=== PATIENT | female | born 1945 | race Caucasian/White ===

== ENCOUNTER 2016-12-02 09:22 | Observation (INO) | payer MEDICARE ==
[2016-12-02] MEDS ORDERED: SODIUM CHLORIDE 0.9% 1,000 ML IV STA ×2 (09:32)
--- NOTE | 2016-12-02 09:32 | ED ---
General Adult HPI - General Chief complaint: Dizziness Stated complaint: RT SIDE NECK PAIN, DIZZINESS Time Seen by Provider: 12/02/16 09:31 Source: patient, RN notes reviewed, old records reviewed Mode of arrival: wheelchair Limitations: no limitations - History of Present Illness Initial comments: This is a 71-year-old female the ER for reevaluation dizziness, room spinning, nausea. Weakness feels like she'll pass out. Patient is no prior history of similar dizziness or complaints. Pains and symptoms are yesterday she is going to the hospital at the time but did not calm. Patient describes a thought of getting better she had to come be checked out. No neurological deficits, no headache - Related Data Home Medications Medication Instructions Recorded Confirmed Albuterol Inhaler [Ventolin Hfa 2 puff INHALATION RT-Q6H PRN 04/23/15 12/02/16 Inhaler] Citalopram Hydrobromide [CeleXA] 20 mg PO DAILY 04/23/15 12/02/16 Lisinopril [Zestril] 5 mg PO DAILY 04/23/15 12/02/16 Omeprazole [PriLOSEC] 20 mg PO AC-BRKFST 04/23/15 12/02/16 metFORMIN HCL [Glucophage] 850 mg PO AC-SUPPER 04/23/15 12/02/16 Calcium Carbonate [Calcium] 600 mg PO DAILY 12/02/16 12/02/16 [place]-3 Fatty Acids/Fish Oil [Fish 1 cap PO DAILY 12/02/16 12/02/16 Oil 1,000 mg Softgel] Rivaroxaban [Xarelto] 20 mg PO HS 12/02/16 12/02/16 Simvastatin [Zocor] 40 mg PO HS 12/02/16 12/02/16 Verapamil [Isoptin] 40 mg PO BID 12/02/16 12/02/16 tiZANidine HCL [Zanaflex] 4 mg PO BID PRN 12/02/16 12/02/16 Allergies Allergy/AdvReac Type Severity Reaction Status Date / Time latex Allergy Rash/Hives Verified 12/02/16 09:52 Penicillins Allergy Rash/Hives Verified 12/02/16 09:52 Review of Systems ROS Statement: Those systems with pertinent positive or pertinent negative responses have been documented in the HPI. ROS Other: All systems not noted in ROS Statement are negative. Past Medical History Past Medical History: Asthma, COPD, CVA/TIA, Diabetes Mellitus, Deep Vein Thrombosis (DVT), Hyperlipidemia, Hypertension, Osteoarthritis (OA), Pneumonia Additional Past Medical History / Comment(s): tan's esophagus, TIA'S X4, PSORIASES, SCIATIC NERVE PAIN, ABD ANEURYSM PT NOT SURE OF SIZE, SCIATIC NERVE PAIN, History of Any Multi-Drug Resistant Organisms: None Reported Past Surgical History: Appendectomy, Cholecystectomy, Hernia Repair, Orthopedic Surgery Additional Past Surgical History / Comment(s): vein stripping, RT CATARACT- LENS IMPLANT, orif rt wrist has plate/screws, BREAST BX NEG, ABD HERNIA, COLONOSCOPY Past Anesthesia/Blood Transfusion Reactions: No Reported Reaction Past Psychological History: Depression Smoking Status: Former smoker Past Alcohol Use History: None Reported Past Drug Use History: None Reported - Past Family History Father History Unknown: Yes Mother History Unknown: Yes General Exam Limitations: no limitations General appearance: alert, in no apparent distress Head exam: Present: atraumatic, normocephalic, normal inspection Eye exam: Present: normal appearance, PERRL, EOMI. Absent: scleral icterus, conjunctival injection, periorbital swelling ENT exam: Present: normal exam, mucous membranes moist Neck exam: Present: normal inspection. Absent: tenderness, meningismus, lymphadenopathy Respiratory exam: Present: normal lung sounds bilaterally. Absent: respiratory distress, wheezes, rales, rhonchi, stridor Cardiovascular Exam: Present: regular rate, normal rhythm, normal heart sounds. Absent: systolic murmur, diastolic murmur, rubs, gallop, clicks GI/Abdominal exam: Present: soft, normal bowel sounds. Absent: distended, tenderness, guarding, rebound, rigid Extremities exam: Present: normal inspection, full ROM, normal capillary refill. Absent: tenderness, pedal edema, joint swelling, calf tenderness Back exam: Present: normal inspection Neurological exam: Present: alert, oriented X3, CN II-XII intact Psychiatric exam: Present: normal affect, normal mood Skin exam: Present: warm, dry, intact, normal color. Absent: rash Course Vital Signs 12/02/16 12/02/16 12/02/16 09:25 10:55 11:22 Temperature 98.0 F Pulse Rate 93 93 84 Respiratory 18 18 18 Rate Blood Pressure 190/81 102/76 121/83 O2 Sat by Pulse 95 94 L 96 Oximetry - Reevaluation(s) Reevaluation #1: 12/02/16 11:53 Spoke with patient regarding test results. She is informed that everything is normal time. That she still does not feel well, feels like she may pass out EKG Findings - EKG Comments: EKG Findings:: EKG shows normal sinus rate of 84, TN 128, QRS 84, QTC 439 Medical Decision Making - Medical Decision Making 71 female here for evaluation of near syncopal event not feeling well weakness and dizziness. CT level is normal. Patient given for neurocardiogenic observation - Lab Data Result diagrams: 12/02/16 10:06 12/02/16 10:06 Lab Results 12/02/16 12/02/16 12/02/16 Range/Units 10:06 10:06 10:06 WBC 8.8 (3.8-10.6) k/uL RBC 4.89 (3.80-5.40) m/uL Hgb 15.0 (11.4-16.0) gm/dL Hct 45.7 (34.0-46.0) % MCV 93.4 (80.0-100.0) fL MCH 30.6 (25.0-35.0) pg MCHC 32.7 (31.0-37.0) g/dL RDW 14.8 (11.5-15.5) % Plt Count 250 (150-450) k/uL Neutrophils % 67 % Lymphocytes % 21 % Monocytes % 6 % Eosinophils % 3 % Basophils % 1 % Neutrophils # 5.9 (1.3-7.7) k/uL Lymphocytes # 1.8 (1.0-4.8) k/uL Monocytes # 0.5 (0-1.0) k/uL Eosinophils # 0.2 (0-0.7) k/uL Basophils # 0.1 (0-0.2) k/uL PT (9.0-12.0) sec INR (<1.2) APTT (22.0-30.0) sec Sodium 140 (137-145) mmol/L Potassium 4.5 (3.5-5.1) mmol/L Chloride 104 (98-107) mmol/L Carbon Dioxide 24 (22-30) mmol/L Anion Gap 12 mmol/L BUN 14 (7-17) mg/dL Creatinine 0.82 (0.52-1.04) mg/dL Est GFR (MDRD) Af Amer >60 (>60 ml/min/1.73 sqM) Est GFR (MDRD) Non-Af >60 (>60 ml/min/1.73 sqM) Glucose 140 H (74-99) mg/dL Plasma Lactic Acid Jose Angel (0.7-2.0) mmol/L Calcium 10.6 H (8.4-10.2) mg/dL Phosphorus 3.1 (2.5-4.5) mg/dL Magnesium 1.7 (1.6-2.3) mg/dL Total Bilirubin 0.5 (0.2-1.3) mg/dL AST 35 (14-36) U/L ALT 58 H (9-52) U/L Alkaline Phosphatase 99 (38-126) U/L Total Creatine Kinase 64 (30-135) U/L CK-MB (CK-2) 1.2 (0.0-2.4) ng/mL CK-MB (CK-2) Rel Index 1.9 Troponin I <0.012 (0.000-0.034) ng/mL Total Protein 7.7 (6.3-8.2) g/dL Albumin 4.7 (3.5-5.0) g/dL Urine Color Urine Appearance (Clear) Urine pH (5.0-8.0) Ur Specific [place] (1.001-1.035) Urine Protein (Negative) Urine Glucose (UA) (Negative) Urine Ketones (Negative) Urine Blood (Negative) Urine Nitrite (Negative) Urine Bilirubin (Negative) Urine Urobilinogen (<2.0) mg/dL Ur Leukocyte Esterase (Negative) 12/02/16 12/02/16 12/02/16 Range/Units 10:06 10:06 11:14 WBC (3.8-10.6) k/uL RBC (3.80-5.40) m/uL Hgb (11.4-16.0) gm/dL Hct (34.0-46.0) % MCV (80.0-100.0) fL MCH (25.0-35.0) pg MCHC (31.0-37.0) g/dL RDW (11.5-15.5) % Plt Count (150-450) k/uL Neutrophils % % Lymphocytes % % Monocytes % % Eosinophils % % Basophils % % Neutrophils # (1.3-7.7) k/uL Lymphocytes # (1.0-4.8) k/uL Monocytes # (0-1.0) k/uL Eosinophils # (0-0.7) k/uL Basophils # (0-0.2) k/uL PT 11.2 (9.0-12.0) sec INR 1.1 (<1.2) APTT 24.9 (22.0-30.0) sec Sodium (137-145) mmol/L Potassium (3.5-5.1) mmol/L Chloride (98-107) mmol/L Carbon Dioxide (22-30) mmol/L Anion Gap mmol/L BUN (7-17) mg/dL Creatinine (0.52-1.04) mg/dL Est GFR (MDRD) Af Amer (>60 ml/min/1.73 sqM) Est GFR (MDRD) Non-Af (>60 ml/min/1.73 sqM) Glucose (74-99) mg/dL Plasma Lactic Acid Jose Angel 2.0 (0.7-2.0) mmol/L Calcium (8.4-10.2) mg/dL Phosphorus (2.5-4.5) mg/dL Magnesium (1.6-2.3) mg/dL Total Bilirubin (0.2-1.3) mg/dL AST (14-36) U/L ALT (9-52) U/L Alkaline Phosphatase (38-126) U/L Total Creatine Kinase (30-135) U/L CK-MB (CK-2) (0.0-2.4) ng/mL CK-MB (CK-2) Rel Index Troponin I (0.000-0.034) ng/mL Total Protein (6.3-8.2) g/dL Albumin (3.5-5.0) g/dL Urine Color Light Yellow Urine Appearance Clear (Clear) Urine pH 6.0 (5.0-8.0) Ur Specific [place] 1.007 (1.001-1.035) Urine Protein Negative (Negative) Urine Glucose (UA) Negative (Negative) Urine Ketones Negative (Negative) Urine Blood Negative (Negative) Urine Nitrite Negative (Negative) Urine Bilirubin Negative (Negative) Urine Urobilinogen <2.0 (<2.0) mg/dL Ur Leukocyte Esterase Negative (Negative) - Radiology Data Radiology results: report reviewed (CT brain negative for acute disease), image reviewed Disposition Clinical Impression: Dehydration, Near syncope, Weakness Disposition: ADMITTED IP TO THIS [facility] Condition: Fair Referrals: Hope Knowles MD [Primary Care Provider] - 1-2 days
[2016-12-02] MEDS ORDERED: MORPHINE SULFATE 4 MG/ML SYRINGE IVP STA (09:38)
[2016-12-02] MEDS ORDERED: DIAZEPAM 5 MG/ML 2 ML SYRINGE IVP STA (09:38)
[2016-12-02] MEDS ORDERED: ONDANSETRON 4 MG/2 ML VIAL IVP STA (09:38)
[2016-12-02 10:33] LABS: Basophils # (A) 0.1 k/uL (0-0.2); Basophils % (A) 1 %; CH 32.1; CHCM 34.5; Eosinophils # (A) 0.2 k/uL (0-0.7); Eosinophils % (A) 3 %; HCT 45.7 % (34.0-46.0); HDW 2.64; Luc # (Auto) 0.24; Luc % (Auto) 3; Lymphocytes # (A) 1.8 k/uL (1.0-4.8); Lymphocytes % (A) 21 %; MCH 30.6 pg (25.0-35.0); MCHC 32.7 g/dL (31.0-37.0); MCV 93.4 fL (80.0-100.0); Mean Platelet Volume 7.4; Monocytes # (A) 0.5 k/uL (0-1.0); Monocytes % (A) 6 %; Neutrophils # (A) 5.9 k/uL (1.3-7.7); Neutrophils % (A) 67 %; RBC 4.89 m/uL (3.80-5.40); RDW 14.8 % (11.5-15.5); WBC 8.8 k/uL (3.8-10.6); WBC (Perox) 8.51
[2016-12-02 10:37] LABS: INR 1.1 (<1.2); Partial Thromboplastin Time 24.9 sec (22.0-30.0); Prothrombin Time 11.2 sec (9.0-12.0)
[2016-12-02 10:39] LABS: ALT 58 U/L (9-52); AST 35 U/L (14-36); Alkaline Phosphatase 99 U/L (38-126); Anion Gap 12 mmol/L; Blood Urea Nitrogen 14 mg/dL (7-17); Calcium 10.6 mg/dL (8.4-10.2); Carbon Dioxide 24 mmol/L (22-30); Chloride 104 mmol/L (98-107); Glucose 140 mg/dL (74-99); Magnesium 1.7 mg/dL (1.6-2.3); Non-African American GFR(MDRD) >60 (>60 ml/min/1.73 sqM); Phosphorous 3.1 mg/dL (2.5-4.5); Potassium 4.5 mmol/L (3.5-5.1); Sodium 140 mmol/L (137-145); Total Bilirubin 0.5 mg/dL (0.2-1.3); Total Protein 7.7 g/dL (6.3-8.2)
[2016-12-02 10:51] LABS: Creatine Kinase 64 U/L (30-135)
--- NOTE | 2016-12-02 10:52 | CT ---
EXAMINATION TYPE: CT brain wo con DATE OF EXAM: 12/02/2016 HISTORY: Dizziness for two days CT DLP: 1090.4 mGycm. Automated Exposure Control for Dose Reduction was Utilized. TECHNIQUE: CT scan of the head is performed without contrast. COMPARISON: CT brain March 16, 2012. FINDINGS: There is no acute intracranial hemorrhage or midline shift identified. There is diffuse v entricular and sulcal prominence consistent with diffuse age-related cerebral atrophy. There is low- attenuation in the periventricular white matter consistent with chronic small vessel ischemic change. The globes are intact and the visualized sinuses are clear. IMPRESSION: No acute intracranial hemorrhage or midline shift. There is moderate diffuse age-relate d cerebral atrophy and chronic small vessel ischemic change redemonstrated. Progression in findings 2011 CT is noted.
--- NOTE | 2016-12-02 10:59 | XR ---
EXAMINATION TYPE: XR chest 2V DATE OF EXAM: 12/02/2016 COMPARISON: 04/23/2015 TECHNIQUE: PA and lateral views submitted. HISTORY: Weakness FINDINGS: Subsegmental changes along the left lower lobe. Right lung is clear. Heart size mildly prominent tabl e. Arthropathy of the shoulders. No pneumothorax or overt failure. Hypertrophic and degenerative downing ge of the spine. Hyperinflation suggests COPD. IMPRESSION: 1. Subsegmental left lower lobe atelectasis favored over pneumonia correlate clinically.
[2016-12-02 11:04] LABS: Creatine Kinase MB 1.2 ng/mL (0.0-2.4); Troponin I <0.012 ng/mL (0.000-0.034)
[2016-12-02 11:27] LABS: Appearance,Urine Clear (Clear); Bilirubin,Urine Negative (Negative); Glucose,Urine (UA) Negative (Negative); Ketones,Urine Negative (Negative); Leukocyte Esterase,Urine Negative (Negative); Nitrite,Urine Negative (Negative); Protein,Urine Negative (Negative); Specific Gravity,Urine 1.007 (1.001-1.035); UA Billing (MACRO vs. MICRO) CHEM; Urobilinogen,Urine <2.0 mg/dL (<2.0)
[2016-12-02] MEDS ORDERED: NITROGLYCERIN SL TABS 0.4 MG TAB SUBLINGUAL PRN (11:50)
[2016-12-02] MEDS: SODIUM CHLORIDE 0.9% 1,000 ML IV SCH (13:53)
[2016-12-02] MEDS ORDERED: tiZANidine 4 MG TAB PO PRN (14:42)
[2016-12-02 16:58] LABS: Creatine Kinase 126 U/L (30-135)
[2016-12-02 17:11] LABS: Creatine Kinase MB 2.2 ng/mL (0.0-2.4); Troponin I <0.012 ng/mL (0.000-0.034)
[2016-12-02] MEDS ORDERED: metFORMIN 850 MG TAB PO SCH (17:30)
[2016-12-02 18:00] LABS: Creatine Kinase 53 U/L (30-135)
[2016-12-02 18:12] LABS: Creatine Kinase MB 1.1 ng/mL (0.0-2.4); Troponin I <0.012 ng/mL (0.000-0.034)
--- NOTE | 2016-12-02 18:18 | P.HPIM ---
History of Present Illness H&P Date: 12/02/16 Chief Complaint: Dizziness This is a 71-year-old female with history of atrial fibrillation, CVA, essential hypertension, dyslipidemia comes in to the hospital with the intermittent episodes of dizziness. Patient states that she has noted the dizziness with change in position over the last 24 hours. The patient was concern for stroke as she does have a previous history of CVA comes in the hospital. At the time of my evaluation patient appears to be doing all states that she does not have any signs of dizziness headaches change in vision focal weakness nausea vomiting abdominal pain diarrhea. Patient has been compliant with her medications. A computed tomography scan of the head in the emergency room was negative for any acute abnormalities EKG shows patient is in sinus rhythm without any acute abnormalities Patient does state she does have intermittent episodes of room spinning around her had with change in position especially to the left denies having any recent URIs diminished hearing. Review of systems a 14 point review of systems was done nonpertinent was mentioned above Physical exam Gen. appearance oriented 3 in no distress Neck is supple no JVD Lungs good air entry clear to auscultation no rhonchi or wheezing Heart S1-S2 heard regular rate and rhythm no murmurs appreciated Abdomen is soft nontender no organomegaly bowel sounds are intact Neurologically cranial nerves II-12 grossly intact no focal motor or sensory deficits noted Skin no abnormalities appreciated Assessment and plan #1 dizziness secondary to peripheral vertigo #2 history of atrial fibrillation on anticoagulation, appears to be paroxysmal #3 dyslipidemia #4 history of CVA #5 DJD #6 psoriasis #7 obesity #8 clinical obstructive sleep apnea Plan Consultations will be discontinued. 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 and potentially discharge patient home thereafter. Past Medical History Past Medical History: Asthma, COPD, CVA/TIA, Diabetes Mellitus, Deep Vein Thrombosis (DVT), Hyperlipidemia, Hypertension, Osteoarthritis (OA), Pneumonia Additional Past Medical History / Comment(s): tan's esophagus, TIA'S X4, PSORIASES, SCIATIC NERVE PAIN, ABD ANEURYSM PT NOT SURE OF SIZE, SCIATIC NERVE PAIN, History of Any Multi-Drug Resistant Organisms: None Reported Past Surgical History: Appendectomy, Cholecystectomy, Hernia Repair, Orthopedic Surgery Additional Past Surgical History / Comment(s): vein stripping, RT CATARACT- LENS IMPLANT, orif rt wrist has plate/screws, BREAST BX NEG, ABD HERNIA, COLONOSCOPY Past Anesthesia/Blood Transfusion Reactions: No Reported Reaction Past Psychological History: Depression Additional Psychological History / Comment(s): PT LIVES ALONE IN MODULAR HOME THAT HS [address].. INDEPENDANT. NO HOME CARE SERVICES. HAS A GLUCOMETER. Smoking Status: Former smoker Past Alcohol Use History: None Reported Past Drug Use History: None Reported - Past Family History Father History Unknown: Yes Mother History Unknown: Yes Medications and Allergies Home Medications Medication Instructions Recorded Confirmed Type Albuterol Inhaler [Ventolin Hfa 2 puff INHALATION RT-Q6H PRN 04/23/15 12/02/16 History Inhaler] Citalopram Hydrobromide [CeleXA] 20 mg PO DAILY 04/23/15 12/02/16 History Lisinopril [Zestril] 5 mg PO DAILY 04/23/15 12/02/16 History Omeprazole [PriLOSEC] 20 mg PO AC-BRKFST 04/23/15 12/02/16 History metFORMIN HCL [Glucophage] 850 mg PO AC-SUPPER 04/23/15 12/02/16 History Calcium Carbonate [Calcium] 600 mg PO DAILY 12/02/16 12/02/16 History [place]-3 Fatty Acids/Fish Oil [Fish 1 cap PO DAILY 12/02/16 12/02/16 History Oil 1,000 mg Softgel] Rivaroxaban [Xarelto] 20 mg PO HS 12/02/16 12/02/16 History Simvastatin [Zocor] 40 mg PO HS 12/02/16 12/02/16 History Verapamil [Isoptin] 40 mg PO BID 12/02/16 12/02/16 History tiZANidine HCL [Zanaflex] 4 mg PO BID PRN 12/02/16 12/02/16 History Allergies Allergy/AdvReac Type Severity Reaction Status Date / Time latex Allergy Rash/Hives Verified 12/02/16 09:52 Penicillins Allergy Rash/Hives Verified 12/02/16 09:52 Physical Exam Vitals: Vital Signs Temp Pulse Pulse Resp BP BP Pulse Ox 12/02/16 15:55 98.9 F 70 18 98/64 98 12/02/16 14:01 98.2 F 80 18 128/84 94 L 12/02/16 13:54 98.1 F 81 18 107/82 94 L 12/02/16 13:31 98.1 F 81 18 107/82 94 L 12/02/16 13:00 76 18 107/82 98 12/02/16 12:03 80 20 101/75 98 12/02/16 11:22 84 18 121/83 96 12/02/16 10:55 93 18 102/76 94 L 12/02/16 09:25 98.0 F 93 18 190/81 95 Intake and Output 12/02/16 12/02/16 12/02/16 06:59 14:59 22:59 Other: Voiding Method Toilet Weight 90.4 kg Patient Weight 12/03/16 06:59 Weight 90.4 kg Results CBC & Chem 7: 12/02/16 10:06 12/02/16 10:06 Labs: Abnormal Lab Results - Last 24 Hours (Table) 12/02/16 Range/Units 10:06 Glucose 140 H (74-99) mg/dL Calcium 10.6 H (8.4-10.2) mg/dL ALT 58 H (9-52) U/L Microbiology - Last 24 Hours (Table) 12/02/16 11:14 Urine Culture - Preliminary Urine,Voided
[2016-12-02] MEDS: MECLIZINE 12.5 MG TAB PO PRN (19:13)
[2016-12-02] MEDS ORDERED: ATORVASTATIN 20 MG TAB PO SCH (21:00)
[2016-12-02] MEDS ORDERED: RIVAROXABAN 10 MG TAB PO SCH (21:00)
[2016-12-02] MEDS: VERAPAMIL 40 MG TAB PO SCH (21:02)
[2016-12-02 21:43] LABS: Glucose,Whole Blood 123 mg/dL (75-99)
[2016-12-03 04:25] LABS: Cholesterol 127 mg/dL (<200); HDL Cholesterol 49 mg/dL (40-60)
[2016-12-03 06:43] LABS: Glucose,Whole Blood 110 mg/dL (75-99)
[2016-12-03] MEDS ORDERED: PANTOPRAZOLE 40 MG TABLET PO SCH (07:30)
[2016-12-03] MEDS ORDERED: metFORMIN 850 MG TAB PO SCH (07:30)
[2016-12-03] MEDS: SODIUM CHLORIDE 0.9% 1,000 ML IV SCH ×2 (08:10→12:40)
[2016-12-03] MEDS: VERAPAMIL 40 MG TAB PO SCH (08:18)
[2016-12-03] MEDS ORDERED: ENOXAPARIN 40 MG/0.4 ML SYRINGE SQ SCH (09:00)
[2016-12-03] MEDS ORDERED: LISINOPRIL 5 MG TAB PO SCH (09:00)
[2016-12-03] MEDS ORDERED: CITALOPRAM HYDROBROMIDE 20 MG TAB PO SCH (09:00)
[2016-12-03] MEDS ORDERED: ASPIRIN 325 MG TAB PO SCH (09:00)
[2016-12-03 11:45] VITALS: BP 118/67; PULSE 72; RESP 16; TEMP 98.6
[2016-12-03 11:55] LABS: Glucose,Whole Blood 86 mg/dL (75-99)
[2016-12-03] MEDS: MECLIZINE 12.5 MG TAB PO PRN (12:40)
--- NOTE | 2016-12-03 19:28 | P.DS ---
Providers Date of admission: 12/02/16 11:50 Attending physician: Kalyan Cornelius Primary care physician: Hope Knowles Pertinent Studies: This is a 71-year-old female with history of atrial fibrillation, CVA, essential hypertension, dyslipidemia comes in to the hospital with the intermittent episodes of dizziness. Patient states that she has noted the dizziness with change in position over the last 24 hours. The patient was concern for stroke as she does have a previous history of CVA comes in the hospital. At the time of my evaluation patient appears to be doing all states that she does not have any signs of dizziness headaches change in vision focal weakness nausea vomiting abdominal pain diarrhea. Patient has been compliant with her medications. A computed tomography scan of the head in the emergency room was negative for any acute abnormalities EKG shows patient is in sinus rhythm without any acute abnormalities Patient does state she does have intermittent episodes of room spinning around her had with change in position especially to the left denies having any recent URIs diminished hearing. Review of systems a 14 point review of systems was done nonpertinent was mentioned above Physical exam Gen. appearance oriented 3 in no distress Neck is supple no JVD Lungs good air entry clear to auscultation no rhonchi or wheezing Heart S1-S2 heard regular rate and rhythm no murmurs appreciated Abdomen is soft nontender no organomegaly bowel sounds are intact Neurologically cranial nerves II-12 grossly intact no focal motor or sensory deficits noted Skin no abnormalities appreciated Assessment and plan #1 dizziness secondary to peripheral vertigo #2 history of atrial fibrillation on anticoagulation, appears to be paroxysmal #3 dyslipidemia #4 history of CVA #5 DJD #6 psoriasis #7 obesity #8 clinical obstructive sleep apnea Patient appears to have peripheral vertigo after receiving Antivert patient is stable denies having any recurrent complaints was able to family without much difficulty this morning I did perform Arya-Hallpike maneuver without any recurrence of symptoms She'll be given 1 dose of Solu-Medrol Patient was discharged on Antivert 25 mg 3 times a day Patient Condition at Discharge: Fair Plan - Discharge Summary New Discharge Prescriptions: New Meclizine [Antivert] 25 mg PO TID PRN #30 tab PRN Reason: vertigo Continue metFORMIN HCL [Glucophage] 850 mg PO AC-SUPPER Omeprazole [PriLOSEC] 20 mg PO AC-BRKFST Lisinopril [Zestril] 5 mg PO DAILY Albuterol Inhaler [Ventolin Hfa Inhaler] 2 puff INHALATION RT-Q6H PRN PRN Reason: Shortness Of Breath Citalopram Hydrobromide [CeleXA] 20 mg PO DAILY Verapamil [Isoptin] 40 mg PO BID Simvastatin [Zocor] 40 mg PO HS Rivaroxaban [Xarelto] 20 mg PO HS [place]-3 Fatty Acids/Fish Oil [Fish Oil 1,000 mg Softgel] 1 cap PO DAILY Calcium Carbonate [Calcium] 600 mg PO DAILY tiZANidine HCL [Zanaflex] 4 mg PO BID PRN PRN Reason: Pain Discharge Medication List Albuterol Inhaler [Ventolin Hfa Inhaler] 2 puff INHALATION RT-Q6H PRN 04/23/15 [ History] Citalopram Hydrobromide [CeleXA] 20 mg PO DAILY 04/23/15 [History] Lisinopril [Zestril] 5 mg PO DAILY 04/23/15 [History] Omeprazole [PriLOSEC] 20 mg PO AC-BRKFST 04/23/15 [History] metFORMIN HCL [Glucophage] 850 mg PO AC-SUPPER 04/23/15 [History] Calcium Carbonate [Calcium] 600 mg PO DAILY 12/02/16 [History] [place]-3 Fatty Acids/Fish Oil [Fish Oil 1,000 mg Softgel] 1 cap PO DAILY [History] Rivaroxaban [Xarelto] 20 mg PO HS 12/02/16 [History] Simvastatin [Zocor] 40 mg PO HS 12/02/16 [History] Verapamil [Isoptin] 40 mg PO BID 12/02/16 [History] tiZANidine HCL [Zanaflex] 4 mg PO BID PRN 12/02/16 [History] Meclizine [Antivert] 25 mg PO TID PRN #30 tab 12/03/16 [Rx] Follow up Appointment(s)/Referral(s): Hope Knowles MD [Primary Care Provider] - 1-2 days Patient Instructions/Handouts: Vertigo (GEN) Discharge Disposition: HOME SELF-CARE
== END 2016-12-03 14:34 | disposition home or self-care (01) ==
LOC: EC 09:22 → 3OBS 11:50
PROVIDERS: ADMIT Hospitalist; ATTEND Hospitalist
DX: H81.399 Other peripheral vertigo, unspecified ear (principal); I48.91 Unspecified atrial fibrillation; E78.5 Hyperlipidemia, unspecified; I10 Essential (primary) hypertension; E66.9 Obesity, unspecified; Z68.36 Body mass index [BMI] 36.0-36.9, adult; E86.0 Dehydration; Z86.73 Personal history of transient ischemic attack (TIA), and cerebral infarction without residual deficits; Z79.01 Long term (current) use of anticoagulants; M19.90 Unspecified osteoarthritis, unspecified site; L40.9 Psoriasis, unspecified; G47.33 Obstructive sleep apnea (adult) (pediatric); J45.909 Unspecified asthma, uncomplicated; J44.9 Chronic obstructive pulmonary disease, unspecified; E11.9 Type 2 diabetes mellitus without complications; F32.9 Major depressive disorder, single episode, unspecified; K22.70 Barrett's esophagus without dysplasia; M54.30 Sciatica, unspecified side; Z87.01 Personal history of pneumonia (recurrent); Z86.718 Personal history of other venous thrombosis and embolism; Z87.891 Personal history of nicotine dependence; Z79.899 Other long term (current) drug therapy; Z79.84 Long term (current) use of oral hypoglycemic drugs; Z88.0 Allergy status to penicillin; Z91.040 Latex allergy status
CPT/HCPCS: 99285; 96374; 96375 ×2; 96361 ×5; 36415; 93005; 80061; 80053; 82550; 82553; 83605; 83735; 84100; 84484; 85025; 85610; 85730; 81003; 87086; 71020; 70450; G0378 ×2; J2270; J2405

== ENCOUNTER 2017-07-22 15:34 | Observation (INO) | payer MEDICARE ==
[2017-07-22] MEDS ORDERED: SODIUM CHLORIDE 0.9% 1,000 ML IV STA (15:48)
[2017-07-22] MEDS ORDERED: PANTOPRAZOLE 40 MG/10 ML VIAL IVP STA (15:48)
[2017-07-22] MEDS ORDERED: MORPHINE SULFATE 4 MG/0.8 ML SYRINGE (INJ) IVP STA (15:48)
[2017-07-22] MEDS ORDERED: RX INFO: IV CONTRAST WAS GIVEN 1 EACH MISC MISCELLANE PRN (15:49)
--- NOTE | 2017-07-22 15:53 | ED ---
General Adult HPI - General Chief complaint: GI Bleed Stated complaint: abd pain, blood in stool Time Seen by Provider: 07/22/17 15:41 Source: patient, RN notes reviewed Mode of arrival: wheelchair Limitations: no limitations - History of Present Illness Initial comments: Patient is a pleasant 72-year-old female presenting to the emergency department with abdominal discomfort. Onset was yesterday. Patient had several episodes of bowel movements with associated blood. Patient had a loose bowel movement this morning without blood. Discomfort has been waxing and waning. Discomfort is somewhat diffuse throughout the abdomen and described as cramping. No nausea vomiting. No fevers. No history of similar symptoms previously. Patient is on Xarelto for history of atrial fibrillation. - Related Data Home Medications Medication Instructions Recorded Confirmed Albuterol Inhaler [Ventolin Hfa 2 puff INHALATION RT-Q6H PRN 04/23/15 07/22/17 Inhaler] Lisinopril [Zestril] 5 mg PO DAILY 04/23/15 07/22/17 Omeprazole [PriLOSEC] 20 mg PO AC-BRKFST 04/23/15 07/22/17 metFORMIN HCL [Glucophage] 850 mg PO AC-SUPPER 04/23/15 07/22/17 Calcium Carbonate [Calcium] 600 mg PO HS 12/02/16 07/22/17 [place]-3 Fatty Acids/Fish Oil [Fish 1 cap PO DAILY 12/02/16 07/22/17 Oil 1,000 mg Softgel] Rivaroxaban [Xarelto] 20 mg PO HS 12/02/16 07/22/17 Simvastatin [Zocor] 40 mg PO HS 12/02/16 07/22/17 Verapamil [Isoptin] 40 mg PO BID 12/02/16 07/22/17 Aspirin EC [Ecotrin Low Dose] 81 mg PO DAILY 07/22/17 07/22/17 Cholecalciferol [Vitamin D3] 1,000 unit PO DAILY 07/22/17 07/22/17 Allergies Allergy/AdvReac Type Severity Reaction Status Date / Time latex Allergy Rash/Hives Verified 07/22/17 16:11 Penicillins Allergy Rash/Hives Verified 07/22/17 16:11 Review of Systems ROS Statement: Those systems with pertinent positive or pertinent negative responses have been documented in the HPI. ROS Other: All systems not noted in ROS Statement are negative. Constitutional: Denies: fever Eyes: Denies: eye pain ENT: Denies: ear pain Respiratory: Denies: cough, dyspnea Cardiovascular: Denies: chest pain Endocrine: Reports: fatigue Gastrointestinal: Reports: abdominal pain, hematochezia. Denies: nausea, vomiting Genitourinary: Denies: dysuria Musculoskeletal: Denies: back pain Skin: Denies: rash Neurological: Denies: weakness Past Medical History Past Medical History: Asthma, COPD, CVA/TIA, Diabetes Mellitus, Deep Vein Thrombosis (DVT), Hyperlipidemia, Hypertension, Osteoarthritis (OA), Pneumonia Additional Past Medical History / Comment(s): tan's esophagus, TIA'S X4, PSORIASES, SCIATIC NERVE PAIN, ABD ANEURYSM PT NOT SURE OF SIZE, SCIATIC NERVE PAIN, History of Any Multi-Drug Resistant Organisms: None Reported Past Surgical History: Appendectomy, Cholecystectomy, Hernia Repair, Orthopedic Surgery Additional Past Surgical History / Comment(s): vein stripping, RT CATARACT- LENS IMPLANT, orif rt wrist has plate/screws, BREAST BX NEG, ABD HERNIA, COLONOSCOPY Past Anesthesia/Blood Transfusion Reactions: No Reported Reaction Past Psychological History: No Psychological Hx Reported Smoking Status: Former smoker Past Alcohol Use History: None Reported Past Drug Use History: None Reported - Past Family History Father History Unknown: Yes Mother History Unknown: Yes General Exam Limitations: no limitations General appearance: alert, in no apparent distress Head exam: Present: atraumatic Eye exam: Present: normal appearance, PERRL ENT exam: Present: normal oropharynx Neck exam: Present: normal inspection Respiratory exam: Present: normal lung sounds bilaterally Cardiovascular Exam: Present: regular rate, normal rhythm GI/Abdominal exam: Present: soft. Absent: distended, tenderness Rectal exam: Present: normal inspection Extremities exam: Present: normal inspection Neurological exam: Present: alert Psychiatric exam: Present: normal affect, normal mood Skin exam: Present: normal color Course Vital Signs 07/22/17 15:36 Temperature 98.4 F Pulse Rate 102 H Respiratory 18 Rate Blood Pressure 144/84 O2 Sat by Pulse 92 L Oximetry EKG Findings - EKG Comments: EKG Findings:: Normal sinus rhythm 91. ID 120. QRS 74. QT 362. QTC 445. Normal axis. Normal QRS. No acute ST change. Medical Decision Making - Medical Decision Making patient reevaluated and resting comfortably in bed. Patient and family updated on results and plan. Specifically patient and family were updated on aneurysm and need for follow-up evaluation regarding this. Dr. Cornelius has been paged for admission for Dr. Knowles. - Lab Data Result diagrams: 07/22/17 15:50 07/22/17 15:50 Lab Results 07/22/17 07/22/17 07/22/17 Range/Units 15:50 15:50 15:50 WBC 10.9 H (3.8-10.6) k/uL RBC 5.11 (3.80-5.40) m/uL Hgb 14.9 (11.4-16.0) gm/dL Hct 45.7 (34.0-46.0) % MCV 89.3 (80.0-100.0) fL MCH 29.1 (25.0-35.0) pg MCHC 32.6 (31.0-37.0) g/dL RDW 13.4 (11.5-15.5) % Plt Count 245 (150-450) k/uL Neutrophils % 71 % Lymphocytes % 18 % Monocytes % 6 % Eosinophils % 2 % Basophils % 0 % Neutrophils # 7.8 H (1.3-7.7) k/uL Lymphocytes # 2.0 (1.0-4.8) k/uL Monocytes # 0.7 (0-1.0) k/uL Eosinophils # 0.2 (0-0.7) k/uL Basophils # 0.0 (0-0.2) k/uL PT (9.0-12.0) sec INR (<1.2) APTT (22.0-30.0) sec Sodium 136 L (137-145) mmol/L Potassium 4.3 (3.5-5.1) mmol/L Chloride 98 (98-107) mmol/L Carbon Dioxide 28 (22-30) mmol/L Anion Gap 10 mmol/L BUN 22 H (7-17) mg/dL Creatinine 0.80 (0.52-1.04) mg/dL Est GFR (CKD-EPI)AfAm 86 (>60 ml/min/1.73 sqM) Est GFR (CKD-EPI)NonAf 75 (>60 ml/min/1.73 sqM) Glucose 101 H (74-99) mg/dL Calcium 10.3 H (8.4-10.2) mg/dL Total Bilirubin 0.5 (0.2-1.3) mg/dL AST 30 (14-36) U/L ALT 45 (9-52) U/L Alkaline Phosphatase 123 (38-126) U/L Total Creatine Kinase 45 (30-135) U/L CK-MB (CK-2) 0.8 (0.0-2.4) ng/mL CK-MB (CK-2) Rel Index 1.8 Troponin I <0.012 (0.000-0.034) ng/mL Total Protein 6.6 (6.3-8.2) g/dL Albumin 4.2 (3.5-5.0) g/dL Stool Occult Blood (Negative) Blood Type Blood Type Recheck Antibody Screen Spec Expiration Date 07/22/17 07/22/17 07/22/17 Range/Units 15:50 15:50 15:50 WBC (3.8-10.6) k/uL RBC (3.80-5.40) m/uL Hgb (11.4-16.0) gm/dL Hct (34.0-46.0) % MCV (80.0-100.0) fL MCH (25.0-35.0) pg MCHC (31.0-37.0) g/dL RDW (11.5-15.5) % Plt Count (150-450) k/uL Neutrophils % % Lymphocytes % % Monocytes % % Eosinophils % % Basophils % % Neutrophils # (1.3-7.7) k/uL Lymphocytes # (1.0-4.8) k/uL Monocytes # (0-1.0) k/uL Eosinophils # (0-0.7) k/uL Basophils # (0-0.2) k/uL PT 11.4 (9.0-12.0) sec INR 1.2 H (<1.2) APTT 27.2 (22.0-30.0) sec Sodium (137-145) mmol/L Potassium (3.5-5.1) mmol/L Chloride (98-107) mmol/L Carbon Dioxide (22-30) mmol/L Anion Gap mmol/L BUN (7-17) mg/dL Creatinine (0.52-1.04) mg/dL Est GFR (CKD-EPI)AfAm (>60 ml/min/1.73 sqM) Est GFR (CKD-EPI)NonAf (>60 ml/min/1.73 sqM) Glucose (74-99) mg/dL Calcium (8.4-10.2) mg/dL Total Bilirubin (0.2-1.3) mg/dL AST (14-36) U/L ALT (9-52) U/L Alkaline Phosphatase (38-126) U/L Total Creatine Kinase (30-135) U/L CK-MB (CK-2) (0.0-2.4) ng/mL CK-MB (CK-2) Rel Index Troponin I (0.000-0.034) ng/mL Total Protein (6.3-8.2) g/dL Albumin (3.5-5.0) g/dL Stool Occult Blood Positive H (Negative) Blood Type O Positive Blood Type Recheck No Antibody Screen NEGATIVE Spec Expiration Date 07/25/2017 - 6217 - Radiology Data Radiology results: report reviewed (computed tomography scan of the abdomen and pelvis shows no acute abnormality. There is aneurysm of the aorta increased from previous. Right common iliac aneurysm.) Disposition Clinical Impression: Lower gastrointestinal hemorrhage, Abdominal pain Disposition: ADMITTED IP TO THIS HOSP Is patient prescribed a controlled substance at d/c from ED?: No Referrals: Hope Knowles MD [Primary Care Provider] - 1-2 days Decision Time: 17:05
[2017-07-22 16:05] LABS: Basophils % (A) 0 %; Eosinophils # (A) 0.2 k/uL (0-0.7); Eosinophils % (A) 2 %; HCT 45.7 % (34.0-46.0); HGB 14.9 gm/dL (11.4-16.0); Lymphocytes % (A) 18 %; MCH 29.1 pg (25.0-35.0); MCHC 32.6 g/dL (31.0-37.0); MCV 89.3 fL (80.0-100.0); Mean Platelet Volume 7.1; Monocytes # (A) 0.7 k/uL (0-1.0); Monocytes % (A) 6 %; Neutrophils # (A) 7.8 k/uL (1.3-7.7); Neutrophils % (A) 71 %; Platelet Count 245 k/uL (150-450); RBC 5.11 m/uL (3.80-5.40); RDW 13.4 % (11.5-15.5); WBC 10.9 k/uL (3.8-10.6)
[2017-07-22 16:14] LABS: Albumin 4.2 g/dL (3.5-5.0); Calcium 10.3 mg/dL (8.4-10.2); Potassium 4.3 mmol/L (3.5-5.1); Total Bilirubin 0.5 mg/dL (0.2-1.3); Total Protein 6.6 g/dL (6.3-8.2)
[2017-07-22 16:15] LABS: INR 1.2 (<1.2); Partial Thromboplastin Time 27.2 sec (22.0-30.0); Prothrombin Time 11.4 sec (9.0-12.0)
[2017-07-22 16:23] LABS: Creatine Kinase 45 U/L (30-135)
[2017-07-22 16:37] LABS: Creatine Kinase MB 0.8 ng/mL (0.0-2.4); Troponin I <0.012 ng/mL (0.000-0.034)
--- NOTE | 2017-07-22 16:54 | CT ---
EXAMINATION TYPE: CT abdomen pelvis w con DATE OF EXAM: 07/22/2017 COMPARISON: 07/15/2012 HISTORY: Generalized pain with bloody stools CT DLP: 1618 mGycm Automated exposure control for dose reduction was used. TECHNIQUE: Helical acquisition of images was performed from the lung bases through the pelvis. CONTRAST: Performed without Oral Contrast and with IV Contrast, patient injected with 100 mL of Isovue 300. FINDINGS: The lung bases are clear. There is no pleural effusion. Heart size is normal. There is no pericardial effusion. Liver and spleen appear normal. Bile ducts are not dilated. Gallbladder is absent. There is no sign o f pancreatic mass. There is no adrenal mass. Kidneys show satisfactory contrast opacification. There is no hydronephrosi s. There is no retroperitoneal adenopathy. Abdominal aorta is atheromatous. There is mild aneurysm of the lower abdominal aorta that measures up to 4 cm. There is aneurysm of the right common iliac chase ry that measures 3.4 cm. There is some thrombus and calcification in the right iliac artery aneurysm. There is no ascites. There is no sign of free air. There are sigmoid diverticula. There is no sign of diverticulitis. Bladder distends smoothly. There is no sign of a pelvic mass. I see no intestinal wa ll thickening. There are no dilated loops. There are spondylotic changes in the thoracic and lumbar s pine. I see no compression fracture. Appendix is not seen. IMPRESSION: THERE IS ANEURYSM OF THE ABDOMINAL AORTA THAT IS INCREASED 5 MM COMPARED TO OLD EXAM. THERE IS RIGHT COMMON ILIAC ARTERY ANEURYSM ALSO INCREASED 3 MM. MILD SIGMOID DIVERTICULOSIS. NO SIGN OF ACUTE ABDOM EN AND PELVIS.
[2017-07-22] MEDS ORDERED: NALOXONE 0.4 MG/ML 1 ML VIAL IV PRN (17:06)
[2017-07-22] MEDS ORDERED: MORPHINE SULFATE 4 MG/0.8 ML SYRINGE (INJ) IV PRN (17:06)
[2017-07-22] MEDS ORDERED: SODIUM CHLORIDE 0.9% 1,000 ML IV SCH (17:15)
[2017-07-22 20:39] VITALS: BP 118/63; PULSE 84; RESP 16; TEMP 97.9
[2017-07-22] MEDS ORDERED: ALBUTEROL NEBULIZED 2.5 MG/3 ML INHALATION PRN (20:44)
[2017-07-22] MEDS ORDERED: ATORVASTATIN 20 MG TAB PO SCH (21:00)
[2017-07-22] MEDS ORDERED: RIVAROXABAN 20 MG TAB PO SCH (21:00)
[2017-07-22] MEDS ORDERED: VERAPAMIL 40 MG TAB PO SCH (21:00)
[2017-07-22] MEDS ORDERED: CALCIUM CARBONATE 500 MG CHEWABLE PO SCH (21:00)
--- NOTE | 2017-07-22 22:44 | HP ---
HISTORY AND PHYSICAL DATE OF SERVICE: 07/22/2017 CHIEF COMPLAINT: GI bleed. HISTORY OF PRESENT ILLNESS: This 72-year-old woman with a past medical history of multiple medical problems, including atrial fibrillation, history of CVA, DJD, psoriasis, obesity, being followed by Dr. Knowles in the outpatient setting, was noted to have GI bleed. The patient noted blood in her stools last night; today, also, the patient had minimal bleeding. The patient also was having abdominal discomfort which was waxing and waning. She came to [facility] and was admitted for further evaluation and treatment. Abdominal/pelvis CT scan was done in the ER which showed aneurysm of the abdominal aorta that had increased to 5 mm compared to the previous exam, and right common iliac artery was also noted. Aneurysm is mild; measures up to 4 cm at this time. Otherwise there is no history of any fever, rigor or chills. No history of headache, loss of consciousness, seizures. PAST MEDICAL HISTORY: 1. History of atrial flutter. 2. Asthma. 3. COPD. 4. CVA. 5. Diabetes mellitus. 6. DVT. 7. History of GERD. 8. Hypertension. 9. Hyperlipidemia. 10.History of DJD. HOME MEDICATIONS: 1. Metformin 850 mg p.o. with supper. 2. Zocor 40 mg at bedtime. 3. Xarelto 20 mg at bedtime. 4. Calcium 600 mg at bedtime. 5. Ventolin 2 puffs q.6 p.r.n. 6. Isoptin 40 mg b.i.d. 7. [place]-3 fatty acids daily. 8. Zestril 5 mg p.o. daily. 9. Prilosec 20 mg with breakfast. 10.Vitamin D3 1000 daily. 11.Ecotrin 81 mg daily. ALLERGIES: LATEX and PENICILLIN. FAMILY HISTORY: History of myocardial infarction in the family. SOCIAL HISTORY: Previous history of smoking. No current smoking or alcohol intake. REVIEW OF SYSTEMS: ENT: Diminished hearing. Diminished vision. CARDIOVASCULAR SYSTEM: No angina, palpitations. RESPIRATORY SYSTEM: No cough, hemoptysis. GI: As mentioned earlier. : No dysuria or retention. NERVOUS SYSTEM: No numbness, weakness. ALLERGY/IMMUNOLOGY: No asthma, hayfever. MUSCULOSKELETAL: As mentioned earlier. HEMATOLOGY/ONCOLOGY: No history of anemia. ENDOCRINE: Diabetes mellitus. CONSTITUTIONAL: As mentioned earlier. DERMATOLOGY: Negative. RHEUMATOLOGY: Negative. PSYCHIATRY: As mentioned earlier. PHYSICAL EXAMINATION: Alert and oriented x3. Pulse 84, blood pressure 118/63, respiration 16, temperature 97.9, pulse ox 94% on room air. HEENT: Conjunctivae normal. NECK: No jugular venous distention. CARDIOVASCULAR SYSTEM: S1, S2 muffled. RESPIRATORY SYSTEM: Breath sounds diminished at the bases. A few scattered rhonchi. No crackles. ABDOMEN: Soft. Mild diffuse discomfort on palpation. No guarding. No rigidity. No mass palpable. LEGS: No edema. No swelling. NERVOUS SYSTEM: Higher functions as mentioned earlier. Moves all 4 limbs. No focal motor or sensory deficit. LYMPHATICS: No lymph node palpable in neck, axillae or groin. SKIN: No ulcer, rash, bleeding. LABS: WBC 10.9, hemoglobin 14.9, calcium 10.3. Stool OB is positive. ASSESSMENT: 1. Lower gastrointestinal bleeding for evaluation. 2. Abdominal aortic aneurysm. 3. Hyponatremia. 4. Increased white count. 5. Atrial flutter. 6. History of asthma and chronic obstructive pulmonary disease. 7. Diabetes mellitus, type 2. 8. History of deep venous thrombosis. 9. Hyperlipidemia. 10.Hypertension. 11.History of pneumonia. 12.History of syncope. 13.History of Pozo's esophagus. RECOMMENDATIONS AND DISCUSSION: In this 72-year-old woman who presented with multiple complex medical issues, we will monitor the patient closely, continue the current medications, continue with symptomatic treatment. Will hold the Xarelto and antiplatelet agents and resume the rest of the medications, Protonix. Gastroenterology consultation. Repeat labs. Otherwise, I would also recommend a vascular surgery consultation. Dr. Pineda also will be consulted. We will follow the patient closely. Prognosis is guarded because of multiple complex medical issues. Discussed with the patient, who understands and agrees. Further recommendations to follow. A copy of this dictation is being forwarded to Dr. Knowles, who is the primary physician. MMSCOOBYL / CYNDIN: [id number] /
[2017-07-23] MEDS ORDERED: PANTOPRAZOLE 40 MG TABLET PO SCH (07:30)
[2017-07-23] MEDS ORDERED: ASPIRIN 81 MG PO SCH (09:00)
[2017-07-23] MEDS ORDERED: PANTOPRAZOLE 40 MG/10 ML VIAL IV SCH (09:00)
[2017-07-23] MEDS ORDERED: LISINOPRIL 5 MG TAB PO SCH (09:00)
[2017-07-23] MEDS ORDERED: NON-FORMULARY DRUG (Omega-3 Fatty Acids/Fish Oil [Fish Oil 1,000 Mg Softgel] 1 CAP) PO SCH (09:00)
[2017-07-23] MEDS ORDERED: CHOLECALCIFEROL 1,000 UNIT TAB PO SCH (12:00)
[2017-07-23] MEDS ORDERED: metFORMIN 850 MG TAB PO SCH (17:30)
--- NOTE | 2017-08-02 06:33 | DS ---
DISCHARGE SUMMARY FINAL DIAGNOSES: 1. Lower gastrointestinal bleeding for evaluation. 2. Abdominal aortic aneurysm. 3. Hyponatremia. 4. Increased WBC. 5. Atrial flutter. DISCHARGE DISPOSITION: The patient will be transferred to [facility]. HISTORY OF PRESENT ILLNESS: This 72-year-old woman with a past medical history of multiple medical problems is being followed by Dr. Knowles in the outpatient setting admitted with GI bleed. Abdominal aortic aneurysm was noted. Because of concerns of recent change in the size, Dr. Pineda was consulted and Dr. Pineda recommend the patient be transferred from [facility]. The patient is transferred to Dr. Krystyna Bronson. Please refer to the multiple progress notes and other details for more information. Otherwise the patient's prognosis remains guarded throughout the hospital stay. MMODL / IJN: [id number] /
== END 2017-07-23 03:00 | disposition other institution (70) ==
LOC: EC 15:34 → 5MS5E 17:07
PROVIDERS: ADMIT Hospitalist; ATTEND Hospitalist
DX: K92.1 Melena (principal); I48.91 Unspecified atrial fibrillation; E11.9 Type 2 diabetes mellitus without complications; J44.9 Chronic obstructive pulmonary disease, unspecified; I71.4 Abdominal aortic aneurysm, without rupture; I48.92 Unspecified atrial flutter; L40.9 Psoriasis, unspecified; E66.9 Obesity, unspecified; Z68.32 Body mass index [BMI] 32.0-32.9, adult; E87.1 Hypo-osmolality and hyponatremia; E78.5 Hyperlipidemia, unspecified; M19.90 Unspecified osteoarthritis, unspecified site; I10 Essential (primary) hypertension; K21.9 Gastro-esophageal reflux disease without esophagitis; K22.70 Barrett's esophagus without dysplasia; D72.829 Elevated white blood cell count, unspecified; Z90.49 Acquired absence of other specified parts of digestive tract; Z98.41 Cataract extraction status, right eye; Z96.1 Presence of intraocular lens; Z79.01 Long term (current) use of anticoagulants; Z79.899 Other long term (current) drug therapy; Z88.0 Allergy status to penicillin; Z91.040 Latex allergy status; Z87.891 Personal history of nicotine dependence; Z87.01 Personal history of pneumonia (recurrent); Z79.84 Long term (current) use of oral hypoglycemic drugs; Z82.49 Family history of ischemic heart disease and other diseases of the circulatory system; Z86.718 Personal history of other venous thrombosis and embolism; Z86.73 Personal history of transient ischemic attack (TIA), and cerebral infarction without residual deficits
CPT/HCPCS: 96374; 96375; 99285; 36415; 93005; 86900; 86901; 80053; 82550; 82553; 84484; 85025; 85610; 85730; 86850; 82272; 74177; G0378 ×2; C9113; Q9967; J2270

== ENCOUNTER 2017-10-12 07:46 | Day surgery (SDC) | payer MEDICARE ==
[2017-10-10 15:29] VITALS: BMI 32.9
[~2017-10-12 07:46] MED LIST: LACTATED RINGERS 1,000 ML IV SCH
[2017-10-12 08:22] VITALS: RESP 20; TEMP 98.5
[2017-10-12 08:32] LABS: Glucose,Whole Blood 104 mg/dL (75-99)
[2017-10-12] MEDS ORDERED: LACTATED RINGERS 1,000 ML IV ONE ×2 (08:35)
[2017-10-12] MEDS ORDERED: PROPOFOL 10 MG/ML 20 ML VIAL IV ONE (08:35)
[2017-10-12 09:44] VITALS: BP 118/76; PULSE 79
--- NOTE | 2017-10-12 09:53 | P.PCN ---
Date of Procedure: 10/12/17 Procedure(s) Performed: BRIEF HISTORY: Patient is a 72-year-old pleasant mL, scheduled for an elective colonoscopy as a part of evaluation of prior history of colon polyps. Patient was recently admitted to the [facility] with acute lower GI bleed and underwent a colonoscopy in June 2012 and the patient was noted to have a sigmoid polyp that was partially removed by hot biopsy and the pathology revealed tubular villous adenoma.. She is hence scheduled for repeat surveillance colonoscopy today to ensure complete polypectomy. PROCEDURE PERFORMED: Colonoscopy with snare polypectomy. PREOPERATIVE DIAGNOSIS: C history of olon polyps. IV sedation per Anesthesia. PROCEDURE: After informed consent was obtained, the patient, was brought into the endoscopy unit. IV sedation was administered by Anesthesia under continuous monitoring. Digital rectal examination was normal. Initially the Olympus CF- 160 flexible video colonoscope was then inserted in the rectum, gradually advanced into the cecum without any difficulty. Careful examination was performed as the scope was gradually being withdrawn. Ileocecal valve and the appendiceal orifice were visualized and appeared normal. Prep was excellent. In the base of the cecum there was a 5 mm sessile polyp removed by snare polypectomy. In the ascending colon there was another 5 mL sessile polyp removed by snare polypectomy. Mucosa of the cecum, ascending colon, transverse colon, descending colon, sigmoid colon, and rectum appeared normal. Moderate sigmoid diverticulosis seen. The sigmoid colon was carefully examined and no residual polyp was identified. Retroflexion was performed in the rectum and no lesions were seen. The patient tolerated the procedure well. IMPRESSION: 5 mm sessile cecal polyp status post polypectomy 5 mm sessile ascending colon polyp status post polypectomy Moderate sigmoid diverticulosis RECOMMENDATIONS: Findings of this examination were discussed with the patient as well as her family. She was advised to follow with the biopsy results. She can have a repeat colonoscopy in 2-3 years..
[2017-10-12 09:58] LABS: Glucose,Whole Blood 96 mg/dL (75-99)
== END 2017-10-12 10:38 | disposition home or self-care (01) ==
LOC: ORWHC2ENDO 07:46
PROVIDERS: ATTEND Internal Medicine Gastroenterology
DX: Z12.11 Encounter for screening for malignant neoplasm of colon (principal); D12.2 Benign neoplasm of ascending colon; K63.5 Polyp of colon; I48.91 Unspecified atrial fibrillation; J45.909 Unspecified asthma, uncomplicated; K57.30 Diverticulosis of large intestine without perforation or abscess without bleeding; E11.9 Type 2 diabetes mellitus without complications; Z86.010 Personal history of colon polyps; Z88.0 Allergy status to penicillin; Z91.040 Latex allergy status; Z86.73 Personal history of transient ischemic attack (TIA), and cerebral infarction without residual deficits; M19.90 Unspecified osteoarthritis, unspecified site; Z79.01 Long term (current) use of anticoagulants; Z79.899 Other long term (current) drug therapy; Z79.84 Long term (current) use of oral hypoglycemic drugs
CPT/HCPCS: 88305; 45385; J2704

== ENCOUNTER → 2017-10-27 | Outpatient (CLI) | payer MEDICARE ==
--- NOTE | 2017-10-27 17:07 | US ---
EXAMINATION TYPE: US pelvis complete transvag DATE OF EXAM: 10/27/2017 COMPARISON: CT 07/22/2017 CLINICAL HISTORY: N95.0 Postmenopausal bleeding. TECHNIQUE: . Transabdominal sonographic images of the pelvis were acquired. Transvaginal sonographi c images were medically necessary to better assess the following anatomy: Uterus Date of LMP: Unsure, about age 46 EXAM MEASUREMENTS: Uterus: 4.8 x 2.0 x 4.2 cm Endometrial Stripe: 0.36 cm Right Ovary: 1.7 x 1.3 x 1.3 cm Left Ovary: 1.3 x 0.9 x 1.3 cm 1. Uterus: Anteverted Cystic area visualized within the myometrium measuring 0.3 cm. Area of possi ble calcification visualized measuring 0.5 cm 2. Endometrium: Measuring upper limits of normal 3. Right Ovary: wnl as visualized 4. Left Ovary: wnl as visualized 5. Bilateral Adnexa: wnl 6. Posterior cul-de-sac: wnl IMPRESSION: Negative transabdominal and transvaginal pelvic sonogram. Small calcified uterine fibroid .
== END | disposition home or self-care (01) ==
LOC: RADUSWWP 16:07
PROVIDERS: ATTEND Obstetrics & Gynecology
DX: D25.9 Leiomyoma of uterus, unspecified (principal)
CPT/HCPCS: 76830; 76856

== ENCOUNTER → 2018-02-14 | Outpatient (CLI) | payer MEDICARE ==
[2018-02-14 16:06] LABS: Blood Urea Nitrogen 16 mg/dL (7-17)
--- NOTE | 2018-02-15 10:42 | CT ---
EXAMINATION TYPE: CT angio abdomen pelvis DATE OF EXAM: 02/14/2018 COMPARISON: 07/22/2017 INDICATION: AAA w/out rupture DLP: 1864.3 mGycm, Automated exposure control for dose reduction was used. CONTRAST: 100 mL of Isovue 370. Study performed without Oral Contrast TECHNIQUE: Axial images were obtained from above the diaphragm to the pubic rami in the axial plane a t 5 mm thick sections. Reconstructed images are reviewed on the computer in the coronal plane. Three-D reconstructed images performed separately on the [employer] computer by the technologist are perf ormed and presented. FINDINGS: Limited CT sections are obtained the lung bases. The lung bases are clear. CT ABDOMEN: Contrast timing is for evaluation of the aorta which causes some limitation on evaluation of additional structures. Liver: Normal Spleen: Normal Pancreas: Normal Adrenal glands: The adrenal glands are normal. Gallbladder: Normal Kidneys: No masses are evident. No hydronephrosis is present. No cysts are present. Delayed images were obtained through the kidneys, which remain unremarkable. Aorta: Vascular calcification is within the aorta. Left renal artery appears somewhat small. Right r enal artery appears normal. Celiac axis and superior mesenteric arteries appear normal proximally. Th ere is an abdominal aortic aneurysm which is in the infrarenal region with a greatest AP diameter of 4.0 cm. This extends into the right common iliac artery within the aneurysm 3.6 cm. There is a distal left common iliac artery aneurysm measuring 2.3 cm. The distal right common iliac artery measures 1. 3 cm. The abdominal aortic aneurysm at similar measurement areas may have increased from 3.6 to 4 cm. The previous abdominal aortic aneurysm measurement of 4 cm can not be reproduced. The iliac vessel a neurysms may have increased from 3.4 to 3.6 cm on the right and stable at 2.3 cm on the left. Inferior vena cava: Normal. CT PELVIS: Loops of bowel without contrast appear unremarkable. No dilated loops of bowel are evident. Colon is normal caliber. Some fecal debris is within the colon. A few scattered diverticuli are within the sig moid colon. Appendix: Normal as visualized. Urinary bladder: Unremarkable. Genitourinary structures: Uterus appears normal. Adnexal regions are clear. Osseous structures: No suspicious lytic or sclerotic lesions. Degenerative changes are through the th oracic and lumbar spine. IMPRESSIONS: 1. Infrarenal abdominal aortic aneurysm which extends into the iliac vessels with proximal right com mon iliac artery aneurysm in the distal left common iliac artery aneurysm.
== END | disposition home or self-care (01) ==
LOC: RADCTMAIN 15:09
PROVIDERS: ATTEND Surgery
DX: I71.4 Abdominal aortic aneurysm, without rupture (principal); I72.3 Aneurysm of iliac artery
CPT/HCPCS: 82565; 84520; 36415; 74174; Q9967

== ENCOUNTER → 2018-03-07 | Outpatient (CLI) | payer MEDICARE ==
[2018-03-07 10:21] LABS: Basophils # (A) 0.1 k/uL (0-0.2); Basophils % (A) 1 %; Eosinophils # (A) 0.2 k/uL (0-0.7); Eosinophils % (A) 2 %; HCT 42.1 % (34.0-46.0); HGB 13.4 gm/dL (11.4-16.0); Lymphocytes # (A) 1.6 k/uL (1.0-4.8); Lymphocytes % (A) 17 %; MCH 30.2 pg (25.0-35.0); MCHC 31.9 g/dL (31.0-37.0); MCV 94.6 fL (80.0-100.0); Mean Platelet Volume 6.8; Monocytes # (A) 0.5 k/uL (0-1.0); Monocytes % (A) 5 %; Neutrophils % (A) 74 %; Platelet Count 243 k/uL (150-450); RBC 4.45 m/uL (3.80-5.40); RDW 14.1 % (11.5-15.5); WBC 9.5 k/uL (3.8-10.6)
[2018-03-07 10:31] LABS: Anion Gap 8 mmol/L; Blood Urea Nitrogen 15 mg/dL (7-17); Carbon Dioxide 29 mmol/L (22-30); Chloride 102 mmol/L (98-107); Potassium 4.7 mmol/L (3.5-5.1); Sodium 139 mmol/L (137-145)
[2018-03-07 10:56] LABS: Appearance,Urine Cloudy (Clear); Bilirubin,Urine Negative (Negative); Blood,Urine Negative (Negative); Color,Urine Yellow; Glucose,Urine (UA) Negative (Negative); Hyaline Casts,Urine 1 /lpf (0-2); Ketones,Urine Negative (Negative); Leukocyte Esterase,Urine Negative (Negative); Mucus,Urine Rare /hpf; Nitrite,Urine Negative (Negative); PH, Urine 5.5 (5.0-8.0); Protein,Urine Negative (Negative); RBC,Urine 1 /hpf (0-5); Specific Gravity,Urine 1.012 (1.001-1.035); Squamous Epithelial Cell,Urine 5 /hpf (0-4); Urobilinogen,Urine <2.0 mg/dL (<2.0); WBC,Urine 2 /hpf (0-5)
== END | disposition home or self-care (01) ==
LOC: LABPAT 09:39
PROVIDERS: ATTEND Surgery
DX: Z01.812 Encounter for preprocedural laboratory examination (principal); I71.4 Abdominal aortic aneurysm, without rupture
CPT/HCPCS: 36415; 80051; 81001; 82565; 84520; 85025

== ENCOUNTER 2018-03-14 05:49 | Inpatient (IN) | payer MEDICARE ==
[2018-03-10 08:44] VITALS: BMI 36.2
[~2018-03-14 05:49] MED LIST changes: +DEXAMETHASONE SOD PHOSPHATE 10 MG/ML 1 ML VIAL IV ONE; +HYDROmorphone 0.5 MG/0.5 ML SYRINGE IVP PRN; -LACTATED RINGERS 1,000 ML IV SCH; +LIDOCAINE 1% 20 ML VIAL (10MG/ML) FOR IV START INTRADERMA PRN; +MIDAZOLAM (PF) 2 MG/2 ML VIAL IV PRN; +ONDANSETRON 4 MG/2 ML VIAL IVP ONE; +SCOPOLAMINE 1.5MG/72HR PATCH TRANSDERM ONE; +SODIUM CHLORIDE 0.9% 1,000 ML in EMPTY BAG 1 BAG IV ONE; +ceFAZolin IN SWFI 2 GM/20 ML SYRINGE IVP ONE
[2018-03-14] MEDS ORDERED: CLINDAMYCIN 900 MG in DEXTROSE 5% IN WATER 50 ML IVPB STA ×2 (06:18)
[2018-03-14 06:54] LABS: Glucose,Whole Blood 112 mg/dL (75-99)
[2018-03-14] MEDS ORDERED: VANCOMYCIN 1,500 MG in SODIUM CHLORIDE 0.9% 250 ML IVPB STA (07:13)
[2018-03-14] MEDS ORDERED: VANCOMYCIN IV PER PHARMACY 1 EACH MISC MISCELLANE SCH (07:15)
[2018-03-14] MEDS ORDERED: fentaNYL (PF) 50 MCG/ML 2 ML AMP ONE (07:30)
[2018-03-14] MEDS ORDERED: GLYCOPYRROLATE 0.2 MG/ML 2 ML VIAL ONE (07:30)
[2018-03-14] MEDS ORDERED: MIDAZOLAM 2 MG/2 ML VIAL ONE (07:30)
[2018-03-14] MEDS ORDERED: HEPARIN SODIUM,PORCINE 10,000 UNIT/ML 1 ML VIAL ONE (07:30)
[2018-03-14] MEDS ORDERED: PROPOFOL 10 MG/ML 20 ML VIAL IV ONE (07:30)
[2018-03-14] MEDS ORDERED: SUCCINYLCHOLINE CHLORIDE 100 MG/5 ML SYR IV ONE (07:30)
[2018-03-14] MEDS ORDERED: ROCURONIUM BROMIDE 10 MG/ML 10 ML VIAL IV ONE (07:30)
[2018-03-14] MEDS ORDERED: NEOSTIGMINE 1 MG/ML 10 ML VIAL ONE (07:30)
[2018-03-14] MEDS ORDERED: PHENYLEPHRINE-0.9% NACL SYG 1 MG/10 ML SYRINGE ONE (07:30)
[2018-03-14] MEDS ORDERED: ePHEDrine SULFATE/0.9% NACL/PF 50 MG/5 ML SYRINGE IV ONE (07:30)
[2018-03-14] MEDS ORDERED: LIDOCAINE 1% INJ 10MG/ML (20 ML MDV) ONE (07:30)
[2018-03-14] MEDS ORDERED: PROTAMINE SULFATE 10 MG/ML 5 ML VIAL IV ONE (07:30)
[2018-03-14] MEDS ORDERED: LIDOCAINE 1% INJ 10MG/ML (20 ML MDV) SQ ONE ×2 (08:09→08:16)
[2018-03-14] MEDS ORDERED: IOPAMIDOL-250 100ML BTL INTRAARTER ONE ×2 (09:24→10:00)
[2018-03-14] MEDS ORDERED: IOPAMIDOL-250 50ML BTL INTRAARTER ONE (10:01)
[2018-03-14] MEDS ORDERED: SODIUM CHLORIDE 0.9% 500 ML 500 ML IV ONE (10:27)
--- NOTE | 2018-03-14 10:44 | P.OP ---
Date of Procedure: 03/14/18 Preoperative Diagnosis: Infrarenal abdominal aortic aneurysm, right common iliac artery aneurysm and left common iliac artery ectasia Postoperative Diagnosis: Same Procedure(s) Performed: Endovascular aortic repair with ovation Ix device Bilateral percutaneous common femoral artery access under ultrasound guidance. Percutaneous closure device 2 Implants: Ovation Ix 26 mm main body. Ovation Ix 22 x 80 mm limb with 22 x 45 mm extension Ovation Ix 16 x 100 mm limb with 16 x 45 mm extension Anesthesia: GETA Surgeon: Caleb Cannon Estimated Blood Loss (ml): 30 Urine output (ml): 300 Pathology: none sent Condition: stable Disposition: ICU Indications for Procedure: 72-year-old female with expanding common iliac artery aneurysm on the right measuring 3.6 cm as well as infrarenal abdominal aortic aneurysm. She presents today for endovascular aortic repair. Description of Procedure: After written informed consent was obtained the patient all risks benefits and competitions were described to the patient she was brought to the Outpatient Admitting Clerk and laid in a supine position after appropriate anesthetic was performed per the anesthesiologist. Timeout was performed in normal fashion antibiotics were administered prior to incision. Utilizing ultrasound bilateral common femoral arteries were visualized and shown to be patent without any significant calcification. Under ultrasound guidance bilateral common femoral arteries were accessed with a multipurpose needle. Perclose closure devices 2 per each femoral artery were then performed in normal fashion. 8-Niuean sheaths were then placed followed by 035 Glidewire into the descending thoracic aorta. Patient was then administered heparin and followed with serial ACTs for appropriate heparinization. These were then exchanged for a stiff Lunderquist wires under direct visualization of fluoroscopy. Pigtail catheter was then placed up the left femoral sheath at approximately the L2 vertebrae. A 26 mm ovation aortic body delivery system was then guided over the Lunderquist wire through the right groin and placed at approximately the L2 vertebrae. Aortogram was then obtained demonstrating good visualization of bilateral renal arteries. There was also an accessory renal artery on the left. Aortic body graft was then oriented and desired position and delivery system was then deployed in normal fashion. Once deployed the polymer was then placed and visualized under fluoroscopy. Prior to polymer being placed pigtail catheter was retracted as well as the stiff wire to allow for appropriate molding of the polymer graft. Attention was then placed to cannulating the contralateral limb. 035 Glidewire was then placed within the pigtail the pigtail catheter was removed followed by an angled glide catheter. Multiple attempts were tried without success in getting into the contralateral limb therefore an 014 wire was utilized to access the contralateral limb through the integrated crossover lumen and the delivery system. This was captured with a snare catheter from the contralateral limb and brought out to the external aspect of the sheath. Once body floss wire was then utilized with a glide catheter and placed into the contralateral limb. A lynne 014 wire was then placed within the contralateral lumen into the aorta. This was followed by the angled glide catheter after removal of the Up & Over wire. Once accessed the 014 wire was removed followed by an Amplatz stiff wire. Retrograde angiogram was then obtained to visualize the takeoff of the internal iliac artery after marking pigtail catheter was placed. A 22 x 80 mm limb was then guided for the contralateral side and deployed in normal fashion. Once completed attention was then placed to final deployment of the main body. Stiff wire was then placed back into the aorta and nosecone was retracted and recaptured in normal fashion. Deployment device was then removed and a Coda balloon was then placed and angioplasty of the polymer rings was performed. Once completed measurement was obtained on the ipsilateral limb via pigtail catheter and a retrograde angiogram. A 16 x 100 mm ipsilateral limb was then chosen and deployed in normal fashion. Once completed to 10 x 4 mm balloons were placed in bilateral femoral sheath and in a kissing balloon technique both limbs were balloon angioplastied. Once completed and gram was obtained which demonstrated a type IB endoleak at the right common iliac artery. Balloon angioplasty was then again performed and angiogram obtained demonstrating a persistent endoleak. At that time was determined to extend with a 16 x 45 mm limb which was performed in normal fashion. Overlaps were then angioplastied with a 14 x 4 mm balloon. Also the left common iliac original stent was not extending to the outer wall of the ectatic iliac and therefore an extension 22 x 45 mm contralateral limb was also deployed. Overlaps were once again ballooned with a Coda balloon. Final angiogram was then obtained demonstrating no evidence of any endoleak with good approximation of the stent graft to the iliac vessels. All guidewires and catheters were then removed and the Perclose closure devices were deployed in normal fashion. There was still persistent bleeding through the left femoral and therefore a 6-Niuean Angio-Seal was placed in normal fashion with good hemostasis. The areas were then cleansed and dressings were placed. Patient all G are well had palpable peripheral pulses at the conclusion of the procedure. She was then sent to ICU for recovery.
[2018-03-14 11:12] LABS: Glucose,Whole Blood 93 mg/dL (75-99)
[2018-03-14 12:36] LABS: Glucose,Whole Blood 113 mg/dL (75-99)
--- NOTE | 2018-03-14 15:40 | P.CNPUL ---
History of Present Illness Consult date: 03/14/18 Requesting physician: Caleb Cannon Reason for consult: other Chief complaint: Right common iliac artery aneurysm, status post endovascular aortic repair History of present illness: This is 72-year-old white female patient of Dr. Knowles in [place], with past medical history of chronic bronchial asthma, gastroesophageal reflux disease, depression, hypertension, hyperlipidemia, diabetes, who presented today for endovascular repair of the expanding common iliac artery aneurysm on the right measuring 3.6 cm as well as infrarenal abdominal aortic aneurysm. Patient is seen in the intensive care unit in the postoperative period, she is resting comfortably in bed, in no acute distress, denies any difficulty breathing, denies any pain, pulse ox on 2 L per nasal cannula is 90%, hemodynamically stable, afebrile. No specific complaints, lung sounds are clear to auscultation. Blood work from 03/07/2018 has been reviewed, showed WBC of 9.5, hemoglobin of 13.4, BMP was unremarkable. Patient was maintained on a Breo- Ellipta, and a rescue inhaler, and her symptoms of asthma have been under good control. History of nicotine dependence, currently in remission. Patient is on Xarelto for history of paroxysmal A. fib, currently in sinus rhythm. Review of Systems All systems: negative Constitutional: Denies chills, Denies fever Eyes: denies blurred vision, denies pain Ears, nose, mouth and throat: Denies headache, Denies sore throat Cardiovascular: Denies chest pain, Denies shortness of breath Respiratory: Denies cough Gastrointestinal: Denies abdominal pain, Denies diarrhea, Denies nausea, Denies vomiting Genitourinary: Denies dysuria, Denies hematuria Musculoskeletal: Denies myalgias Integumentary: Denies pruritus, Denies rash Neurological: Denies numbness, Denies weakness Psychiatric: Denies anxiety, Denies depression Endocrine: Denies fatigue, Denies weight change Past Medical History Past Medical History: Atrial Fibrillation, Asthma, CVA/TIA, Diabetes Mellitus, Deep Vein Thrombosis (DVT), GERD/Reflux, Hyperlipidemia, Hypertension, Osteoarthritis (OA), Pneumonia, Skin Disorder Additional Past Medical History / Comment(s): tan's esophagus, TIA'S X4, PSORIASIS, OCC SCIATIC NERVE PAIN, ABD ANEURYSM, History of Any Multi-Drug Resistant Organisms: None Reported Past Surgical History: Appendectomy, Cholecystectomy, Hernia Repair, Orthopedic Surgery Additional Past Surgical History / Comment(s): vein stripping, jasmyne cataracts- lens implants, orif rt wrist has plate/screws, Lt breast bx-neg, ABD HERNIA, colonoscopy/ egd. Past Anesthesia/Blood Transfusion Reactions: No Reported Reaction Additional Past Anesthesia/Blood Transfusion Reaction / Comment(s): vertigo Smoking Status: Former smoker - Past Family History Father History Unknown: Yes Family Medical History: Myocardial Infarction (NM) Additional Family Medical History / Comment(s): at age 45 from [place] Mother History Unknown: Yes Additional Family Medical History / Comment(s): from natural causes -she was 95 years old Brother(s) Family Medical History: Cancer Additional Family Medical History / Comment(s): lung cancer Medications and Allergies Home Medications Medication Instructions Recorded Confirmed Type Lisinopril [Zestril] 5 mg PO DAILY 04/23/15 03/14/18 History Omeprazole [PriLOSEC] 20 mg PO AC-BRKFST 04/23/15 03/14/18 History [place]-3 Fatty Acids/Fish Oil [Fish 1 cap PO DAILY 12/02/16 03/14/18 History Oil 1,000 mg Softgel] Rivaroxaban [Xarelto] 20 mg PO HS 12/02/16 03/14/18 History Simvastatin [Zocor] 40 mg PO HS 12/02/16 03/14/18 History Verapamil [Isoptin] 40 mg PO BID 12/02/16 03/14/18 History Calcium Carbonate 500 mg PO DAILY 10/10/17 03/14/18 History Citalopram Hydrobromide [CeleXA] 20 mg PO DAILY 03/10/18 03/14/18 History Fluticasone/Vilanterol [Breo 1 puff INHALATION RT-DAILY 03/10/18 03/14/18 History Ellipta 100-25 Mcg Inhaler] metFORMIN HCL [Glucophage Xr] 750 mg PO PC-SUPPER 03/14/18 03/14/18 History Allergies Allergy/AdvReac Type Severity Reaction Status Date / Time latex Allergy Rash/Hives Verified 03/14/18 11:24 Penicillins Allergy Rash/Hives Verified 03/14/18 11:24 Physical Exam Vitals: Vital Signs Temp Pulse Pulse Pulse Resp BP BP 03/14/18 12:04 97.6 F 68 16 03/14/18 12:00 71 16 104/81 03/14/18 11:10 79 18 115/71 03/14/18 10:55 84 18 103/63 03/14/18 10:40 85 16 106/53 03/14/18 10:27 97.5 F L 98 14 109/60 03/14/18 06:46 98.3 F 81 18 143/66 BP Pulse Ox 03/14/18 12:04 100/61 98 03/14/18 12:00 98 03/14/18 11:10 114/79 99 03/14/18 10:55 109/70 100 03/14/18 10:40 109/70 100 03/14/18 10:27 106/66 100 03/14/18 06:46 151/70 96 Intake and Output 03/13/18 03/14/18 03/14/18 22:59 06:59 14:59 Intake Total 50 1340 Output Total 200 Balance 50 1140 Intake: IV 50 950 Intake, IV Titration 90 Amount Sodium Chloride 0.9% 1, 90 000 ml In Empty Bag 1 bag @ 1 ML/KG/HR 89.81 mls/ hr IV .Q11H9M ONE Rx#: [id number] Oral 300 Output: Urine 200 Other: Weight 89.4 kg ABP, PAP, CO, CI - Last 8 Hours Arterial Blood Pressure 106/58 GENERAL EXAM: Alert, pleasant, 72-year-old white female comfortable in no apparent distress. HEAD: Normocephalic/atraumatic. EYES: Normal reaction of pupils, equal size. Conjunctiva pink, sclera white. NOSE: Clear with pink turbinates. THROAT: No erythema or exudates. NECK: No masses, no JVD, no thyroid enlargement, no adenopathy. CHEST: No chest wall deformity. Symmetrical expansion. LUNGS: Equal air entry with no crackles, wheeze, rhonchi or dullness. CVS: Regular rate and rhythm, normal S1 and S2, no gallops, no murmurs, no rubs ABDOMEN: Soft, nontender. No hepatosplenomegaly, normal bowel sounds, no guarding or rigidity. EXTREMITIES: No clubbing, no edema, no cyanosis, 2+ pulses and upper and lower extremities. Bilateral groin incisions are clean dry and intact, covered with surgical dressings, distal pulses intact MUSCULOSKELETAL: Muscle strength and tone normal. SPINE: No scoliosis or deformity SKIN: No rashes CENTRAL NERVOUS SYSTEM: Alert and oriented -3. No focal deficits, tone is normal in all 4 extremities. PSYCHIATRIC: Alert and oriented -3. Appropriate affect. Intact judgment and insight. Results - Laboratory Findings Abnormal lab findings: Abnormal Labs 03/14/18 03/14/18 06:44 12:32 POC Glucose (mg/dL) 112 H 113 H Assessment and Plan Plan: Assessment: #1. Iliac artery aneurysm on the right, and infrarenal abdominal aortic aneurysm, status post endovascular repair, postop day 0 #2. History of chronic bronchial asthma, mild intermittent, has been under good control for quite some time #3. History of paroxysmal A. fib, on Xarelto, currently in sinus rhythm #4. History of nicotine dependence, currently in remission #5. Hypertension, hyperlipidemia #6. Diabetes mellitus type 2 #7. Depressive disorder #8. GERD Plan: We'll continue to closely monitor the hemodynamics, patient is stable, no specific complaints, pain is under good control, no difficulty breathing, [place] any distress. Lung sounds are clear, her asthma is not active, continue Symbicort, and nebulized bronchodilators on as-needed basis. We'll continue to follow I performed a history & physical examination of the patient and discussed their management with my nurse practitioner, Maria Elena Verduzco. I reviewed the nurse practitioner's note and agree with the documented findings and plan of care. Lung sounds are clears. The findings and the impression was discussed with the patient. I attest to the documentation by the nurse practitioner. Time with Patient: Greater than 30
[2018-03-14 17:06] LABS: Glucose,Whole Blood 97 mg/dL (75-99)
[2018-03-14] MEDS: LACTATED RINGERS 1,000 ML IV SCH (17:34)
[2018-03-14] MEDS: INSULIN ASPART 100 UNIT/ML 1 ML 10 ML VIAL SQ SCH ×2 (17:41→20:55)
[2018-03-14] MEDS: HYDROcodone/APAP 5-325MG 1 EACH TAB PO PRN (18:09)
[2018-03-14 18:16] LABS: Basophils # (A) 0.1 k/uL (0-0.2); Basophils % (A) 0 %; Eosinophils # (A) 0.1 k/uL (0-0.7); Eosinophils % (A) 1 %; HCT 41.4 % (34.0-46.0); HGB 12.5 gm/dL (11.4-16.0); Hypochromasia Moderate; Lymphocytes # (A) 1.2 k/uL (1.0-4.8); Lymphocytes % (A) 11 %; MCH 29.7 pg (25.0-35.0); MCHC 30.3 g/dL (31.0-37.0); MCV 98.2 fL (80.0-100.0); Mean Platelet Volume 6.5; Monocytes # (A) 0.5 k/uL (0-1.0); Monocytes % (A) 5 %; Neutrophils # (A) 9.3 k/uL (1.3-7.7); Neutrophils % (A) 82 %; Platelet Count 189 k/uL (150-450); RBC 4.21 m/uL (3.80-5.40); RDW 14.3 % (11.5-15.5); WBC 11.4 k/uL (3.8-10.6)
[2018-03-14 18:36] LABS: Anion Gap 8 mmol/L; Blood Urea Nitrogen 12 mg/dL (7-17); Calcium 9.4 mg/dL (8.4-10.2); Carbon Dioxide 22 mmol/L (22-30); Chloride 107 mmol/L (98-107); Glucose 139 mg/dL (74-99); Potassium 4.3 mmol/L (3.5-5.1); Sodium 137 mmol/L (137-145)
[2018-03-14] MEDS: SYMBICORT 80-4.5 MCG INHALER INHALATION SCH (19:13)
[2018-03-14] MEDS: SODIUM CHLORIDE 0.9% 1,000 ML IV SCH (20:30)
[2018-03-14] MEDS: VERAPAMIL 40 MG TAB PO SCH (20:34)
[2018-03-14 20:53] LABS: Glucose,Whole Blood 124 mg/dL (75-99)
[2018-03-14] MEDS ORDERED: ATORVASTATIN 20 MG TAB PO SCH (21:00)
[2018-03-14 21:25] LABS: Glucose,Whole Blood 120 mg/dL (75-99)
[2018-03-15] MEDS: HYDROcodone/APAP 5-325MG 1 EACH TAB PO PRN ×2 (00:57→10:43)
[2018-03-15] MEDS: SODIUM CHLORIDE 0.9% 1,000 ML IV SCH ×2 (01:19→14:16)
[2018-03-15 05:28] LABS: Hemoglobin A1C 7.1 % (4.0-6.0)
[2018-03-15] MEDS: LACTATED RINGERS 1,000 ML IV SCH (06:23)
[2018-03-15] MEDS: INSULIN ASPART 100 UNIT/ML 1 ML 10 ML VIAL SQ SCH ×2 (06:37→14:16)
[2018-03-15 06:39] LABS: Glucose,Whole Blood 116 mg/dL (75-99)
[2018-03-15] MEDS ORDERED: PANTOPRAZOLE 40 MG TABLET PO SCH (07:30)
--- NOTE | 2018-03-15 07:30 | CONS ---
CONSULTATION REASON FOR CONSULTATION: Advice regarding atrial fibrillation with multiple other medical issues, requested by Dr. Cannon. HISTORY OF PRESENT ILLNESS: This 72-year-old woman with a past medical history of multiple medical problems including history of atrial fibrillation status post CVA, TIA, diabetes, history of DVT, GERD, hyperlipidemia, history of hypertension, history of DJD, history of pneumonia, history of Pozo's esophagus ( ), being followed by Dr. Knowles in the outpatient setting, underwent endovascular aortic repair with ovation device with bilateral percutaneous common femoral artery access under ultrasound guidance by Dr. Cannon. The patient is closely monitored at this time. There is no history of fever, rigors. No headache or loss of consciousness. The patient is slightly sedated at this time. PAST MEDICAL: Atrial fibrillation, asthma, CVA, TIA, diabetes type 2, DVT, GERD, hyperlipidemia, hypertension, DJD, history pneumonia, history of Pozo's esophagus, appendectomy. MEDICATIONS PRIOR TO ADMISSION: 1. Metformin 750 mg with supper. 2. Isoptin 40 mg p.o. b.i.d. 3. Zocor 40 mg q.h.s. 4. Xarelto 20 mg q.h.s. 5. Prilosec 20 mg a.c. breakfast. 6. Fish oil 1 p.o. daily. 7. Zestril 5 mg p.o. daily. 8. Breo Ellipta 100/25 mcg 1 puff daily. 9. Celexa 20 mg daily. 10.Calcium 600 mg p.o. daily. ALLERGIES: LATEX. FAMILY HISTORY: History of myocardial infarction in the family. SOCIAL HISTORY: Previous history of smoking. No history of current smoking or alcohol intake. REVIEW OF SYSTEMS: ENT: Diminished hearing, diminished vision. CARDIOVASCULAR: No angina and as mentioned earlier. GI: As mentioned earlier. : No dysuria. NERVOUS SYSTEM: No numbness, weakness. ALLERGY/IMMUNOLOGY: No asthma, hayfever. MUSCULOSKELETAL: As mentioned earlier. HEMATOLOGY/ONCOLOGY: No history of anemia. ENDOCRINE: History of diabetes. No hypothyroidism. CONSTITUTIONAL: As mentioned earlier. DERMATOLOGY: Negative. RHEUMATOLOGY: Negative. PSYCHIATRY: As mentioned earlier. PHYSICAL EXAMINATION: Alert and oriented x3. Pulse 83, blood pressure 116/70, respiratory rate ( ), temperature normal, pulse ox 94% on room air. HEENT: Conjunctivae normal. Oral mucosa moist. NECK: No jugular venous distention. No lymph node enlargement. CARDIOVASCULAR SYSTEM: S1, S2 muffled. RESPIRATORY SYSTEM: Breath sounds diminished at the bases. No rhonchi no crackles. ABDOMEN: Soft, nontender. No mass palpable. LEGS: No edema, no swelling. Bilateral femoral access present. NERVOUS SYSTEM: Higher functions as mentioned. Moves all four limbs. No focal motor or sensory deficit. LYMPHATICS: No lymph node palpable in neck or axilla. SKIN: No rash. LABS: WBC 7.2, hemoglobin 12.4. BMP noted. ASSESSMENT: 1. Status post endovascular aortic stenting for infrarenal abdominal aortic aneurysm, right common iliac aortic aneurysm and left common iliac artery ectasia. 2. Paroxysmal atrial fibrillation. 3. History of bronchial asthma. 4. History of cerebrovascular accident, transient ischemic attack. 5. Diabetes type 2. 6. History of deep vein thrombosis. 7. Gastroesophageal reflux disease. 8. Hypertension. 9. Hyperlipidemia. 10.History of degenerative joint disease. 11.History of pneumonia. 12.History of Pozo's esophagus. 13.History of psoriasis. 14.History of cholecystectomy. 15.History of depression. 16.Remote history of nicotine dependence. 17.Full code. RECOMMENDATIONS: In this 72-year-old woman who presented with multiple complex medical issues, we will monitor the patient closely, continue the current management and symptomatic treatment. Otherwise, at this time I recommend to resume the home medication, continue the bronchodilators, monitor blood pressure closely, DVT prophylaxis. Will follow the patient closely and the patient will be asked to follow up with Dr. Knowles closely after discharge. Thank you, Dr. Cannon, for letting us participate in the care of this patient. MMODL / IJN: [id number] /
[2018-03-15] MEDS: SYMBICORT 80-4.5 MCG INHALER INHALATION SCH (08:32)
--- NOTE | 2018-03-15 08:47 | IR ---
EXAMINATION TYPE: IR stent intravas non coronary DATE OF EXAM: 03/14/2018 CLINICAL HISTORY: Aortic aneurysm. TECHNIQUE: Fluoroscopy. COMPARISON: CTA February 14, 2018. FINDINGS: Fluoroscopic guidance was provided during aortic aneurysm repair procedure performed by Dr Mati Cannon. A total of 27.7 minutes of fluoroscopic time was utilized during the procedure and 13 fe e runs are acquired. There is vascular access via bilateral groin. Please refer to procedure note for further details as I was not present nor performed procedure. IMPRESSION: As Above.
[2018-03-15] MEDS: VERAPAMIL 40 MG TAB PO SCH (08:56)
[2018-03-15] MEDS ORDERED: CITALOPRAM HYDROBROMIDE 20 MG TAB PO SCH (09:00)
[2018-03-15] MEDS ORDERED: LISINOPRIL 5 MG TAB PO SCH (09:00)
[2018-03-15] MEDS ORDERED: ASPIRIN 81 MG PO SCH (09:00)
[2018-03-15] MEDS ORDERED: NON-FORMULARY DRUG (Omega-3 Fatty Acids/Fish Oil [Fish Oil 1,000 Mg Softgel] 1 CAP) PO SCH (09:00)
[2018-03-15] MEDS ORDERED: CALCIUM CARBONATE 500 MG CHEWABLE PO SCH (09:00)
--- NOTE | 2018-03-15 09:18 | P.PN ---
Subjective Progress Note Date: 03/15/18 Principal diagnosis: Right common iliac artery aneurysm, status post endovascular aortic repair This is 72-year-old white female patient of Dr. Knowles in [place], with past medical history of chronic bronchial asthma, gastroesophageal reflux disease, depression, hypertension, hyperlipidemia, diabetes, who presented today for endovascular repair of the expanding common iliac artery aneurysm on the right measuring 3.6 cm as well as infrarenal abdominal aortic aneurysm. Patient is seen in the intensive care unit in the postoperative period, she is resting comfortably in bed, in no acute distress, denies any difficulty breathing, denies any pain, pulse ox on 2 L per nasal cannula is 90%, hemodynamically stable, afebrile. No specific complaints, lung sounds are clear to auscultation. Blood work from 03/07/2018 has been reviewed, showed WBC of 9.5, hemoglobin of 13.4, BMP was unremarkable. Patient was maintained on a Breo- Ellipta, and a rescue inhaler, and her symptoms of asthma have been under good control. History of nicotine dependence, currently in remission. Patient is on Xarelto for history of paroxysmal A. fib, currently in sinus rhythm. On 03/15/2018 patient seen again in follow-up in intensive care unit. Up in the recliner, in no acute distress, states she couldn't sleep last night otherwise he was uneventful, no specific complaints this morning, no difficulty breathing, no discomfort, bilateral groin incisions are clean dry and intact soft, distal pulses are intact. Today's blood work has not resulted yet, patient has been hemodynamically stable, sinus rhythm on the monitor with a controlled rate. Objective - Vital Signs Vital signs: Vital Signs Temp 98.2 F 03/15/18 05:00 Pulse 78 03/15/18 06:00 Resp 9 L 03/15/18 06:00 BP 141/98 03/15/18 06:00 Pulse Ox 88 L 03/15/18 06:00 Intake & Output 03/14/18 03/15/18 03/15/18 18:59 06:59 18:59 Intake Total 1840 840 Output Total 500 600 Balance 1340 240 Weight 89.4 kg Intake: IV 950 Intake, IV Titration 90 Amount Sodium Chloride 0.9% 1, 90 000 ml In Empty Bag 1 bag @ 1 ML/KG/HR 89.81 mls/ hr IV .Q11H9M ONE Rx#: [id number] Oral 800 840 Output: Urine 500 600 Other: Voiding Method Indwelling Catheter Bedside Commode ABP, PAP, CO, CI - Last Documented Arterial Blood Pressure 97/54 - Exam GENERAL EXAM: Alert, pleasant, 72-year-old white female comfortable in no apparent distress. HEAD: Normocephalic/atraumatic. EYES: Normal reaction of pupils, equal size. Conjunctiva pink, sclera white. NOSE: Clear with pink turbinates. THROAT: No erythema or exudates. NECK: No masses, no JVD, no thyroid enlargement, no adenopathy. CHEST: No chest wall deformity. Symmetrical expansion. LUNGS: Equal air entry with no crackles, wheeze, rhonchi or dullness. CVS: Regular rate and rhythm, normal S1 and S2, no gallops, no murmurs, no rubs ABDOMEN: Soft, nontender. No hepatosplenomegaly, normal bowel sounds, no guarding or rigidity. EXTREMITIES: No clubbing, no edema, no cyanosis, 2+ pulses and upper and lower extremities. Bilateral groin incisions are clean dry and intact, covered with surgical dressings, distal pulses intact MUSCULOSKELETAL: Muscle strength and tone normal. SPINE: No scoliosis or deformity SKIN: No rashes CENTRAL NERVOUS SYSTEM: Alert and oriented -3. No focal deficits, tone is normal in all 4 extremities. PSYCHIATRIC: Alert and oriented -3. Appropriate affect. Intact judgment and insight. - Labs CBC & Chem 7: 03/14/18 18:07 03/15/18 04:47 Labs: Abnormal Lab Results - Last 24 Hours (Table) 03/14/18 03/14/18 03/14/18 Range/Units 12:32 18:07 18:07 WBC 11.4 H (3.8-10.6) k/uL MCHC 30.3 L (31.0-37.0) g/dL Neutrophils # 9.3 H (1.3-7.7) k/uL Glucose 139 H (74-99) mg/dL POC Glucose (mg/dL) 113 H (75-99) mg/dL Hemoglobin A1c (4.0-6.0) % 03/14/18 03/14/18 03/14/18 Range/Units 18:07 20:37 21:11 WBC (3.8-10.6) k/uL MCHC (31.0-37.0) g/dL Neutrophils # (1.3-7.7) k/uL Glucose (74-99) mg/dL POC Glucose (mg/dL) 124 H 120 H (75-99) mg/dL Hemoglobin A1c 7.1 H (4.0-6.0) % 03/15/18 Range/Units 06:37 WBC (3.8-10.6) k/uL MCHC (31.0-37.0) g/dL Neutrophils # (1.3-7.7) k/uL Glucose (74-99) mg/dL POC Glucose (mg/dL) 116 H (75-99) mg/dL Hemoglobin A1c (4.0-6.0) % Assessment and Plan Plan: Assessment: #1. Iliac artery aneurysm on the right, and infrarenal abdominal aortic aneurysm, status post endovascular repair, postop day 1 #2. History of chronic bronchial asthma, mild intermittent, has been under good control for quite some time #3. History of paroxysmal A. fib, on Xarelto, currently in sinus rhythm #4. History of nicotine dependence, currently in remission #5. Hypertension, hyperlipidemia #6. Diabetes mellitus type 2 #7. Depressive disorder #8. GERD Plan: Patient is doing well, no acute events overnight, no specific complaints, no difficulty breathing, no discomfort. Anticipate discharge home today. I performed a history & physical examination of the patient and discussed their management with my nurse practitioner, Maria Elena Verduzco. I reviewed the nurse practitioner's note and agree with the documented findings and plan of care. Lung sounds are clears. The findings and the impression was discussed with the patient. I attest to the documentation by the nurse practitioner. Time with Patient: Less than 30
--- NOTE | 2018-03-15 11:25 | P.PN ---
Progress Note - Text Progress Note Date: 03/15/18 Patient is evaluated today postop day #1 status post endovascular repair of aneurysmal disease of the aorta and iliac system. She indicates that her pain is relatively well controlled. She denies any foot pain. Examination revealed the patient afebrile vital signs to be stable. Abdomen is soft and benign. Femoral, popliteal and dorsalis pedis pulses are intact bilaterally. There is no leg edema noted. Review of laboratory values demonstrates labs to be stable, essentially unchanged from preoperative levels. Assessment: Satisfactory progress status post endovascular repair of aortic and iliac aneurysmal disease. Plan: Patient is dismissed pending final medical clearance. She was allowed to shower over her wounds. She was asked follow-up with Dr. Cannon in the office in 10 days to 2 weeks. She is allowed to ambulate ad honey. She is to continue all her home medications.
--- NOTE | 2018-03-15 11:55 | XR ---
EXAMINATION TYPE: XR chest 1V portable DATE OF EXAM: 03/15/2018 CLINICAL HISTORY: Difficulty breathing. History of AAA repair yesterday. TECHNIQUE: Single AP portable upright view of the chest is obtained. COMPARISON: Chest x-ray from December 02, 2016. FINDINGS: There is chronic left basilar opacity. Right lung is clear. No pleural effusion or pneumot horax is seen bilaterally. Cardiac silhouette size is stable and upper limits of normal. Osseous stru ctures are demineralized. IMPRESSION: Chronic left basilar linear scarring and/or atelectasis. No new acute infiltrate is prese nt.
[2018-03-15 12:07] VITALS: TEMP 98.1
[2018-03-15 12:16] LABS: Glucose,Whole Blood 138 mg/dL (75-99)
[2018-03-15 12:43] LABS: Glucose,Whole Blood 214 mg/dL (75-99)
[2018-03-15 13:36] VITALS: BP 118/70; PULSE 85; RESP 18
[2018-03-15] MEDS ORDERED: FUROSEMIDE 10 MG/ML 2 ML VIAL IV SCH (14:15)
[2018-03-15] MEDS ORDERED: FUROSEMIDE 40 MG TAB PO STA (14:17)
--- NOTE | 2018-03-15 19:54 | PN ---
PROGRESS NOTE DATE OF SERVICE: 03/15/2018 This 72-year-old woman who was admitted after abdominal aortic stent procedure is improving significantly. Patient is mildly short of breath. No chest pain. No palpitations. No fever. PHYSICAL EXAMINATION: Alert and oriented x3. Pulse 78, blood pressure 118/65, respirations 16, temperature 98.1, pulse ox 92% on room air. HEENT: Conjunctivae normal. NECK: No jugular venous distention. CARDIOVASCULAR SYSTEM: S1, S2 muffled. RESPIRATORY SYSTEM: Breath sounds diminished at the bases. A few scattered rhonchi. No crackles. ABDOMEN: Soft, non-tender. LEGS: No edema. No swelling. NERVOUS SYSTEM: No focal deficit. LABS: Labs at this time show WBC 11.4. Accu-Cheks 214. Chest x-ray reviewed personally which showed chronic left basilar changes. ASSESSMENT: 1. Status post endovascular aortic stenting for infrarenal abdominal aortic aneurysm, right common iliac aortic aneurysm as well as left common iliac artery ectasia. 2. Paroxysmal atrial fibrillation. 3. History of bronchial asthma. 4. History of cerebrovascular accident, transient ischemic attack. 5. Diabetes mellitus, type 2. 6. History of deep vein thrombosis. 7. Gastroesophageal reflux disease. 8. Hypertension. 9. Hyperlipidemia. 10.History of degenerative joint disease. 11.History of pneumonia. 12.Pozo's esophagus. 13.History of psoriasis. 14.History of cholecystectomy. 15.History of depression. 16.Remote history of nicotine dependence. 17.FULL CODE. RECOMMENDATIONS AND DISCUSSION: I recommend to continue current medication, continue symptomatic treatment. I also recommended a chest x-ray, which was reviewed. Recommend a dose of Lasix and continued followup in the outpatient setting. The rest of the recommendations per Orthopedic Surgery and Dr. Cannon. Follow closely with Dr. Knowles. Continue the current medications. MMODL / IJN: [id number] /
[2018-03-15] MEDS ORDERED: RIVAROXABAN 20 MG TAB PO SCH (21:00)
== END 2018-03-15 15:27 | disposition home or self-care (01) | DRG 269 ==
LOC: 2ORMAIN 05:49 → 2SICU 10:02
PROVIDERS: ADMIT Surgery; ATTEND Surgery
PROC: 04V03EZ Restriction of Abdominal Aorta with Branched or Fenestrated Intraluminal Device, One or Two Arteries, Percutaneous Approach (ICD-10-PCS; principal; 2018-03-14 07:30)
DX: I71.4 Abdominal aortic aneurysm, without rupture (principal); E11.9 Type 2 diabetes mellitus without complications; E78.5 Hyperlipidemia, unspecified; F32.9 Major depressive disorder, single episode, unspecified; I10 Essential (primary) hypertension; I48.0 Paroxysmal atrial fibrillation; Z86.73 Personal history of transient ischemic attack (TIA), and cerebral infarction without residual deficits; I72.3 Aneurysm of iliac artery; J45.20 Mild intermittent asthma, uncomplicated; K21.9 Gastro-esophageal reflux disease without esophagitis; K22.70 Barrett's esophagus without dysplasia; M19.90 Unspecified osteoarthritis, unspecified site; Z79.01 Long term (current) use of anticoagulants; Z79.84 Long term (current) use of oral hypoglycemic drugs; Z79.899 Other long term (current) drug therapy; Z80.1 Family history of malignant neoplasm of trachea, bronchus and lung; Z82.49 Family history of ischemic heart disease and other diseases of the circulatory system; Z86.718 Personal history of other venous thrombosis and embolism; Z87.01 Personal history of pneumonia (recurrent); Z87.891 Personal history of nicotine dependence; Z90.49 Acquired absence of other specified parts of digestive tract; Z98.42 Cataract extraction status, left eye; Z98.41 Cataract extraction status, right eye; Z96.1 Presence of intraocular lens; L40.9 Psoriasis, unspecified
CPT/HCPCS: 34705; 71045; 80048; 82565; 83036; 85025; 85347; 86850; 86900; 86901; 94640

== ENCOUNTER → 2018-05-03 | Outpatient (CLI) | payer MEDICARE ==
--- NOTE | 2018-05-03 14:00 | CT ---
"EXAMINATION TYPE: CT angio abdomen pelvis DATE OF EXAM: 05/03/2018 12:07 PM COMPARISON: HISTORY: Follow up stent placement CT DLP: 2186.1 mGycm Automated exposure control for dose reduction was used. TECHNIQUE: Performed without and with IV Contrast, patient injected with 100 mL of Isovue 370. Study is performed pre and postcontrast.. FINDINGS: Limited CT sections are obtained the lung bases. CT ABDOMEN: This phase of contrast liver and spleen appear unremarkable. The adrenal glands are tatiana l. Kidneys appear normal without masses cysts or hydronephrosis. Left kidney is somewhat small right. Pancreas is slightly atrophic. Gallbladder is not identified. Loops of bowel without contrast appear unremarkable. CT PELVIS: Diverticular changes without acute diverticulitis are within the sigmoid colon. The uterus appears unremarkable. Adnexal regions are clear. Urinary bladder appears normal. Patient has had a aortic stent placed. Limbs extend into the iliac vessels. Residual aneurysm from th e previous aneurysms present with the greatest AP diameter is 3.8 cm. Adjacent to the proximal portion of the stent small amount of increased contrast is diffusely surroun ds the stent suggestive for an endovascular leak the proximal portion. The mid and distal thrombus la xity contrast suggest additional areas of endovascular leak. IMPRESSION: 1. CONTRAST SURROUNDING THE PROXIMAL AORTIC ENDOVASCULAR STENT SUGGESTIVE FOR AN ENDOVASCULAR LEAK. A [place] level critical message alert has been initiated for Caleb Cannon DO via the [employer] 60 | Critical Results System on 05/03/2018 1:57 PM. This message alert has been sent to Caleb Cannon DO via the preferences provided by the clinician for the receipt of Radiology Critical Findings. [facility] [id number]."
== END | disposition home or self-care (01) ==
LOC: RADCTMAIN 10:27
PROVIDERS: ATTEND Surgery
DX: T82.898A Other specified complication of vascular prosthetic devices, implants and grafts, initial encounter (principal)
CPT/HCPCS: 82565; 84520; 36415; 74174; Q9967

== ENCOUNTER → 2018-07-12 | Outpatient (CLI) | payer MEDICARE ==
--- NOTE | 2018-07-12 16:10 | XR ---
EXAMINATION TYPE: XR lumbosacral spine min 4V DATE OF EXAM: 07/12/2018 COMPARISON: None HISTORY: Sciatica cough low back pain TECHNIQUE: 5 view lumbar spine FINDINGS: Stents are evident within the aorta and iliac vessels There 5 lumbar-type vertebral bodies. The pedicles appear intact. Facet degenerative changes are pres ent. No spondylolytic defects are evident. There is loss of disc height L3-4 with vacuum phenomenon. Narrowing of the disc height is present L2 3012 was some vacuum phenomenon at L1-2. Vertebral body he ights appear preserved. Alignment is normal. IMPRESSION: 1. Degenerative disc changes through the lumbar spine
--- NOTE | 2018-07-12 16:11 | XR ---
EXAMINATION TYPE: XR chest 2V DATE OF EXAM: 07/12/2018 COMPARISON: 03/15/2018 INDICATION: Sciatica, cough, dyspnea, wheezing TECHNIQUE: Frontal and lateral views of the chest are obtained. FINDINGS: The heart size is normal. The pulmonary vasculature is normal. The lungs are clear. There is increased AP diameter and increased kyphosis in the lower thoracic spi ne suggestive for some senile emphysematous change. IMPRESSION: 1. No acute pulmonary process.
== END | disposition home or self-care (01) ==
LOC: RADXRYALE 15:42
PROVIDERS: ATTEND Internal Medicine
DX: M47.816 Spondylosis without myelopathy or radiculopathy, lumbar region (principal); R05 Cough
CPT/HCPCS: 71046; 72110

== ENCOUNTER 2018-11-24 09:41 | Inpatient (IN) | payer MEDICARE ==
[2018-11-24] MEDS ORDERED: ALBUTEROL NEBULIZED 2.5 MG/3 ML INHALATION STA (10:18)
[2018-11-24] MEDS ORDERED: IPRATROPIUM 0.5 MG/2.5 ML NEBU INHALATION STA (10:18)
[2018-11-24] MEDS ORDERED: DEXAMETHASONE SOD PHOSPHATE 10 MG/ML 1 ML VIAL IV STA (10:19)
--- NOTE | 2018-11-24 10:22 | ED ---
General Adult HPI - General Chief complaint: Shortness of Breath Stated complaint: SOB Time Seen by Provider: 11/24/18 09:58 Source: patient Mode of arrival: ambulatory Limitations: no limitations - History of Present Illness Initial comments: Dictation was produced using [employer] dictation software. please excuse any grammatical, word or spelling errors. Chief Complaint: 73-year-old female with past medical history of asthma, COPD, atrial fibrillation, diabetes, DVT presents with shortness of breath. History of Present Illness: 73-year-old female. She has multiple comorbidities. She presents with cough, shortness of breath since last night. Patient believes she may have caught a cold from her granddaughter who also had similar symptoms. Patient states she's been coughing with green sputum. She does feel some mild constitutional symptoms. Patient complains of shortness of breath. Denies any low tremors symptoms. No lower extremity pain. Patient's shortness of breath is not worse with lying flat. Patient currently on Xarelto for atrial fibrillation and DVT prophylaxis. She does have established care with Dr. Enamorado of pulmonology. She does not wear oxygen at home. She's been admitted and on ventilator for respiratory issues in the past. The ROS documented in this emergency department record has been reviewed and confirmed by me. Those systems with pertinent positive or negative responses h ave been documented in the HPI. All other systems are other negative and/or noncontributory. PHYSICAL EXAM: General Impression: Alert and oriented x3, not in acute distress HEENT: Normocephalic atraumatic, extra-ocular movements intact, pupils equal and reactive to light bilaterally, mucous membranes moist. Cardiovascular: Heart regular rate and rhythm, S1&S2 audible, no murmurs, rubs or gallops Chest: Bilateral lung wheezing Abdomen: Bowel sounds present, abdomen soft, non-tender, non-distended, no organomegaly Musculoskeletal: Pulses present and equal in all extremities, no peripheral denisse ma Motor: no focal deficits noted Neurological: CN II-XII grossly intact, no focal motor or sensory deficits noted Skin: Intact with no visualized rashes Psych: Normal affect and mood ED course: 73 y Old female with multiple comorbid disease presents with chief complaint of productive cough, constitutional symptoms and shortness of breath. As upon arrival shows findings within acceptable limits. Laboratory evaluation obtained. CBC is unremarkable. No leukocytosis, hemoglobin stable. Coag panel is unremarkable. Metabolic panel shows magnesium 1.4. Patient given IV potassium. Cardiac enzymes negative. Chest x-ray shows patchy left basilar atelectasis versus early infiltrate. Given patient's symptomatology clinical presentation is concerning for pneumonia and COPD/asthma exacerbation. Patient lives alone at home does not feel comfortable being discharged. Furthermore, patient is a history of severe respiratory distress requiring ventilation. She azithromycin, breathing treatment and Decadron. Patient to be admitted to Dr. Strickland. EKG interpretation: Ventricular rate 91, sinus rhythm,. Interval 132, care is 84, QTC 457. No IL prolongation, no QTC prolongation, no ST or T-wave changes noted. EKG compared to 07/22/2017 showing no changes. Overall, this EKG is unremarkable - Related Data Home Medications Medication Instructions Recorded Confirmed Lisinopril [Zestril] 5 mg PO DAILY 04/23/15 11/24/18 Omeprazole [PriLOSEC] 20 mg PO AC-BRKFST 04/23/15 11/24/18 [place]-3 Fatty Acids/Fish Oil [Fish 1 cap PO DAILY 12/02/16 11/24/18 Oil 1,000 mg Softgel] Rivaroxaban [Xarelto] 20 mg PO HS 12/02/16 11/24/18 Simvastatin [Zocor] 40 mg PO HS 12/02/16 11/24/18 Verapamil [Isoptin] 40 mg PO BID 12/02/16 11/24/18 Calcium Carbonate 500 mg PO DAILY 10/10/17 11/24/18 Citalopram Hydrobromide [CeleXA] 20 mg PO DAILY 03/10/18 11/24/18 metFORMIN HCL [Glucophage Xr] 750 mg PO PC-SUPPER 03/14/18 11/24/18 Albuterol Inhaler [Ventolin Hfa 1 - 2 puff INHALATION RT-Q6H PRN 11/24/18 11/24/18 Inhaler] Albuterol Nebulized [Ventolin 2.5 mg INHALATION RT-TID PRN 11/24/18 11/24/18 Nebulized] Allergies Allergy/AdvReac Type Severity Reaction Status Date / Time latex Allergy Rash/Hives Verified 11/24/18 10:22 Penicillins Allergy Rash/Hives Verified 11/24/18 10:22 Review of Systems ROS Statement: Those systems with pertinent positive or pertinent negative responses have been documented in the HPI. ROS Other: All systems not noted in ROS Statement are negative. Past Medical History Past Medical History: Atrial Fibrillation, Asthma, CVA/TIA, Diabetes Mellitus, Deep Vein Thrombosis (DVT), GERD/Reflux, Hyperlipidemia, Hypertension, Osteoarthritis (OA), Pneumonia, Skin Disorder Additional Past Medical History / Comment(s): tan's esophagus, TIA'S X4, PSORIASIS, OCC SCIATIC NERVE PAIN, ABD ANEURYSM, History of Any Multi-Drug Resistant Organisms: None Reported Past Surgical History: Appendectomy, Cholecystectomy, Hernia Repair, Orthopedic Surgery Additional Past Surgical History / Comment(s): vein stripping, jasmyne cataracts- lens implants, orif rt wrist has plate/screws, Lt breast bx-neg, ABD HERNIA, colonoscopy/ egd. Past Anesthesia/Blood Transfusion Reactions: No Reported Reaction Additional Past Anesthesia/Blood Transfusion Reaction / Comment(s): vertigo Past Psychological History: Depression Smoking Status: Former smoker - Past Family History Father History Unknown: Yes Family Medical History: Myocardial Infarction ([place]) Additional Family Medical History / Comment(s): at age 45 from [place] Mother History Unknown: Yes Additional Family Medical History / Comment(s): from natural causes -she was 95 years old Brother(s) Family Medical History: Cancer Additional Family Medical History / Comment(s): lung cancer General Exam Limitations: no limitations Course Vital Signs 11/24/18 11/24/18 11/24/18 09:46 10:33 10:47 Temperature 98.5 F Pulse Rate 84 90 93 Respiratory 18 Rate Blood Pressure 118/74 O2 Sat by Pulse 93 L Oximetry 11/24/18 11/24/18 11:09 11:40 Temperature Pulse Rate 98 98 Respiratory 22 Rate Blood Pressure 139/96 O2 Sat by Pulse 96 Oximetry Medical Decision Making - Lab Data Result diagrams: 11/24/18 10:10 11/24/18 10:10 Lab Results 11/24/18 11/24/18 11/24/18 Range/Units 10:10 10:10 10:10 WBC 8.2 (3.8-10.6) k/uL RBC 4.50 (3.80-5.40) m/uL Hgb 13.1 (11.4-16.0) gm/dL Hct 39.9 (34.0-46.0) % MCV 88.7 (80.0-100.0) fL MCH 29.1 (25.0-35.0) pg MCHC 32.9 (31.0-37.0) g/dL RDW 16.6 H (11.5-15.5) % Plt Count 246 (150-450) k/uL Neutrophils % 84 % Lymphocytes % 7 % Monocytes % 6 % Eosinophils % 1 % Basophils % 1 % Neutrophils # 6.8 (1.3-7.7) k/uL Lymphocytes # 0.6 L (1.0-4.8) k/uL Monocytes # 0.5 (0-1.0) k/uL Eosinophils # 0.1 (0-0.7) k/uL Basophils # 0.1 (0-0.2) k/uL Anisocytosis Slight PT (9.0-12.0) sec INR (<1.2) APTT (22.0-30.0) sec Sodium 137 (137-145) mmol/L Potassium 4.0 (3.5-5.1) mmol/L Chloride 101 (98-107) mmol/L Carbon Dioxide 28 (22-30) mmol/L Anion Gap 8 mmol/L BUN 11 (7-17) mg/dL Creatinine 0.81 (0.52-1.04) mg/dL Est GFR (CKD-EPI)AfAm 85 (>60 ml/min/1.73 sqM) Est GFR (CKD-EPI)NonAf 73 (>60 ml/min/1.73 sqM) Glucose 116 H (74-99) mg/dL Calcium 9.9 (8.4-10.2) mg/dL Magnesium 1.4 L (1.6-2.3) mg/dL Total Bilirubin 0.4 (0.2-1.3) mg/dL AST 30 (14-36) U/L ALT 38 (9-52) U/L Alkaline Phosphatase 88 (38-126) U/L Troponin I (0.000-0.034) ng/mL NT-Pro-B Natriuret Pep 144 pg/mL Total Protein 6.7 (6.3-8.2) g/dL Albumin 4.1 (3.5-5.0) g/dL 11/24/18 11/24/18 Range/Units 10:10 10:10 WBC (3.8-10.6) k/uL RBC (3.80-5.40) m/uL Hgb (11.4-16.0) gm/dL Hct (34.0-46.0) % MCV (80.0-100.0) fL MCH (25.0-35.0) pg MCHC (31.0-37.0) g/dL RDW (11.5-15.5) % Plt Count (150-450) k/uL Neutrophils % % Lymphocytes % % Monocytes % % Eosinophils % % Basophils % % Neutrophils # (1.3-7.7) k/uL Lymphocytes # (1.0-4.8) k/uL Monocytes # (0-1.0) k/uL Eosinophils # (0-0.7) k/uL Basophils # (0-0.2) k/uL Anisocytosis PT 10.2 (9.0-12.0) sec INR 0.9 (<1.2) APTT 26.1 (22.0-30.0) sec Sodium (137-145) mmol/L Potassium (3.5-5.1) mmol/L Chloride (98-107) mmol/L Carbon Dioxide (22-30) mmol/L Anion Gap mmol/L BUN (7-17) mg/dL Creatinine (0.52-1.04) mg/dL Est GFR (CKD-EPI)AfAm (>60 ml/min/1.73 sqM) Est GFR (CKD-EPI)NonAf (>60 ml/min/1.73 sqM) Glucose (74-99) mg/dL Calcium (8.4-10.2) mg/dL Magnesium (1.6-2.3) mg/dL Total Bilirubin (0.2-1.3) mg/dL AST (14-36) U/L ALT (9-52) U/L Alkaline Phosphatase (38-126) U/L Troponin I <0.012 (0.000-0.034) ng/mL NT-Pro-B Natriuret Pep pg/mL Total Protein (6.3-8.2) g/dL Albumin (3.5-5.0) g/dL Disposition Clinical Impression: Pneumonia, Asthma exacerbation Disposition: ADMITTED IP TO THIS [facility] Condition: Fair Referrals: Hope Knowles MD [Primary Care Provider] - 1-2 days Decision Time: 12:08
[2018-11-24 10:30] LABS: Anisocytosis Slight; Basophils # (A) 0.1 k/uL (0-0.2); Basophils % (A) 1 %; Eosinophils # (A) 0.1 k/uL (0-0.7); Eosinophils % (A) 1 %; HCT 39.9 % (34.0-46.0); HGB 13.1 gm/dL (11.4-16.0); Lymphocytes # (A) 0.6 k/uL (1.0-4.8); Lymphocytes % (A) 7 %; MCH 29.1 pg (25.0-35.0); MCHC 32.9 g/dL (31.0-37.0); MCV 88.7 fL (80.0-100.0); Monocytes # (A) 0.5 k/uL (0-1.0); Monocytes % (A) 6 %; Neutrophils # (A) 6.8 k/uL (1.3-7.7); Neutrophils % (A) 84 %; Platelet Count 246 k/uL (150-450); RDW 16.6 % (11.5-15.5); WBC 8.2 k/uL (3.8-10.6)
[2018-11-24 10:38] LABS: Albumin 4.1 g/dL (3.5-5.0); Calcium 9.9 mg/dL (8.4-10.2); Magnesium 1.4 mg/dL (1.6-2.3); Total Bilirubin 0.4 mg/dL (0.2-1.3); Total Protein 6.7 g/dL (6.3-8.2)
[2018-11-24 10:55] LABS: INR 0.9 (<1.2); Partial Thromboplastin Time 26.1 sec (22.0-30.0); Prothrombin Time 10.2 sec (9.0-12.0)
--- NOTE | 2018-11-24 11:32 | XR ---
EXAMINATION TYPE: XR chest 2V DATE OF EXAM: 11/24/2018 COMPARISON: 07/12/2018 HISTORY: 73-year-old female with pain and shortness of breath TECHNIQUE: PA and lateral views FINDINGS: Heart normal size. Mild elongation thoracic aorta. Pulmonary vasculature within normal limits. Some p atchy left basilar opacity. No consolidation or pleural effusion. A large vascular stent is present i n the upper abdomen. IMPRESSION: Some patchy left basilar atelectasis versus early infiltrate.
[2018-11-24] MEDS ORDERED: AZITHROMYCIN 500 MG TAB PO STA (11:44)
[2018-11-24] MEDS ORDERED: AZITHROMYCIN 500 MG in SODIUM CHLORIDE 0.9% 250 ML IVPB STA (11:55)
[2018-11-24] MEDS: MAGNESIUM SULFATE-D5W PMX 1 GM in DEXTROSE/WATER 1 100ML.BAG IVPB SCH ×2 (12:25→14:51)
[2018-11-24 12:58] VITALS: BMI 34.5
[2018-11-24] MEDS: methylPREDNISolone SOD SUCCI 125 MG/2 ML VIAL IV SCH (17:15)
[2018-11-24] MEDS: metFORMIN 500 MG TAB PO SCH (17:15)
[2018-11-24] MEDS: IPRATROPIUM-ALBUTEROL 3 ML NEB INHALATION PRN (19:09)
[2018-11-24] MEDS: VERAPAMIL 40 MG TAB PO SCH (20:23)
[2018-11-24] MEDS: ATORVASTATIN 20 MG TAB PO SCH (20:23)
[2018-11-24] MEDS: RIVAROXABAN 20 MG TAB PO SCH (20:23)
[2018-11-24] MEDS ORDERED: ALPRAZolam 0.25 MG TAB PO STA (20:32)
[2018-11-25] MEDS: methylPREDNISolone SOD SUCCI 125 MG/2 ML VIAL IV SCH ×4 (00:10→17:13)
--- NOTE | 2018-11-25 01:29 | P.HPIM ---
History of Present Illness H&P Date: 11/24/18 Chief Complaint: Shortness of breath Patient is a 73-year-old female with a known history of atrial fibrillation on anticoagulation, asthma/COPD, history of CVA/TIA Diabetes type 2, GERD and history of abdominal aortic aneurysm with surgery as well as depression came to ER with complaints of worsening shortness of breath since yesterday evening. He also having cough with green sputum production. Patient says that her granddaughter is Sick and She May Have Caught a Cold from her. No Complaints of ear or chills. No complaints of chest pain. Otherwise no nausea vomiting or diarrhea. Patient follows with Dr. Enamorado as an outpatient. Patient does not have home oxygen. Patient does have history of intubation the past. Chest x-ray showed some patchy left basilar atelectasis versus early infiltrate. WBC 8.2 and Medications 1.4 Review of Systems Constitutional: Patient denies any fever or chills . No generalized weakness or weight loss. Abdomen: Patient denied nausea vomiting and diarrhea and abdominal pain. Cardiovascular: Patient denies any chest pain or short of breath no palpitations. Respiratory: Patient does have cough with greenish sputum production and shortness of breath Neurologic: Patient denied any numbness or tingling headache. Musculoskeletal: Patient denies any complaints of joint swelling or deformity. Skin: Negative Psychiatric: Negative Endocrine: No heat or cold intolerance. No recent weight gain. Genitourinary: No dysuria or hematuria. All other 14 point ROS negative except the above Past Medical History Past Medical History: Atrial Fibrillation, Asthma, COPD, CVA/TIA, Diabetes Mellitus, Deep Vein Thrombosis (DVT), GERD/Reflux, Hyperlipidemia, Hypertension, Osteoarthritis (OA), Pneumonia, Skin Disorder, Vascular Disorder Additional Past Medical History / Comment(s): Pt has had abdominal aneurysm/gala c aneurysm with surgery but states one of these sites is leaking per ultrasound- to have cat scan done soon, NIDDM type II, past respiratory failure/vented, bronchitis, TIA x 4, tan's esophagus, lower GI bleed, diverticular dx, colon polyps, arthritis multiple joints, chronic lower back pain with occasional sciatica, DVT R leg, vertigo at times, urinaty leakage at times, psoriasis, History of Any Multi-Drug Resistant Organisms: None Reported Past Surgical History: Appendectomy, Cholecystectomy, Hernia Repair, Orthopedic Surgery Additional Past Surgical History / Comment(s): vein stripping, jasmyne cataracts- lens implants, orif rt wrist has plate/screws, Lt breast bx-neg, ABD HERNIA, colonoscopy/ egd. Past Anesthesia/Blood Transfusion Reactions: No Reported Reaction Additional Past Anesthesia/Blood Transfusion Reaction / Comment(s): vertigo Past Psychological History: Depression Additional Psychological History / Comment(s): Pt resides alone. She has a nebulizer. She uses no assistive device. She drives. Smoking Status: Former smoker Past Alcohol Use History: None Reported Additional Past Alcohol Use History / Comment(s): started smoking at age 19(1965) and quit 2015, was smoking 1 ppd Past Drug Use History: None Reported - Past Family History Father History Unknown: Yes Family Medical History: Myocardial Infarction ([place]) Additional Family Medical History / Comment(s): at age 45 from [place] Mother History Unknown: Yes Additional Family Medical History / Comment(s): from natural causes -she was 95 years old Brother(s) Family Medical History: Cancer Additional Family Medical History / Comment(s): lung cancer Medications and Allergies Home Medications Medication Instructions Recorded Confirmed Type Lisinopril [Zestril] 5 mg PO DAILY 04/23/15 11/24/18 History Omeprazole [PriLOSEC] 20 mg PO AC-BRKFST 04/23/15 11/24/18 History [place]-3 Fatty Acids/Fish Oil [Fish 1 cap PO DAILY 12/02/16 11/24/18 History Oil 1,000 mg Softgel] Rivaroxaban [Xarelto] 20 mg PO HS 12/02/16 11/24/18 History Simvastatin [Zocor] 40 mg PO HS 12/02/16 11/24/18 History Verapamil [Isoptin] 40 mg PO BID 12/02/16 11/24/18 History Calcium Carbonate 500 mg PO DAILY 10/10/17 11/24/18 History Citalopram Hydrobromide [CeleXA] 20 mg PO DAILY 03/10/18 11/24/18 History metFORMIN HCL [Glucophage Xr] 750 mg PO PC-SUPPER 03/14/18 11/24/18 History Albuterol Inhaler [Ventolin Hfa 1 - 2 puff INHALATION RT-Q6H PRN 11/24/18 11/24/18 History Inhaler] Albuterol Nebulized [Ventolin 2.5 mg INHALATION RT-TID PRN 11/24/18 11/24/18 History Nebulized] Allergies Allergy/AdvReac Type Severity Reaction Status Date / Time latex Allergy Rash/Hives Verified 11/24/18 10:22 Penicillins Allergy Rash/Hives Verified 11/24/18 10:22 Physical Exam Vitals: Vital Signs Temp Pulse Resp BP Pulse Ox 11/24/18 13:03 98 16 111/68 96 11/24/18 11:40 98 22 139/96 96 11/24/18 11:09 98 11/24/18 10:47 93 11/24/18 10:33 90 11/24/18 09:46 98.5 F 84 18 118/74 93 L Intake and Output 11/23/18 11/24/18 11/24/18 22:59 06:59 14:59 Other: Weight 85.729 kg PHYSICAL EXAMINATION: Patient is lying in the bed comfortably, no acute distress, awake alert and oriented.. HEENT: Normocephalic. Neck is supple. Pupils reactive. Nostrils clear. Oral cavity is moist. Ears reveal no drainage. Neck reveals no JVD, carotid bruits, or thyromegaly. CHEST EXAMINATION: Trachea is central. Symmetrical expansion. Bilateral diminished air entry and diffuse wheeze. CARDIAC: Normal S1, S2 with no gallops. No murmurs ABDOMEN: Soft. Bowel sounds normal. No organomegaly. No abdominal bruits. Extremities: reveal no edema. No clubbing or cyanosis Neurologically awake, alert, oriented x3 with well-coordinated movements. No focal deficits noted Skin: No rash or skin lesions. Psychiatric: Coperative. Nonsuicidal Musculoskeletal: No joint swelling or deformity. Normal range of motion. Results CBC & Chem 7: 11/24/18 10:10 11/24/18 10:10 Labs: Abnormal Lab Results - Last 24 Hours (Table) 11/24/18 11/24/18 Range/Units 10:10 10:10 RDW 16.6 H (11.5-15.5) % Lymphocytes # 0.6 L (1.0-4.8) k/uL Glucose 116 H (74-99) mg/dL Magnesium 1.4 L (1.6-2.3) mg/dL Thrombosis Risk Factor Assmnt - DVT/VTE Prophylaxis DVT/VTE Prophylaxis: Pharmacologic Prophylaxis ordered - Choose All That Apply Any of the Below Risk Factors Present?: Yes Each Factor Represents 1 point: Obesity (BMI >25), Serious lung disease incl. pneumonia (< 1month) Other Risk Factors: Yes Each Risk Factor Represents 2 Points: Age 61-74 years Other congenital or acquired thrombophilia - If yes, enter type in comment: No Thrombosis Risk Factor Assessment Total Risk Factor Score: 4 Thrombosis Risk Factor Assessment Level: Moderate Risk Assessment and Plan Assessment: Acute COPD exacerbation Acute tracheobronchitis possible left basilar infiltrate/pneumonia Hypomagnesemia. Replace in the ER. Paroxysmal atrial fibrillation on anticoagulation with xarelto History of CVA/TIA Diabetes type 2 GERD Hypertension Hyperlipidemia Osteoarthritis History of abdominal aortic aneurysm/iliac aneurysm with surgery. Chronic low back pain History of Tan's esophagus Depression Previous history of smoking Plan: Patient will be continued on IV methylprednisolone along with duo nebs. Continue antibiotics in the form of ceftriaxone and azithromycin. Sputum culture was ordered. Follow blood cultures. Continue the home medications along with insulin sliding scale. Pulmonary was consulted for further management. Continue to follow closely. Prognosis is guarded. Discussed with the patient and her family at bedside in detail. Time with Patient: Greater than 30
[2018-11-25] MEDS: IPRATROPIUM-ALBUTEROL 3 ML NEB INHALATION PRN ×4 (07:28→18:57)
[2018-11-25 07:59] LABS: Anisocytosis Slight; Basophils % (A) 0 %; Eosinophils % (A) 0 %; HCT 40.3 % (34.0-46.0); HGB 13.1 gm/dL (11.4-16.0); Lymphocytes # (A) 0.8 k/uL (1.0-4.8); Lymphocytes % (A) 7 %; MCH 29.2 pg (25.0-35.0); MCHC 32.5 g/dL (31.0-37.0); MCV 89.9 fL (80.0-100.0); Mean Platelet Volume 7.5; Monocytes # (A) 0.3 k/uL (0-1.0); Monocytes % (A) 2 %; Neutrophils # (A) 9.6 k/uL (1.3-7.7); Neutrophils % (A) 89 %; Platelet Count 245 k/uL (150-450); RBC 4.49 m/uL (3.80-5.40); RDW 16.9 % (11.5-15.5); WBC 10.8 k/uL (3.8-10.6)
[2018-11-25 08:07] LABS: African American GFR (CKD) >90 (>60 ml/min/1.73 sqM); Anion Gap 13 mmol/L; Blood Urea Nitrogen 15 mg/dL (7-17); Calcium 9.8 mg/dL (8.4-10.2); Carbon Dioxide 20 mmol/L (22-30); Chloride 104 mmol/L (98-107); Glucose 159 mg/dL (74-99); Sodium 137 mmol/L (137-145)
[2018-11-25 08:09] LABS: Potassium 4.7 mmol/L (3.5-5.1)
[2018-11-25] MEDS ORDERED: predniSONE 20 MG TAB PO SCH (09:00)
[2018-11-25] MEDS: metFORMIN 500 MG TAB PO SCH ×3 (09:16→18:42)
[2018-11-25] MEDS: VERAPAMIL 40 MG TAB PO SCH ×2 (09:16→20:45)
[2018-11-25] MEDS: PANTOPRAZOLE 40 MG TABLET PO SCH (09:16)
[2018-11-25] MEDS: CITALOPRAM HYDROBROMIDE 20 MG TAB PO SCH (09:16)
[2018-11-25] MEDS: AZITHROMYCIN 500 MG TAB PO SCH (13:07)
[2018-11-25] MEDS: ALPRAZolam 0.25 MG TAB PO PRN ×2 (13:15→19:51)
--- NOTE | 2018-11-25 13:24 | CONS ---
CONSULTATION PULMONARY/CRITICAL CARE CONSULTATION: DATE OF SERVICE: 11/25/2018 This is a 73-year-old female who presented to the emergency room, was seen by Dr. Paulson yesterday on November 24. She came in with complaints of shortness of breath. She apparently had not been feeling well for a day or two prior to admission. She apparently thinks that she caught a cold from her granddaughter. She complains of shortness of breath, chest congestion, coughing and green phlegm production. Possible mild fever and chills. The patient is sitting in the chair in the room currently. Still very short of breath. She has conversational dyspnea. The patient does not have any audible wheezing. I see her in the office for COPD/asthma. The patient's primary care physician is Dr. Knowles in [place]. The patient is currently on oxygen therapy. She apparently did receive some Xanax last night, which seemed to settle her down. She is quite anxious. She has a history of multiple medical problems including COPD/asthma, obesity, atrial fibrillation, diabetes, and DVT. CURRENT MEDICATIONS: Include lisinopril, omeprazole, omega-3 fatty acids, Xarelto, Zocor, Isoptin, calcium carbonate, Celexa, metformin, albuterol inhaler, albuterol updrafts. ALLERGIES: LATEX and PENICILLIN. MEDICAL HISTORY: Include atrial fibrillation, asthma, CVA, diabetes, obesity, DVT, GERD, hyperlipidemia, hypertension, DJD, pneumonia, and psoriasis. She also has a history of Pozo's esophagus. She also complains of sciatic neuralgia from time to time. SURGICAL HISTORY: Includes among other things appendectomy, cholecystectomy, hernia repair, vein stripping, bilateral cataract surgery with implant, right wrist surgery, left breast biopsy, colonoscopy and EGD. SOCIAL HISTORY: Positive for previous tobacco use. She denies any illicit drug use or alcohol use. FAMILY HISTORY: Positive for a father with MT. Mother who at 95 from natural causes and a brother with lung cancer. REVIEW OF SYSTEMS: CONSTITUTIONAL: Anxiety. NEUROLOGIC: Negative. HEENT: Negative. CARDIOVASCULAR: Negative. PULMONARY: Shortness of breath, chest congestion, coughing, green phlegm production. GI: Negative. : Negative. RHEUMATOLOGIC: Negative. IMMUNOLOGIC: Negative. ENDOCRINOLOGIC: Negative. DERMATOLOGIC: Negative. Current vital signs are reviewed, temperature is 98.7, heart rate 87, respiratory rate 20, blood pressure 145/75 mean 99, saturations are mid 90s on 3 L. Appears in no acute distress. HEENT: Examination is grossly unremarkable. Nasal O2 in place. NECK: Supple. Full range of motion. No adenopathy. CARDIOVASCULAR: Examination reveals regular rhythm and rate. S1, S2 normal. Heart rate is 87 beats per minute. No murmur. LUNGS: Reveal expiratory wheezes and rhonchi. She is bronchospastic. She coughs on forced maneuver. There is prolongation on forced maneuver. No crackles. ABDOMEN: Obese. Bowel sounds are heard. EXTREMITIES: Intact. No cyanosis, clubbing, or edema. SKIN: Without rash. NEUROLOGIC: Examination is nonfocal. LABS: Reviewed. White count 10.8, hemoglobin 13.1, hematocrit 40.3, platelet count 345,000. PT, INR, PTT all normal. Sodium, potassium, chloride normal, CO2 is 20, anion gap is 13. BUN and creatinine were 15 and 0.7. The rest of the lab work overall looks okay. Troponin negative, N terminal proBNP negative. She had a chest x-ray. The chest x-ray shows a little patchy infiltrate in the left lower lobe. This could also be an area of mucous plugging and/or atelectasis. Microbiology is pending. Medications are reviewed. She is currently on oral Zithromax and Rocephin. She is also getting Solu-Medrol and updrafts. ASSESSMENT: 1. Asthma exacerbation complicated by purulent tracheobronchitis and possible bronchopneumonia left lower lobe. 2. History of hypertension. 3. Gastroesophageal reflux disease. 4. History of deep venous thrombosis. 5. Hyperlipidemia. 6. History of atrial fibrillation. 7. Diabetes mellitus. 8. Gastroesophageal reflux disease. 9. Pozo's esophagus. 10.Degenerative joint disease. 11.Psoriasis. 12.Previous history of pneumonia. 13.Sciatic neuralgia. PLAN: The patient is on appropriate medications. Will continue to follow. The nurse asked about an anxiolytic medication. That should come from the primary. I have no problem with that. Will add some Pulmicort and Perforomist to her regimen. Her other medications are appropriate including antibiotics. MMODL / IJN: [id number] /
[2018-11-25] MEDS: INSULIN ASPART (NovoLOG) 100 UNIT/ML VIAL SQ SCH ×2 (18:22→20:45)
[2018-11-25] MEDS: FORMOTEROL FUMARATE 20 MCG/2 ML NEBU INHALATION SCH (18:57)
[2018-11-25] MEDS: BUDESONIDE 1 MG/2 ML NEBU INHALATION SCH (18:57)
[2018-11-25 20:35] LABS: Glucose,Whole Blood 334 mg/dL (75-99)
[2018-11-25] MEDS: ATORVASTATIN 20 MG TAB PO SCH (20:45)
[2018-11-25] MEDS: RIVAROXABAN 20 MG TAB PO SCH (20:45)
--- NOTE | 2018-11-25 22:57 | PN ---
PROGRESS NOTE DATE OF SERVICE: 11/25/2018. HISTORY: This 73-year-old woman was admitted with COPD acute exacerbation as well as left lower pneumonia. She is being closely monitored. The patient has significant shortness of breath. The patient was started on bronchodilators, steroids and IV antibiotics. Dr. Enamorado is following the patient closely. PAST MEDICAL HISTORY: Reviewed. REVIEW OF SYSTEMS: CARDIOVASCULAR: No angina or palpitations. RESPIRATORY: As mentioned earlier. GI: No nausea. : As mentioned earlier. CURRENT MEDICATIONS: Reviewed, include: 1. DuoNeb q.i.d. and p.r.n. 2. Xanax 0.5 q.i.d. 3. Lipitor 20 mg at bedtime. 4. Flomax 500 mg. 5. Pulmicort b.i.d. 6. Rocephin 1 g daily. 7. Celexa 20 mg daily. 8. Perforomist 20 mcg. 9. Glucophage 500 mg b.i.d. 10.Solu-Medrol 60 IV ever 6h. 11.Protonix. 12.Xarelto 20 mg. 13.Isoptin 40 mg p.o. b.i.d. PHYSICAL EXAMINATION: Patient is alert, oriented x4. Pulse 78, blood pressure 100/62, respirations 24, temperature 97.7, pulse ox 94% on 3 L. HEENT: Conjunctivae normal. NECK: Normal. No JVD. CARDIOVASCULAR: S1 and S2 muffled. LUNGS: Breath sounds diminished at the bases. Bilateral scattered rhonchi and crackles. Breathing efforts are markedly increased. ABDOMEN: Soft nontender. LEGS: No edema. No swelling. [employer]: No focal deficits. LABS: WBC 10.8, hemoglobin 13.1. ASSESSMENT: 1. Chronic obstructive pulmonary disease acute exacerbation with acute left lower lobe pneumonia possibly gram-negative. 2. Hypomagnesemia. 3. Paroxysmal atrial fibrillation, on anticoagulation with Xarelto. 4. History of cerebrovascular accident, transient ischemic attack. 5. Diabetes type 2. 6. Gastroesophageal reflux disease. 7. Hypertension. 8. Hyperlipidemia. 9. History of degenerative joint disease. 10.History of abdominal aortic aneurysm and iliac aneurysm with surgery. 11.History of chronic low back pain. 12.History of Pozo's esophagus. 13.Depression. 14.Previous history of smoking. RECOMMENDATIONS AND DISCUSSION: Recommend to continue current management and symptomatic treatment. Medications reviewed at this time. Otherwise, I would recommend continue the Rocephin and Zithromax. Patient is also on IV steroids as well as DVT prophylaxis also. I would also recommend repeat labs and closely follow with Pulmonary. Otherwise, I would also recommend Accu-Cheks with meals and at bedtime. Guarded prognosis because of multiple complex medical issues. Further recommendations to follow. MMODL / IJN: [id number] /
[2018-11-26] MEDS: methylPREDNISolone SOD SUCCI 125 MG/2 ML VIAL IV SCH ×4 (00:25→17:41)
[2018-11-26] MEDS: ALPRAZolam 0.25 MG TAB PO PRN ×3 (03:48→16:13)
[2018-11-26 07:10] LABS: Glucose,Whole Blood 189 mg/dL (75-99)
[2018-11-26] MEDS: VERAPAMIL 40 MG TAB PO SCH ×2 (07:20→20:29)
[2018-11-26] MEDS: PANTOPRAZOLE 40 MG TABLET PO SCH (07:20)
[2018-11-26] MEDS: CITALOPRAM HYDROBROMIDE 20 MG TAB PO SCH (07:20)
[2018-11-26] MEDS: CALCIUM CARBONATE 500 MG CHEWABLE PO SCH (07:20)
[2018-11-26] MEDS: INSULIN ASPART (NovoLOG) 100 UNIT/ML VIAL SQ SCH ×4 (07:21→20:29)
[2018-11-26] MEDS: metFORMIN 500 MG TAB PO SCH ×2 (07:21→17:41)
[2018-11-26 07:31] LABS: Anisocytosis Slight; Basophils % (A) 0 %; Eosinophils # (A) 0.2 k/uL (0-0.7); Eosinophils % (A) 1 %; HCT 40.4 % (34.0-46.0); HGB 12.9 gm/dL (11.4-16.0); Lymphocytes # (A) 0.6 k/uL (1.0-4.8); Lymphocytes % (A) 3 %; MCH 28.6 pg (25.0-35.0); MCV 89.4 fL (80.0-100.0); Mean Platelet Volume 7.1; Monocytes # (A) 0.3 k/uL (0-1.0); Monocytes % (A) 2 %; Neutrophils % (A) 94 %; Platelet Count 284 k/uL (150-450); RBC 4.52 m/uL (3.80-5.40); RDW 16.3 % (11.5-15.5); WBC 19.3 k/uL (3.8-10.6)
[2018-11-26 07:44] LABS: Potassium 4.6 mmol/L (3.5-5.1)
[2018-11-26] MEDS: BUDESONIDE 1 MG/2 ML NEBU INHALATION SCH ×2 (08:48→19:35)
[2018-11-26] MEDS: IPRATROPIUM-ALBUTEROL 3 ML NEB INHALATION PRN ×5 (08:48→23:29)
[2018-11-26] MEDS: FORMOTEROL FUMARATE 20 MCG/2 ML NEBU INHALATION SCH ×2 (08:48→19:35)
--- NOTE | 2018-11-26 09:17 | P.PN ---
Subjective Progress Note Date: 11/26/18 Principal diagnosis: Acute exacerbation of chronic bronchial asthma/COPD On 11/26/2018 patient seen in follow-up on medical surgical floor. She still bronchospastic and dyspneic, very modest improvement since yesterday, she is on 3 L of oxygen with pulse ox of 98%, she is afebrile, hemodynamically patient is stable. No new chest x-rays today, today's labs have been reviewed, showing white blood cell count of 19.3, likely related to IV steroids, electrolytes were within normal limits, B1 of 19 and creatinine 0.84. Occasional cough with production of sputum, sputum was sent for culture, and is pending at this time. She is on empiric antibiotic and the form of Zithromax and Rocephin, she is on IV steroids, and nebulized bronchodilators. No complaints of chest pain, no fever or chills. Admission chest x-ray has been reviewed, showing a little patchy infiltrate in the left lower lobe likely related to atelectasis and area of mucus plugging. Objective - Vital Signs Vital signs: Vital Signs Temp 97.8 F 11/26/18 05:00 Pulse 81 11/26/18 09:03 Resp 20 11/26/18 05:00 BP 132/85 11/26/18 05:00 Pulse Ox 98 11/26/18 08:51 Intake & Output 11/25/18 11/26/18 11/26/18 18:59 06:59 18:59 Intake Total 300 Balance 300 Intake: Intake, IV Titration 0 Amount Magnesium Sulfate-D5w Pmx 0 1 gm In Dextrose/Water 1 100ml.bag @ 100 mls/hr IVPB Q1H [facility] Rx#: [id number] Oral 300 Other: Voiding Method Toilet # Voids 1 3 # Bowel Movements 0 - Exam GENERAL EXAM: Alert, very pleasant, obese 73-year-old white female, 3 L of oxygen comfortable in no apparent distress. HEAD: Normocephalic/atraumatic. EYES: Normal reaction of pupils, equal size. Conjunctiva pink, sclera white. NOSE: Clear with pink turbinates. THROAT: No erythema or exudates. NECK: No masses, no JVD, no thyroid enlargement, no adenopathy. CHEST: No chest wall deformity. Symmetrical expansion. LUNGS: Equal air entry with diffuse wheezes CVS: Regular rate and rhythm, normal S1 and S2, no gallops, no murmurs, no rubs ABDOMEN: Soft, nontender. No hepatosplenomegaly, normal bowel sounds, no guarding or rigidity. EXTREMITIES: No clubbing, no edema, no cyanosis, 2+ pulses and upper and lower extremities. MUSCULOSKELETAL: Muscle strength and tone normal. SPINE: No scoliosis or deformity SKIN: No rashes CENTRAL NERVOUS SYSTEM: Alert and oriented -3. No focal deficits, tone is normal in all 4 extremities. PSYCHIATRIC: Alert and oriented -3. Appropriate affect. Intact judgment and insight. - Labs CBC & Chem 7: 11/26/18 07:09 11/26/18 07:09 Labs: Abnormal Lab Results - Last 24 Hours (Table) 11/25/18 11/26/18 11/26/18 Range/Units 20:34 07:08 07:09 WBC 19.3 H (3.8-10.6) k/uL RDW 16.3 H (11.5-15.5) % Neutrophils # 18.0 H (1.3-7.7) k/uL Lymphocytes # 0.6 L (1.0-4.8) k/uL BUN (7-17) mg/dL Glucose (74-99) mg/dL POC Glucose (mg/dL) 334 H 189 H (75-99) mg/dL 11/26/18 Range/Units 07:09 WBC (3.8-10.6) k/uL RDW (11.5-15.5) % Neutrophils # (1.3-7.7) k/uL Lymphocytes # (1.0-4.8) k/uL BUN 19 H (7-17) mg/dL Glucose 192 H (74-99) mg/dL POC Glucose (mg/dL) (75-99) mg/dL Microbiology - Last 24 Hours (Table) 11/25/18 07:33 Sputum Culture - Preliminary Sputum Assessment and Plan Plan: Assessment: #1. Acute exacerbation of mild persistent bronchial asthma, complicated by by mouth tracheobronchitis and possible bronchopneumonia involving the left lower lobe #2. History of hypertension #3. GERD/reflux #4. History of deep venous thrombosis #5. Hyperlipidemia #6. History of atrial fibrillation #7. Diabetes mellitus #8. Pozo's esophagus #9. Degenerative joint disease #10. Psoriasis #11. Previous history of pneumonia #12. Sciatic neuralgia Plan: Continue the IV steroids, continue Zithromax and Rocephin, nebulized bronchodilators, Pulmicort and Perforomist, patient still bronchospastic and dyspnea, not ready for discharge, we will continue with current medical treatment. Will await the results of the sputum culture I performed a history & physical examination of the patient and discussed their management with my nurse practitioner, Maria Elena Verduzco. I reviewed the nurse practitioner's note and agree with the documented findings and plan of care. Lung sounds are positive for diffuse wheezes throughout the lung pierce. The findings and the impression was discussed with the patient. I attest to the documentation by the nurse practitioner. Time with Patient: Less than 30
[2018-11-26] MEDS: AZITHROMYCIN 500 MG TAB PO SCH (12:26)
[2018-11-26 12:31] LABS: Glucose,Whole Blood 244 mg/dL (75-99)
[2018-11-26] MEDS: OSELTAMIVIR 75 MG CAP PO SCH (15:01)
[2018-11-26 17:15] LABS: Glucose,Whole Blood 350 mg/dL (75-99)
--- NOTE | 2018-11-26 19:14 | PN ---
PROGRESS NOTE DATE OF SERVICE: 11/26/2018 This 73-year-old woman was admitted with COPD acute exacerbation. Also, had acute left lower lobe pneumonia. The patient also was found to have influenza A. Dr. Enamorado is following the patient closely. No chest pain. No palpitations. Patient is still extremely short of breath. PAST MEDICAL HISTORY: Reviewed. REVIEW OF SYSTEMS: CARDIOVASCULAR SYSTEM: No angina or palpitations. RESPIRATORY: As mentioned earlier. GI: As mentioned earlier. : No dysuria. NERVOUS SYSTEM: No numbness or weakness. CURRENT MEDICATIONS: 1. DuoNeb q.i.d. and p.r.n. 2. Xanax 0.5 q.i.d. 3. Lipitor 20 mg daily. 4. Zithromax 500 mg daily. 5. Pulmicort 1 mg b.i.d. 6. Tums 500 mg. 7. Rocephin 1 g daily. 8. Celexa 20 mg. 9. Perforomist 20 mcg b.i.d. 10.NovoLog scale. 11.Glucophage 500 mg p.o. b.i.d. 12.Solu-Medrol 60 IV q.6h. 13.Tamiflu 70 mg p.o. daily. 14.Protonix 40 mg daily. 15.Xarelto 20 mg q.h.s. 16.Isoptin 40 mg b.i.d. ALLERGIES: Are noted. PHYSICAL EXAM: Patient is alert oriented x3. Pulse 61, blood pressure 121/56, respirations 16, temperature 97.7, pulse ox 97% on 2 L. HEENT: Conjunctivae normal. Oral mucosa moist. NECK: No jugular venous distention. No lymph node enlargement. CARDIOVASCULAR: S1, S2. RESPIRATORY: Diminished breath sounds at the bases. A few bilateral scattered rhonchi and crackles. Expiratory wheezing also present. ABDOMEN: Soft, nontender. LEGS: No swelling. NERVOUS SYSTEM: Higher functions as mentioned. Moves all four limbs. No focal deficits. LYMPHATICS: No lymph node in neck or axilla. JOINTS: No active deforming arthropathy. LABS: WBC 9.2, hemoglobin 12.9, sodium 138, potassium 4.6. ASSESSMENT: 1. Chronic obstructive pulmonary disease acute exacerbation with acute left lower lobe pneumonia with possibly gram-negative. 2. Acute influenza A. 3. Hypomagnesemia. 4. Paroxysmal atrial fibrillation on anticoagulation with Xarelto. 5. History of cerebrovascular accident, transient ischemic attack. 6. Diabetes mellitus type 2. 7. Gastroesophageal reflux disease. 8. Hypertension. 9. History of hyperlipidemia. 10.History of degenerative joint disease. 11.History of abdominal aortic aneurysm and iliac aneurysm with surgery. 12.History of chronic low back pain. 13.History of Pozo's esophagus. 14.Depression. 15.Previous history of smoking. RECOMMENDATIONS AND DISCUSSION: This 73-year-old woman who presented with multiple medical issues, at this time I recommend to optimize the bronchodilators, continue with broad-spectrum antibiotics. Otherwise, also recommend Xarelto. Guarded prognosis because of multiple complex medical issues. Further recommendations to follow. MMODL / IJN: [id number] /
[2018-11-26 20:10] LABS: Glucose,Whole Blood 284 mg/dL (75-99)
[2018-11-26] MEDS: ATORVASTATIN 20 MG TAB PO SCH (20:29)
[2018-11-26] MEDS: RIVAROXABAN 20 MG TAB PO SCH (20:29)
[2018-11-27] MEDS: methylPREDNISolone SOD SUCCI 125 MG/2 ML VIAL IV SCH ×5 (01:19→23:12)
[2018-11-27] MEDS: IPRATROPIUM-ALBUTEROL 3 ML NEB INHALATION PRN ×5 (03:28→19:32)
[2018-11-27] MEDS: ALPRAZolam 0.25 MG TAB PO PRN ×2 (05:51→17:24)
[2018-11-27 07:23] LABS: Glucose,Whole Blood 174 mg/dL (75-99)
[2018-11-27] MEDS: VERAPAMIL 40 MG TAB PO SCH ×2 (07:51→20:39)
[2018-11-27] MEDS: CALCIUM CARBONATE 500 MG CHEWABLE PO SCH (07:51)
[2018-11-27] MEDS: metFORMIN 500 MG TAB PO SCH ×2 (07:52→17:21)
[2018-11-27] MEDS: PANTOPRAZOLE 40 MG TABLET PO SCH (07:52)
[2018-11-27] MEDS: OSELTAMIVIR 75 MG CAP PO SCH (07:52)
[2018-11-27] MEDS: INSULIN ASPART (NovoLOG) 100 UNIT/ML VIAL SQ SCH ×4 (07:52→20:39)
[2018-11-27] MEDS: CITALOPRAM HYDROBROMIDE 20 MG TAB PO SCH (07:52)
[2018-11-27] MEDS: FORMOTEROL FUMARATE 20 MCG/2 ML NEBU INHALATION SCH ×2 (08:14→19:46)
[2018-11-27] MEDS: BUDESONIDE 1 MG/2 ML NEBU INHALATION SCH ×2 (08:14→19:32)
[2018-11-27 08:21] LABS: Anisocytosis Slight; Basophils % (A) 0 %; Eosinophils # (A) 0.1 k/uL (0-0.7); Eosinophils % (A) 1 %; HCT 39.5 % (34.0-46.0); HGB 12.7 gm/dL (11.4-16.0); Lymphocytes # (A) 0.7 k/uL (1.0-4.8); Lymphocytes % (A) 4 %; MCH 28.6 pg (25.0-35.0); MCV 89.3 fL (80.0-100.0); Mean Platelet Volume 7.5; Monocytes # (A) 0.4 k/uL (0-1.0); Monocytes % (A) 2 %; Neutrophils # (A) 14.7 k/uL (1.3-7.7); Neutrophils % (A) 93 %; Platelet Count 272 k/uL (150-450); RBC 4.42 m/uL (3.80-5.40); RDW 16.3 % (11.5-15.5); WBC 15.9 k/uL (3.8-10.6)
[2018-11-27 08:28] LABS: African American GFR (CKD) >90 (>60 ml/min/1.73 sqM); Anion Gap 7 mmol/L; Blood Urea Nitrogen 21 mg/dL (7-17); Calcium 10.4 mg/dL (8.4-10.2); Carbon Dioxide 26 mmol/L (22-30); Chloride 102 mmol/L (98-107); Glucose 167 mg/dL (74-99); Potassium 4.4 mmol/L (3.5-5.1); Sodium 135 mmol/L (137-145)
--- NOTE | 2018-11-27 09:40 | P.PN ---
Subjective Progress Note Date: 11/27/18 Principal diagnosis: Acute exacerbation of chronic bronchial asthma/COPD On 11/26/2018 patient seen in follow-up on medical surgical floor. She still bronchospastic and dyspneic, very modest improvement since yesterday, she is on 3 L of oxygen with pulse ox of 98%, she is afebrile, hemodynamically patient is stable. No new chest x-rays today, today's labs have been reviewed, showing white blood cell count of 19.3, likely related to IV steroids, electrolytes were within normal limits, B1 of 19 and creatinine 0.84. Occasional cough with production of sputum, sputum was sent for culture, and is pending at this time. She is on empiric antibiotic and the form of Zithromax and Rocephin, she is on IV steroids, and nebulized bronchodilators. No complaints of chest pain, no fever or chills. Admission chest x-ray has been reviewed, showing a little patchy infiltrate in the left lower lobe likely related to atelectasis and area of mucus plugging. On 11/27/2018 patient seen in follow-up on medical surgical floor. Influenza a by PCR was positive, and patient was started on Tamiflu, she is still quite bronchospastic and dyspneic, she has been afebrile, room air pulse ox is 96%. She is on Zithromax, and Rocephin, nebulized bronchodilators, and IV steroids. Objective - Vital Signs Vital signs: Vital Signs Temp 97.4 F L 11/27/18 05:15 Pulse 84 11/27/18 08:39 Resp 20 11/27/18 05:15 BP 119/57 11/27/18 05:15 Pulse Ox 96 11/27/18 05:15 Intake & Output 11/26/18 11/27/18 11/27/18 18:59 06:59 18:59 Intake Total 800 300 Balance 800 300 Intake: Oral 800 300 Other: Voiding Method Toilet # Voids 1 1 # Bowel Movements 0 - Exam GENERAL EXAM: Alert, very pleasant, obese 73-year-old white female, 3 L of oxygen dyspneic and wheezy HEAD: Normocephalic/atraumatic. EYES: Normal reaction of pupils, equal size. Conjunctiva pink, sclera white. NOSE: Clear with pink turbinates. THROAT: No erythema or exudates. NECK: No masses, no JVD, no thyroid enlargement, no adenopathy. CHEST: No chest wall deformity. Symmetrical expansion. LUNGS: Equal air entry with diffuse wheezes CVS: Regular rate and rhythm, normal S1 and S2, no gallops, no murmurs, no rubs ABDOMEN: Soft, nontender. No hepatosplenomegaly, normal bowel sounds, no guarding or rigidity. EXTREMITIES: No clubbing, no edema, no cyanosis, 2+ pulses and upper and lower extremities. MUSCULOSKELETAL: Muscle strength and tone normal. SPINE: No scoliosis or deformity SKIN: No rashes CENTRAL NERVOUS SYSTEM: Alert and oriented -3. No focal deficits, tone is normal in all 4 extremities. PSYCHIATRIC: Alert and oriented -3. Appropriate affect. Intact judgment and insight. - Labs CBC & Chem 7: 11/27/18 07:34 11/27/18 07:34 Labs: Abnormal Lab Results - Last 24 Hours (Table) 11/26/18 11/26/18 11/26/18 Range/Units 11:16 12:15 17:12 WBC (3.8-10.6) k/uL RDW (11.5-15.5) % Neutrophils # (1.3-7.7) k/uL Lymphocytes # (1.0-4.8) k/uL Sodium (137-145) mmol/L BUN (7-17) mg/dL Glucose (74-99) mg/dL POC Glucose (mg/dL) 244 H 350 H (75-99) mg/dL Calcium (8.4-10.2) mg/dL Influenza Type A RNA Detected H (Not Detectd) 11/26/18 11/27/18 11/27/18 Range/Units 20:03 07:20 07:34 WBC 15.9 H (3.8-10.6) k/uL RDW 16.3 H (11.5-15.5) % Neutrophils # 14.7 H (1.3-7.7) k/uL Lymphocytes # 0.7 L (1.0-4.8) k/uL Sodium (137-145) mmol/L BUN (7-17) mg/dL Glucose (74-99) mg/dL POC Glucose (mg/dL) 284 H 174 H (75-99) mg/dL Calcium (8.4-10.2) mg/dL Influenza Type A RNA (Not Detectd) 11/27/18 Range/Units 07:34 WBC (3.8-10.6) k/uL RDW (11.5-15.5) % Neutrophils # (1.3-7.7) k/uL Lymphocytes # (1.0-4.8) k/uL Sodium 135 L (137-145) mmol/L BUN 21 H (7-17) mg/dL Glucose 167 H (74-99) mg/dL POC Glucose (mg/dL) (75-99) mg/dL Calcium 10.4 H (8.4-10.2) mg/dL Influenza Type A RNA (Not Detectd) Assessment and Plan Plan: Assessment: #1. Acute exacerbation of mild persistent bronchial asthma, complicated by Influenza A tracheobronchitis and possible bronchopneumonia involving the left lower lobe #2. History of hypertension #3. GERD/reflux #4. History of deep venous thrombosis #5. Hyperlipidemia #6. History of atrial fibrillation #7. Diabetes mellitus #8. Pozo's esophagus #9. Degenerative joint disease #10. Psoriasis #11. Previous history of pneumonia #12. Sciatic neuralgia Plan: Continue same antibiotic coverage, continue Tamiflu, IV steroids, nebulized bronchodilators, still quite a bronchospastic, and dyspneic, continue with current medical treatment. Continue to follow and monitor patient's progress. I performed a history & physical examination of the patient and discussed their management with my nurse practitioner, Maria Elena Verduzco. I reviewed the nurse practitioner's note and agree with the documented findings and plan of care. Lung sounds are positive for diffuse wheezes throughout the lung pierce. The findings and the impression was discussed with the patient. I attest to the documentation by the nurse practitioner. Time with Patient: Less than 30
[2018-11-27 12:14] LABS: Glucose,Whole Blood 251 mg/dL (75-99)
[2018-11-27] MEDS: AZITHROMYCIN 500 MG TAB PO SCH (12:17)
--- NOTE | 2018-11-27 15:14 | PN ---
PROGRESS NOTE DATE OF SERVICE: 11/27/2018 This 73-year-old woman admitted with COPD acute exacerbation, also had pneumonia. The patient also to be influenza A positive. The patient is being closely monitored at this time. The patient is on bronchodilators, steroids and Tamiflu as well. Dr. Enamorado is following the patient closely. Patient is on high-dose IV steroids also. The patient still has significant shortness with difficulty breathing. PAST MEDICAL HISTORY: Reviewed. REVIEW OF SYSTEMS: CARDIOVASCULAR SYSTEM: No angina or palpitations. RESPIRATORY: As mentioned earlier. GI: No nausea or vomiting. : No dysuria. NERVOUS SYSTEM: No numbness or weakness. CURRENT MEDICATIONS: 1. DuoNeb q.i.d. and p.r.n. 2. Xanax 0.5 q.i.d. 3. Lipitor 20 mg q.h.s. 4. Zithromax 500 mg daily. 5. Pulmicort 1 mg b.i.d. 6. Tums 500 mg. 7. Rocephin 1 g daily. 8. Celexa 20 mg p.o. daily. 9. Perforomist 20 mcg b.i.d. 10.NovoLog scale. 11.Glucophage. 12.Solu-Medrol 60 IV q.6h. 13.Tamiflu 30 mg p.o. b.i.d. 14.Protonix 40 mg. 15.Xarelto 20 mg q.h.s. 16.Isoptin 40 mg p.o. b.i.d. PHYSICAL EXAMINATION: Patient is alert, oriented x2. Pulse 89, blood pressure 116/70, respirations 16, temperature 97.7, pulse ox 96% on 2 L. HEENT: Conjunctivae normal. Oral mucosa moist. NECK: No jugular venous distention. No lymph node enlargement. CARDIOVASCULAR: S1, S2. RESPIRATORY: Diminished breath sounds at the bases. Bilateral scattered rhonchi and crackles. Expiratory wheezing also present. The patient unable to complete a sentence at this time. ABDOMEN: Soft, nontender. No mass palpable. LEGS: No edema, no swelling. NERVOUS SYSTEM: Higher functions mentioned earlier. Moves all four limbs. No focal deficits. LYMPHATICS: No lymph node in neck or axilla. SKIN: No rash. JOINTS: No active deforming arthropathy. LABS: WBC 15.9 and sodium is 135, calcium is 10.4. Influenza A is positive. ASSESSMENT: 1. Chronic obstructive pulmonary disease exacerbation with acute left lower pneumonia, possibly gram-negative. 2. Acute influenza A. 3. Hypomagnesemia. 4. Paroxysmal atrial fibrillation, anticoagulation on Xarelto. 5. History of cerebrovascular accident, transient ischemic attack. 6. Diabetes mellitus type 2. 7. Gastroesophageal reflux disease. 8. Hypertension. 9. History of hyperlipidemia. 10.History of degenerative joint disease. 11.History of abdominal aortic aneurysm with iliac aneurysm and surgery. 12.History of chronic low back pain. 13.History of Pozo's esophagus. 14.Depression. 15.Previous history of smoking. RECOMMENDATIONS AND DISCUSSION: Recommend to continue current medications, continue to monitor, symptomatic treatment. Otherwise, at this time I recommend continue the bronchodilators, continue with steroids, continue with antibiotics. Closely follow with Dr. Enamorado. Guarded prognosis because of multiple complex medical issues. Further recommendations to follow. MMODL / IJN: [id number] /
[2018-11-27 16:56] LABS: Glucose,Whole Blood 300 mg/dL (75-99)
[2018-11-27 20:31] LABS: Glucose,Whole Blood 267 mg/dL (75-99)
[2018-11-27] MEDS: ATORVASTATIN 20 MG TAB PO SCH (20:39)
[2018-11-27] MEDS: RIVAROXABAN 20 MG TAB PO SCH (20:42)
[2018-11-28] MEDS: methylPREDNISolone SOD SUCCI 125 MG/2 ML VIAL IV SCH ×2 (05:31→12:22)
[2018-11-28] MEDS: VERAPAMIL 40 MG TAB PO SCH ×2 (07:21→20:13)
[2018-11-28] MEDS: OSELTAMIVIR 60 MG/10 ML ORAL SYRINGE PO SCH ×2 (07:21→20:13)
[2018-11-28] MEDS: CALCIUM CARBONATE 500 MG CHEWABLE PO SCH (07:21)
[2018-11-28] MEDS: CITALOPRAM HYDROBROMIDE 20 MG TAB PO SCH (07:21)
[2018-11-28] MEDS: metFORMIN 500 MG TAB PO SCH ×2 (07:21→17:35)
[2018-11-28] MEDS: PANTOPRAZOLE 40 MG TABLET PO SCH (07:21)
[2018-11-28] MEDS: INSULIN ASPART (NovoLOG) 100 UNIT/ML VIAL SQ SCH ×4 (07:24→21:05)
[2018-11-28 07:29] LABS: Glucose,Whole Blood 193 mg/dL (75-99)
[2018-11-28] MEDS: FORMOTEROL FUMARATE 20 MCG/2 ML NEBU INHALATION SCH ×2 (07:55→19:47)
[2018-11-28] MEDS: BUDESONIDE 1 MG/2 ML NEBU INHALATION SCH ×2 (07:55→19:47)
[2018-11-28] MEDS: IPRATROPIUM-ALBUTEROL 3 ML NEB INHALATION PRN ×4 (07:55→19:47)
[2018-11-28 08:45] LABS: African American GFR (CKD) >90 (>60 ml/min/1.73 sqM); Anion Gap 8 mmol/L; Anisocytosis Slight; Basophils % (A) 0 %; Blood Urea Nitrogen 23 mg/dL (7-17); Calcium 10.2 mg/dL (8.4-10.2); Carbon Dioxide 30 mmol/L (22-30); Chloride 99 mmol/L (98-107); Eosinophils # (A) 0.1 k/uL (0-0.7); Eosinophils % (A) 0 %; Glucose 178 mg/dL (74-99); HCT 38.7 % (34.0-46.0); HGB 12.4 gm/dL (11.4-16.0); Lymphocytes # (A) 0.8 k/uL (1.0-4.8); Lymphocytes % (A) 6 %; MCH 28.4 pg (25.0-35.0); MCV 88.8 fL (80.0-100.0); Mean Platelet Volume 7.6; Monocytes # (A) 0.2 k/uL (0-1.0); Monocytes % (A) 2 %; Neutrophils # (A) 11.2 k/uL (1.3-7.7); Neutrophils % (A) 91 %; Platelet Count 239 k/uL (150-450); Potassium 4.7 mmol/L (3.5-5.1); RBC 4.35 m/uL (3.80-5.40); RDW 16.2 % (11.5-15.5); Sodium 137 mmol/L (137-145); WBC 12.4 k/uL (3.8-10.6)
[2018-11-28 12:15] LABS: Glucose,Whole Blood 218 mg/dL (75-99)
[2018-11-28] MEDS: AZITHROMYCIN 500 MG TAB PO SCH (12:22)
--- NOTE | 2018-11-28 13:10 | P.PN ---
Subjective Progress Note Date: 11/28/18 Principal diagnosis: Acute exacerbation of chronic mild intermittent bronchial asthma, complicated by influenza A. On 11/26/2018 patient seen in follow-up on medical surgical floor. She still bronchospastic and dyspneic, very modest improvement since yesterday, she is on 3 L of oxygen with pulse ox of 98%, she is afebrile, hemodynamically patient is stable. No new chest x-rays today, today's labs have been reviewed, showing white blood cell count of 19.3, likely related to IV steroids, electrolytes were within normal limits, B1 of 19 and creatinine 0.84. Occasional cough with production of sputum, sputum was sent for culture, and is pending at this time. She is on empiric antibiotic and the form of Zithromax and Rocephin, she is on IV steroids, and nebulized bronchodilators. No complaints of chest pain, no fever or chills. Admission chest x-ray has been reviewed, showing a little patchy infiltrate in the left lower lobe likely related to atelectasis and area of mucus plugging. On 11/27/2018 patient seen in follow-up on medical surgical floor. Influenza a by PCR was positive, and patient was started on Tamiflu, she is still quite bronchospastic and dyspneic, she has been afebrile, room air pulse ox is 96%. She is on Zithromax, and Rocephin, nebulized bronchodilators, and IV steroids. The patient is seen today 11/28/2018 in follow-up on the regular medical floor. She is currently awake and alert in mild respiratory distress. Somewhat bronchospastic and wheezy. The patient states she is breathing a bit easier today compared to yesterday however. She is maintaining O2 saturations in the mid 90s on 2 L/m per nasal cannula. Afebrile. Hemodynamically stable. Sputum cultures pending. White count 12.4. Hemoglobin 12.4. Creatinine 0.74. She remains on DuoNeb inhalations, Pulmicort and Perforomist inhalations, IV Solu- Medrol. She is on antibiotics in the form of ceftriaxone and azithromycin. She is on Tamiflu. Anticoagulated with Xarelto. Objective - Vital Signs Vital signs: Vital Signs Temp 98.1 F 11/28/18 07:18 Pulse 84 11/28/18 11:29 Resp 18 11/28/18 07:18 BP 154/80 11/28/18 07:18 Pulse Ox 97 11/28/18 07:18 Intake & Output 11/27/18 11/28/18 11/28/18 18:59 06:59 18:59 Intake Total 600 Balance 600 Intake: Oral 600 Other: # Voids 3 1 # Bowel Movements 1 - Exam GENERAL EXAM: Pleasant 73-year-old female patient. Alert, fairly comfortable in no acute distress. 2 L nasal cannula. HEAD: Normocephalic. EYES: Normal reaction of pupils, equal size. NOSE: Clear with pink turbinates. THROAT: No erythema or exudates. NECK: No masses, no JVD. CHEST: No chest wall deformity. LUNGS: Equal air entry with bilateral end expiratory wheeze, diminished. CVS: S1 and S2 normal with no audible murmur, regular rhythm. ABDOMEN: No hepatosplenomegaly, normal bowel sounds, no guarding or rigidity. SPINE: No scoliosis or deformity SKIN: No rashes CENTRAL NERVOUS SYSTEM: No focal deficits, tone is normal in all 4 extremities. EXTREMITIES: There is no peripheral edema. No clubbing, no cyanosis. Peripheral pulses are intact. - Labs CBC & Chem 7: 11/28/18 07:42 11/28/18 07:42 Labs: Abnormal Lab Results - Last 24 Hours (Table) 11/27/18 11/27/18 11/28/18 Range/Units 16:55 20:21 07:21 WBC (3.8-10.6) k/uL RDW (11.5-15.5) % Neutrophils # (1.3-7.7) k/uL Lymphocytes # (1.0-4.8) k/uL BUN (7-17) mg/dL Glucose (74-99) mg/dL POC Glucose (mg/dL) 300 H 267 H 193 H (75-99) mg/dL 11/28/18 11/28/18 11/28/18 Range/Units 07:42 07:42 12:10 WBC 12.4 H (3.8-10.6) k/uL RDW 16.2 H (11.5-15.5) % Neutrophils # 11.2 H (1.3-7.7) k/uL Lymphocytes # 0.8 L (1.0-4.8) k/uL BUN 23 H (7-17) mg/dL Glucose 178 H (74-99) mg/dL POC Glucose (mg/dL) 218 H (75-99) mg/dL Assessment and Plan Assessment: Impression: #1. Acute exacerbation of mild persistent bronchial asthma, complicated by Influenza A tracheobronchitis and possible bronchopneumonia involving the left lower lobe #2. History of hypertension #3. GERD/reflux #4. History of deep venous thrombosis #5. Hyperlipidemia #6. History of atrial fibrillation #7. Diabetes mellitus #8. Pozo's esophagus #9. Degenerative joint disease #10. Psoriasis #11. Previous history of pneumonia #12. Sciatic neuralgia Plan: The patient was seen and evaluated by Dr. Shukla. She is improved today as compared to yesterday. Not quite back to her baseline. We'll continue with the current treatment plan which includes DuoNeb inhalations, Pulmicort and Perforomist inhalations, IV Solu-Medrol. Antibiotics in the form of ceftriaxone and azithromycin. She is on Tamiflu. We'll continue to follow. I, the cosigning physician, performed a history & physical examination of the patient. Lungs sounds with bilateral end expiratory wheeze. Maintaining good O2 saturations in the 90s on 2 L/m per nasal cannula. I discussed the assessment and plan of care with my nurse practitioner, Sepideh Ortiz. I attest to the above note as dictated by her.
--- NOTE | 2018-11-28 13:33 | PN ---
PROGRESS NOTE DATE OF SERVICE: 11/28/2018 This 73-year-old woman was admitted with COPD acute exacerbation also influenza A positive. Patient was closely monitored. Still short of breath. No chest pain. No palpitations. No fever. PHYSICAL EXAMINATION: On exam, alert and oriented x3. Pulse is 85, blood pressure 142/79, respiration 20, temp 97.9, pulse ox 96% on 2 L. HEENT: Conjunctive normal. NECK: No jugular venous distention. CARDIOVASCULAR: S1, S2 muffled. RESPIRATORY: Diminished breath sounds at the bases. A few scattered rhonchi and crackles. Expiratory wheezing. Abdomen is soft, nontender. NERVOUS SYSTEM: No focal deficits. LABS: WBC 12.4, hemoglobin 12.4. ASSESSMENT: 1. Chronic obstructive pulmonary disease acute exacerbation with acute left lower lobe pneumonia possibly gram-negative. 2. Acute influenza A. 3. Hypomagnesemia. 4. Paroxysmal atrial fibrillation, anticoagulation on Xarelto. 5. History of cerebrovascular accident, transient ischemic attack. 6. Diabetes mellitus type 2. 7. Gastroesophageal reflux disease. 8. Hypertension. 9. History of hyperlipidemia. 10.History of degenerative joint disease. 11.History of abdominal aortic aneurysm with iliac aneurysm and surgery. 12.History of chronic low back pain. 13.History of Pozo's esophagus. 14.Depression. 15.Previous history of smoking. RECOMMENDATIONS AND DISCUSSION: Recommend to continue current medication, continue to monitor and symptomatic treatment. Otherwise at this time, I would recommend continue with bronchodilators. Taper the steroids further. Monitor blood sugars closely. Closely follow with Pulmonary. Guarded prognosis. Further recommendations to follow. MMODL / IJN: [id number] /
--- NOTE | 2018-11-28 14:49 | XR ---
EXAMINATION TYPE: XR chest 2V DATE OF EXAM: 11/28/2018 COMPARISON: 11/24/2018 HISTORY: Shortness of breath. Follow-up for pneumonia. TECHNIQUE: Frontal and lateral views of the chest are obtained. FINDINGS: Bilateral hemidiaphragm eventration is seen. Increasing confluence of the left basilar opa city. Remainder the lungs are well aerated. Mild multilevel degenerative changes of the spine and dif fuse osseous demineralization. Partially visualized abdominal aortic stent. Cardiomediastinal silhoue tte is stable. IMPRESSION: Increasing confluence of a left basilar opacity suspicious for unifocal pneumonia.
[2018-11-28] MEDS: methylPREDNISolone SOD SUCCI 40 MG/ML 1 ML VIAL IV SCH ×2 (15:31→23:15)
[2018-11-28 16:51] LABS: Glucose,Whole Blood 336 mg/dL (75-99)
[2018-11-28] MEDS: ALPRAZolam 0.25 MG TAB PO PRN (19:16)
[2018-11-28] MEDS: RIVAROXABAN 20 MG TAB PO SCH (20:13)
[2018-11-28] MEDS: ATORVASTATIN 20 MG TAB PO SCH (20:13)
[2018-11-28 20:33] LABS: Glucose,Whole Blood 296 mg/dL (75-99)
[2018-11-29] MEDS: BUDESONIDE 1 MG/2 ML NEBU INHALATION SCH ×2 (06:50→19:50)
[2018-11-29] MEDS: IPRATROPIUM-ALBUTEROL 3 ML NEB INHALATION PRN ×3 (06:51→19:50)
[2018-11-29] MEDS: FORMOTEROL FUMARATE 20 MCG/2 ML NEBU INHALATION SCH ×2 (06:51→19:50)
[2018-11-29 07:10] LABS: Glucose,Whole Blood 287 mg/dL (75-99)
[2018-11-29] MEDS: VERAPAMIL 40 MG TAB PO SCH ×2 (07:44→21:39)
[2018-11-29] MEDS: CITALOPRAM HYDROBROMIDE 20 MG TAB PO SCH (07:44)
[2018-11-29] MEDS: PANTOPRAZOLE 40 MG TABLET PO SCH (07:44)
[2018-11-29] MEDS: metFORMIN 500 MG TAB PO SCH ×2 (07:44→17:18)
[2018-11-29] MEDS: CALCIUM CARBONATE 500 MG CHEWABLE PO SCH (07:44)
[2018-11-29] MEDS: INSULIN ASPART (NovoLOG) 100 UNIT/ML VIAL SQ SCH ×4 (07:44→20:20)
[2018-11-29] MEDS: methylPREDNISolone SOD SUCCI 40 MG/ML 1 ML VIAL IV SCH (07:44)
[2018-11-29] MEDS: OSELTAMIVIR 60 MG/10 ML ORAL SYRINGE PO SCH ×2 (07:45→21:38)
[2018-11-29] MEDS: AZITHROMYCIN 500 MG TAB PO SCH (11:16)
[2018-11-29 11:55] LABS: Glucose,Whole Blood 394 mg/dL (75-99)
--- NOTE | 2018-11-29 13:07 | P.PN ---
Subjective Progress Note Date: 11/29/18 Principal diagnosis: Acute exacerbation of chronic mild intermittent bronchial asthma, complicated by influenza A. On 11/26/2018 patient seen in follow-up on medical surgical floor. She still bronchospastic and dyspneic, very modest improvement since yesterday, she is on 3 L of oxygen with pulse ox of 98%, she is afebrile, hemodynamically patient is stable. No new chest x-rays today, today's labs have been reviewed, showing white blood cell count of 19.3, likely related to IV steroids, electrolytes were within normal limits, B1 of 19 and creatinine 0.84. Occasional cough with production of sputum, sputum was sent for culture, and is pending at this time. She is on empiric antibiotic and the form of Zithromax and Rocephin, she is on IV steroids, and nebulized bronchodilators. No complaints of chest pain, no fever or chills. Admission chest x-ray has been reviewed, showing a little patchy infiltrate in the left lower lobe likely related to atelectasis and area of mucus plugging. On 11/27/2018 patient seen in follow-up on medical surgical floor. Influenza a by PCR was positive, and patient was started on Tamiflu, she is still quite bronchospastic and dyspneic, she has been afebrile, room air pulse ox is 96%. She is on Zithromax, and Rocephin, nebulized bronchodilators, and IV steroids. The patient is seen today 11/28/2018 in follow-up on the regular medical floor. She is currently awake and alert in mild respiratory distress. Somewhat bronchospastic and wheezy. The patient states she is breathing a bit easier today compared to yesterday however. She is maintaining O2 saturations in the mid 90s on 2 L/m per nasal cannula. Afebrile. Hemodynamically stable. Sputum cultures pending. White count 12.4. Hemoglobin 12.4. Creatinine 0.74. She remains on DuoNeb inhalations, Pulmicort and Perforomist inhalations, IV Solu- Medrol. She is on antibiotics in the form of ceftriaxone and azithromycin. She is on Tamiflu. Anticoagulated with Xarelto. The patient is seen today 11/29/2018 in follow-up on the regular medical floor. She is currently sitting up in a chair at the bedside. Awake and alert in no acute distress. Breathing quite a bit easier today as compared to yesterday. Currently maintaining O2 saturations in the upper 90s on 2 L/m per nasal cannula. She's afebrile. Sputum culture pending. Blood glucose 394. She rem ains on IV Solu-Medrol, Pulmicort and Perforomist inhalations, DuoNeb inhalations, antibiotics in the form of ceftriaxone and azithromycin. She remains on Tamiflu until her course is completed. Anticoagulated with Xarelto. Objective - Vital Signs Vital signs: Vital Signs Temp 97.4 F L 11/29/18 06:02 Pulse 90 11/29/18 07:16 Resp 18 11/29/18 06:02 BP 134/78 11/29/18 06:02 Pulse Ox 98 11/29/18 06:02 Intake & Output 11/28/18 11/29/18 11/29/18 18:59 06:59 18:59 Intake Total 540 320 540 Balance 540 320 540 Intake: IV 80 Invasive Line 2 80 Oral 540 240 540 Other: Voiding Method Toilet # Voids 3 1 4 # Bowel Movements 2 1 - Exam GENERAL EXAM: Pleasant 73-year-old female patient. Alert, comfortable in no acute distress. 2 L nasal cannula. HEAD: Normocephalic. EYES: Normal reaction of pupils, equal size. NOSE: Clear with pink turbinates. THROAT: No erythema or exudates. NECK: No masses, no JVD. CHEST: No chest wall deformity. LUNGS: Equal air entry with bilateral end expiratory wheeze, diminished. CVS: S1 and S2 normal with no audible murmur, regular rhythm. ABDOMEN: No hepatosplenomegaly, normal bowel sounds, no guarding or rigidity. SPINE: No scoliosis or deformity SKIN: No rashes CENTRAL NERVOUS SYSTEM: No focal deficits, tone is normal in all 4 extremities. EXTREMITIES: There is no peripheral edema. No clubbing, no cyanosis. Peripheral pulses are intact. - Labs CBC & Chem 7: 11/28/18 07:42 11/28/18 07:42 Labs: Abnormal Lab Results - Last 24 Hours (Table) 11/28/18 11/28/18 11/29/18 Range/Units 16:49 20:21 07:02 POC Glucose (mg/dL) 336 H 296 H 287 H (75-99) mg/dL 11/29/18 Range/Units 11:42 POC Glucose (mg/dL) 394 H (75-99) mg/dL Assessment and Plan Assessment: Impression: #1. Acute exacerbation of mild persistent bronchial asthma, complicated by Influenza A tracheobronchitis and possible bronchopneumonia involving the left lower lobe #2. History of hypertension #3. GERD/reflux #4. History of deep venous thrombosis #5. Hyperlipidemia #6. History of atrial fibrillation #7. Diabetes mellitus #8. Pozo's esophagus #9. Degenerative joint disease #10. Psoriasis #11. Previous history of pneumonia #12. Sciatic neuralgia Plan: The patient was seen and evaluated by Dr. Shukla. She is improved today as compared to yesterday. We'll continue with the current treatment plan which includes DuoNeb inhalations, Pulmicort and Perforomist inhalations, convert to oral prednisone. Antibiotics in the form of ceftriaxone and azithromycin. She is on Tamiflu. We'll continue to follow. Probable discharge in the a.m. I, the cosigning physician, performed a history & physical examination of the patient. Lungs sounds with bilateral end expiratory wheeze. Maintaining good O2 saturations in the 90s on 2 L/m per nasal cannula. I discussed the assessment and plan of care with my nurse practitioner, Sepideh Ortiz. I attest to the above note as dictated by her.
[2018-11-29] MEDS ORDERED: INSULIN DETEMIR (LEVEMIR) 100 UNIT/ML SYR SQ STA (13:18)
--- NOTE | 2018-11-29 13:52 | PN ---
PROGRESS NOTE DATE OF SERVICE: 11/29/2018 This is a 73-year-old woman who was admitted with COPD acute exacerbation as well. left lower pneumonia also had influenza A. The patient is improving significantly. No chest pain. No palpitations. No fever. Dr. Shukla is following the patient closely. PHYSICAL EXAM: Alert and oriented x3. The pulse is 104, blood pressure 130/70, respiration 18, temperature 97.2, pulse ox 98% on 2 L. HEENT: Conjunctivae normal. NECK: No jugular venous distension. CARDIOVASCULAR: S1, S2, muffled. RESPIRATORY: Breath sounds diminished at the bases, bilateral scattered rhonchi, no crackles. ABDOMEN: Soft, nontender. LEGS: No edema. No swelling. NERVOUS SYSTEM: No focal deficits. LABS: WBC is 12.4, sodium 137, Accu-Cheks 394. ASSESSMENT: 1. Chronic obstructive pulmonary disease acute exacerbation with acute left lower pneumonia with possibly gram-negative. 2. Acute influenza A. 3. Hypomagnesemia. 4. Paroxysmal atrial fibrillation on anticoagulation with Xarelto. 5. History of cerebrovascular accident, transient ischemic attack. 6. Diabetes mellitus type 2, uncontrolled with hyperglycemia. 7. Gastroesophageal reflux disease. 8. Hypertension. 9. Hyperlipidemia. 10.History of degenerative joint disease. 11.History of abdominal aortic aneurysm with iliac aneurysm surgery. 12.History of chronic low back pain. 13.History of Pozo's esophagus. 14.Depression. 15.Previous history of smoking. RECOMMENDATION: Recommend to continue current medications, continue with the current management and symptomatic treatment. Otherwise, at this time I would recommend monitor the blood sugars closely. Continue with the antibiotics. Taper the steroids. Guarded prognosis. Further recommendations to follow. MMODL / IJN: [id number] /
[2018-11-29 16:35] LABS: Glucose,Whole Blood 260 mg/dL (75-99)
[2018-11-29] MEDS: ALPRAZolam 0.25 MG TAB PO PRN (19:16)
[2018-11-29 20:08] LABS: Glucose,Whole Blood 303 mg/dL (75-99)
[2018-11-29] MEDS ORDERED: INSULIN DETEMIR (LEVEMIR) 100 UNIT/ML SYR SQ SCH (21:00)
[2018-11-29] MEDS: ATORVASTATIN 20 MG TAB PO SCH (21:38)
[2018-11-29] MEDS: RIVAROXABAN 20 MG TAB PO SCH (21:39)
[2018-11-29 22:27] LABS: Hemoglobin A1C 7.3 % (4.0-6.0)
[2018-11-30] MEDS: FORMOTEROL FUMARATE 20 MCG/2 ML NEBU INHALATION SCH (07:12)
[2018-11-30] MEDS: IPRATROPIUM-ALBUTEROL 3 ML NEB INHALATION PRN (07:12)
[2018-11-30] MEDS: BUDESONIDE 1 MG/2 ML NEBU INHALATION SCH (07:12)
[2018-11-30 07:19] LABS: Glucose,Whole Blood 152 mg/dL (75-99)
[2018-11-30 07:45] LABS: Basophils # (A) 0.2 k/uL (0-0.2); Basophils % (A) 1 %; Eosinophils # (A) 0.1 k/uL (0-0.7); Eosinophils % (A) 1 %; HCT 37.8 % (34.0-46.0); HGB 12.5 gm/dL (11.4-16.0); Lymphocytes % (A) 8 %; MCH 29.2 pg (25.0-35.0); MCHC 33.1 g/dL (31.0-37.0); MCV 88.1 fL (80.0-100.0); Mean Platelet Volume 6.8; Monocytes # (A) 0.5 k/uL (0-1.0); Monocytes % (A) 4 %; Neutrophils # (A) 11.4 k/uL (1.3-7.7); Neutrophils % (A) 85 %; Platelet Count 230 k/uL (150-450); RBC 4.29 m/uL (3.80-5.40); RDW 15.4 % (11.5-15.5); WBC 13.4 k/uL (3.8-10.6)
[2018-11-30 08:02] LABS: African American GFR (CKD) >90 (>60 ml/min/1.73 sqM); Anion Gap 6 mmol/L; Blood Urea Nitrogen 24 mg/dL (7-17); Carbon Dioxide 35 mmol/L (22-30); Chloride 97 mmol/L (98-107); Glucose 149 mg/dL (74-99); Potassium 4.8 mmol/L (3.5-5.1); Sodium 138 mmol/L (137-145)
[2018-11-30] MEDS: VERAPAMIL 40 MG TAB PO SCH (08:04)
[2018-11-30] MEDS: CITALOPRAM HYDROBROMIDE 20 MG TAB PO SCH (08:04)
[2018-11-30] MEDS: CALCIUM CARBONATE 500 MG CHEWABLE PO SCH (08:04)
[2018-11-30] MEDS: INSULIN ASPART (NovoLOG) 100 UNIT/ML VIAL SQ SCH ×2 (08:04→12:34)
[2018-11-30] MEDS: metFORMIN 500 MG TAB PO SCH (08:04)
[2018-11-30] MEDS: OSELTAMIVIR 60 MG/10 ML ORAL SYRINGE PO SCH (08:04)
[2018-11-30] MEDS: PANTOPRAZOLE 40 MG TABLET PO SCH (08:05)
--- NOTE | 2018-11-30 08:13 | XR ---
EXAMINATION TYPE: XR chest 2V DATE OF EXAM: 11/30/2018 COMPARISON: 11/28/2018 HISTORY: Dyspnea TECHNIQUE: Frontal and lateral views of the chest are obtained. FINDINGS: There is only slight improved aeration of the left basilar opacity. Mild pulmonary vascula r congestion is seen. Cardiomediastinal silhouette is stable. Very minimal compression deformity in t he lower thoracic spine. Abdominal aortic stent graft is partially visualized. Mild multilevel degene rative changes of the spine and diffuse osseous demineralization. Bilateral hemidiaphragm eventration . No sizable pneumothorax or pleural effusion. IMPRESSION: Slight improvement of the left that may represent pneumonia or atelectasis. Mild pulmona ry vascular congestion is also seen.
[2018-11-30] MEDS ORDERED: predniSONE 20 MG TAB PO SCH (09:00)
[2018-11-30] MEDS: AZITHROMYCIN 500 MG TAB PO SCH (11:02)
[2018-11-30 11:56] LABS: Glucose,Whole Blood 170 mg/dL (75-99)
[2018-11-30 14:07] VITALS: BP 111/62; PULSE 107; RESP 18; TEMP 97.6
--- NOTE | 2018-11-30 14:48 | P.PN ---
Subjective Progress Note Date: 11/30/18 Principal diagnosis: Acute exacerbation of chronic bronchial asthma/COPD On 11/26/2018 patient seen in follow-up on medical surgical floor. She still bronchospastic and dyspneic, very modest improvement since yesterday, she is on 3 L of oxygen with pulse ox of 98%, she is afebrile, hemodynamically patient is stable. No new chest x-rays today, today's labs have been reviewed, showing white blood cell count of 19.3, likely related to IV steroids, electrolytes were within normal limits, B1 of 19 and creatinine 0.84. Occasional cough with production of sputum, sputum was sent for culture, and is pending at this time. She is on empiric antibiotic and the form of Zithromax and Rocephin, she is on IV steroids, and nebulized bronchodilators. No complaints of chest pain, no fever or chills. Admission chest x-ray has been reviewed, showing a little patchy infiltrate in the left lower lobe likely related to atelectasis and area of mucus plugging. On 11/27/2018 patient seen in follow-up on medical surgical floor. Influenza a by PCR was positive, and patient was started on Tamiflu, she is still quite bronchospastic and dyspneic, she has been afebrile, room air pulse ox is 96%. She is on Zithromax, and Rocephin, nebulized bronchodilators, and IV steroids. On 11/30/2016 patient seen in follow-up on medical surgical floor. She is doing much better, breathing easier, less bronchospastic, vital signs are stable, room air pulse ox is 93%, no fever or chills, hemodynamically stable. Lung sounds are positive for minimal end expiratory wheezes. Today's labs have been reviewed, showing white blood cell count of 13.4, hemoglobin of 12.5, sodium of 138, potassium is 4.8, chloride is 97, CO2 35, B1 is 24, creatinine 0.72. She has been treated with Tamiflu for influenza A infection, urine culture was positive for Marie albicans only. She has received a course of Zithromax and Rocephin. Follow-up chest x-ray today showed slight improvement of the left b asilar opacity, mild pulmonary vascular congestion. Clinically patient remains stable, she denies any chest pain, no shortness of breath, tolerating activity. She stable for discharge home today with outpatient follow-up. Objective - Vital Signs Vital signs: Vital Signs Temp 97.6 F 11/30/18 13:51 Pulse 107 H 11/30/18 13:51 Resp 18 11/30/18 13:51 BP 111/62 11/30/18 13:51 Pulse Ox 92 L 11/30/18 13:51 Intake & Output 11/29/18 11/30/18 11/30/18 18:59 06:59 18:59 Intake Total 1080 360 540 Balance 1080 360 540 Intake: IV 60 Invasive Line 2 60 Oral 1080 300 540 Other: Voiding Method Toilet Toilet # Voids 2 1 4 # Bowel Movements 2 - Exam GENERAL EXAM: Alert, very pleasant, obese 73-year-old white female, 93% on room air HEAD: Normocephalic/atraumatic. EYES: Normal reaction of pupils, equal size. Conjunctiva pink, sclera white. NOSE: Clear with pink turbinates. THROAT: No erythema or exudates. NECK: No masses, no JVD, no thyroid enlargement, no adenopathy. CHEST: No chest wall deformity. Symmetrical expansion. LUNGS: Equal air entry with a few end expiratory wheezes CVS: Regular rate and rhythm, normal S1 and S2, no gallops, no murmurs, no rubs ABDOMEN: Soft, nontender. No hepatosplenomegaly, normal bowel sounds, no guarding or rigidity. EXTREMITIES: No clubbing, no edema, no cyanosis, 2+ pulses and upper and lower extremities. MUSCULOSKELETAL: Muscle strength and tone normal. SPINE: No scoliosis or deformity SKIN: No rashes CENTRAL NERVOUS SYSTEM: Alert and oriented -3. No focal deficits, tone is normal in all 4 extremities. PSYCHIATRIC: Alert and oriented -3. Appropriate affect. Intact judgment and insight. - Labs CBC & Chem 7: 11/30/18 07:10 11/30/18 07:10 Labs: Abnormal Lab Results - Last 24 Hours (Table) 11/28/18 11/29/18 11/29/18 Range/Units 07:43 16:28 20:01 WBC (3.8-10.6) k/uL Neutrophils # (1.3-7.7) k/uL Chloride (98-107) mmol/L Carbon Dioxide (22-30) mmol/L BUN (7-17) mg/dL Glucose (74-99) mg/dL POC Glucose (mg/dL) 260 H 303 H (75-99) mg/dL Hemoglobin A1c 7.3 H (4.0-6.0) % 11/30/18 11/30/18 11/30/18 Range/Units 07:01 07:10 07:10 WBC 13.4 H (3.8-10.6) k/uL Neutrophils # 11.4 H (1.3-7.7) k/uL Chloride 97 L (98-107) mmol/L Carbon Dioxide 35 H (22-30) mmol/L BUN 24 H (7-17) mg/dL Glucose 149 H (74-99) mg/dL POC Glucose (mg/dL) 152 H (75-99) mg/dL Hemoglobin A1c (4.0-6.0) % 11/30/18 Range/Units 11:49 WBC (3.8-10.6) k/uL Neutrophils # (1.3-7.7) k/uL Chloride (98-107) mmol/L Carbon Dioxide (22-30) mmol/L BUN (7-17) mg/dL Glucose (74-99) mg/dL POC Glucose (mg/dL) 170 H (75-99) mg/dL Hemoglobin A1c (4.0-6.0) % Microbiology - Last 24 Hours (Table) 11/25/18 07:33 Gram Stain - Final Sputum Sputum Culture - Final Marie albicans Assessment and Plan Plan: Assessment: #1. Acute exacerbation of mild persistent bronchial asthma, complicated by Influenza A tracheobronchitis and possible bronchopneumonia involving the left lower lobe #2. History of hypertension #3. GERD/reflux #4. History of deep venous thrombosis #5. Hyperlipidemia #6. History of atrial fibrillation #7. Diabetes mellitus #8. Pozo's esophagus #9. Degenerative joint disease #10. Psoriasis #11. Previous history of pneumonia #12. Sciatic neuralgia Plan: Continue current antibiotics, completed course of Tamiflu. Follow-up chest x- ray shows some improvement in the left basilar opacity, clinically patient is stable, breathing easier, less wheezy, short of breath. Tolerating activity, room air pulse ox is 93%, no fever or chills. Sputum culture showed no growth. Stable for discharge from pulmonary perspective. I performed a history & physical examination of the patient and discussed their management with my nurse practitioner, Maria Elena Verduzco. I reviewed the nurse practitioner's note and agree with the documented findings and plan of care. Lung sounds are positive for diffuse wheezes throughout the lung pierce. The findings and the impression was discussed with the patient. I attest to the documentation by the nurse practitioner. Time with Patient: Less than 30
--- NOTE | 2018-12-01 11:01 | DS ---
DISCHARGE SUMMARY DATE OF SERVICE: 11/30/2018 FINAL DIAGNOSES: 1. Chronic obstructive pulmonary disease exacerbation with acute left lower pneumonia with possibly gram-negative. 2. Acute influenza A. 3. Hypomagnesemia. 4. Paroxysmal atrial fibrillation with anticoagulation with Xarelto. 5. History of cerebrovascular accident, transient ischemic attack. 6. History of diabetes mellitus, uncontrolled with hyperglycemia. 7. Hypertension. 8. History of degenerative joint disease, history of abdominal aortic aneurysm with iliac aneurysm his surgery. 9. History of chronic low back pain. 10.History of Pozo's esophagus. 11.Depression. 12.Previous history of smoking. RECOMMENDATIONS AND DISCUSSION: I recommend discharge disposition patient will be discharged in stable condition with guarded dissected by Dr. Shukla. HISTORY OF PRESENT ILLNESS: This 73-year-old with a past medical problems admitted with significant shortness of breath and cough and sputum. The patient had COPD acute exacerbation as well as pneumonia. Patient has followed Dr. Knowles in the outpatient setting. The patient was treated. Influenza a was also positive. The patient treated with bronchodilators antibiotics and Tamiflu. The patient improved significantly. On exam, vitals are stable. CARDIOVASCULAR: S1, S2, muffled. ABDOMEN: soft. NERVOUS SYSTEM: Dr. Espinoza saw the patient cleared. DISCHARGE ADVICE AND MEDICATIONS: Discharged diet cardiac diet for followup with Dr. Knowles 2-3 days follow up with Pulmonary as recommended. DISCHARGE MEDICATIONS ARE: 1. Calcium carbonate 500 mg p.o. daily. 2. Celexa 20 mg p.o. daily. 3. Fish oil 1 p.o. daily. 4. Glucophage XR 750 mg with supper. 5. Isoptin 40 mg p.o. b.i.d. 6. Prilosec 20 mg a.c. breakfast. 7. Ventolin 1-2 puffs q.6h p.r.n. 8. Xarelto 20 mg q.h.s. 9. Zestril 5 mg p.o. daily. 10.Zocor 40 mg q.h.s. 11.Ceftin 500 mg p.o. b.i.d. for 3 days. 12.DuoNeb q.i.d. p.r.n. and p.r.n. 13.Prednisone taper 40 mg 3 days 30 for 3 days 23 days and 10 for 3 days. 14.Symbicort 160/4.5 two puffs 1 puff b.i.d. 15.Tamiflu 30 mg p.o. b.i.d. 2 more days. 16zithromax 500 mg q.24 hours 5 days Once again, the patient will be discharged in a stable condition with guarded prognosis. MMANDREW / DORIS: [id number] / MTDD
== END 2018-11-30 14:17 | disposition home or self-care (01) | DRG 178 ==
LOC: EC 09:41 → 4MS4W 12:13 → OBSVTOIN 11-26 13:58
PROVIDERS: ADMIT Internal Medicine; ATTEND Internal Medicine
DX: J10.08 Influenza due to other identified influenza virus with other specified pneumonia (principal); J98.11 Atelectasis; J15.6 Pneumonia due to other Gram-negative bacteria; J44.1 Chronic obstructive pulmonary disease with (acute) exacerbation; J44.0 Chronic obstructive pulmonary disease with (acute) lower respiratory infection; J45.901 Unspecified asthma with (acute) exacerbation; E83.42 Hypomagnesemia; I48.0 Paroxysmal atrial fibrillation; J20.9 Acute bronchitis, unspecified; E11.9 Type 2 diabetes mellitus without complications; K21.9 Gastro-esophageal reflux disease without esophagitis; I10 Essential (primary) hypertension; F32.9 Major depressive disorder, single episode, unspecified; M54.5 Low back pain; E11.65 Type 2 diabetes mellitus with hyperglycemia; E78.5 Hyperlipidemia, unspecified; G89.29 Other chronic pain; K22.70 Barrett's esophagus without dysplasia; L40.9 Psoriasis, unspecified; M19.90 Unspecified osteoarthritis, unspecified site; Z96.1 Presence of intraocular lens; M79.2 Neuralgia and neuritis, unspecified; Z79.01 Long term (current) use of anticoagulants; Z79.4 Long term (current) use of insulin; Z79.899 Other long term (current) drug therapy; Z80.1 Family history of malignant neoplasm of trachea, bronchus and lung; Z82.49 Family history of ischemic heart disease and other diseases of the circulatory system; Z86.718 Personal history of other venous thrombosis and embolism; Z86.010 Personal history of colon polyps; Z86.73 Personal history of transient ischemic attack (TIA), and cerebral infarction without residual deficits; Z86.79 Personal history of other diseases of the circulatory system; Z87.891 Personal history of nicotine dependence; Z87.01 Personal history of pneumonia (recurrent); Z88.0 Allergy status to penicillin; Z91.040 Latex allergy status; Z90.89 Acquired absence of other organs; Z90.49 Acquired absence of other specified parts of digestive tract; Z98.42 Cataract extraction status, left eye; Z98.41 Cataract extraction status, right eye; Z98.890 Other specified postprocedural states
CPT/HCPCS: 36415; 71046; 80048; 80053; 83036; 83735; 83880; 84484; 85025; 85610; 85730; 87070; 87205; 87502; 93005; 94640; 94644; 96365; 96367; 96375; 99285

== ENCOUNTER → 2018-12-27 | Outpatient (CLI) | payer MEDICARE ==
--- NOTE | 2018-12-27 12:32 | CT ---
EXAMINATION TYPE: CT angio abdomen pelvis DATE OF EXAM: 12/27/2018 HISTORY: Follow up AAA. CT DLP: 2389.4mGycm Automated Exposure Control for Dose Reduction was Utilized. CONTRAST: CTA scan of the abdomen and pelvis is performed without oral and without and with IV Contrast, patien t injected with 100 mL of Isovue 370. Aneurysm protocol with 3-D reconstructed images created on an [employer] workstation and reviewed. COMPARISON: CTA study May 03, 2018 and older studies FINDINGS: VASCULAR: Focal aneurysm of the aorta at level of diaphragmatic hiatus measuring up to 3.3 cm AP dereje meter axial image 25 is not significantly changed from prior studies. There is metallic stent graft b eginning just below SMA with polymer component and then common iliac metallic extending components ea rly aneurysm of the right common iliac artery measuring up to 3.0 cm AP diameter axial image 57. Post contrast images show enhancement of the stent graft without suspicious extraluminal enhancement to kirk ggest endoleak. [place] AAA before bifurcation is diminished in size without residual aneurysm present . Aorta measures up to 2.8 cm transversely axial image 48 4 reference. Small focal aneurysm right int ernal iliac artery axial image 69 is not significantly changed from prior study axial image 144. Chavez nt bilateral internal and external iliac arteries are noted. LUNG BASES: Patchy bibasilar linear scarring and/or atelectasis. LIVER/GB: Gallbladder not visualized presumed surgically absent. PANCREAS: No significant abnormality is seen. SPLEEN: No significant abnormality is seen. ADRENALS: No significant abnormality is seen. KIDNEYS: No significant abnormality is seen. BOWEL: Diverticula in the sigmoid colon. UTERUS/ADNEXA: Anteverted uterus. LYMPH NODES: No greater than 1cm abdominal or pelvic lymph nodes are appreciated. OSSEOUS STRUCTURES: Moderate to severe multilevel spurring in the spine. Moderate narrowing and spurr ing in both hip joints. Osseous structures are demineralized. Moderate to severe disc space narrowing and spurring L3-L4 level. OTHER: No significant additional abnormality is seen. IMPRESSION: Suspected new stent graft is patent with suspected interval surgical repair of AAA. Stabl e right common iliac artery aneurysm with stent graft.
== END | disposition home or self-care (01) ==
LOC: RADCTMAIN 10:14
PROVIDERS: ATTEND Surgery
DX: I72.3 Aneurysm of iliac artery (principal); Z95.828 Presence of other vascular implants and grafts
CPT/HCPCS: 82565; 84520; 36415; 74174; Q9967

== ENCOUNTER → 2019-02-09 | Outpatient (CLI) | payer MEDICARE ==
--- NOTE | 2019-02-09 16:03 | US ---
EXAMINATION TYPE: US pelvis complete transvag DATE OF EXAM: 02/09/2019 COMPARISON: 10/27/2017 CLINICAL HISTORY: R10.2 pelvic pain. Patient states having back pain and pain behind her stomach. TECHNIQUE: Transvaginal (TV) and Transabdominal (TA) . Transabdominal sonographic images of the pel vis were acquired. Transvaginal sonographic images were medically necessary to better assess the fol lowing anatomy: Endometrium, Ovaries Date of LMP: Menopausal, EXAM MEASUREMENTS: Uterus: 7.1 x 4.1 x 2.7 cm Endometrial Stripe: 0.4 cm Left Ovary: 1.9 x 1.1 x 0.7 cm 1. Uterus: Anteverted Heterogenous 2. Endometrium: Echogenic focus at the right lateral periphery of the endometrium. This likely repre sents a small calcification seen on the prior. 3. Right Ovary: Obscured by overlying bowel gas 4. Left Ovary: wnl 5. Bilateral Adnexa: In left adnexa, peristalsing bowel 6. Posterior cul-de-sac: no free fluid Cervix- nabothian cysts IMPRESSION: Obscuration of the right ovary by overlying bowel gas and prominent peristalsing bowel in the left adnexa. Endometrial thickness is within normal limits.
== END | disposition home or self-care (01) ==
LOC: RADUSWWP 14:47
PROVIDERS: ATTEND Obstetrics & Gynecology
DX: R10.2 Pelvic and perineal pain (principal)
CPT/HCPCS: 76830; 76856

== ENCOUNTER 2019-04-02 11:11 | Inpatient (IN) | payer MEDICARE ==
[2019-04-02] MEDS ORDERED: methylPREDNISolone SOD SUCCI 125 MG/2 ML VIAL IV STA (11:36)
[2019-04-02] MEDS ORDERED: SODIUM CHLORIDE 0.9% 500 ML 500 ML IV STA (11:36)
[2019-04-02] MEDS ORDERED: ALBUTEROL NEBULIZED 2.5 MG/3 ML INHALATION STA (11:36)
[2019-04-02] MEDS ORDERED: IPRATROPIUM 0.5 MG/2.5 ML NEBU INHALATION STA (11:36)
[2019-04-02] MEDS ORDERED: IBUPROFEN 600 MG TAB PO STA (11:37)
[2019-04-02] MEDS ORDERED: ACETAMINOPHEN TAB 500 MG TAB PO STA (11:37)
--- NOTE | 2019-04-02 11:50 | ED ---
General Adult HPI - General Chief complaint: Shortness of Breath Stated complaint: SOB Time Seen by Provider: 04/02/19 11:15 Source: patient, RN notes reviewed, old records reviewed Mode of arrival: ambulatory Limitations: no limitations - History of Present Illness Initial comments: This 73-year-old female who presents emergency Department complaining of shortness of breath over the last week. Patient states she's been put on an antibiotic on Tuesday and has not improved at all. Patient states she has a history of asthma and her breathing is gotten progressively worse. Patient denies any chest pain or palpitations. Patient denies any abdominal pain. Patient denies any nausea vomiting diarrhea. Patient denies any headache patient denies numbness weakness. Patient denies any lightheadedness or dizziness. Patient denies any swelling to legs or calf tenderness. - Related Data Home Medications Medication Instructions Recorded Confirmed Lisinopril [Zestril] 5 mg PO DAILY 04/23/15 11/24/18 Omeprazole [PriLOSEC] 20 mg PO AC-BRKFST 04/23/15 11/24/18 [place]-3 Fatty Acids/Fish Oil [Fish 1 cap PO DAILY 12/02/16 11/24/18 Oil 1,000 mg Softgel] Rivaroxaban [Xarelto] 20 mg PO HS 12/02/16 11/24/18 Simvastatin [Zocor] 40 mg PO HS 12/02/16 11/24/18 Verapamil [Isoptin] 40 mg PO BID 12/02/16 11/24/18 Calcium Carbonate 500 mg PO DAILY 10/10/17 11/24/18 Citalopram Hydrobromide [CeleXA] 20 mg PO DAILY 03/10/18 11/24/18 metFORMIN HCL [Glucophage Xr] 750 mg PO PC-SUPPER 03/14/18 11/24/18 Albuterol Inhaler [Ventolin Hfa 1 - 2 puff INHALATION RT-Q6H PRN 11/24/18 11/24/18 Inhaler] Previous Rx's Medication Instructions Recorded Azithromycin [Zithromax] 500 mg PO Q24H #5 tab 11/30/18 Budesonide/Formoterol Fumarate 1 puff IH BID #1 hfa.aer.ad 11/30/18 [Symbicort 160-4.5 Mcg Inhaler] Cefuroxime Axetil [Ceftin] 500 mg PO BID 3 Days #6 tab 11/30/18 Ipratropium-Albuterol Nebulize 3 ml INHALATION RT-Q4H PRN #120 11/30/18 [Duoneb 0.5 mg-3 mg/3 ml Soln] ampul.neb Oseltamivir 6Mg/ml Oral Susp 30 mg PO BID 2 Days oral.syrg 11/30/18 [Tamiflu] predniSONE 10 mg PO DIRECTED #30 tab 11/30/18 Allergies Allergy/AdvReac Type Severity Reaction Status Date / Time latex Allergy Rash/Hives Verified 04/02/19 11:16 Penicillins Allergy Rash/Hives Verified 04/02/19 11:16 Review of Systems ROS Statement: Those systems with pertinent positive or pertinent negative responses have been documented in the HPI. ROS Other: All systems not noted in ROS Statement are negative. Past Medical History Past Medical History: Atrial Fibrillation, Asthma, COPD, CVA/TIA, Diabetes Mellitus, Deep Vein Thrombosis (DVT), GERD/Reflux, Hyperlipidemia, Hypertension, Osteoarthritis (OA), Pneumonia, Skin Disorder, Vascular Disorder Additional Past Medical History / Comment(s): Pt has had abdominal aneurysm/iliac aneurysm with surgery but states one of these sites is leaking per ultrasound-to have cat scan done soon, NIDDM type II, past respiratory failure/vented, bronchitis, TIA x 4, tan's esophagus, lower GI bleed, diverticular dx, colon polyps, arthritis multiple joints, chronic lower back pain with occasional sciatica, DVT R leg, vertigo at times, urinaty leakage at times, psoriasis, History of Any Multi-Drug Resistant Organisms: None Reported Past Surgical History: Appendectomy, Cholecystectomy, Hernia Repair, Orthopedic Surgery Additional Past Surgical History / Comment(s): vein stripping, jasmyne cataracts- lens implants, orif rt wrist has plate/screws, Lt breast bx-neg, ABD HERNIA, colonoscopy/ egd. Past Anesthesia/Blood Transfusion Reactions: No Reported Reaction Additional Past Anesthesia/Blood Transfusion Reaction / Comment(s): vertigo Past Psychological History: Depression Smoking Status: Former smoker Past Alcohol Use History: None Reported Past Drug Use History: None Reported - Past Family History Father History Unknown: Yes Family Medical History: Myocardial Infarction ([place]) Additional Family Medical History / Comment(s): at age 45 from [place] Mother History Unknown: Yes Additional Family Medical History / Comment(s): from natural causes -she was 95 years old Brother(s) Family Medical History: Cancer Additional Family Medical History / Comment(s): lung cancer General Exam - General Exam Comments Initial Comments: GENERAL: Patient is well-developed and well-nourished. Patient is nontoxic and well- hydrated and is in moderate distress. ENT: Neck is soft and supple. No significant lymphadenopathy is noted. Oropharynx is clear. Moist mucous membranes. Neck has full range of motion without eliciting any pain. EYES: The sclera were anicteric and conjunctiva were pink and moist. Extraocular movements were intact and pupils were equal round and reactive to light. Eyelids were unremarkable. PULMONARY: Patient has diffuse wheezing. CARDIOVASCULAR: There is a regular rate and rhythm without any murmurs gallops or rubs. ABDOMEN: Soft and nontender with normal bowel sounds. SKIN: Skin is clear with no lesions or rashes and otherwise unremarkable. NEUROLOGIC: Patient is alert and oriented x3. Cranial nerves II through XII are grossly intact. Motor and sensory are also intact. Normal speech, volume and content. Symmetrical smile. MUSCULOSKELETAL: Normal extremities with adequate strength and full range of motion. LYMPHATICS: No significant lymphadenopathy is noted PSYCHIATRIC: Normal psychiatric evaluation. Limitations: no limitations Course Vital Signs 04/02/19 04/02/19 04/02/19 11:13 12:00 12:22 Temperature 99.0 F Pulse Rate 91 96 96 Respiratory 30 H Rate Blood Pressure 127/57 O2 Sat by Pulse 95 Oximetry Medical Decision Making - Medical Decision Making EKG shows sinus tachycardia with occasional PAC at 103 beats a minute TX i nterval 224 QRS is 76 QT interval is 280 QTC is 366. Patient's EKG shows no ST segment elevation or depression. Check shows a shows no acute normalities. New. Patient received multiple breathing treatments and steroids in the emergency department and did feel slightly better but still was wheezing diffusely I spoke with Dr. Elba Watson because he agreed to admit the patient admitted the patient wrote admitting orders continued the breathing treatments and Solu- Medrol the floor. - Lab Data Result diagrams: 04/02/19 11:37 04/02/19 11:37 Lab Results 04/02/19 04/02/19 04/02/19 Range/Units 11:37 11:37 11:37 WBC 9.1 (3.8-10.6) k/uL RBC 4.18 (3.80-5.40) m/uL Hgb 12.9 (11.4-16.0) gm/dL Hct 39.2 (34.0-46.0) % MCV 93.7 (80.0-100.0) fL MCH 30.8 (25.0-35.0) pg MCHC 32.8 (31.0-37.0) g/dL RDW 14.5 (11.5-15.5) % Plt Count 282 (150-450) k/uL Neutrophils % 86 % Lymphocytes % 8 % Monocytes % 3 % Eosinophils % 1 % Basophils % 1 % Neutrophils # 7.9 H (1.3-7.7) k/uL Lymphocytes # 0.7 L (1.0-4.8) k/uL Monocytes # 0.3 (0-1.0) k/uL Eosinophils # 0.1 (0-0.7) k/uL Basophils # 0.1 (0-0.2) k/uL PT (9.0-12.0) sec INR (<1.2) APTT (22.0-30.0) sec Sodium 136 L (137-145) mmol/L Potassium 4.2 (3.5-5.1) mmol/L Chloride 101 (98-107) mmol/L Carbon Dioxide 23 (22-30) mmol/L Anion Gap 12 mmol/L BUN 13 (7-17) mg/dL Creatinine 0.72 (0.52-1.04) mg/dL Est GFR (CKD-EPI)AfAm >90 (>60 ml/min/1.73 sqM) Est GFR (CKD-EPI)NonAf 85 (>60 ml/min/1.73 sqM) Glucose 217 H (74-99) mg/dL Plasma Lactic Acid Jose Angel 3.3 H* (0.7-2.0) mmol/L Calcium 10.2 (8.4-10.2) mg/dL Magnesium 1.4 L (1.6-2.3) mg/dL Total Bilirubin 0.5 (0.2-1.3) mg/dL AST 28 (14-36) U/L ALT 17 (4-34) U/L Alkaline Phosphatase 86 (38-126) U/L Troponin I (0.000-0.034) ng/mL Total Protein 7.1 (6.3-8.2) g/dL Albumin 4.2 (3.5-5.0) g/dL Influenza Type A RNA (Not Detectd) Influenza Type B (PCR) (Not Detectd) 04/02/19 04/02/19 04/02/19 Range/Units 11:37 11:37 12:10 WBC (3.8-10.6) k/uL RBC (3.80-5.40) m/uL Hgb (11.4-16.0) gm/dL Hct (34.0-46.0) % MCV (80.0-100.0) fL MCH (25.0-35.0) pg MCHC (31.0-37.0) g/dL RDW (11.5-15.5) % Plt Count (150-450) k/uL Neutrophils % % Lymphocytes % % Monocytes % % Eosinophils % % Basophils % % Neutrophils # (1.3-7.7) k/uL Lymphocytes # (1.0-4.8) k/uL Monocytes # (0-1.0) k/uL Eosinophils # (0-0.7) k/uL Basophils # (0-0.2) k/uL PT 10.5 (9.0-12.0) sec INR 1.0 (<1.2) APTT 26.2 (22.0-30.0) sec Sodium (137-145) mmol/L Potassium (3.5-5.1) mmol/L Chloride (98-107) mmol/L Carbon Dioxide (22-30) mmol/L Anion Gap mmol/L BUN (7-17) mg/dL Creatinine (0.52-1.04) mg/dL Est GFR (CKD-EPI)AfAm (>60 ml/min/1.73 sqM) Est GFR (CKD-EPI)NonAf (>60 ml/min/1.73 sqM) Glucose (74-99) mg/dL Plasma Lactic Acid Jose Angel (0.7-2.0) mmol/L Calcium (8.4-10.2) mg/dL Magnesium (1.6-2.3) mg/dL Total Bilirubin (0.2-1.3) mg/dL AST (14-36) U/L ALT (4-34) U/L Alkaline Phosphatase (38-126) U/L Troponin I <0.012 (0.000-0.034) ng/mL Total Protein (6.3-8.2) g/dL Albumin (3.5-5.0) g/dL Influenza Type A RNA Not Detected (Not Detectd) Influenza Type B (PCR) Not Detected (Not Detectd) Critical Care Time Critical Care Time: Yes Total Critical Care Time: 35 Disposition Clinical Impression: Acute exacerbation of chronic obstructive pulmonary disease Disposition: ADMITTED IP TO THIS HOSP Referrals: Hope Knowles MD [Primary Care Provider] - 1-2 days Time of Disposition: 12:53
[2019-04-02 12:06] LABS: ALT 17 U/L (4-34); AST 28 U/L (14-36); African American GFR (CKD) >90 (>60 ml/min/1.73 sqM); Albumin 4.2 g/dL (3.5-5.0); Alkaline Phosphatase 86 U/L (38-126); Anion Gap 12 mmol/L; Basophils # (A) 0.1 k/uL (0-0.2); Basophils % (A) 1 %; Blood Urea Nitrogen 13 mg/dL (7-17); Calcium 10.2 mg/dL (8.4-10.2); Carbon Dioxide 23 mmol/L (22-30); Chloride 101 mmol/L (98-107); Eosinophils # (A) 0.1 k/uL (0-0.7); Eosinophils % (A) 1 %; Glucose 217 mg/dL (74-99); HCT 39.2 % (34.0-46.0); HGB 12.9 gm/dL (11.4-16.0); Lymphocytes # (A) 0.7 k/uL (1.0-4.8); Lymphocytes % (A) 8 %; MCH 30.8 pg (25.0-35.0); MCHC 32.8 g/dL (31.0-37.0); MCV 93.7 fL (80.0-100.0); Magnesium 1.4 mg/dL (1.6-2.3); Mean Platelet Volume 7.6; Monocytes # (A) 0.3 k/uL (0-1.0); Monocytes % (A) 3 %; Neutrophils # (A) 7.9 k/uL (1.3-7.7); Neutrophils % (A) 86 %; Non-African American GFR(CKD) 85 (>60 ml/min/1.73 sqM); Platelet Count 282 k/uL (150-450); Potassium 4.2 mmol/L (3.5-5.1); RBC 4.18 m/uL (3.80-5.40); RDW 14.5 % (11.5-15.5); Sodium 136 mmol/L (137-145); Total Bilirubin 0.5 mg/dL (0.2-1.3); Total Protein 7.1 g/dL (6.3-8.2); WBC 9.1 k/uL (3.8-10.6)
[2019-04-02 12:09] LABS: Partial Thromboplastin Time 26.2 sec (22.0-30.0); Prothrombin Time 10.5 sec (9.0-12.0)
--- NOTE | 2019-04-02 12:47 | XR ---
EXAMINATION TYPE: XR chest 2V DATE OF EXAM: 04/02/2019 COMPARISON: 11/30/2018 HISTORY: Difficulty breathing TECHNIQUE: Frontal and lateral views of the chest are obtained. FINDINGS: There is no focal air space opacity, pleural effusion, or pneumothorax seen. Left basilar atelectasis and/or scarring is redemonstrated as seen on the CT of 12/27/2018 and x-ray of 11/30/2018. The cardiac silhouette size is within normal limits. Lower thoracic compression deformity is similar with diffuse osseous demineralization. Partial visualization of abdominal aortic stent graft. IMPRESSION: Chronic left basilar atelectasis and/or scarring. No acute cardiopulmonary process.
[2019-04-02 14:15] LABS: Glucose,Whole Blood 203 mg/dL (75-99)
--- NOTE | 2019-04-02 15:04 | P.HPIM ---
History of Present Illness 71-year-old pleasant female recently quit smoking came with shortness of breath started last Tuesday. Patient is comparing of cough with the sputum production which is a lotion color. Patient chest x-ray did not show pneumonia doesn't use any oxygen at home does have history of A. fib presently rate controlled on anticoagulation. Patient denied any fever chills. Review of Systems REVIEW OF SYSTEMS: CONSTITUTIONAL: No fever, no malaise, no fatigue. HEENT: No recent visual problems or hearing problems. Denied any sore throat. CARDIOVASCULAR: No chest pain, orthopnea, PND, no palpitations, no syncope. PULMONARY: no hemoptysis. GASTROINTESTINAL: No diarrhea, no nausea, no vomiting, no abdominal pain. NEUROLOGICAL: No headaches, no weakness, no numbness. HEMATOLOGICAL: Denies any bleeding or petechiae. GENITOURINARY: Denies any burning micturition, frequency, or urgency. MUSCULOSKELETAL/RHEUMATOLOGICAL: Denies any joint pain, swelling, or any muscle pain. ENDOCRINE: Denies any polyuria or polydipsia. The rest of the 14-point review of systems is negative. Past Medical History Past Medical History: Atrial Fibrillation, Asthma, COPD, CVA/TIA, Diabetes Mellitus, Deep Vein Thrombosis (DVT), GERD/Reflux, Hyperlipidemia, Hypertension, Osteoarthritis (OA), Pneumonia, Skin Disorder, Vascular Disorder Additional Past Medical History / Comment(s): Pt has had abdominal aneurysm/iliac aneurysm with surgery but states one of these sites is leaking per ultrasound-to have cat scan done soon, NIDDM type II, past respiratory failure/vented, bronchitis, TIA x 4, tan's esophagus, lower GI bleed, diverticular dx, colon polyps, arthritis multiple joints, chronic lower back pain with occasional sciatica, DVT R leg, vertigo at times, urinaty leakage at times, psoriasis, History of Any Multi-Drug Resistant Organisms: None Reported Past Surgical History: Appendectomy, Cholecystectomy, Hernia Repair, Orthopedic Surgery Additional Past Surgical History / Comment(s): vein stripping, jasmyne cataracts- lens implants, orif rt wrist has plate/screws, Lt breast bx-neg, ABD HERNIA, colonoscopy/ egd. Past Anesthesia/Blood Transfusion Reactions: No Reported Reaction Additional Past Anesthesia/Blood Transfusion Reaction / Comment(s): vertigo Past Psychological History: Depression Smoking Status: Former smoker Past Alcohol Use History: None Reported Past Drug Use History: None Reported - Past Family History Father History Unknown: Yes Family Medical History: Myocardial Infarction ([place]) Additional Family Medical History / Comment(s): at age 45 from [place] Mother History Unknown: Yes Additional Family Medical History / Comment(s): from natural causes -she was 95 years old Brother(s) Family Medical History: Cancer Additional Family Medical History / Comment(s): lung cancer Medications and Allergies Home Medications Medication Instructions Recorded Confirmed Type Lisinopril [Zestril] 5 mg PO DAILY 04/23/15 04/02/19 History Omeprazole [PriLOSEC] 20 mg PO AC-BRKFST 04/23/15 04/02/19 History [place]-3 Fatty Acids/Fish Oil [Fish 1 cap PO DAILY 12/02/16 04/02/19 History Oil 1,000 mg Softgel] Rivaroxaban [Xarelto] 20 mg PO HS 12/02/16 04/02/19 History Simvastatin [Zocor] 40 mg PO HS 12/02/16 04/02/19 History Verapamil [Isoptin] 40 mg PO BID 12/02/16 04/02/19 History Calcium Carbonate 500 mg PO DAILY 10/10/17 04/02/19 History Citalopram Hydrobromide [CeleXA] 40 mg PO DAILY 03/10/18 04/02/19 History metFORMIN HCL [Glucophage Xr] 750 mg PO PC-SUPPER 03/14/18 04/02/19 History Albuterol Nebulized [Ventolin 2.5 mg INHALATION RT-Q8H 04/02/19 04/02/19 History Nebulized] Azithromycin [Zithromax Z-pack] See Taper PO DAILY 04/02/19 04/02/19 History Budesonide/Formoterol Fumarate 2 puff INHALATION RT-BID 04/02/19 04/02/19 History [Symbicort 160-4.5 Mcg Inhaler] predniSONE 20 mg PO DAILY 04/02/19 04/02/19 History Allergies Allergy/AdvReac Type Severity Reaction Status Date / Time latex Allergy Rash/Hives Verified 04/02/19 11:16 Penicillins Allergy Rash/Hives Verified 04/02/19 11:16 Physical Exam Vitals: Vital Signs Temp Pulse Resp BP Pulse Ox 04/02/19 14:06 87 24 104/67 97 04/02/19 12:22 96 04/02/19 12:00 96 04/02/19 11:13 99.0 F 91 30 H 127/57 95 Intake and Output 04/02/19 04/02/19 04/02/19 06:59 14:59 22:59 Other: Weight 86.183 kg PHYSICAL EXAMINATION: GENERAL: The patient is alert and oriented x3, is in mild respiratory distress. Well developed, well nourished. HEENT: Pupils are round and equally reacting to light. EOMI. No scleral icterus. No conjunctival pallor. Normocephalic, atraumatic. No pharyngeal erythema. No thyromegaly. CARDIOVASCULAR: S1 and S2 present. No murmurs, rubs, or gallops. PULMONARY: Significant expiratory wheezing decreased air entry into bilateral lung pierce ABDOMEN: Soft, nontender, nondistended, normoactive bowel sounds. No palpable organomegaly. MUSCULOSKELETAL: No joint swelling or deformity. EXTREMITIES: No cyanosis, clubbing, or pedal edema. NEUROLOGICAL: Gross neurological examination did not reveal any focal deficits. SKIN: No rashes. Results CBC & Chem 7: 04/02/19 11:37 04/02/19 11:37 Labs: Abnormal Lab Results - Last 24 Hours (Table) 04/02/19 04/02/19 04/02/19 Range/Units 11:37 11:37 11:37 Neutrophils # 7.9 H (1.3-7.7) k/uL Lymphocytes # 0.7 L (1.0-4.8) k/uL Sodium 136 L (137-145) mmol/L Glucose 217 H (74-99) mg/dL POC Glucose (mg/dL) (75-99) mg/dL Plasma Lactic Acid Jose Angel 3.3 H* (0.7-2.0) mmol/L Magnesium 1.4 L (1.6-2.3) mg/dL 04/02/19 Range/Units 14:13 Neutrophils # (1.3-7.7) k/uL Lymphocytes # (1.0-4.8) k/uL Sodium (137-145) mmol/L Glucose (74-99) mg/dL POC Glucose (mg/dL) 203 H (75-99) mg/dL Plasma Lactic Acid Jose Angel (0.7-2.0) mmol/L Magnesium (1.6-2.3) mg/dL Assessment and Plan Plan: Acute hypercapnic and hypoxic respiratory failure secondary to COPD exacerbation patient will continued on systemic steroids inhalational treatments. Patient was started on doxycycline for bronchitis. -History of A. fib presently rate controlled continue with the anticoagulation. -History of DVT in the past: Continue with anticoagulation as mentioned above -Gastroesophageal reflux disease next and-hyperlipidemia -Hypertension -Peripheral vascular disease -Hypomagnesemia magnesium will be replaced. -Patient is on DVT prophylaxis as well as GI prophylaxis with
--- NOTE | 2019-04-02 16:10 | P.CNPUL ---
History of Present Illness Consult date: 04/02/19 Reason for consult: dyspnea History of present illness: This is 73-year-old white female patient of Dr. 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 Patient was maintained on a Symbicort, and a rescue inhaler.. History of nicotine dependence, currently in remission. Patient is on Xarelto for history of paroxysmal A. fib, currently in sinus rhythm. Patient started having increased dyspnea cough chest congestion and chest tightness and wheezing last week. She contacted our office and she was given a course of antibiotics and steroids over the phone. Nevertheless, she did not improve and her condition got worse and she end up coming to the hospital. Chest x-ray today showing no acute pulmonary infiltrates. Her blood work shows a white cell count of 9.1. The coagulation profile is within normal. Renal function is within normal limits. Lactic acid level was at 3.3 at a time of admission and influenza screen was negative and the troponin was also negative. She is not oxygen dependent. She quit smoking 3 years ago Review of Systems All systems: negative Constitutional: Denies chills, Denies fever Eyes: denies blurred vision, denies pain Ears, nose, mouth and throat: Denies headache, Denies sore throat Cardiovascular: Denies chest pain, Denies shortness of breath Respiratory: Increased dyspnea cough chest tightness and wheezing and some increased shortness of breath Gastrointestinal: Denies abdominal pain, Denies diarrhea, Denies nausea, Denies vomiting Genitourinary: Denies dysuria, Denies hematuria Musculoskeletal: Denies myalgias Integumentary: Denies pruritus, Denies rash Neurological: Denies numbness, Denies weakness Psychiatric: Denies anxiety, Denies depression Endocrine: Denies fatigue, Denies weight change Past Medical History Past Medical History: Atrial Fibrillation, Asthma, COPD, CVA/TIA, Diabetes Mellitus, Deep Vein Thrombosis (DVT), GERD/Reflux, Hyperlipidemia, Hypertension, Osteoarthritis (OA), Pneumonia, Skin Disorder, Vascular Disorder Additional Past Medical History / Comment(s): Pt has had abdominal aneurysm/iliac aneurysm with surgery but states one of these sites is leaking per ultrasound-to have cat scan done soon, NIDDM type II, past respiratory failure/vented, bronchitis, TIA x 4, tan's esophagus, lower GI bleed, diverticular dx, colon polyps, arthritis multiple joints, chronic lower back pain with occasional sciatica, DVT R leg, vertigo at times, urinaty leakage at times, psoriasis, History of Any Multi-Drug Resistant Organisms: None Reported Past Surgical History: Appendectomy, Cholecystectomy, Hernia Repair, Orthopedic Surgery Additional Past Surgical History / Comment(s): vein stripping, jasmyne cataracts- lens implants, orif rt wrist has plate/screws, Lt breast bx-neg, ABD HERNIA, colonoscopy/ egd. Past Anesthesia/Blood Transfusion Reactions: No Reported Reaction Additional Past Anesthesia/Blood Transfusion Reaction / Comment(s): vertigo Past Psychological History: Depression Smoking Status: Former smoker Past Alcohol Use History: None Reported Past Drug Use History: None Reported - Past Family History Father History Unknown: Yes Family Medical History: Myocardial Infarction ([place]) Additional Family Medical History / Comment(s): at age 45 from [place] Mother History Unknown: Yes Additional Family Medical History / Comment(s): from natural causes -she was 95 years old Brother(s) Family Medical History: Cancer Additional Family Medical History / Comment(s): lung cancer Medications and Allergies Home Medications Medication Instructions Recorded Confirmed Type Lisinopril [Zestril] 5 mg PO DAILY 04/23/15 04/02/19 History Omeprazole [PriLOSEC] 20 mg PO AC-BRKFST 04/23/15 04/02/19 History [place]-3 Fatty Acids/Fish Oil [Fish 1 cap PO DAILY 12/02/16 04/02/19 History Oil 1,000 mg Softgel] Rivaroxaban [Xarelto] 20 mg PO HS 12/02/16 04/02/19 History Simvastatin [Zocor] 40 mg PO HS 12/02/16 04/02/19 History Verapamil [Isoptin] 40 mg PO BID 12/02/16 04/02/19 History Calcium Carbonate 500 mg PO DAILY 10/10/17 04/02/19 History Citalopram Hydrobromide [CeleXA] 40 mg PO DAILY 03/10/18 04/02/19 History metFORMIN HCL [Glucophage Xr] 750 mg PO PC-SUPPER 03/14/18 04/02/19 History Albuterol Nebulized [Ventolin 2.5 mg INHALATION RT-Q8H 04/02/19 04/02/19 History Nebulized] Azithromycin [Zithromax Z-pack] See Taper PO DAILY 04/02/19 04/02/19 History Budesonide/Formoterol Fumarate 2 puff INHALATION RT-BID 04/02/19 04/02/19 History [Symbicort 160-4.5 Mcg Inhaler] predniSONE 20 mg PO DAILY 04/02/19 04/02/19 History Allergies Allergy/AdvReac Type Severity Reaction Status Date / Time latex Allergy Rash/Hives Verified 04/02/19 11:16 Penicillins Allergy Rash/Hives Verified 04/02/19 11:16 Physical Exam Vitals: Vital Signs Temp Pulse Resp BP Pulse Ox 04/02/19 14:06 87 24 104/67 97 04/02/19 12:22 96 04/02/19 12:00 96 04/02/19 11:13 99.0 F 91 30 H 127/57 95 Intake and Output 04/02/19 04/02/19 04/02/19 06:59 14:59 22:59 Other: Weight 86.183 kg GENERAL EXAM: Alert, pleasant, 73-year-old white female , mild breathing distress even at rest HEAD: Normocephalic/atraumatic. EYES: Normal reaction of pupils, equal size. Conjunctiva pink, sclera white. NOSE: Clear with pink turbinates. THROAT: No erythema or exudates. NECK: No masses, no JVD, no thyroid enlargement, no adenopathy. CHEST: No chest wall deformity. Symmetrical expansion. LUNGS: Diffuse expiratory wheezes and rhonchi heard throughout the lung pierce bilaterally. CVS: Regular rate and rhythm, normal S1 and S2, no gallops, no murmurs, no rubs ABDOMEN: Soft, nontender. No hepatosplenomegaly, normal bowel sounds, no guarding or rigidity. EXTREMITIES: No clubbing, no edema, no cyanosis, 2+ pulses and upper and lower extremities. Bilateral groin incisions are clean dry and intact, covered with surgical dressings, distal pulses intact MUSCULOSKELETAL: Muscle strength and tone normal. SPINE: No scoliosis or deformity SKIN: No rashes CENTRAL NERVOUS SYSTEM: Alert and oriented -3. No focal deficits, tone is normal in all 4 extremities. PSYCHIATRIC: Alert and oriented -3. Appropriate affect. Intact judgment and insight. Results - Laboratory Findings CBC and BMP: 04/02/19 11:37 04/02/19 11:37 PT/INR, D-dimer PT 10.5 sec (9.0-12.0) 04/02/19 11:37 INR 1.0 (<1.2) 04/02/19 11:37 Abnormal lab findings: Abnormal Labs 04/02/19 04/02/19 04/02/19 11:37 11:37 11:37 Neutrophils # 7.9 H Lymphocytes # 0.7 L Sodium 136 L Glucose 217 H POC Glucose (mg/dL) Plasma Lactic Acid Jose Angel 3.3 H* Magnesium 1.4 L 04/02/19 04/02/19 14:13 15:33 Neutrophils # Lymphocytes # Sodium Glucose POC Glucose (mg/dL) 203 H Plasma Lactic Acid Jose Angel 3.5 H* Magnesium Assessment and Plan Plan: #1. Exacerbation of COPD/asthma and the patient is quite short of breath and bronchospastic and wheezy without any acute abnormalities and the chest x-ray. The patient will be treated with accommodation bronchodilators and steroids. The patient was receiving a course of Zithromax on outpatient basis given to her by her primary care physician. She was also receiving steroids on outpatient basis without much improvement and she end up coming into the hospital for the same. #2. Shortness of breath secondary to above #3. History of paroxysmal A. fib, on Xarelto, currently in sinus rhythm #4. History of nicotine dependence, currently in remission #5. Hypertension, hyperlipidemia #6. Diabetes mellitus type 2 #7. Depressive disorder #8. GERD #9Iliac artery aneurysm on the right, and infrarenal abdominal aortic aneurysm, status post endovascular repair #10 history of Tan's esophagus #11 history of TIA #13 history of a right lower extremity DVT #14 history of psoriasis #15 history of chronic back pain and sciatica Plan Continue the course of Zithromax as given to her by her primary care physician 500 mg by mouth daily Continue IV Solu-Medrol 60 mg every 6 hours and monitor the blood sugars Continue DuoNeb neb last treatment [id number] Stop the Symbicort on a patient with accommodation Perforomist and Pulmicort overestimates twice a day Continue Xarelto for long-term anticoagulation We'll continue to follow
[2019-04-02] MEDS: MAGNESIUM SULFATE-D5W PMX 1 GM in DEXTROSE/WATER 1 100ML.BAG IVPB SCH ×3 (16:39→21:01)
[2019-04-02] MEDS: AZITHROMYCIN 500 MG TAB PO SCH (16:39)
[2019-04-02] MEDS: IPRATROPIUM-ALBUTEROL 3 ML NEB INHALATION SCH ×2 (17:08→21:59)
[2019-04-02 17:20] LABS: Glucose,Whole Blood 287 mg/dL (75-99)
[2019-04-02] MEDS: INSULIN ASPART (NovoLOG) 100 UNIT/ML VIAL SQ SCH ×2 (17:31→22:03)
[2019-04-02] MEDS: methylPREDNISolone SOD SUCCI 125 MG/2 ML VIAL IV SCH (17:31)
[2019-04-02] MEDS ORDERED: methylPREDNISolone SOD SUCCI 40 MG/ML 1 ML VIAL IV SCH (18:00)
[2019-04-02] MEDS ORDERED: methylPREDNISolone SOD SUCCI 125 MG/2 ML VIAL IV SCH (18:00)
[2019-04-02] MEDS ORDERED: SYMBICORT 160-4.5 MCG INHALER INHALATION SCH (20:00)
[2019-04-02] MEDS ORDERED: DOXYCYCLINE 100 MG CAP PO SCH (21:00)
[2019-04-02] MEDS: SODIUM CHLORIDE 0.9% 1,000 ML IV SCH (21:02)
[2019-04-02] MEDS: SODIUM CHLORIDE 0.9% 1,000 ML IV ONE (21:02)
[2019-04-02 21:17] LABS: Glucose,Whole Blood 272 mg/dL (75-99)
[2019-04-02] MEDS: BUDESONIDE 1 MG/2 ML NEBU INHALATION SCH (21:59)
[2019-04-02] MEDS: FORMOTEROL FUMARATE 20 MCG/2 ML NEBU INHALATION SCH (21:59)
[2019-04-02] MEDS: ATORVASTATIN 20 MG TAB PO SCH (22:02)
[2019-04-02] MEDS: RIVAROXABAN 20 MG TAB PO SCH (22:02)
[2019-04-02] MEDS: VERAPAMIL 40 MG TAB PO SCH (22:02)
[2019-04-02 23:28] LABS: Glucose,Whole Blood 278 mg/dL (75-99)
--- NOTE | 2019-04-03 00:38 | XR ---
EXAMINATION TYPE: XR chest 2V DATE OF EXAM: 04/03/2019 COMPARISON: Yesterday HISTORY: Short of breath TECHNIQUE: FINDINGS: There is some patchy infiltrate in the lingula left upper lobe. The other lung pierce are f airly clear. There is no heart failure. Heart size is normal. There is no pleural effusion. IMPRESSION: There is pneumonia in the lingula left upper lobe not significantly different than yester day. No heart failure.
[2019-04-03] MEDS: methylPREDNISolone SOD SUCCI 125 MG/2 ML VIAL IV SCH ×5 (01:11→23:08)
[2019-04-03 04:01] LABS: African American GFR (CKD) >90 (>60 ml/min/1.73 sqM); Anion Gap 6 mmol/L; Blood Urea Nitrogen 16 mg/dL (7-17); Calcium 9.4 mg/dL (8.4-10.2); Carbon Dioxide 24 mmol/L (22-30); Chloride 107 mmol/L (98-107); Glucose 217 mg/dL (74-99); Magnesium 2.5 mg/dL (1.6-2.3); Non-African American GFR(CKD) >90 (>60 ml/min/1.73 sqM); Potassium 4.5 mmol/L (3.5-5.1); Sodium 137 mmol/L (137-145)
[2019-04-03 06:17] LABS: Glucose,Whole Blood 199 mg/dL (75-99)
[2019-04-03] MEDS: PANTOPRAZOLE 40 MG TABLET PO SCH (06:55)
[2019-04-03] MEDS: SODIUM CHLORIDE 0.9% 1,000 ML IV SCH ×3 (06:55→18:39)
[2019-04-03] MEDS: INSULIN ASPART (NovoLOG) 100 UNIT/ML VIAL SQ SCH ×4 (06:56→20:51)
[2019-04-03] MEDS: BUDESONIDE 1 MG/2 ML NEBU INHALATION SCH ×2 (07:02→20:30)
[2019-04-03] MEDS: IPRATROPIUM-ALBUTEROL 3 ML NEB INHALATION SCH ×4 (07:02→20:29)
[2019-04-03] MEDS: FORMOTEROL FUMARATE 20 MCG/2 ML NEBU INHALATION SCH ×2 (07:02→20:30)
[2019-04-03] MEDS ORDERED: SODIUM CHLORIDE 0.9% 500 ML 500 ML IV ONE (08:46)
[2019-04-03] MEDS: VERAPAMIL 40 MG TAB PO SCH ×2 (09:27→19:30)
[2019-04-03] MEDS: CITALOPRAM HYDROBROMIDE 20 MG TAB PO SCH (09:27)
--- NOTE | 2019-04-03 11:46 | P.PN ---
Subjective Progress Note Date: 04/03/19 This is 73-year-old white female patient of Dr. 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 Patient was maintained on a Symbicort, and a rescue inhaler.. History of nicotine dependence, currently in remission. Patient is on Xarelto for history of paroxysmal A. fib, currently in sinus rhythm. Patient started having increased dyspnea cough chest congestion and chest tightness and wheezing last week. She contacted our office and she was given a course of antibiotics and steroids over the phone. Nevertheless, she did not improve and her condition got worse and she end up coming to the hospital. Chest x-ray today showing no acute pulmonary infiltrates. Her blood work shows a white cell count of 9.1. The coagulation profile is within normal. Renal function is within normal limits. Lactic acid level was at 3.3 at a time of admission and influenza screen was negative and the troponin was also negative. She is not oxygen dependent. She quit smoking 3 years ago on today's evaluation of 04/03/2019 the patient is feeling slightly better compared to yesterday. No new complaints for now. Cough and congestion has subsided. She does have some mild lactic acidosis with a lactic acid of 3.3 on today's blood work. Nevertheless the serum bicarbonate 24. Renal function is within normal limits. His and accommodation bronchodilators and steroids pages also on IV Solu-Medrol. Cough has somewhat subsided compared to yesterday. She is on empiric antibiotic coverage with the commissure Rocephin and Zithromax which is on long-term anticoagulation with Xarelto regarding paroxysmal atrial fibrillation. She received 2 L of IV fluid bolus and she still on 100 mL an hour. Objective - Vital Signs Vital signs: Vital Signs Temp 98.3 F 04/03/19 07:45 Pulse 95 04/03/19 09:41 Resp 24 04/03/19 09:41 BP 132/93 04/03/19 07:45 Pulse Ox 93 L 04/03/19 07:45 Intake & Output 04/02/19 04/03/19 04/03/19 18:59 06:59 18:59 Intake Total 210 Balance 210 Weight 86.183 kg 86.183 kg Intake: IV 10 Invasive Line 2 10 Oral 200 Other: # Voids 1 - Exam GENERAL EXAM: Alert, pleasant, 73-year-old white female , mild breathing distress even at rest HEAD: Normocephalic/atraumatic. EYES: Normal reaction of pupils, equal size. Conjunctiva pink, sclera white. NOSE: Clear with pink turbinates. THROAT: No erythema or exudates. NECK: No masses, no JVD, no thyroid enlargement, no adenopathy. CHEST: No chest wall deformity. Symmetrical expansion. LUNGS: Diffuse expiratory wheezes and rhonchi heard throughout the lung pierce bilaterally. CVS: Regular rate and rhythm, normal S1 and S2, no gallops, no murmurs, no rubs ABDOMEN: Soft, nontender. No hepatosplenomegaly, normal bowel sounds, no guarding or rigidity. EXTREMITIES: No clubbing, no edema, no cyanosis, 2+ pulses and upper and lower extremities. Bilateral groin incisions are clean dry and intact, covered with surgical dressings, distal pulses intact MUSCULOSKELETAL: Muscle strength and tone normal. SPINE: No scoliosis or deformity SKIN: No rashes CENTRAL NERVOUS SYSTEM: Alert and oriented -3. No focal deficits, tone is normal in all 4 extremities. PSYCHIATRIC: Alert and oriented -3. Appropriate affect. Intact judgment and insight. - Labs CBC & Chem 7: 04/02/19 11:37 04/03/19 03:22 Labs: Abnormal Lab Results - Last 24 Hours (Table) 04/02/19 04/02/19 04/02/19 Range/Units 11:37 11:37 11:37 Neutrophils # 7.9 H (1.3-7.7) k/uL Lymphocytes # 0.7 L (1.0-4.8) k/uL Sodium 136 L (137-145) mmol/L Glucose 217 H (74-99) mg/dL POC Glucose (mg/dL) (75-99) mg/dL Plasma Lactic Acid Jose Angel 3.3 H* (0.7-2.0) mmol/L Magnesium 1.4 L (1.6-2.3) mg/dL 04/02/19 04/02/19 04/02/19 Range/Units 14:13 15:33 17:09 Neutrophils # (1.3-7.7) k/uL Lymphocytes # (1.0-4.8) k/uL Sodium (137-145) mmol/L Glucose (74-99) mg/dL POC Glucose (mg/dL) 203 H 287 H (75-99) mg/dL Plasma Lactic Acid Jose Angel 3.5 H* (0.7-2.0) mmol/L Magnesium (1.6-2.3) mg/dL 04/02/19 04/02/19 04/02/19 Range/Units 19:15 21:16 23:06 Neutrophils # (1.3-7.7) k/uL Lymphocytes # (1.0-4.8) k/uL Sodium (137-145) mmol/L Glucose (74-99) mg/dL POC Glucose (mg/dL) 272 H (75-99) mg/dL Plasma Lactic Acid Jose Angel 4.8 H* 3.5 H* (0.7-2.0) mmol/L Magnesium (1.6-2.3) mg/dL 04/02/19 04/03/19 04/03/19 Range/Units 23:26 03:22 03:22 Neutrophils # (1.3-7.7) k/uL Lymphocytes # (1.0-4.8) k/uL Sodium (137-145) mmol/L Glucose 217 H (74-99) mg/dL POC Glucose (mg/dL) 278 H (75-99) mg/dL Plasma Lactic Acid Jose Angel 2.1 H* (0.7-2.0) mmol/L Magnesium 2.5 H (1.6-2.3) mg/dL 04/03/19 04/03/19 Range/Units 06:14 07:24 Neutrophils # (1.3-7.7) k/uL Lymphocytes # (1.0-4.8) k/uL Sodium (137-145) mmol/L Glucose (74-99) mg/dL POC Glucose (mg/dL) 199 H (75-99) mg/dL Plasma Lactic Acid Jose Angel 3.3 H* (0.7-2.0) mmol/L Magnesium (1.6-2.3) mg/dL Assessment and Plan Plan: #1. Exacerbation of COPD/asthma and the patient is quite short of breath and bronchospastic and wheezy without any acute abnormalities and the chest x-ray. The patient will be treated with accommodation bronchodilators and steroids. The patient was receiving a course of Zithromax on outpatient basis given to her by her primary care physician. She was also receiving steroids on outpatient basis without much improvement and she end up coming into the hospital for the same. The chest x-ray that was done today shows a limited left basilar infiltrate/atelectasis and the patient will be given same antibiotic coverage. Clinically improving. #2. Shortness of breath secondary to above #3. History of paroxysmal A. fib, on Xarelto, currently in sinus rhythm #4. History of nicotine dependence, currently in remission #5. Hypertension, hyperlipidemia #6. Diabetes mellitus type 2 #7. Depressive disorder #8. GERD #9Iliac artery aneurysm on the right, and infrarenal abdominal aortic aneurysm, status post endovascular repair #10 history of Pozo's esophagus #11 history of TIA #13 history of a right lower extremity DVT #14 history of psoriasis #15 history of chronic back pain and sciatica #16 mild lactic acidosis Plan Continue the course of Zithromax and Rocephin regarding a left lower lobe/lingular pulmonary infiltrates/pneumonia Continue IV Solu-Medrol 60 mg every 6 hours and monitor the blood sugars Continue DuoNeb neb last treatment [id number] Stop the Symbicort on a patient with accommodation Perforomist and Pulmicort overestimates twice a day Continue Xarelto for long-term anticoagulation Cut down the IV fluids to 50 mL an hour Lactic acid levels are slightly elevated and stable. We'll continue to follow
[2019-04-03 12:02] LABS: Glucose,Whole Blood 179 mg/dL (75-99)
--- NOTE | 2019-04-03 13:54 | P.PN ---
Subjective Patient is admitted for COPD exacerbation patient remains severely bronchospastic, chest x-rays not showing a lingular infiltrate patient is presently and azithromycin. Patient is on systemic steroids. Patient feels will be better today. Constitutional: Denied any fatigue denied any fever. Cardio vascular: denied any chest pain, palpitations Gastrointestinal denied any nausea vomiting Pulmonary: As mentioned in HPI Neurologic denied any new focal deficits All inpatient medications were reviewed and appropriate changes in these medications as dictated in the interval history and assessment and plan. Objective - Vital Signs Vital signs: Vital Signs Temp 98.5 F 04/03/19 12:00 Pulse 86 04/03/19 12:00 Resp 24 04/03/19 12:00 BP 136/80 04/03/19 12:00 Pulse Ox 93 L 04/03/19 12:00 Intake & Output 04/02/19 04/03/19 04/03/19 18:59 06:59 18:59 Intake Total 660 Output Total 600 Balance 60 Weight 86.183 kg 86.183 kg Intake: IV 20 Invasive Line 2 20 Oral 640 Output: Urine 600 Other: # Voids 1 - Exam PHYSICAL EXAMINATION: GENERAL: The patient is alert and oriented x3, is in mild respiratory distress. Well developed, well nourished. HEENT: Pupils are round and equally reacting to light. EOMI. No scleral icterus. No conjunctival pallor. Normocephalic, atraumatic. No pharyngeal erythema. No thyromegaly. CARDIOVASCULAR: S1 and S2 present. No murmurs, rubs, or gallops. PULMONARY: Significant expiratory wheezing decreased air entry into bilateral lung pierce ABDOMEN: Soft, nontender, nondistended, normoactive bowel sounds. No palpable or ganomegaly. MUSCULOSKELETAL: No joint swelling or deformity. EXTREMITIES: No cyanosis, clubbing, or pedal edema. NEUROLOGICAL: Gross neurological examination did not reveal any focal deficits. SKIN: No rashes. - Labs CBC & Chem 7: 04/02/19 11:37 04/03/19 03:22 Labs: Abnormal Lab Results - Last 24 Hours (Table) 04/02/19 04/02/19 04/02/19 Range/Units 14:13 15:33 17:09 Glucose (74-99) mg/dL POC Glucose (mg/dL) 203 H 287 H (75-99) mg/dL Plasma Lactic Acid Jose Angel 3.5 H* (0.7-2.0) mmol/L Magnesium (1.6-2.3) mg/dL 04/02/19 04/02/19 04/02/19 Range/Units 19:15 21:16 23:06 Glucose (74-99) mg/dL POC Glucose (mg/dL) 272 H (75-99) mg/dL Plasma Lactic Acid Jose Angel 4.8 H* 3.5 H* (0.7-2.0) mmol/L Magnesium (1.6-2.3) mg/dL 04/02/19 04/03/19 04/03/19 Range/Units 23:26 03:22 03:22 Glucose 217 H (74-99) mg/dL POC Glucose (mg/dL) 278 H (75-99) mg/dL Plasma Lactic Acid Jose Angel 2.1 H* (0.7-2.0) mmol/L Magnesium 2.5 H (1.6-2.3) mg/dL 04/03/19 04/03/19 04/03/19 Range/Units 06:14 07:24 11:47 Glucose (74-99) mg/dL POC Glucose (mg/dL) 199 H 179 H (75-99) mg/dL Plasma Lactic Acid Jose Angel 3.3 H* (0.7-2.0) mmol/L Magnesium (1.6-2.3) mg/dL 04/03/19 Range/Units 11:55 Glucose (74-99) mg/dL POC Glucose (mg/dL) (75-99) mg/dL Plasma Lactic Acid Jose Angel 3.7 H* (0.7-2.0) mmol/L Magnesium (1.6-2.3) mg/dL Assessment and Plan Plan: Acute hypercapnic and hypoxic respiratory failure secondary to COPD exacerbation patient will continued on systemic steroids inhalational treatments. Patient was started on azithromycin. Patient does have some minimal infiltrate -History of A. fib presently rate controlled continue with the anticoagulation. -History of DVT in the past: Continue with anticoagulation as mentioned above -Gastroesophageal reflux disease -hyperlipidemia -Hypertension -Peripheral vascular disease -Hypomagnesemia magnesium was replaced. -Patient is on DVT prophylaxis as well as GI prophylaxis with
[2019-04-03] MEDS: AZITHROMYCIN 500 MG TAB PO SCH (14:34)
[2019-04-03 17:01] LABS: Glucose,Whole Blood 272 mg/dL (75-99)
[2019-04-03] MEDS ORDERED: FUROSEMIDE 10 MG/ML 4 ML VIAL IV STA (17:36)
[2019-04-03] MEDS: IPRATROPIUM-ALBUTEROL 3 ML NEB INHALATION PRN (18:04)
--- NOTE | 2019-04-03 18:13 | XR ---
EXAMINATION TYPE: XR chest 1V portable DATE OF EXAM: 04/03/2019 COMPARISON: Today HISTORY: Short of breath TECHNIQUE: Single view FINDINGS: There is some patchy atelectasis at the lung bases. There is small area of airspace infiltr ate also left lung base. Heart size is normal. There is no heart failure. There are chest leads. Bony thorax is intact. IMPRESSION: There is mild basilar pulmonary infiltrates and atelectasis not significantly different t borrego exam this morning. No heart failure seen.
[2019-04-03] MEDS ORDERED: SODIUM CHLORIDE 0.9% 500 ML 250 ML IV ONE (18:24)
[2019-04-03] MEDS: BENZONATATE 100 MG CAP PO PRN (18:30)
[2019-04-03] MEDS: ALPRAZolam 0.5 MG TAB PO PRN (18:30)
[2019-04-03] MEDS: SODIUM CHLORIDE 0.9% 1,000 ML IV ONE (18:39)
[2019-04-03] MEDS: RIVAROXABAN 20 MG TAB PO SCH (19:30)
[2019-04-03] MEDS: DILTIAZEM 125 MG in SODIUM CHLORIDE 0.9% 100 ML IV SCH (19:48)
[2019-04-03] MEDS: ATORVASTATIN 20 MG TAB PO SCH (20:21)
[2019-04-03 20:26] LABS: Glucose,Whole Blood 263 mg/dL (75-99)
[2019-04-03] MEDS ORDERED: RX INFO: IV CONTRAST WAS GIVEN 1 EACH MISC MISCELLANE PRN (20:35)
--- NOTE | 2019-04-03 22:47 | CT ---
EXAMINATION TYPE: CT angio chest DATE OF EXAM: 04/03/2019 COMPARISON: HISTORY: Elevated d-dimer. CT DLP: 469 mGycm Automated exposure control for dose reduction was used. CONTRAST: Performed with IV Contrast, patient injected with 79ml mL of Isovue 370. There are 3-D post processed images. There is patchy atelectasis at the lung bases. Heart size is normal. There is no pericardial effusion . There is no mediastinal adenopathy. There are no hilar masses. There is normal contrast opacification of the pulmonary arteries. There are no filling defects. Upper abdominal soft tissues are intact. There is a mild aneurysm of the upper abdominal aorta that measur es up to 3.4 cm. There is some spurring in the thoracic spine. I see no bony destructive process. IMPRESSION: No evidence of pulmonary embolism. Patchy atelectasis at the lung bases. Mild lower thoracic upper ab dominal aortic aneurysm.
[2019-04-04 06:00] LABS: Glucose,Whole Blood 217 mg/dL (75-99)
[2019-04-04 06:03] LABS: Hypochromasia Slight; MCH 29.9 pg (25.0-35.0); MCHC 31.4 g/dL (31.0-37.0); MCV 95.2 fL (80.0-100.0); Mean Platelet Volume 7.5; Platelet Count 273 k/uL (150-450); RBC 3.68 m/uL (3.80-5.40); RDW 14.9 % (11.5-15.5); WBC 16.2 k/uL (3.8-10.6)
[2019-04-04 06:22] LABS: African American GFR (CKD) >90 (>60 ml/min/1.73 sqM); Anion Gap 8 mmol/L; Blood Urea Nitrogen 22 mg/dL (7-17); Calcium 9.5 mg/dL (8.4-10.2); Carbon Dioxide 23 mmol/L (22-30); Chloride 107 mmol/L (98-107); Glucose 209 mg/dL (74-99); Non-African American GFR(CKD) 86 (>60 ml/min/1.73 sqM); Potassium 4.4 mmol/L (3.5-5.1); Sodium 138 mmol/L (137-145)
[2019-04-04] MEDS: methylPREDNISolone SOD SUCCI 125 MG/2 ML VIAL IV SCH ×4 (06:36→23:20)
[2019-04-04] MEDS: INSULIN ASPART (NovoLOG) 100 UNIT/ML VIAL SQ SCH ×4 (06:37→22:02)
[2019-04-04] MEDS: PANTOPRAZOLE 40 MG TABLET PO SCH (06:37)
[2019-04-04] MEDS: CITALOPRAM HYDROBROMIDE 20 MG TAB PO SCH (08:15)
[2019-04-04] MEDS: VERAPAMIL 40 MG TAB PO SCH (08:15)
[2019-04-04] MEDS: SODIUM CHLORIDE 0.9% 1,000 ML IV SCH ×3 (08:15→15:28)
[2019-04-04] MEDS: IPRATROPIUM-ALBUTEROL 3 ML NEB INHALATION SCH ×4 (08:23→19:55)
[2019-04-04] MEDS: BUDESONIDE 1 MG/2 ML NEBU INHALATION SCH ×2 (08:23→19:55)
[2019-04-04] MEDS: FORMOTEROL FUMARATE 20 MCG/2 ML NEBU INHALATION SCH ×2 (08:23→19:55)
--- NOTE | 2019-04-04 09:46 | P.CRDCN ---
History of Present Illness Consult date: 04/04/19 Requesting physician: Danisha Arreola Consult reason: atrial fibrillation Chief complaint: Shortness of breath History of present illness: This is a 73-year-old female who follows with Dr. victor m Manning in the office, she has a history of COPD, prior TIA, diabetes, hypertension, hype rlipidemia, history of DVT, patient also states that she has history of paroxysmal atrial fibrillation, she is on xarelto 20 mg daily for anticoagulation.. She presented to the hospital with symptoms of progressively worsening shortness of breath over a one week duration. She also states that she had been on antibiotics as an outpatient with no significant relief in symptoms. Chest x-ray on presentation here showed chronic left basilar atelectasis. EKG on presentation here showed a sinus rhythm with PACs. Repeat chest x-ray showed pneumonia in the lingula left upper lobe. CTA of the chest did not reveal evidence of pulmonary embolism, patchy atelectasis at the lung bases. Blood pressure 106/60 with a heart rate in the 70s, 95% on 5 L high flow cannula. White blood cell count on presentation here 9.1, 16.2 this morning, hemoglobin 12.9 and 11, platelet count 273. D-dimer 1.07. Sodium 138, potassium 4.4, BUN 22, creatinine 0.7. Plasma lactic acid up to 5.2. Magnesium on admission 1.4, 2.5 on repeat after replacement. Troponin 0.012. Influenza A and B were negative. Patient has been going in and out of atrial fibrillation with rapid ventricular response and for this reason a cardiology consultation has been requested. At the time of my examination this morning, the patient is quite short of breath, fine to even her to speak. The back in normal sinus rhythm. Past Medical History Past Medical History: Atrial Fibrillation, Asthma, COPD, CVA/TIA, Diabetes Mellitus, Deep Vein Thrombosis (DVT), GERD/Reflux, Hyperlipidemia, Hypertension, Osteoarthritis (OA), Pneumonia, Skin Disorder, Vascular Disorder Additional Past Medical History / Comment(s): Pt has had abdominal aneurysm/iliac aneurysm with surgery but states one of these sites is leaking per ultrasound-to have cat scan done soon, NIDDM type II, past respiratory failure/vented, bronchitis, TIA x 4, tan's esophagus, lower GI bleed, diver ticular dx, colon polyps, arthritis multiple joints, chronic lower back pain with occasional sciatica, DVT R leg, vertigo at times, urinaty leakage at times, psoriasis, History of Any Multi-Drug Resistant Organisms: None Reported Past Surgical History: Appendectomy, Cholecystectomy, Hernia Repair, Orthopedic Surgery Additional Past Surgical History / Comment(s): vein stripping, jasmyne cataracts- lens implants, orif rt wrist has plate/screws, Lt breast bx-neg, ABD HERNIA, colonoscopy/ egd. Past Anesthesia/Blood Transfusion Reactions: No Reported Reaction Additional Past Anesthesia/Blood Transfusion Reaction / Comment(s): vertigo Smoking Status: Former smoker - Past Family History Father History Unknown: Yes Family Medical History: Myocardial Infarction ([place]) Additional Family Medical History / Comment(s): at age 45 from [place] Mother History Unknown: Yes Additional Family Medical History / Comment(s): from natural causes -she was 95 years old Brother(s) Family Medical History: Cancer Additional Family Medical History / Comment(s): lung cancer Medications and Allergies Home Medications Medication Instructions Recorded Confirmed Type Lisinopril [Zestril] 5 mg PO DAILY 04/23/15 04/02/19 History Omeprazole [PriLOSEC] 20 mg PO AC-BRKFST 04/23/15 04/02/19 History Catlett-3 Fatty Acids/Fish Oil [Fish 1 cap PO DAILY 12/02/16 04/02/19 History Oil 1,000 mg Softgel] Rivaroxaban [Xarelto] 20 mg PO HS 12/02/16 04/02/19 History Simvastatin [Zocor] 40 mg PO HS 12/02/16 04/02/19 History Verapamil [Isoptin] 40 mg PO BID 12/02/16 04/02/19 History Calcium Carbonate 500 mg PO DAILY 10/10/17 04/02/19 History Citalopram Hydrobromide [CeleXA] 40 mg PO DAILY 03/10/18 04/02/19 History metFORMIN HCL [Glucophage Xr] 750 mg PO PC-SUPPER 03/14/18 04/02/19 History Albuterol Nebulized [Ventolin 2.5 mg INHALATION RT-Q8H 04/02/19 04/02/19 History Nebulized] Azithromycin [Zithromax Z-pack] See Taper PO DAILY 04/02/19 04/02/19 History Budesonide/Formoterol Fumarate 2 puff INHALATION RT-BID 04/02/19 04/02/19 History [Symbicort 160-4.5 Mcg Inhaler] predniSONE 20 mg PO DAILY 04/02/19 04/02/19 History Allergies Allergy/AdvReac Type Severity Reaction Status Date / Time latex Allergy Rash/Hives Verified 04/02/19 11:16 Penicillins Allergy Rash/Hives Verified 04/02/19 11:16 Physical Exam Vitals: Vital Signs Temp Pulse Pulse Resp BP Pulse Ox 04/04/19 08:57 76 04/04/19 08:46 80 04/04/19 08:45 80 04/04/19 08:26 74 98 04/04/19 08:00 98.6 F 73 16 106/64 95 04/04/19 04:00 97.4 F L 87 16 118/62 99 04/04/19 00:00 97.1 F L 85 16 100/64 97 04/03/19 20:58 115 H 04/03/19 20:50 107 H 04/03/19 20:30 108 H 96 04/03/19 20:00 96.9 F L 153 H 22 117/67 97 04/03/19 19:55 113 H 20 96 04/03/19 19:54 115 H 35 H 96 04/03/19 19:17 96 04/03/19 18:35 150 H 36 H 96 04/03/19 18:16 110 H 32 H 04/03/19 18:05 114 H 18 04/03/19 17:50 146 H 36 H 90 L 04/03/19 17:35 148 H 36 H 89 L 04/03/19 15:38 88 22 04/03/19 15:28 83 18 04/03/19 15:26 76 24 04/03/19 15:24 97.9 F 76 24 130/69 94 L 04/03/19 12:00 98.5 F 86 24 136/80 93 L 04/03/19 11:57 95 16 04/03/19 11:55 85 16 04/03/19 11:44 83 16 04/03/19 09:41 95 24 Intake and Output 04/03/19 04/04/19 04/04/19 22:59 06:59 14:59 Intake Total 270 225 Output Total 1250 1000 700 Balance -980 -1000 -333 Intake: IV 30 Invasive Line 2 10 Invasive Line 3 20 Oral 240 225 Output: Urine 1250 1000 700 Uretheral (Mclaughlin) 1250 350 Other: Voiding Method Indwelling Catheter Indwelling Catheter # Voids 1 Weight 93 kg GENERAL EXAM: Alert, pleasant, 73-year-old white female , mild breathing distress even at rest HEAD: Normocephalic/atraumatic. EYES: Normal reaction of pupils, equal size. Conjunctiva pink, sclera white. NOSE: Clear with pink turbinates. THROAT: No erythema or exudates. NECK: No masses, no JVD, no thyroid enlargement, no adenopathy. CHEST: No chest wall deformity. Symmetrical expansion. LUNGS: Diffuse expiratory wheezes and rhonchi heard throughout the lung pierce bilaterally. CVS: Regular rate and rhythm, normal S1 and S2, no gallops, no murmurs, no rubs ABDOMEN: Soft, nontender. No hepatosplenomegaly, normal bowel sounds, no guarding or rigidity. EXTREMITIES: No clubbing, no edema, no cyanosis, 2+ pulses and upper and lower extremities. Bilateral groin incisions are clean dry and intact, covered with surgical dressings, distal pulses intact MUSCULOSKELETAL: Muscle strength and tone normal. SPINE: No scoliosis or deformity SKIN: No rashes CENTRAL NERVOUS SYSTEM: Alert and oriented -3. No focal deficits, tone is normal in all 4 extremities. PSYCHIATRIC: Alert and oriented -3. Appropriate affect. Intact judgment and insight. Results 04/04/19 05:32 04/04/19 05:32 CBC 04/04/19 Range/Units 05:32 WBC 16.2 H (3.8-10.6) k/uL RBC 3.68 L (3.80-5.40) m/uL Hgb 11.0 L (11.4-16.0) gm/dL Hct 35.0 (34.0-46.0) % Plt Count 273 (150-450) k/uL Comprehensive Metabolic Panel 04/04/19 Range/Units 05:32 Sodium 138 (137-145) mmol/L Potassium 4.4 (3.5-5.1) mmol/L Chloride 107 (98-107) mmol/L Carbon Dioxide 23 (22-30) mmol/L BUN 22 H (7-17) mg/dL Creatinine 0.71 (0.52-1.04) mg/dL Glucose 209 H (74-99) mg/dL Calcium 9.5 (8.4-10.2) mg/dL Current Medications Generic Name Dose Route Start Last Admin Trade Name Freq PRN Reason Stop Dose Admin Albuterol/Ipratropium 3 ml 04/02/19 12:54 04/03/19 18:04 Duoneb 0.5 Mg-3 Mg/3 Ml Soln INHALATION 3 ml RT-Q4H PRN Administration Shortness Of Breath Or Wheezing Albuterol/Ipratropium 3 ml 04/02/19 16:00 04/04/19 08:23 Duoneb 0.5 Mg-3 Mg/3 Ml Soln INHALATION 3 ml RT-QID EFRA Administration Alprazolam 0.5 mg 04/03/19 18:25 04/03/19 18:30 Xanax PO 0.5 mg TID PRN Administration Anxiety Atorvastatin Calcium 20 mg 04/02/19 21:00 04/03/19 20:21 Lipitor PO 20 mg HS EFRA Administration Azithromycin 500 mg 04/02/19 16:15 04/03/19 14:34 Zithromax PO 500 mg DAILY@1600 EFRA Administration Benzonatate 100 mg 04/03/19 18:25 04/03/19 18:30 Tessalon Perles PO 100 mg TID PRN Administration Cough Budesonide 1 mg 04/02/19 20:00 04/04/19 08:23 Pulmicort INHALATION 1 mg RT-BID EFRA Administration Citalopram Hydrobromide 40 mg 04/03/19 09:00 04/04/19 08:15 Celexa PO 40 mg DAILY EFRA Administration Formoterol Fumarate 20 mcg 04/02/19 20:00 04/04/19 08:23 Perforomist INHALATION 20 mcg RT-BID EFRA Administration Sodium Chloride 1,000 mls @ 50 mls/hr 04/02/19 20:45 04/04/19 08:16 Saline 0.9% IV Not Given .Q20H EFRA Sodium Chloride 1,000 mls @ 100 mls/hr 04/03/19 18:30 04/04/19 08:15 Saline 0.9% IV 100 mls/hr .Q10H EFRA Administration Ceftriaxone Sodium 2 gm/ 50 mls @ 100 mls/hr 04/03/19 18:45 04/04/19 08:15 Sodium Chloride IVPB 100 mls/hr Q24HR EFRA Administration Diltiazem HCl 125 mg/ Sodium 125 mls @ 10 mls/hr 04/03/19 19:45 04/03/19 19:48 Chloride IV 10 mg/hr .[id number] EFRA 10 mls/hr Administration 10 MG/HR Insulin Aspart 0 unit 04/02/19 17:30 04/04/19 06:37 Novolog SQ 7 unit ACHS EFRA Administration Protocol Methylprednisolone Sodium Succinate 60 mg 04/02/19 18:00 04/04/19 06:36 Solu-Medrol IV 60 mg Q6HR EFRA Administration Miscellaneous Information 1 each 04/03/19 20:35 Rx Info: Iv Contrast Was Given MISCELLANE 04/05/19 20:38 DAILY PRN Per Protocol Pantoprazole Sodium 40 mg 04/03/19 07:30 04/04/19 06:37 Protonix PO 40 mg AC-BRKFST EFRA Administration Rivaroxaban 20 mg 04/02/19 21:00 04/03/19 19:30 Xarelto PO 20 mg HS EFRA Administration Verapamil HCl 40 mg 04/02/19 21:00 04/04/19 08:15 Isoptin PO 40 mg BID EFRA Administration Intake and Output 04/03/19 04/04/19 04/04/19 22:59 06:59 14:59 Intake Total 270 225 Output Total 1250 1000 700 Balance -980 -1000 -475 Intake: IV 30 Invasive Line 2 10 Invasive Line 3 20 Oral 240 225 Output: Urine 1250 1000 700 Uretheral (Mclaughlin) 1250 350 Other: Voiding Method Indwelling Catheter Indwelling Catheter # Voids 1 Weight 93 kg 04/04/19 05:32 04/04/19 05:32 EKG Interpretations (text) EKG shows a normal sinus rhythm with occasional PACs and PVCs Assessment and Plan Plan: Assessment and plan #1. Exacerbation of COPD/asthma The patient was receiving a course of Zithromax on outpatient basis given to her by her primary care physician. She was also receiving steroids on outpatient basis without much improvement The chest x-ray that was done today shows a limited left basilar infiltrate/atelectasis and the patient is on antibiotics. #2. Shortness of breath secondary to above #3. History of paroxysmal A. fib, on Xarelto, currently in sinus rhythm. Patient is having a paroxysmal episodes of rapid atrial fibrillation #4. History of nicotine dependence, currently in remission #5. Hypertension, hyperlipidemia #6. Diabetes mellitus type 2 #7. Depressive disorder #8. 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 We will also obtain a TSH level. Patient is currently on IV Cardizem drip at 10 mg per hour, we will discontinue this and increase her dose of verapamil. Obtain a BNP level, pro calcitonin level. Further recommendations to follow. DNP note has been reviewed, I agree with a documented findings and plan of care. Patient was seen and examined.
[2019-04-04] MEDS ORDERED: VERAPAMIL 40 MG TAB PO ONE (10:00)
[2019-04-04 11:57] LABS: Glucose,Whole Blood 200 mg/dL (75-99)
--- NOTE | 2019-04-04 13:00 | ECHOF ---
Referral Reason:chf MEASUREMENTS -------- HEIGHT: 157.5 cm WEIGHT: 93.0 kg BP: 106/64 RVIDd: 2.3 cm (< 3.3) IVSd: 1.4 cm (0.6 - 1.1) LVIDd: 3.8 cm (3.9 - 5.3) LVPWd: 1.6 cm (0.6 - 1.1) IVSs: 1.6 cm LVIDs: 2.3 cm LVPWs: 2.3 cm Ao Diam: 3.4 cm (2.0 - 3.7) AV Cusp: 2.3 cm (1.5 - 2.6) LA Diam: 3.0 cm (2.7 - 3.8) MV EXCURSION: 17.570 mm (> 18.000) MV EF SLOPE: 79 mm/s (70 - 150) EPSS: 1.1 cm MV E Delvis: 0.80 m/s MV DecT: 148 ms MV A Delvis: 0.57 m/s MV E/A Ratio: 1.42 RAP: 5.00 mmHg RVSP: 19.26 mmHg FINDINGS -------- Sinus rhythm. This was a technically difficult study with suboptimal views. The left ventricular size is normal. There is moderate concentric left ventricular hypertrophy. O verall left ventricular systolic function is normal with, an EF between 55 - 60 %. The right ventricle is normal in size. The RV was not well visualized. The left atrial size is normal. The right atrial size is normal. 5.0mg of Lumason was utilized for enhancement of images The aortic valve was not well visualized. The mitral valve was not well visualized. The tricuspid valve was not well visualized. Trace tricuspid regurgitation present. Right ventric ular systolic pressure is normal at < 35 mmHg. The pulmonic valve was not well visualized. The aortic root size is normal. There is no pericardial effusion. CONCLUSIONS -------- 1. Sinus rhythm. 2. This was a technically difficult study with suboptimal views. 3. The left ventricular size is normal. 4. There is moderate concentric left ventricular hypertrophy. 5. Overall left ventricular systolic function is normal with, an EF between 55 - 60 %. 6. The right ventricle is normal in size. 7. The RV was not well visualized. 8. The left atrial size is normal. 9. The right atrial size is normal. 10. 5.0mg of Lumason was utilized for enhancement of images 11. The aortic valve was not well visualized. 12. The mitral valve was not well visualized. 13. The tricuspid valve was not well visualized. 14. Trace tricuspid regurgitation present. 15. Right ventricular systolic pressure is normal at < 35 mmHg. 16. The pulmonic valve was not well visualized. 17. The aortic root size is normal. 18. There is no pericardial effusion. DRIVER LICENSE EXAMINER: Elin Baer RDCS
[2019-04-04] MEDS: DILTIAZEM 125 MG in SODIUM CHLORIDE 0.9% 100 ML IV SCH (14:06)
--- NOTE | 2019-04-04 14:22 | P.PN ---
Subjective Patient is admitted for COPD exacerbation patient remains severely bronchospastic, chest x-rays not showing a lingular infiltrate patient is presently and azithromycin. Patient is on systemic steroids. Patient feels will be better today. April 04 2019 Patient didn't do well last night and yesterday evening patient went into respiratory failure requiring BiPAP. Patient related to A. fib as well as presently rate controlled now. Patient overall respiratory status improved as well wheezing appears to improve but does have significant wheezing still patient feels little bit better today. Patient's verapamil dose was increased Cardizem was discontinued. Constitutional: Denied any fatigue denied any fever. Cardio vascular: denied any chest pain, palpitations Gastrointestinal denied any nausea vomiting Pulmonary: As mentioned in HPI Neurologic denied any new focal deficits All inpatient medications were reviewed and appropriate changes in these medications as dictated in the interval history and assessment and plan. Objective - Vital Signs Vital signs: Vital Signs Temp 97.5 F L 04/04/19 12:00 Pulse 86 04/04/19 12:00 Resp 16 04/04/19 12:00 BP 111/72 04/04/19 12:00 Pulse Ox 94 L 04/04/19 12:00 Intake & Output 04/03/19 04/04/19 04/04/19 18:59 06:59 18:59 Intake Total 930 285 Output Total 1850 1000 700 Balance -920 -1000 -415 Weight 93 kg Intake: IV 50 Invasive Line 2 30 Invasive Line 3 20 Oral 880 285 Output: Urine 1850 1000 700 Uretheral (Mclaughlin) 1250 350 Other: Voiding Method Indwelling Catheter Indwelling Catheter # Voids 1 - Exam PHYSICAL EXAMINATION: GENERAL: The patient is alert and oriented x3, is in mild respiratory distress. Well developed, well nourished. HEENT: Pupils are round and equally reacting to light. EOMI. No scleral icterus. No conjunctival pallor. Normocephalic, atraumatic. No pharyngeal erythema. No thyromegaly. CARDIOVASCULAR: S1 and S2 present. No murmurs, rubs, or gallops. PULMONARY: Significant expiratory wheezing, wheezing all the improved compared to yesterday ABDOMEN: Soft, nontender, nondistended, normoactive bowel sounds. No palpable organomegaly. MUSCULOSKELETAL: No joint swelling or deformity. EXTREMITIES: No cyanosis, clubbing, or pedal edema. NEUROLOGICAL: Gross neurological examination did not reveal any focal deficits. SKIN: No rashes. - Labs CBC & Chem 7: 04/04/19 05:32 04/04/19 05:32 Labs: Abnormal Lab Results - Last 24 Hours (Table) 04/03/19 04/03/19 04/03/19 Range/Units 16:48 17:27 19:39 WBC (3.8-10.6) k/uL RBC (3.80-5.40) m/uL Hgb (11.4-16.0) gm/dL D-Dimer 1.07 H (<0.60) mg/L FEU BUN (7-17) mg/dL Glucose (74-99) mg/dL POC Glucose (mg/dL) 272 H (75-99) mg/dL Plasma Lactic Acid Jose Angel 5.2 H* (0.7-2.0) mmol/L TSH (0.465-4.680) mIU/L 04/03/19 04/04/19 04/04/19 Range/Units 20:25 05:32 05:32 WBC 16.2 H (3.8-10.6) k/uL RBC 3.68 L (3.80-5.40) m/uL Hgb 11.0 L (11.4-16.0) gm/dL D-Dimer (<0.60) mg/L FEU BUN (7-17) mg/dL Glucose (74-99) mg/dL POC Glucose (mg/dL) 263 H (75-99) mg/dL Plasma Lactic Acid Jose Angel 3.1 H* (0.7-2.0) mmol/L TSH (0.465-4.680) mIU/L 04/04/19 04/04/19 04/04/19 Range/Units 05:32 05:32 05:59 WBC (3.8-10.6) k/uL RBC (3.80-5.40) m/uL Hgb (11.4-16.0) gm/dL D-Dimer (<0.60) mg/L FEU BUN 22 H (7-17) mg/dL Glucose 209 H (74-99) mg/dL POC Glucose (mg/dL) 217 H (75-99) mg/dL Plasma Lactic Acid Jose Angel (0.7-2.0) mmol/L TSH 0.097 L (0.465-4.680) mIU/L 04/04/19 04/04/19 Range/Units 09:28 11:55 WBC (3.8-10.6) k/uL RBC (3.80-5.40) m/uL Hgb (11.4-16.0) gm/dL D-Dimer (<0.60) mg/L FEU BUN (7-17) mg/dL Glucose (74-99) mg/dL POC Glucose (mg/dL) 200 H (75-99) mg/dL Plasma Lactic Acid Jose Angel 2.9 H* (0.7-2.0) mmol/L TSH (0.465-4.680) mIU/L Microbiology - Last 24 Hours (Table) 04/02/19 11:37 Blood Culture - Preliminary Blood No Growth after 48 hours 04/03/19 14:39 Gram Stain - Preliminary Sputum Sputum Culture - Preliminary Assessment and Plan Plan: Acute hypercapnic and hypoxic respiratory failure secondary to COPD exacerbation patient will continued on systemic steroids inhalational treatments. Patient was started on azithromycin. Patient does have some minimal infiltrate. CAT scan did not show any pulmonary embolism there is no pneumonia on the CAT scan and Rocephin was started yesterday but I'll discontinue that azithromycin will be continued, echo cardiac exam was done today which showed normal ejection fraction -History of A. fib with rapid and regular rate increase the dose of her abnormal presently better controlled heart rate can you with anticoagulation -History of DVT in the past: Continue with anticoagulation as mentioned above -Gastroesophageal reflux disease -hyperlipidemia -Hypertension -Peripheral vascular disease -Hypomagnesemia magnesium was replaced. -Patient is on DVT prophylaxis as well as GI prophylaxis with
--- NOTE | 2019-04-04 14:37 | XR ---
EXAMINATION TYPE: XR chest 1V portable DATE OF EXAM: 04/04/2019 COMPARISON: 04/03/2019 INDICATION: Dyspnea TECHNIQUE: Single frontal view of the chest is obtained. FINDINGS: The heart size is normal. The pulmonary vasculature is normal. Mild bibasilar infiltrates are present, worsening from comparison. IMPRESSION: 1. Mild worsening of bibasilar infiltrates. Correlate for subsegmental atelectasis and pneumonia.
--- NOTE | 2019-04-04 14:49 | P.PN ---
Subjective Progress Note Date: 04/04/19 This is 73-year-old white female patient of Dr. 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 Patient was maintained on a Symbicort, and a rescue inhaler.. History of nicotine dependence, currently in remission. Patient is on Xarelto for history of paroxysmal A. fib, currently in sinus rhythm. Patient started having increased dyspnea cough chest congestion and chest tightness and wheezing last week. She contacted our office and she was given a course of antibiotics and steroids over the phone. Nevertheless, she did not improve and her condition got worse and she end up coming to the hospital. Chest x-ray today showing no acute pulmonary infiltrates. Her blood work shows a white cell count of 9.1. The coagulation profile is within normal. Renal function is within normal limits. Lactic acid level was at 3.3 at a time of admission and influenza screen was negative and the troponin was also negative. She is not oxygen dependent. She quit smoking 3 years ago on today's evaluation of 04/03/2019 the patient is feeling slightly better compared to yesterday. No new complaints for now. Cough and congestion has subsided. She does have some mild lactic acidosis with a lactic acid of 3.3 on today's blood work. Nevertheless the serum bicarbonate 24. Renal function is within normal limits. His and accommodation bronchodilators and steroids pages also on IV Solu-Medrol. Cough has somewhat subsided compared to yesterday. She is on empiric antibiotic coverage with the commissure Rocephin and Zithromax which is on long-term anticoagulation with Xarelto regarding paroxysmal atrial fibrillation. She received 2 L of IV fluid bolus and she still on 100 mL an hour. Objective - Vital Signs Vital signs: Vital Signs Temp 97.5 F L 04/04/19 12:00 Pulse 86 04/04/19 12:00 Resp 16 04/04/19 12:00 BP 111/72 04/04/19 12:00 Pulse Ox 94 L 04/04/19 12:00 Intake & Output 04/03/19 04/04/19 04/04/19 18:59 06:59 18:59 Intake Total 930 285 Output Total 1850 1000 700 Balance -920 -1000 -415 Weight 93 kg Intake: IV 50 Invasive Line 2 30 Invasive Line 3 20 Oral 880 285 Output: Urine 1850 1000 700 Uretheral (Mclaughlin) 1250 350 Other: Voiding Method Indwelling Catheter Indwelling Catheter # Voids 1 - Exam GENERAL EXAM: Alert, pleasant, 73-year-old white female , mild breathing distress even at rest HEAD: Normocephalic/atraumatic. EYES: Normal reaction of pupils, equal size. Conjunctiva pink, sclera white. NOSE: Clear with pink turbinates. THROAT: No erythema or exudates. NECK: No masses, no JVD, no thyroid enlargement, no adenopathy. CHEST: No chest wall deformity. Symmetrical expansion. LUNGS: Diffuse expiratory wheezes and rhonchi heard throughout the lung pierce bilaterally. CVS: Regular rate and rhythm, normal S1 and S2, no gallops, no murmurs, no rubs ABDOMEN: Soft, nontender. No hepatosplenomegaly, normal bowel sounds, no guarding or rigidity. EXTREMITIES: No clubbing, no edema, no cyanosis, 2+ pulses and upper and lower extremities. Bilateral groin incisions are clean dry and intact, covered with surgical dressings, distal pulses intact MUSCULOSKELETAL: Muscle strength and tone normal. SPINE: No scoliosis or deformity SKIN: No rashes CENTRAL NERVOUS SYSTEM: Alert and oriented -3. No focal deficits, tone is normal in all 4 extremities. PSYCHIATRIC: Alert and oriented -3. Appropriate affect. Intact judgment and insight. - Labs CBC & Chem 7: 04/04/19 05:32 04/04/19 05:32 Labs: Abnormal Lab Results - Last 24 Hours (Table) 04/03/19 04/03/19 04/03/19 Range/Units 16:48 17:27 19:39 WBC (3.8-10.6) k/uL RBC (3.80-5.40) m/uL Hgb (11.4-16.0) gm/dL D-Dimer 1.07 H (<0.60) mg/L FEU BUN (7-17) mg/dL Glucose (74-99) mg/dL POC Glucose (mg/dL) 272 H (75-99) mg/dL Plasma Lactic Acid Jose Angel 5.2 H* (0.7-2.0) mmol/L TSH (0.465-4.680) mIU/L 04/03/19 04/04/19 04/04/19 Range/Units 20:25 05:32 05:32 WBC 16.2 H (3.8-10.6) k/uL RBC 3.68 L (3.80-5.40) m/uL Hgb 11.0 L (11.4-16.0) gm/dL D-Dimer (<0.60) mg/L FEU BUN (7-17) mg/dL Glucose (74-99) mg/dL POC Glucose (mg/dL) 263 H (75-99) mg/dL Plasma Lactic Acid Jose Angel 3.1 H* (0.7-2.0) mmol/L TSH (0.465-4.680) mIU/L 04/04/19 04/04/19 04/04/19 Range/Units 05:32 05:32 05:59 WBC (3.8-10.6) k/uL RBC (3.80-5.40) m/uL Hgb (11.4-16.0) gm/dL D-Dimer (<0.60) mg/L FEU BUN 22 H (7-17) mg/dL Glucose 209 H (74-99) mg/dL POC Glucose (mg/dL) 217 H (75-99) mg/dL Plasma Lactic Acid Jose Angel (0.7-2.0) mmol/L TSH 0.097 L (0.465-4.680) mIU/L 04/04/19 04/04/19 Range/Units 09:28 11:55 WBC (3.8-10.6) k/uL RBC (3.80-5.40) m/uL Hgb (11.4-16.0) gm/dL D-Dimer (<0.60) mg/L FEU BUN (7-17) mg/dL Glucose (74-99) mg/dL POC Glucose (mg/dL) 200 H (75-99) mg/dL Plasma Lactic Acid Jose Angel 2.9 H* (0.7-2.0) mmol/L TSH (0.465-4.680) mIU/L Microbiology - Last 24 Hours (Table) 04/02/19 11:37 Blood Culture - Preliminary Blood No Growth after 48 hours 04/03/19 14:39 Gram Stain - Preliminary Sputum Sputum Culture - Preliminary Assessment and Plan Plan: #1. Exacerbation of COPD/asthma and the patient is quite short of breath and bronchospastic and wheezy without any acute abnormalities and the chest x-ray. The patient will be treated with accommodation bronchodilators and steroids. The patient was receiving a course of Zithromax on outpatient basis given to her by her primary care physician. She was also receiving steroids on outpatient basis without much improvement and she end up coming into the hospital for the same. The chest x-ray that was done today shows a limited left basilar infiltrate/atelectasis and the patient will be given same antibiotic coverage. Clinically improving. #2. Shortness of breath secondary to above #3. History of paroxysmal A. fib, on Xarelto, currently in sinus rhythm #4. History of nicotine dependence, currently in remission #5. Hypertension, hyperlipidemia #6. Diabetes mellitus type 2 #7. Depressive disorder #8. GERD #9Iliac artery aneurysm on the right, and infrarenal abdominal aortic aneurysm, status post endovascular repair #10 history of Pozo's esophagus #11 history of TIA #13 history of a right lower extremity DVT #14 history of psoriasis #15 history of chronic back pain and sciatica #16 mild lactic acidosis Plan Continue the course of Zithromax and Rocephin regarding a left lower lobe/lingular pulmonary infiltrates/pneumonia Continue IV Solu-Medrol 60 mg every 6 hours and monitor the blood sugars Continue DuoNeb neb last treatment [id number] Stop the Symbicort on a patient with accommodation Perforomist and Pulmicort overestimates twice a day Continue Xarelto for long-term anticoagulation Cut down the IV fluids to 50 mL an hour Lactic acid levels are slightly elevated and stable. We'll continue to follow
[2019-04-04] MEDS: AZITHROMYCIN 500 MG TAB PO SCH (15:27)
[2019-04-04] MEDS: guaiFENesin-Coden 100-10MG/5ML 10 ML CUP PO SCH ×3 (15:27→23:20)
[2019-04-04] MEDS: VERAPAMIL 80 MG TAB PO SCH ×2 (15:36→22:02)
--- NOTE | 2019-04-04 15:41 | P.PN ---
Subjective Progress Note Date: 04/04/19 This is 73-year-old white female patient of Dr. 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 Patient was maintained on a Symbicort, and a rescue inhaler.. History of nicotine dependence, currently in remission. Patient is on Xarelto for history of paroxysmal A. fib, currently in sinus rhythm. Patient started having increased dyspnea cough chest congestion and chest tightness and wheezing last week. She contacted our office and she was given a course of antibiotics and steroids over the phone. Nevertheless, she did not improve and her condition got worse and she end up coming to the hospital. Chest x-ray today showing no acute pulmonary infiltrates. Her blood work shows a white cell count of 9.1. The coagulation profile is within normal. Renal function is within normal limits. Lactic acid level was at 3.3 at a time of admission and influenza screen was negative and the troponin was also negative. She is not oxygen dependent. She quit smoking 3 years ago on today's evaluation of 04/03/2019 the patient is feeling slightly better compared to yesterday. No new complaints for now. Cough and congestion has subsided. She does have some mild lactic acidosis with a lactic acid of 3.3 on today's blood work. Nevertheless the serum bicarbonate 24. Renal function is within normal limits. His and accommodation bronchodilators and steroids pages also on IV Solu-Medrol. Cough has somewhat subsided compared to yesterday. She is on empiric antibiotic coverage with the commissure Rocephin and Zithromax which is on long-term anticoagulation with Xarelto regarding paroxysmal atrial fibrillation. She received 2 L of IV fluid bolus and she still on 100 mL an hour. On 04/04/2019 the patient is still bronchospastic and wheezy and short of breath. She continues to have a congested cough. She is still having difficulty completing full sentences. Up much of an improvement as occurred over the past 24 hours. No altered mentation. No chest pain. Echo of the heart was completed and was within normal limits. CAT scan of the chest showed no significant airspace disease. Overall lung volumes were small and there are some atelectatic changes bilaterally. No evidence of an acute pneumonia. She remains on IV Solu-Medrol. She remains on examination Rocephin and Zithromax. No major edema lower extremities. Objective - Vital Signs Vital signs: Vital Signs Temp 97.5 F L 04/04/19 12:00 Pulse 86 04/04/19 12:00 Resp 16 04/04/19 12:00 BP 111/72 04/04/19 12:00 Pulse Ox 94 L 04/04/19 12:00 Intake & Output 04/03/19 04/04/19 04/04/19 18:59 06:59 18:59 Intake Total 930 285 Output Total 1850 1000 700 Balance -920 -1000 -415 Weight 93 kg Intake: IV 50 Invasive Line 2 30 Invasive Line 3 20 Oral 880 285 Output: Urine 1850 1000 700 Uretheral (Mclaughlin) 1250 350 Other: Voiding Method Indwelling Catheter Indwelling Catheter # Voids 1 - Exam GENERAL EXAM: Alert, pleasant, 73-year-old white female , mild breathing distress even at rest HEAD: Normocephalic/atraumatic. EYES: Normal reaction of pupils, equal size. Conjunctiva pink, sclera white. NOSE: Clear with pink turbinates. THROAT: No erythema or exudates. NECK: No masses, no JVD, no thyroid enlargement, no adenopathy. CHEST: No chest wall deformity. Symmetrical expansion. LUNGS: Diffuse expiratory wheezes and rhonchi heard throughout the lung pierce bilaterally. CVS: Regular rate and rhythm, normal S1 and S2, no gallops, no murmurs, no rubs ABDOMEN: Soft, nontender. No hepatosplenomegaly, normal bowel sounds, no guarding or rigidity. EXTREMITIES: No clubbing, no edema, no cyanosis, 2+ pulses and upper and lower extremities. Bilateral groin incisions are clean dry and intact, covered with surgical dressings, distal pulses intact MUSCULOSKELETAL: Muscle strength and tone normal. SPINE: No scoliosis or deformity SKIN: No rashes CENTRAL NERVOUS SYSTEM: Alert and oriented -3. No focal deficits, tone is normal in all 4 extremities. PSYCHIATRIC: Alert and oriented -3. Appropriate affect. Intact judgment and insight. - Labs CBC & Chem 7: 04/04/19 05:32 04/04/19 05:32 Labs: Abnormal Lab Results - Last 24 Hours (Table) 04/03/19 04/03/19 04/03/19 Range/Units 16:48 17:27 19:39 WBC (3.8-10.6) k/uL RBC (3.80-5.40) m/uL Hgb (11.4-16.0) gm/dL D-Dimer 1.07 H (<0.60) mg/L FEU BUN (7-17) mg/dL Glucose (74-99) mg/dL POC Glucose (mg/dL) 272 H (75-99) mg/dL Plasma Lactic Acid Jose Angel 5.2 H* (0.7-2.0) mmol/L TSH (0.465-4.680) mIU/L 04/03/19 04/04/19 04/04/19 Range/Units 20:25 05:32 05:32 WBC 16.2 H (3.8-10.6) k/uL RBC 3.68 L (3.80-5.40) m/uL Hgb 11.0 L (11.4-16.0) gm/dL D-Dimer (<0.60) mg/L FEU BUN (7-17) mg/dL Glucose (74-99) mg/dL POC Glucose (mg/dL) 263 H (75-99) mg/dL Plasma Lactic Acid Jose Angel 3.1 H* (0.7-2.0) mmol/L TSH (0.465-4.680) mIU/L 04/04/19 04/04/19 04/04/19 Range/Units 05:32 05:32 05:59 WBC (3.8-10.6) k/uL RBC (3.80-5.40) m/uL Hgb (11.4-16.0) gm/dL D-Dimer (<0.60) mg/L FEU BUN 22 H (7-17) mg/dL Glucose 209 H (74-99) mg/dL POC Glucose (mg/dL) 217 H (75-99) mg/dL Plasma Lactic Acid Jose Angel (0.7-2.0) mmol/L TSH 0.097 L (0.465-4.680) mIU/L 04/04/19 04/04/19 Range/Units 09:28 11:55 WBC (3.8-10.6) k/uL RBC (3.80-5.40) m/uL Hgb (11.4-16.0) gm/dL D-Dimer (<0.60) mg/L FEU BUN (7-17) mg/dL Glucose (74-99) mg/dL POC Glucose (mg/dL) 200 H (75-99) mg/dL Plasma Lactic Acid Jose Angel 2.9 H* (0.7-2.0) mmol/L TSH (0.465-4.680) mIU/L Microbiology - Last 24 Hours (Table) 04/02/19 11:37 Blood Culture - Preliminary Blood No Growth after 48 hours 04/03/19 14:39 Gram Stain - Preliminary Sputum Sputum Culture - Preliminary Assessment and Plan Plan: #1. Exacerbation of COPD/asthma and the patient is quite short of breath and bronchospastic and wheezy without any acute abnormalities and the chest x-ray. The patient will be treated with accommodation bronchodilators and steroids. The patient was receiving a course of Zithromax on outpatient basis given to her by her primary care physician. She was also receiving steroids on outpatient basis without much improvement and she end up coming into the hospital for the same. The chest x-ray that was done today shows a limited left basilar infiltrate/atelectasis and the patient will be given same antibiotic coverage. Clinically the patient was improving slightly yesterday. On today's evaluation she is again short of breath and wheezing and her condition has been quite somewhat resistant to antibiotics and steroids. I'm going to give her another 24 hours of the same treatment and reevaluate her condition. Echo of the heart was noted. CAT scan of the chest was noted. #2. Shortness of breath secondary to above #3. History of paroxysmal A. fib, on Xarelto, currently in sinus rhythm #4. History of nicotine dependence, currently in remission #5. Hypertension, hyperlipidemia #6. Diabetes mellitus type 2 #7. Depressive disorder #8. GERD #9Iliac artery aneurysm on the right, and infrarenal abdominal aortic aneurysm, status post endovascular repair #10 history of Pozo's esophagus #11 history of TIA #13 history of a right lower extremity DVT #14 history of psoriasis #15 history of chronic back pain and sciatica #16 mild lactic acidosis , improving Plan Continue the course of Zithromax and Rocephin regarding a left lower lobe/lingular pulmonary infiltrates/pneumonia Continue IV Solu-Medrol 60 mg every 6 hours and monitor the blood sugars Continue DuoNeb neb last treatment [id number] Perforomist and Pulmicort overestimates twice a day Continue Xarelto for long-term anticoagulation Possible bronchoscopy to be done at a later stage specially if her condition remains unchanged. I discussed the case with the family were at the bedside including both daughters and the son.
[2019-04-04 17:03] LABS: Glucose,Whole Blood 244 mg/dL (75-99)
[2019-04-04 20:41] LABS: Glucose,Whole Blood 221 mg/dL (75-99)
[2019-04-04] MEDS: RIVAROXABAN 20 MG TAB PO SCH (22:02)
[2019-04-04] MEDS: ATORVASTATIN 20 MG TAB PO SCH (22:02)
[2019-04-04] MEDS: ALPRAZolam 0.5 MG TAB PO PRN (22:06)
[2019-04-05] MEDS: IPRATROPIUM-ALBUTEROL 3 ML NEB INHALATION PRN ×2 (00:02→03:51)
[2019-04-05 06:17] LABS: Glucose,Whole Blood 253 mg/dL (75-99)
[2019-04-05 06:31] LABS: HCT 32.3 % (34.0-46.0); HGB 10.7 gm/dL (11.4-16.0); Hypochromasia Slight; MCH 31.1 pg (25.0-35.0); MCHC 33.2 g/dL (31.0-37.0); MCV 93.6 fL (80.0-100.0); Mean Platelet Volume 7.7; Platelet Count 272 k/uL (150-450); RBC 3.45 m/uL (3.80-5.40); RDW 14.6 % (11.5-15.5); WBC 13.2 k/uL (3.8-10.6)
[2019-04-05] MEDS: methylPREDNISolone SOD SUCCI 125 MG/2 ML VIAL IV SCH ×3 (06:34→17:26)
[2019-04-05] MEDS: guaiFENesin-Coden 100-10MG/5ML 10 ML CUP PO SCH ×3 (06:34→17:30)
[2019-04-05] MEDS: PANTOPRAZOLE 40 MG TABLET PO SCH (06:34)
[2019-04-05] MEDS: SODIUM CHLORIDE 0.9% 1,000 ML IV SCH ×2 (06:34→17:33)
[2019-04-05] MEDS: INSULIN ASPART (NovoLOG) 100 UNIT/ML VIAL SQ SCH ×4 (06:34→22:04)
[2019-04-05 06:45] LABS: African American GFR (CKD) >90 (>60 ml/min/1.73 sqM); Anion Gap 6 mmol/L; Blood Urea Nitrogen 24 mg/dL (7-17); Calcium 9.8 mg/dL (8.4-10.2); Carbon Dioxide 24 mmol/L (22-30); Chloride 105 mmol/L (98-107); Glucose 227 mg/dL (74-99); Non-African American GFR(CKD) 85 (>60 ml/min/1.73 sqM); Potassium 4.3 mmol/L (3.5-5.1); Sodium 135 mmol/L (137-145)
[2019-04-05] MEDS: BUDESONIDE 1 MG/2 ML NEBU INHALATION SCH ×2 (07:41→19:08)
[2019-04-05] MEDS: FORMOTEROL FUMARATE 20 MCG/2 ML NEBU INHALATION SCH ×2 (07:41→19:08)
[2019-04-05] MEDS: IPRATROPIUM-ALBUTEROL 3 ML NEB INHALATION SCH ×4 (07:41→19:09)
[2019-04-05] MEDS: VERAPAMIL 80 MG TAB PO SCH ×2 (09:12→15:53)
[2019-04-05] MEDS: CITALOPRAM HYDROBROMIDE 20 MG TAB PO SCH (09:12)
--- NOTE | 2019-04-05 11:21 | CDI ---
Documentation Clarification Form Date: 04/05/2019 11:13:34 AM From: Nely Aden RN, CCDS Admit Date: 04/02/2019 12:54:00 PM Patient Name: Kierra Dudley Visit Number: [id number] ATTENTION: The Clinical Documentation Specialists (CDI) and [facility] Coding Staff appreciate your assistance in clarifying documentation. Please respond to the clarification below the line at the bottom and electronically sign. The CDI & [facility] Coding staff will review the response and follow-up if needed. Please note: Queries are made part of the Legal Health Record. If you have any questions, please contact the author of this message via ITS. Dr. Bo Shukla Asthma is documented and requires further specificity. History/risk factors: Asthma, Atrial Fib, COPD, Pneumonia Clinical Indicators: Consult and Pulmonary Progress notes: "Exacerbation of COPD/asthma and the patient is quite short of breath and bronchospastic and wheezy without any acute abnormalities and the chest x-ray." CXR:"Mild worsening of bibasilar infiltrates. Correlate for subsegmental atelectasis and pneumonia." Vital Signs: temp 99, hr 91, RR 30, B/P 127/57, Spo2 95% ra Treatment: Medication: Duoneb QID and Q 4 hrs PRN INH, Pulmicort INH BID, Performamist INH BID IV Solumedrol tapering dose Consults: Pulmonary In your professional opinion, can you please further specify the following, if known? With Acute Exacerbation Status asthmaticus Acute lower respiratory infection COPD (specify with or without exacerbation) Chronic obstructive bronchitis Other, please specify ___ Unable to determine Severity Mild intermittent Mild persistent Moderate persistent Severe persistent Other, please specify ____ Unable to determine Form or Type Cough variant Childhood Exercise induced bronchospasm Extrinsic allergic Idiosyncratic Intrinsic nonallergic Late-onset Mixed Other, please specify____ Unable to determine (Last Revision: June 2017) COPD (specify with or without exacerbation) MTDD
[2019-04-05 11:54] LABS: Glucose,Whole Blood 264 mg/dL (75-99)
--- NOTE | 2019-04-05 14:10 | P.PN ---
<Maria Elena Verduzco M - Last Filed: 04/05/19 13:59> Subjective Progress Note Date: 04/05/19 Principal diagnosis: Acute exacerbation of COPD/asthma This is 73-year-old white female patient of Dr. 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 Patient was maintained on a Symbicort, and a rescue inhaler.. History of nicotine dependence, currently in remission. Patient is on Xarelto for history of paroxysmal A. fib, currently in sinus rhythm. Patient started having increased dyspnea cough chest congestion and chest tightness and wheezing last week. She contacted our office and she was given a course of antibiotics and steroids over the phone. Nevertheless, she did not improve and her condition got worse and she end up coming to the hospital. Chest x-ray today showing no acute pulmonary infiltrates. Her blood work shows a white cell count of 9.1. The coagulation profile is within normal. Renal function is within normal limits. Lactic acid level was at 3.3 at a time of admission and influenza screen was negative and the troponin was also negative. She is not oxygen dependent. She quit smoking 3 years ago on today's evaluation of 04/03/2019 the patient is feeling slightly better compared to yesterday. No new complaints for now. Cough and congestion has subsided. She does have some mild lactic acidosis with a lactic acid of 3.3 on today's blood work. Nevertheless the serum bicarbonate 24. Renal function is within normal limits. His and accommodation bronchodilators and steroids pages also on IV Solu-Medrol. Cough has somewhat subsided compared to yesterday. She is on empiric antibiotic coverage with the commissure Rocephin and Zithromax which is on long-term anticoagulation with Xarelto regarding paroxysmal atrial fibrillation. She received 2 L of IV fluid bolus and she still on 100 mL an hour. On 04/04/2019 the patient is still bronchospastic and wheezy and short of breath. She continues to have a congested cough. She is still having difficulty completing full sentences. Up much of an improvement as occurred over the past 24 hours. No altered mentation. No chest pain. Echo of the heart was completed and was within normal limits. CAT scan of the chest showed no significant airspace disease. Overall lung volumes were small and there are some atelectatic changes bilaterally. No evidence of an acute pneumonia. She remains on IV Solu-Medrol. She remains on examination Rocephin and Zithromax. No major edema lower extremities. On 04/05/2019 she seen in follow-up selective care unit, still quite dyspneic bronchospastic, last night she required BiPAP support. Dyspneic with conversation. Currently on 4 L of oxygen with a pulse ox of 94%, she is afebrile, her respirations are labored, shallow, with diffuse wheezing throughout the lung pierce, she does have a congested cough but she is not able to bring up any sputum, his been maximized with radical treatment, she remains on IV steroids, bronchodilators, and antibiotics, yesterday's chest x-ray shows mild worsening of bibasilar filtrates/atelectasis. No fever. She has been quite limited in terms of her activity tolerance, is only been able to use the bedside commode related to extreme shortness of breath Objective - Vital Signs Vital signs: Vital Signs Temp 97.9 F 04/05/19 12:00 Pulse 88 04/05/19 12:00 Resp 16 04/05/19 12:00 BP 116/69 04/05/19 12:00 Pulse Ox 94 L 04/05/19 12:00 Intake & Output 04/04/19 04/05/19 04/05/19 18:59 06:59 18:59 Intake Total 785 1320 Output Total 700 650 Balance 85 -650 1320 Weight 94.5 kg Intake: IV 600 Sodium Chloride 0.9% 1, 600 000 ml @ 75 mls/hr IV . [id number] [facility] Rx#:[id number] Oral 785 720 Output: Urine 700 650 Uretheral (Mclaughlin) 350 Other: Voiding Method Indwelling Catheter Indwelling Catheter Indwelling Catheter # Voids 1 - Exam GENERAL EXAM: Alert, pleasant, 73-year-old white female . Dyspneic with conversation, and 4 L of oxygen, has been wearing BiPAP intermittently HEAD: Normocephalic/atraumatic. EYES: Normal reaction of pupils, equal size. Conjunctiva pink, sclera white. NOSE: Clear with pink turbinates. THROAT: No erythema or exudates. NECK: No masses, no JVD, no thyroid enlargement, no adenopathy. CHEST: No chest wall deformity. Symmetrical expansion. LUNGS: Diffuse expiratory wheezes and rhonchi heard throughout the lung pierce bilaterally. CVS: Regular rate and rhythm, normal S1 and S2, no gallops, no murmurs, no rubs ABDOMEN: Soft, nontender. No hepatosplenomegaly, normal bowel sounds, no gu arding or rigidity. EXTREMITIES: No clubbing, no edema, no cyanosis, 2+ pulses and upper and lower e xtremities. Bilateral groin incisions are clean dry and intact, covered with surgical dressings, distal pulses intact MUSCULOSKELETAL: Muscle strength and tone normal. SPINE: No scoliosis or deformity SKIN: No rashes CENTRAL NERVOUS SYSTEM: Alert and oriented -3. No focal deficits, tone is normal in all 4 extremities. PSYCHIATRIC: Alert and oriented -3. Appropriate affect. Intact judgment and insi - Labs CBC & Chem 7: 04/05/19 06:06 04/05/19 06:06 Labs: Abnormal Lab Results - Last 24 Hours (Table) 04/04/19 04/04/19 04/05/19 Range/Units 17:02 20:40 06:06 WBC 13.2 H (3.8-10.6) k/uL RBC 3.45 L (3.80-5.40) m/uL Hgb 10.7 L (11.4-16.0) gm/dL Hct 32.3 L (34.0-46.0) % Sodium (137-145) mmol/L BUN (7-17) mg/dL Glucose (74-99) mg/dL POC Glucose (mg/dL) 244 H 221 H (75-99) mg/dL Plasma Lactic Acid Jose Angel (0.7-2.0) mmol/L 04/05/19 04/05/19 04/05/19 Range/Units 06:06 06:06 06:16 WBC (3.8-10.6) k/uL RBC (3.80-5.40) m/uL Hgb (11.4-16.0) gm/dL Hct (34.0-46.0) % Sodium 135 L (137-145) mmol/L BUN 24 H (7-17) mg/dL Glucose 227 H (74-99) mg/dL POC Glucose (mg/dL) 253 H (75-99) mg/dL Plasma Lactic Acid Jose Angel 2.8 H* (0.7-2.0) mmol/L 04/05/19 04/05/19 Range/Units 10:19 11:49 WBC (3.8-10.6) k/uL RBC (3.80-5.40) m/uL Hgb (11.4-16.0) gm/dL Hct (34.0-46.0) % Sodium (137-145) mmol/L BUN (7-17) mg/dL Glucose (74-99) mg/dL POC Glucose (mg/dL) 264 H (75-99) mg/dL Plasma Lactic Acid Jose Angel 3.4 H* (0.7-2.0) mmol/L Microbiology - Last 24 Hours (Table) 04/02/19 11:37 Blood Culture - Preliminary Blood No Growth after 72 hours 04/03/19 14:39 Gram Stain - Final Sputum Sputum Culture - Final Assessment and Plan Plan: Assessment: #1. Exacerbation of COPD/asthma and the patient is quite short of breath and bronchospastic and wheezy without any acute abnormalities and the chest x-ray. The patient will be treated with accommodation bronchodilators and steroids. The patient was receiving a course of Zithromax on outpatient basis given to her by her primary care physician. She was also receiving steroids on outpatient basis without much improvement and she end up coming into the hospital for the same. The chest x-ray that was done today shows a limited left basilar infiltrate/atelectasis and the patient will be given same antibiotic coverage. Clinically the patient was improving slightly yesterday. On today's evaluation she is again short of breath and wheezing and her condition has been quite somewhat resistant to antibiotics and steroids. I'm going to give her another 24 hours of the same treatment and reevaluate her condition. Echo of the heart was noted. CAT scan of the chest was noted. #2. Shortness of breath secondary to above #3. History of paroxysmal A. fib, on Xarelto, currently in sinus rhythm #4. History of nicotine dependence, currently in remission #5. Hypertension, hyperlipidemia #6. Diabetes mellitus type 2 #7. Depressive disorder #8. GERD #9Iliac artery aneurysm on the right, and infrarenal abdominal aortic aneurysm, status post endovascular repair #10 history of Pozo's esophagus #11 history of TIA #13 history of a right lower extremity DVT #14 history of psoriasis #15 history of chronic back pain and sciatica #16 mild lactic acidosis , improving Plan: We'll continue same dose steroids, 60 mg every 6 hours, antibiotics, cough syrup, Pulmicort and Perforomist. She is still quite dyspneic, bronchospastic, she is requiring intermittent BiPAP support. His chest x-ray has been reviewed showing mild worsening of bibasilar infiltrates/atelectasis. Patient may need a bronchoscopy once she is a little less dyspneic and bronchospastic for now continue with medical treatment I performed a history & physical examination of the patient and discussed their management with my nurse practitioner, Maria Elena Verduzco. I reviewed the nurse practitioner's note and agree with the documented findings and plan of care. Lung sounds are positive for diffuse wheezes throughout the lung pierce. The findings and the impression was discussed with the patient. I attest to the documentation by the nurse practitioner. Time with Patient: Less than 30 <Bo Shukla - Last Filed: 04/05/19 16:03> Objective - Vital Signs Vital signs: Vital Signs Temp 97.9 F 04/05/19 15:46 Pulse 76 04/05/19 15:46 Resp 20 04/05/19 15:46 BP 137/66 04/05/19 15:46 Pulse Ox 95 04/05/19 15:46 Intake & Output 04/04/19 04/05/19 04/05/19 18:59 06:59 18:59 Intake Total 785 1320 Output Total 700 650 875 Balance 85 -650 445 Weight 94.5 kg Intake: IV 600 Sodium Chloride 0.9% 1, 600 000 ml @ 75 mls/hr IV . [id number] [facility] Rx#:[id number] Oral 785 720 Output: Urine 700 650 875 Uretheral (Mclaughlin) 350 Other: Voiding Method Indwelling Catheter Indwelling Catheter Indwelling Catheter # Voids 1 - Labs CBC & Chem 7: 04/05/19 06:06 04/05/19 06:06 Labs: Abnormal Lab Results - Last 24 Hours (Table) 04/04/19 04/04/19 04/05/19 Range/Units 17:02 20:40 06:06 WBC 13.2 H (3.8-10.6) k/uL RBC 3.45 L (3.80-5.40) m/uL Hgb 10.7 L (11.4-16.0) gm/dL Hct 32.3 L (34.0-46.0) % Sodium (137-145) mmol/L BUN (7-17) mg/dL Glucose (74-99) mg/dL POC Glucose (mg/dL) 244 H 221 H (75-99) mg/dL Plasma Lactic Acid Jose Angel (0.7-2.0) mmol/L 04/05/19 04/05/19 04/05/19 Range/Units 06:06 06:06 06:16 WBC (3.8-10.6) k/uL RBC (3.80-5.40) m/uL Hgb (11.4-16.0) gm/dL Hct (34.0-46.0) % Sodium 135 L (137-145) mmol/L BUN 24 H (7-17) mg/dL Glucose 227 H (74-99) mg/dL POC Glucose (mg/dL) 253 H (75-99) mg/dL Plasma Lactic Acid Jose Angel 2.8 H* (0.7-2.0) mmol/L 04/05/19 04/05/19 Range/Units 10:19 11:49 WBC (3.8-10.6) k/uL RBC (3.80-5.40) m/uL Hgb (11.4-16.0) gm/dL Hct (34.0-46.0) % Sodium (137-145) mmol/L BUN (7-17) mg/dL Glucose (74-99) mg/dL POC Glucose (mg/dL) 264 H (75-99) mg/dL Plasma Lactic Acid Jose Angel 3.4 H* (0.7-2.0) mmol/L Microbiology - Last 24 Hours (Table) 04/02/19 11:37 Blood Culture - Preliminary Blood No Growth after 72 hours 04/03/19 14:39 Gram Stain - Final Sputum Sputum Culture - Final Assessment and Plan Plan: Joint evaluation with the nurse practitioners. The patient is still struggling with her breathing. She remains bronchospastic and wheezy. Minimal change compared to yesterday. We'll transfer to the ICU for closer monitoring. We'll add Rocephin. Repeat chest x-ray. There is a concern of a lingular pneumonia and this going to be monitored. We'll continue to follow.
--- NOTE | 2019-04-05 15:11 | P.PN ---
Subjective Progress Note Date: 04/05/19 This is a 73-year-old female who follows with Dr. victor m Manning in the office, she has a history of COPD, prior TIA, diabetes, hypertension, hyperlipidemia, history of DVT, patient also states that she has history of paroxysmal atrial fibrillation, she is on xarelto 20 mg daily for anticoagulati on.. She presented to the hospital with symptoms of progressively worsening shortness of breath over a one week duration. She also states that she had been on antibiotics as an outpatient with no significant relief in symptoms. Chest x-ray on presentation here showed chronic left basilar atelectasis. EKG on presentation here showed a sinus rhythm with PACs. Repeat chest x-ray showed pneumonia in the lingula left upper lobe. CTA of the chest did not reveal evidence of pulmonary embolism, patchy atelectasis at the lung bases. Blood pressure 106/60 with a heart rate in the 70s, 95% on 5 L high flow cannula. White blood cell count on presentation here 9.1, 16.2 this morning, hemoglobin 1 2.9 and 11, platelet count 273. D-dimer 1.07. Sodium 138, potassium 4.4, BUN 22, creatinine 0.7. Plasma lactic acid up to 5.2. Magnesium on admission 1.4, 2.5 on repeat after replacement. Troponin 0.012. Influenza A and B were negative. Patient has been going in and out of atrial fibrillation with rapid ventricular response and for this reason a cardiology consultation has been requested. At the time of my examination this morning, the patient is quite short of breath, fine to even her to speak. The back in normal sinus rhythm. 04/05/2019 Patient was seen and examined this morning, seems to be in atrial fibrillation, heart rate in the 80s, blood pressure 116/60, 94% on 4 L of oxygen. Objective - Vital Signs Vital signs: Vital Signs Temp 97.9 F 04/05/19 12:00 Pulse 88 04/05/19 12:00 Resp 16 04/05/19 12:00 BP 116/69 04/05/19 12:00 Pulse Ox 94 L 04/05/19 12:00 Intake & Output 04/04/19 04/05/19 04/05/19 18:59 06:59 18:59 Intake Total 785 1320 Output Total 700 650 Balance 85 -650 1320 Weight 94.5 kg Intake: IV 600 Sodium Chloride 0.9% 1, 600 000 ml @ 75 mls/hr IV . [id number] [facility] Rx#:[id number] Oral 785 720 Output: Urine 700 650 Uretheral (Mclaughlin) 350 Other: Voiding Method Indwelling Catheter Indwelling Catheter Indwelling Catheter # Voids 1 - Exam GENERAL EXAM: Alert, pleasant, 73-year-old white female , mild breathing distress even at rest HEAD: Normocephalic/atraumatic. EYES: Normal reaction of pupils, equal size. Conjunctiva pink, sclera white. NOSE: Clear with pink turbinates. THROAT: No erythema or exudates. NECK: No masses, no JVD, no thyroid enlargement, no adenopathy. CHEST: No chest wall deformity. Symmetrical expansion. LUNGS: Diffuse expiratory wheezes and rhonchi heard throughout the lung pierce bilaterally. CVS: Regular rate and rhythm, normal S1 and S2, no gallops, no murmurs, no rubs ABDOMEN: Soft, nontender. No hepatosplenomegaly, normal bowel sounds, no guarding or rigidity. EXTREMITIES: No clubbing, no edema, no cyanosis, 2+ pulses and upper and lower extremities. Bilateral groin incisions are clean dry and intact, covered with surgical dressings, distal pulses intact MUSCULOSKELETAL: Muscle strength and tone normal. SPINE: No scoliosis or deformity SKIN: No rashes CENTRAL NERVOUS SYSTEM: Alert and oriented -3. No focal deficits, tone is normal in all 4 extremities. PSYCHIATRIC: Alert and oriented -3. Appropriate affect. Intact judgment and insight. - Labs CBC & Chem 7: 04/05/19 06:06 04/05/19 06:06 Labs: Abnormal Lab Results - Last 24 Hours (Table) 04/04/19 04/04/19 04/05/19 Range/Units 17:02 20:40 06:06 WBC 13.2 H (3.8-10.6) k/uL RBC 3.45 L (3.80-5.40) m/uL Hgb 10.7 L (11.4-16.0) gm/dL Hct 32.3 L (34.0-46.0) % Sodium (137-145) mmol/L BUN (7-17) mg/dL Glucose (74-99) mg/dL POC Glucose (mg/dL) 244 H 221 H (75-99) mg/dL Plasma Lactic Acid Jose Angel (0.7-2.0) mmol/L 04/05/19 04/05/19 04/05/19 Range/Units 06:06 06:06 06:16 WBC (3.8-10.6) k/uL RBC (3.80-5.40) m/uL Hgb (11.4-16.0) gm/dL Hct (34.0-46.0) % Sodium 135 L (137-145) mmol/L BUN 24 H (7-17) mg/dL Glucose 227 H (74-99) mg/dL POC Glucose (mg/dL) 253 H (75-99) mg/dL Plasma Lactic Acid Jose Angel 2.8 H* (0.7-2.0) mmol/L 04/05/19 04/05/19 Range/Units 10:19 11:49 WBC (3.8-10.6) k/uL RBC (3.80-5.40) m/uL Hgb (11.4-16.0) gm/dL Hct (34.0-46.0) % Sodium (137-145) mmol/L BUN (7-17) mg/dL Glucose (74-99) mg/dL POC Glucose (mg/dL) 264 H (75-99) mg/dL Plasma Lactic Acid Jose Angel 3.4 H* (0.7-2.0) mmol/L Microbiology - Last 24 Hours (Table) 04/02/19 11:37 Blood Culture - Preliminary Blood No Growth after 72 hours 04/03/19 14:39 Gram Stain - Final Sputum Sputum Culture - Final Assessment and Plan Plan: Assessment and plan #1. Exacerbation of COPD/asthma The patient was receiving a course of Zithr omax on outpatient basis given to her by her primary care physician. She was also receiving steroids on outpatient basis without much improvement The chest x-ray that was done today shows a limited left basilar infiltrate/atelectasis and the patient is on antibiotics. #2. Shortness of breath secondary to above #3. History of paroxysmal A. fib, on Xarelto, currently in sinus rhythm. Patient is having a paroxysmal episodes of rapid atrial fibrillation #4. History of nicotine dependence, currently in remission #5. Hypertension, hyperlipidemia #6. Diabetes mellitus type 2 #7. Depressive disorder #8. GERD #9Iliac artery aneurysm on the right, and infrarenal abdominal aortic aneurysm, status post endovascular repair #10 history of Pozo's esophagus #11 history of TIA #13 history of a right lower extremity DVT #14 history of psoriasis #15 history of chronic back pain and sciatica #16 mild lactic acidosis Plan Echocardiogram with Doppler study was performed which revealed a normal left ventricular systolic function. We'll continue the patient on verapamil 80 mg 1 tablet by mouth 3 times a day. We will follow this patient along with you now on an as-needed basis only, please don't hesitate to call if you have any questions. DNP note has been reviewed, I agree with a documented findings and plan of care. Patient was seen and examined.
[2019-04-05] MEDS: SENNOSIDES 8.6 MG TAB PO SCH (15:53)
[2019-04-05] MEDS: AZITHROMYCIN 500 MG TAB PO SCH (15:53)
--- NOTE | 2019-04-05 15:58 | P.PN ---
Subjective Patient is admitted for COPD exacerbation patient remains severely bronchospastic, chest x-rays not showing a lingular infiltrate patient is presently and azithromycin. Patient is on systemic steroids. Patient feels will be better today. April 04 2019 Patient didn't do well last night and yesterday evening patient went into respiratory failure requiring BiPAP. Patient related to A. fib as well as presently rate controlled now. Patient overall respiratory status improved as well wheezing appears to improve but does have significant wheezing still patient feels little bit better today. Patient's verapamil dose was increased Cardizem was discontinued. 04/05/2019 Patient feels better than yesterday but still quite a bit queasy and patient is still taking a Bit up on 4 L her oxygen requirements have come down from 5 to-4. His lactic acid went up again. I believe patient has D-lactate, this testing is a send out test and will not be available for next few days because of which I'm not ordering this test. Will not follow on lactic acid from now on. Will not lie and management depending on lactic acid anymore nursing staff was instructed not to repeat the lactic acid again.D- lactate is a get related lactic acid which is stereo isomer of L- lactic acid which doesn't have much of clinical significance Constitutional: Denied any fatigue denied any fever. Cardio vascular: denied any chest pain, palpitations Gastrointestinal denied any nausea vomiting Pulmonary: As mentioned in HPI Neurologic denied any new focal deficits All inpatient medications were reviewed and appropriate changes in these medications as dictated in the interval history and assessment and plan. Objective - Vital Signs Vital signs: Vital Signs Temp 97.9 F 04/05/19 15:46 Pulse 76 04/05/19 15:46 Resp 20 04/05/19 15:46 BP 137/66 04/05/19 15:46 Pulse Ox 95 04/05/19 15:46 Intake & Output 04/04/19 04/05/19 04/05/19 18:59 06:59 18:59 Intake Total 785 1320 Output Total 700 650 Balance 85 -650 1320 Weight 94.5 kg Intake: IV 600 Sodium Chloride 0.9% 1, 600 000 ml @ 75 mls/hr IV . [id number] [facility] Rx#:[id number] Oral 785 720 Output: Urine 700 650 Uretheral (Mclaughlin) 350 Other: Voiding Method Indwelling Catheter Indwelling Catheter Indwelling Catheter # Voids 1 - Exam PHYSICAL EXAMINATION: GENERAL: The patient is alert and oriented x3, is in mild respiratory distress. Well developed, well nourished. HEENT: Pupils are round and equally reacting to light. EOMI. No scleral icterus. No conjunctival pallor. Normocephalic, atraumatic. No pharyngeal erythema. No thyromegaly. CARDIOVASCULAR: S1 and S2 present. No murmurs, rubs, or gallops. PULMONARY: Significant expiratory wheezing, wheezing all the improved compared to yesterday ABDOMEN: Soft, nontender, nondistended, normoactive bowel sounds. No palpable organomegaly. MUSCULOSKELETAL: No joint swelling or deformity. EXTREMITIES: No cyanosis, clubbing, or pedal edema. NEUROLOGICAL: Gross neurological examination did not reveal any focal deficits. SKIN: No rashes. - Labs CBC & Chem 7: 04/05/19 06:06 04/05/19 06:06 Labs: Abnormal Lab Results - Last 24 Hours (Table) 04/04/19 04/04/19 04/05/19 Range/Units 17:02 20:40 06:06 WBC 13.2 H (3.8-10.6) k/uL RBC 3.45 L (3.80-5.40) m/uL Hgb 10.7 L (11.4-16.0) gm/dL Hct 32.3 L (34.0-46.0) % Sodium (137-145) mmol/L BUN (7-17) mg/dL Glucose (74-99) mg/dL POC Glucose (mg/dL) 244 H 221 H (75-99) mg/dL Plasma Lactic Acid Jose Angel (0.7-2.0) mmol/L 04/05/19 04/05/19 04/05/19 Range/Units 06:06 06:06 06:16 WBC (3.8-10.6) k/uL RBC (3.80-5.40) m/uL Hgb (11.4-16.0) gm/dL Hct (34.0-46.0) % Sodium 135 L (137-145) mmol/L BUN 24 H (7-17) mg/dL Glucose 227 H (74-99) mg/dL POC Glucose (mg/dL) 253 H (75-99) mg/dL Plasma Lactic Acid Jose Angel 2.8 H* (0.7-2.0) mmol/L 04/05/19 04/05/19 Range/Units 10:19 11:49 WBC (3.8-10.6) k/uL RBC (3.80-5.40) m/uL Hgb (11.4-16.0) gm/dL Hct (34.0-46.0) % Sodium (137-145) mmol/L BUN (7-17) mg/dL Glucose (74-99) mg/dL POC Glucose (mg/dL) 264 H (75-99) mg/dL Plasma Lactic Acid Jose Angel 3.4 H* (0.7-2.0) mmol/L Microbiology - Last 24 Hours (Table) 04/02/19 11:37 Blood Culture - Preliminary Blood No Growth after 72 hours 04/03/19 14:39 Gram Stain - Final Sputum Sputum Culture - Final Assessment and Plan Plan: Acute hypercapnic and hypoxic respiratory failure secondary to COPD exacerbation patient will continued on systemic steroids inhalational treatments. Patient was started on azithromycin. Patient does have some minimal infiltrate. CAT scan did not show any pulmonary embolism there is no pneumonia on the CAT scan and Rocephin was started yesterday but I'll discontinue that azithromycin will be continued, echo cardiac exam was done today which showed normal ejection fraction Lactic acidosis: Persistent lactic acidosis this may be D-lactate we'll not repeat any more lactic acid levels. She is off metformin there is no evidence of sepsis at this time. Leukocytosis is merely secondary to systemic steroids. Pro-calcitonin is only 0.07 Type 2 diabetes mellitus with uncontrolled blood sugars due to systemic strides continue with sliding scale insulin patient was started on long-acting insulin at nighttime this long-acting insulin is only temporary treatment measure because of systemic steroids -Atrial fibrillation with rapid ventricular rate, presently rate controlled patient is on increased dose of verapamil and patient is on anticoagulation which is being continued -History of DVT in the past: Continue with anticoagulation as mentioned above -Gastroesophageal reflux disease -hyperlipidemia -Hypertension -Peripheral vascular disease -Hypomagnesemia magnesium was replaced. -Patient is on DVT prophylaxis as well as GI prophylaxis with
--- NOTE | 2019-04-05 16:29 | XR ---
EXAMINATION TYPE: XR chest 1V portable DATE OF EXAM: 04/05/2019 CLINICAL HISTORY: Difficulty breathing progress study. TECHNIQUE: Single AP portable upright view of the chest is obtained. COMPARISON: Chest x-ray from one day earlier. CTA chest 2 days earlier. FINDINGS: Overlying EKG leads are redemonstrated. Cardiac silhouette size is stable and upper limits of normal with atherosclerotic aorta. There is persistent mild chronic emphysematous change with pat avis bibasilar opacity. No new focal airspace opacity, pleural effusion, or pneumothorax. Osseous stru ctures are intact.. IMPRESSION: Overall stable findings, mild underlying emphysematous change with patchy bibasilar acut e atelectasis and/or infiltrate redemonstrated.
[2019-04-05 16:54] LABS: Glucose,Whole Blood 234 mg/dL (75-99)
[2019-04-05] MEDS: ALPRAZolam 0.5 MG TAB PO PRN (17:57)
[2019-04-05] MEDS ORDERED: INSULIN DETEMIR (LEVEMIR) 100 UNIT/ML SYR SQ SCH (21:00)
[2019-04-05 21:55] LABS: Glucose,Whole Blood 240 mg/dL (75-99)
[2019-04-05] MEDS: ATORVASTATIN 20 MG TAB PO SCH (22:10)
[2019-04-05] MEDS: RIVAROXABAN 20 MG TAB PO SCH (22:28)
[2019-04-06] MEDS: VERAPAMIL 80 MG TAB PO SCH ×4 (01:31→22:18)
[2019-04-06] MEDS: guaiFENesin-Coden 100-10MG/5ML 10 ML CUP PO SCH ×4 (01:59→16:59)
[2019-04-06] MEDS: methylPREDNISolone SOD SUCCI 125 MG/2 ML VIAL IV SCH ×4 (01:59→16:59)
[2019-04-06 04:51] LABS: HCT 34.5 % (34.0-46.0); HGB 11.1 gm/dL (11.4-16.0); Hypochromasia Slight; MCH 30.5 pg (25.0-35.0); MCHC 32.2 g/dL (31.0-37.0); MCV 94.7 fL (80.0-100.0); Mean Platelet Volume 7.6; Platelet Count 231 k/uL (150-450); RBC 3.65 m/uL (3.80-5.40); RDW 14.5 % (11.5-15.5); WBC 10.1 k/uL (3.8-10.6)
[2019-04-06 04:59] LABS: Calcium 9.9 mg/dL (8.4-10.2); Potassium 4.5 mmol/L (3.5-5.1)
[2019-04-06] MEDS: SODIUM CHLORIDE 0.9% 1,000 ML IV SCH ×2 (06:43→22:27)
[2019-04-06 06:53] LABS: Glucose,Whole Blood 195 mg/dL (75-99)
[2019-04-06] MEDS: BUDESONIDE 1 MG/2 ML NEBU INHALATION SCH ×2 (06:58→19:27)
[2019-04-06] MEDS: IPRATROPIUM-ALBUTEROL 3 ML NEB INHALATION SCH ×4 (06:58→19:27)
[2019-04-06] MEDS: FORMOTEROL FUMARATE 20 MCG/2 ML NEBU INHALATION SCH ×2 (06:58→19:27)
--- NOTE | 2019-04-06 06:58 | XR ---
EXAMINATION TYPE: XR chest 1V portable DATE OF EXAM: 04/06/2019 CLINICAL HISTORY: Difficulty breathing progress study. TECHNIQUE: Single AP portable upright view of the chest is obtained. COMPARISON: Chest x-ray from one day earlier and older studies. CTA chest 3 days ago. FINDINGS: Cardiomegaly is redemonstrated with atherosclerotic thoracic aorta. There is some chronic parenchymal change with persistent patchy left greater than right bibasilar opacity silhouetting the inferior portion left cardiac silhouette. No pleural effusion or pneumothorax is seen. Osseous struct ures are intact. IMPRESSION: Overall stable findings, mild chronic parenchymal changes and cardiomegaly with patchy left greater than right bibasilar acute infiltrate and/or atelectasis are all redemonstrated.
[2019-04-06] MEDS: INSULIN ASPART (NovoLOG) 100 UNIT/ML VIAL SQ SCH ×4 (07:08→20:49)
[2019-04-06] MEDS: PANTOPRAZOLE 40 MG TABLET PO SCH (07:09)
[2019-04-06] MEDS: CITALOPRAM HYDROBROMIDE 20 MG TAB PO SCH (08:22)
[2019-04-06] MEDS: SENNOSIDES 8.6 MG TAB PO SCH (08:22)
[2019-04-06] MEDS ORDERED: MAGNESIUM HYDROXIDE 2,400 MG/10 ML CUP PO PRN (08:25)
--- NOTE | 2019-04-06 10:13 | P.PN ---
Subjective Progress Note Date: 04/06/19 Principal diagnosis: Acute exacerbation of chronic obstructive pulmonary disease/asthma This is 73-year-old white female patient of Dr. 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 Patient wa s maintained on a Symbicort, and a rescue inhaler.. History of nicotine dependence, currently in remission. Patient is on Xarelto for history of paroxysmal A. fib, currently in sinus rhythm. Patient started having increased dyspnea cough chest congestion and chest tightness and wheezing last week. She contacted our office and she was given a course of antibiotics and steroids over the phone. Nevertheless, she did not improve and her condition got worse and she end up coming to the hospital. Chest x-ray today showing no acute pulmonary infiltrates. Her blood work shows a white cell count of 9.1. The coagulation profile is within normal. Renal function is within normal limits. Lactic acid level was at 3.3 at a time of admission and influenza screen was negative and the troponin was also negative. She is not oxygen dependent. She quit smoking 3 years ago on today's evaluation of 04/03/2019 the patient is feeling slightly better compared to yesterday. No new complaints for now. Cough and congestion has subsided. She does have some mild lactic acidosis with a lactic acid of 3.3 on today's blood work. Nevertheless the serum bicarbonate 24. Renal function is within normal limits. His and accommodation bronchodilators and steroids pages also on IV Solu-Medrol. Cough has somewhat subsided compared to yesterday. She is on empiric antibiotic coverage with the commissure Rocephin and Zithromax which is on long-term anticoagulation with Xarelto regarding paroxysmal atrial fibrillation. She received 2 L of IV fluid bolus and she still on 100 mL an hour. On 04/04/2019 the patient is still bronchospastic and wheezy and short of breath. She continues to have a congested cough. She is still having difficulty completing full sentences. Up much of an improvement as occurred over the past 24 hours. No altered mentation. No chest pain. Echo of the heart was completed and was within normal limits. CAT scan of the chest showed no significant airspace disease. Overall lung volumes were small and there are some atelectatic changes bilaterally. No evidence of an acute pneumonia. She remains on IV Solu-Medrol. She remains on examination Rocephin and Zithromax. No major edema lower extremities. On 04/05/2019 she seen in follow-up selective care unit, still quite dyspneic bronchospastic, last night she required BiPAP support. Dyspneic with conversa tion. Currently on 4 L of oxygen with a pulse ox of 94%, she is afebrile, her respirations are labored, shallow, with diffuse wheezing throughout the lung pierce, she does have a congested cough but she is not able to bring up any sputum, his been maximized with radical treatment, she remains on IV steroids, bronchodilators, and antibiotics, yesterday's chest x-ray shows mild worsening of bibasilar filtrates/atelectasis. No fever. She has been quite limited in terms of her activity tolerance, is only been able to use the bedside commode related to extreme shortness of breath The patient is seen today 04/06/2019 in follow-up in the intensive care unit. She was transferred last evening for continued decompensation. She did utilize the BiPAP last night at 12 or 5 and 40% FiO2. This morning she is on 4 liters nasal cannula. She is alert and awake in no acute distress. Still dyspneic with minimal exertion and conversation. She's afebrile. Hemodynamically stable. Blood culture reveals no growth. Sputum culture reveals no growth. White count 10.1. Hemoglobin 11.1. Sodium 136. Creatinine 0.78. She is continued on DuoNeb inhalations, Pulmicort and Perforomist inhalations, ceftriaxone and azithromycin, Tessalon Perles, IV Solu-Medrol. Anticoagulated with Xarelto. 9 normal saline at 75 ML's per hour. Objective - Vital Signs Vital signs: Vital Signs Temp 97.6 F 04/06/19 08:00 Pulse 82 04/06/19 09:00 Resp 15 04/06/19 09:00 BP 133/71 04/06/19 09:00 Pulse Ox 95 04/06/19 09:00 Intake & Output 04/05/19 04/06/19 04/06/19 18:59 06:59 18:59 Intake Total 1545 825 300 Output Total 1210 725 335 Balance 335 100 -35 Weight 95.3 kg Intake: IV 825 825 300 Sodium Chloride 0.9% 1, 825 825 300 000 ml @ 75 mls/hr IV . [id number] [facility] Rx#:[id number] Oral 720 Output: Urine 1210 725 335 Other: Voiding Method Indwelling Catheter Indwelling Catheter Indwelling Catheter - Exam GENERAL EXAM: Alert, pleasant, 73-year-old white female . Dyspneic with conversation, and 4 L of oxygen, has been wearing BiPAP intermittently 12/5 and 40% FiO2 HEAD: Normocephalic/atraumatic. EYES: Normal reaction of pupils, equal size. Conjunctiva pink, sclera white. NOSE: Clear with pink turbinates. THROAT: No erythema or exudates. NECK: No masses, no JVD, no thyroid enlargement, no adenopathy. CHEST: No chest wall deformity. Symmetrical expansion. LUNGS: Diffuse expiratory wheezes and rhonchi heard throughout the lung pierce bilaterally. CVS: Regular rate and rhythm, normal S1 and S2, no gallops, no murmurs, no rubs ABDOMEN: Soft, nontender. No hepatosplenomegaly, normal bowel sounds, no guarding or rigidity. EXTREMITIES: No clubbing, no edema, no cyanosis, 2+ pulses and upper and lower extremities. Bilateral groin incisions are clean dry and intact, covered with surgical dressings, distal pulses intact MUSCULOSKELETAL: Muscle strength and tone normal. SPINE: No scoliosis or deformity SKIN: No rashes CENTRAL NERVOUS SYSTEM: No focal deficits, tone is normal in all 4 extremities. PSYCHIATRIC: Alert and oriented -3. Appropriate affect. Intact judgment and insight. - Labs CBC & Chem 7: 04/06/19 04:20 04/06/19 04:20 Labs: Abnormal Lab Results - Last 24 Hours (Table) 04/05/19 04/05/19 04/05/19 Range/Units 10:19 11:49 16:53 RBC (3.80-5.40) m/uL Hgb (11.4-16.0) gm/dL Sodium (137-145) mmol/L BUN (7-17) mg/dL Glucose (74-99) mg/dL POC Glucose (mg/dL) 264 H 234 H (75-99) mg/dL Plasma Lactic Acid Jose Angel 3.4 H* (0.7-2.0) mmol/L 04/05/19 04/06/19 04/06/19 Range/Units 21:54 04:20 04:20 RBC 3.65 L (3.80-5.40) m/uL Hgb 11.1 L (11.4-16.0) gm/dL Sodium 136 L (137-145) mmol/L BUN 24 H (7-17) mg/dL Glucose 181 H (74-99) mg/dL POC Glucose (mg/dL) 240 H (75-99) mg/dL Plasma Lactic Acid Jose Angel (0.7-2.0) mmol/L 04/06/19 Range/Units 06:52 RBC (3.80-5.40) m/uL Hgb (11.4-16.0) gm/dL Sodium (137-145) mmol/L BUN (7-17) mg/dL Glucose (74-99) mg/dL POC Glucose (mg/dL) 195 H (75-99) mg/dL Plasma Lactic Acid Jose Angel (0.7-2.0) mmol/L Microbiology - Last 24 Hours (Table) 04/02/19 11:37 Blood Culture - Preliminary Blood No Growth after 72 hours 04/03/19 14:39 Gram Stain - Final Sputum Sputum Culture - Final Assessment and Plan Assessment: #1. Exacerbation of COPD/asthma and the patient is quite short of breath and bronchospastic and wheezy without any acute abnormalities and the chest x-ray. The patient will be treated with accommodation bronchodilators and steroids. The patient was receiving a course of Zithromax on outpatient basis given to her by her primary care physician. She was also receiving steroids on outpatient basis without much improvement and she end up coming into the hospital for the same. The chest x-ray that was done today shows a limited left basilar infiltrate/atelectasis and the patient will be given same antibiotic coverage. On today's evaluation she is short of breath and wheezing and her condition has been quite somewhat resistant to antibiotics and steroids. #2. Shortness of breath secondary to above #3. History of paroxysmal A. fib, on Xarelto, currently in sinus rhythm #4. History of nicotine dependence, currently in remission #5. Hypertension, hyperlipidemia #6. Diabetes mellitus type 2 #7. Depressive disorder #8. GERD #9. Iliac artery aneurysm on the right, and infrarenal abdominal aortic aneurysm, status post endovascular repair #10 history of Pozo's esophagus #11 history of TIA #13 history of a right lower extremity DVT #14 history of psoriasis #15 history of chronic back pain and sciatica #16 mild lactic acidosis , improving Plan: The patient was seen and evaluated by Dr. Shukla. She has been slow to progress. She is still dyspneic and bronchospastic. She did utilize BiPAP last evening. Currently on 4 L. We'll continue with his current treatment plan including bronchodilators, IV Solu-Medrol and antibiotics. Anticoagulated with Xarelto. We'll continue to follow her here in the ICU and make further recommendations based on her clinical status. I, the cosigning physician, performed a history & physical examination of the patient. Lungs sounds with bilateral end expiratory wheeze. Maintaining good O2 saturations in the 90s on 4 L nasal cannula alternating with BiPAP 12/5 on 40% FiO2 I discussed the assessment and plan of care with my nurse practitioner, Sepideh Ortiz. I attest to the above note as dictated by her.
--- NOTE | 2019-04-06 11:51 | PN ---
PROGRESS NOTE This lady was admitted with exacerbation of COPD. She has a combination of probably pneumonia. Bronchitis and exacerbation of COPD. Cardiac-avery, she is reasonably stable. No chest pain. Her shortness of breath got worse and therefore she was moved to the ICU. Vitals are stable. S1, S2 heard normally. Short systolic murmur noted. Lungs reveal diminished air entry, scattered rhonchi. Abdomen and lower extremity exams unchanged. Cardiac-avery, we will continue current medical regimen and continue pulmonary management as outlined by Dr. Shukla. MMODL / IJN: [id number] /
[2019-04-06 12:00] LABS: Glucose,Whole Blood 224 mg/dL (75-99)
--- NOTE | 2019-04-06 15:27 | P.PN ---
Subjective Patient is admitted for COPD exacerbation patient remains severely bronchospastic, chest x-rays not showing a lingular infiltrate patient is presently and azithromycin. Patient is on systemic steroids. Patient feels will be better today. April 04 2019 Patient didn't do well last night and yesterday evening patient went into respiratory failure requiring BiPAP. Patient related to A. fib as well as presently rate controlled now. Patient overall respiratory status improved as well wheezing appears to improve but does have significant wheezing still patient feels little bit better today. Patient's verapamil dose was increased Cardizem was discontinued. 04/05/2019 Patient feels better than yesterday but still quite a bit queasy and patient is still taking a Bit up on 4 L her oxygen requirements have come down from 5 to-4. His lactic acid went up again. I believe patient has D-lactate, this testing is a send out test and will not be available for next few days because of which I'm not ordering this test. Will not follow on lactic acid from now on. Will not lie and management depending on lactic acid anymore nursing staff was instructed not to repeat the lactic acid again.D- lactate is a get related lactic acid which is stereo isomer of L- lactic acid which doesn't have much of clinical significance 04/06/2019 Patient is feeling bit better though her clinical exam didn't change much patient is still wheezing quite a bit. Constitutional: Denied any fatigue denied any fever. Cardio vascular: denied any chest pain, palpitations Gastrointestinal denied any nausea vomiting Pulmonary: As mentioned in HPI Neurologic denied any new focal deficits All inpatient medications were reviewed and appropriate changes in these medications as dictated in the interval history and assessment and plan. Objective - Vital Signs Vital signs: Vital Signs Temp 98.1 F 04/06/19 12:00 Pulse 70 04/06/19 15:00 Resp 15 04/06/19 15:00 BP 134/77 04/06/19 15:00 Pulse Ox 98 04/06/19 15:00 Intake & Output 04/05/19 04/06/19 04/06/19 18:59 06:59 18:59 Intake Total 1545 825 870 Output Total 1210 725 710 Balance 335 100 160 Weight 95.3 kg Intake: IV 825 825 620 Sodium Chloride 0.9% 1, 825 825 620 000 ml @ 20 mls/hr IV . Q24H [facility] Rx#:[id number] Oral 720 250 Output: Urine 1210 725 710 Other: Voiding Method Indwelling Catheter Indwelling Catheter Indwelling Catheter - Exam PHYSICAL EXAMINATION: GENERAL: The patient is alert and oriented x3, is in mild respiratory distress. Well developed, well nourished. HEENT: Pupils are round and equally reacting to light. EOMI. No scleral icterus. No conjunctival pallor. Normocephalic, atraumatic. No pharyngeal erythema. No thyromegaly. CARDIOVASCULAR: S1 and S2 present. No murmurs, rubs, or gallops. PULMONARY: Significant expiratory wheezing, wheezing all the improved compared to yesterday ABDOMEN: Soft, nontender, nondistended, normoactive bowel sounds. No palpable organomegaly. MUSCULOSKELETAL: No joint swelling or deformity. EXTREMITIES: No cyanosis, clubbing, or pedal edema. NEUROLOGICAL: Gross neurological examination did not reveal any focal deficits. SKIN: No rashes. - Labs CBC & Chem 7: 04/06/19 04:20 04/06/19 04:20 Labs: Abnormal Lab Results - Last 24 Hours (Table) 04/05/19 04/05/19 04/06/19 Range/Units 16:53 21:54 04:20 RBC 3.65 L (3.80-5.40) m/uL Hgb 11.1 L (11.4-16.0) gm/dL Sodium (137-145) mmol/L BUN (7-17) mg/dL Glucose (74-99) mg/dL POC Glucose (mg/dL) 234 H 240 H (75-99) mg/dL 04/06/19 04/06/19 04/06/19 Range/Units 04:20 06:52 11:58 RBC (3.80-5.40) m/uL Hgb (11.4-16.0) gm/dL Sodium 136 L (137-145) mmol/L BUN 24 H (7-17) mg/dL Glucose 181 H (74-99) mg/dL POC Glucose (mg/dL) 195 H 224 H (75-99) mg/dL Microbiology - Last 24 Hours (Table) 04/02/19 11:37 Blood Culture - Preliminary Blood No Growth after 96 hours 04/03/19 14:39 Gram Stain - Final Sputum Sputum Culture - Final Assessment and Plan Plan: Acute hypercapnic and hypoxic respiratory failure secondary to COPD exacerbation patient will continued on systemic steroids inhalational treatments. Patient was started on azithromycin. Patient does have some minimal infiltrate. CAT scan did not show any pulmonary embolism there is no pneumonia on the CAT scan and Rocephin was started yesterday but I'll discontinue that azithromycin will be continued, echo cardiac exam was done today which showed normal ejection fraction Lactic acidosis: Persistent lactic acidosis this may be D-lactate we'll not repeat any more lactic acid levels. She is off metformin there is no evidence of sepsis at this time. Leukocytosis is merely secondary to systemic steroids. Pro-calcitonin is only 0.07 Type 2 diabetes mellitus with uncontrolled blood sugars due to systemic strides continue with sliding scale insulin patient was started on long-acting insulin at nighttime this long-acting insulin is only temporary treatment measure because of systemic steroids -Atrial fibrillation with rapid ventricular rate, presently rate controlled patient is on increased dose of verapamil and patient is on anticoagulation which is being continued -History of DVT in the past: Continue with anticoagulation as mentioned above -Gastroesophageal reflux disease -hyperlipidemia -Hypertension -Peripheral vascular disease -Hypomagnesemia magnesium was replaced. -Patient is on DVT prophylaxis as well as GI prophylaxis with
[2019-04-06 16:56] LABS: Glucose,Whole Blood 204 mg/dL (75-99)
[2019-04-06] MEDS: AZITHROMYCIN 500 MG TAB PO SCH (16:57)
[2019-04-06] MEDS: ALPRAZolam 0.5 MG TAB PO PRN (19:05)
[2019-04-06 20:21] LABS: Glucose,Whole Blood 313 mg/dL (75-99)
[2019-04-06] MEDS: RIVAROXABAN 20 MG TAB PO SCH (22:00)
[2019-04-06] MEDS: ATORVASTATIN 20 MG TAB PO SCH (22:00)
[2019-04-06] MEDS: INSULIN DETEMIR (LEVEMIR) 100 UNIT/ML SYR SQ SCH (22:00)
[2019-04-06] MEDS: IPRATROPIUM-ALBUTEROL 3 ML NEB INHALATION PRN (23:02)
[2019-04-07] MEDS: methylPREDNISolone SOD SUCCI 125 MG/2 ML VIAL IV SCH ×4 (01:16→17:05)
[2019-04-07] MEDS: guaiFENesin-Coden 100-10MG/5ML 10 ML CUP PO SCH ×4 (01:16→17:06)
[2019-04-07] MEDS: IPRATROPIUM-ALBUTEROL 3 ML NEB INHALATION PRN ×2 (03:12→23:25)
[2019-04-07 04:58] LABS: Basophils # (A) 0.1 k/uL (0-0.2); Basophils % (A) 1 %; Eosinophils # (A) 0.2 k/uL (0-0.7); Eosinophils % (A) 2 %; HCT 36.2 % (34.0-46.0); HGB 11.6 gm/dL (11.4-16.0); Hypochromasia Slight; Lymphocytes # (A) 0.5 k/uL (1.0-4.8); Lymphocytes % (A) 5 %; MCH 30.3 pg (25.0-35.0); MCHC 32.1 g/dL (31.0-37.0); MCV 94.4 fL (80.0-100.0); Mean Platelet Volume 7.7; Monocytes # (A) 0.2 k/uL (0-1.0); Monocytes % (A) 2 %; Neutrophils # (A) 8.9 k/uL (1.3-7.7); Neutrophils % (A) 90 %; Platelet Count 263 k/uL (150-450); RBC 3.84 m/uL (3.80-5.40); RDW 14.2 % (11.5-15.5); WBC 9.9 k/uL (3.8-10.6)
[2019-04-07 05:25] LABS: African American GFR (CKD) >90 (>60 ml/min/1.73 sqM); Anion Gap 6 mmol/L; Blood Urea Nitrogen 23 mg/dL (7-17); Calcium 9.9 mg/dL (8.4-10.2); Carbon Dioxide 27 mmol/L (22-30); Chloride 101 mmol/L (98-107); Glucose 193 mg/dL (74-99); Non-African American GFR(CKD) 89 (>60 ml/min/1.73 sqM); Potassium 4.6 mmol/L (3.5-5.1); Sodium 134 mmol/L (137-145)
[2019-04-07 05:40] LABS: T4, Free (Free Thyroxine) 0.88 ng/dL (0.78-2.19)
--- NOTE | 2019-04-07 06:04 | XR ---
EXAMINATION TYPE: XR chest 1V portable DATE OF EXAM: 04/07/2019 HISTORY: COPD. REFERENCE: Previous study dated 04/06/2019. FINDINGS: The heart is mildly enlarged. Bibasilar airspace disease, worse on the right than left. Thi s has worsened slightly from previous. Pleural spaces appear clear. IMPRESSION: 1. MILD CARDIOMEGALY. 2. BIBASILAR AIRSPACE DISEASE, WORSE ON THE RIGHT FOLLOW-UP.
[2019-04-07 06:43] LABS: Glucose,Whole Blood 204 mg/dL (75-99)
[2019-04-07] MEDS: INSULIN ASPART (NovoLOG) 100 UNIT/ML VIAL SQ SCH ×4 (06:51→21:52)
[2019-04-07] MEDS: PANTOPRAZOLE 40 MG TABLET PO SCH (06:54)
[2019-04-07] MEDS: BUDESONIDE 1 MG/2 ML NEBU INHALATION SCH ×2 (08:18→19:28)
[2019-04-07] MEDS: FORMOTEROL FUMARATE 20 MCG/2 ML NEBU INHALATION SCH ×2 (08:18→19:28)
[2019-04-07] MEDS: IPRATROPIUM-ALBUTEROL 3 ML NEB INHALATION SCH ×4 (08:19→19:28)
--- NOTE | 2019-04-07 08:54 | P.PN ---
Subjective Progress Note Date: 04/07/19 Principal diagnosis: Acute exacerbation of chronic obstructive pulmonary disease/asthma This is 73-year-old white female patient of Dr. 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 Patient wa s maintained on a Symbicort, and a rescue inhaler.. History of nicotine dependence, currently in remission. Patient is on Xarelto for history of paroxysmal A. fib, currently in sinus rhythm. Patient started having increased dyspnea cough chest congestion and chest tightness and wheezing last week. She contacted our office and she was given a course of antibiotics and steroids over the phone. Nevertheless, she did not improve and her condition got worse and she end up coming to the hospital. Chest x-ray today showing no acute pulmonary infiltrates. Her blood work shows a white cell count of 9.1. The coagulation profile is within normal. Renal function is within normal limits. Lactic acid level was at 3.3 at a time of admission and influenza screen was negative and the troponin was also negative. She is not oxygen dependent. She quit smoking 3 years ago on today's evaluation of 04/03/2019 the patient is feeling slightly better compared to yesterday. No new complaints for now. Cough and congestion has subsided. She does have some mild lactic acidosis with a lactic acid of 3.3 on today's blood work. Nevertheless the serum bicarbonate 24. Renal function is within normal limits. His and accommodation bronchodilators and steroids pages also on IV Solu-Medrol. Cough has somewhat subsided compared to yesterday. She is on empiric antibiotic coverage with the commissure Rocephin and Zithromax which is on long-term anticoagulation with Xarelto regarding paroxysmal atrial fibrillation. She received 2 L of IV fluid bolus and she still on 100 mL an hour. On 04/04/2019 the patient is still bronchospastic and wheezy and short of breath. She continues to have a congested cough. She is still having difficulty completing full sentences. Up much of an improvement as occurred over the past 24 hours. No altered mentation. No chest pain. Echo of the heart was completed and was within normal limits. CAT scan of the chest showed no significant airspace disease. Overall lung volumes were small and there are some atelectatic changes bilaterally. No evidence of an acute pneumonia. She remains on IV Solu-Medrol. She remains on examination Rocephin and Zithromax. No major edema lower extremities. On 04/05/2019 she seen in follow-up selective care unit, still quite dyspneic bronchospastic, last night she required BiPAP support. Dyspneic with conversati on. Currently on 4 L of oxygen with a pulse ox of 94%, she is afebrile, her respirations are labored, shallow, with diffuse wheezing throughout the lung pierce, she does have a congested cough but she is not able to bring up any sputum, his been maximized with radical treatment, she remains on IV steroids, bronchodilators, and antibiotics, yesterday's chest x-ray shows mild worsening of bibasilar filtrates/atelectasis. No fever. She has been quite limited in terms of her activity tolerance, is only been able to use the bedside commode related to extreme shortness of breath The patient is seen today 04/06/2019 in follow-up in the intensive care unit. She was transferred last evening for continued decompensation. She did utilize the BiPAP last night at 12 or 5 and 40% FiO2. This morning she is on 4 liters nasal cannula. She is alert and awake in no acute distress. Still dyspneic w ith minimal exertion and conversation. She's afebrile. Hemodynamically stable. Blood culture reveals no growth. Sputum culture reveals no growth. White count 10.1. Hemoglobin 11.1. Sodium 136. Creatinine 0.78. She is continued on DuoNeb inhalations, Pulmicort and Perforomist inhalations, ceftriaxone and azithromycin, Tessalon Perles, IV Solu-Medrol. Anticoagulated with Xarelto. 9 normal saline at 75 ML's per hour. The patient is seen today 04/07/2019 in follow-up in the intensive care unit. She is currently resting fairly comfortably in bed. She is still quite dyspneic with minimal conversation and activity. She did utilize the BiPAP through most of the evening. Currently on 4 L/m per nasal cannula. Still bronchospastic and wheezing. Chest x-ray continues to reveal bibasilar airspace disease right greater than left. Sputum and blood cultures reveal no growth. White count 9.9. Hemoglobin 11.6. Creatinine 0.65. She is continued on DuoNeb inhalations, Pulmicort and Perforomist inhalations, ceftriaxone and azithromycin, Tessalon Perles, IV Solu-Medrol. Anticoagulated with Xarelto. 9 normal saline at 75 ML's per hour. Objective - Vital Signs Vital signs: Vital Signs Temp 98.0 F 04/07/19 04:00 Pulse 79 04/07/19 08:33 Resp 16 04/07/19 06:00 BP 151/89 04/07/19 06:00 Pulse Ox 95 04/07/19 06:00 Intake & Output 04/06/19 04/07/19 04/07/19 18:59 06:59 18:59 Intake Total 930 240 Output Total 935 1175 Balance -5 -935 Weight 94.5 kg Intake: IV 680 240 Sodium Chloride 0.9% 1, 680 240 000 ml @ 20 mls/hr IV . Q24H [facility] Rx#:[id number] Oral 250 Output: Urine 935 1175 Other: Voiding Method Indwelling Catheter Indwelling Catheter - Exam GENERAL EXAM: Alert, pleasant, 73-year-old female patient. Dyspneic with conversation, and 4 L of oxygen, has been wearing BiPAP during the night and intermittently throughout the day 12/5 and 40% FiO2 HEAD: Normocephalic/atraumatic. EYES: Normal reaction of pupils, equal size. Conjunctiva pink, sclera white. NOSE: Clear with pink turbinates. THROAT: No erythema or exudates. NECK: No masses, no JVD, no thyroid enlargement, no adenopathy. CHEST: No chest wall deformity. Symmetrical expansion. LUNGS: Diffuse expiratory wheezes and rhonchi heard throughout the lung pierce bilaterally. CVS: Regular rate and rhythm, normal S1 and S2, no gallops, no murmurs, no rubs ABDOMEN: Soft, nontender. No hepatosplenomegaly, normal bowel sounds, no guarding or rigidity. EXTREMITIES: No clubbing, no edema, no cyanosis, 2+ pulses and upper and lower extremities. Bilateral groin incisions are clean dry and intact, covered with surgical dressings, distal pulses intact MUSCULOSKELETAL: Muscle strength and tone normal. SPINE: No scoliosis or deformity SKIN: No rashes CENTRAL NERVOUS SYSTEM: No focal deficits, tone is normal in all 4 extremities. PSYCHIATRIC: Alert and oriented -3. Appropriate affect. Intact judgment and insight. - Labs CBC & Chem 7: 04/07/19 04:39 04/07/19 04:39 Labs: Abnormal Lab Results - Last 24 Hours (Table) 04/06/19 04/06/19 04/06/19 Range/Units 11:58 16:54 20:19 Neutrophils # (1.3-7.7) k/uL Lymphocytes # (1.0-4.8) k/uL Sodium (137-145) mmol/L BUN (7-17) mg/dL Glucose (74-99) mg/dL POC Glucose (mg/dL) 224 H 204 H 313 H (75-99) mg/dL 04/07/19 04/07/19 04/07/19 Range/Units 04:39 04:39 06:41 Neutrophils # 8.9 H (1.3-7.7) k/uL Lymphocytes # 0.5 L (1.0-4.8) k/uL Sodium 134 L (137-145) mmol/L BUN 23 H (7-17) mg/dL Glucose 193 H (74-99) mg/dL POC Glucose (mg/dL) 204 H (75-99) mg/dL Microbiology - Last 24 Hours (Table) 04/02/19 11:37 Blood Culture - Preliminary Blood No Growth after 96 hours Assessment and Plan Assessment: #1. Exacerbation of COPD/asthma and the patient is quite short of breath and bronchospastic and wheezy requiring BiPAP support during the night, currently on 4 L nasal cannula, today's chest x-ray reveals bibasilar opacities right greater than left. #2. Shortness of breath secondary to above #3. History of paroxysmal A. fib, on Xarelto, currently in sinus rhythm #4. History of nicotine dependence, currently in remission #5. Hypertension, hyperlipidemia #6. Diabetes mellitus type 2 #7. Depressive disorder #8. GERD #9. Iliac artery aneurysm on the right, and infrarenal abdominal aortic aneury sm, status post endovascular repair #10 history of Pozo's esophagus #11 history of TIA #13 history of a right lower extremity DVT #14 history of psoriasis #15 history of chronic back pain and sciatica #16 mild lactic acidosis , improving Plan: The patient was seen and evaluated by Dr. Shukla. Chest x-ray and labs reviewed. She is still dyspneic and bronchospastic. She did utilize BiPAP last evening. Currently on 4 L. we'll give her a trial of Lasix 40 mg IVP 1 dose. We'll continue with his current treatment plan including bronchodilators, IV Solu-Medrol and antibiotics. Anticoagulated with Xarelto. We'll continue to follow her here in the ICU and make further recommendations based on her clinical status. I, the cosigning physician, performed a history & physical examination of the patient. Lungs sounds with bilateral end expiratory wheeze. Maintaining good O2 saturations in the 90s on 4 L nasal cannula alternating with BiPAP 12/5 on 40% FiO2 I discussed the assessment and plan of care with my nurse practitioner, Sepideh Ortiz. I attest to the above note as dictated by her.
[2019-04-07] MEDS ORDERED: FUROSEMIDE 10 MG/ML 4 ML VIAL IV STA (08:55)
[2019-04-07] MEDS: SENNOSIDES 8.6 MG TAB PO SCH (09:00)
[2019-04-07] MEDS: CITALOPRAM HYDROBROMIDE 20 MG TAB PO SCH (09:00)
[2019-04-07] MEDS: VERAPAMIL 80 MG TAB PO SCH ×3 (09:01→21:52)
[2019-04-07 11:48] LABS: Glucose,Whole Blood 226 mg/dL (75-99)
--- NOTE | 2019-04-07 12:51 | PN ---
PROGRESS NOTE Mrs. Kierra Dudley is a 73-year-old lady with severe COPD, paroxysmal atrial fibrillation, who was seen by me prior to her transfer to the ICU. This morning she feels better. Her breathing is easier. She is maintaining sinus rhythm. Denies chest pain. Her breathing is a lot easier. Vitals are stable. Heart rate is in the 80s. Sinus mechanism. JVD 1 cm. No carotid bruit. S1, S2 heard normally. Lungs reveal improved air entry with rhonchi that are less apparent. Abdomen is soft, nontender. Lower extremities reveal diminished pulses. From a cardiac standpoint, she is stable. I will continue current medications, which include verapamil. She is maintaining sinus rhythm and she is well anticoagulated. I will see her as needed. MMODL / IJN: [id number] /
[2019-04-07 14:17] LABS: Hemoglobin A1C 7.2 % (4.0-6.0)
[2019-04-07] MEDS: AZITHROMYCIN 500 MG TAB PO SCH (16:32)
[2019-04-07 16:50] LABS: Glucose,Whole Blood 274 mg/dL (75-99)
[2019-04-07] MEDS: SODIUM CHLORIDE 0.9% 1,000 ML IV SCH (19:00)
[2019-04-07 20:27] LABS: Glucose,Whole Blood 302 mg/dL (75-99)
[2019-04-07] MEDS ORDERED: INSULIN ASPART (NovoLOG) 100 UNIT/ML VIAL SQ ONE (21:16)
[2019-04-07] MEDS: RIVAROXABAN 20 MG TAB PO SCH (21:52)
[2019-04-07] MEDS: ATORVASTATIN 20 MG TAB PO SCH (21:52)
[2019-04-07] MEDS: ALPRAZolam 0.5 MG TAB PO PRN (21:52)
[2019-04-07] MEDS: INSULIN DETEMIR (LEVEMIR) 100 UNIT/ML SYR SQ SCH (22:18)
[2019-04-08] MEDS: guaiFENesin-Coden 100-10MG/5ML 10 ML CUP PO SCH ×5 (00:48→23:17)
[2019-04-08] MEDS: methylPREDNISolone SOD SUCCI 125 MG/2 ML VIAL IV SCH ×5 (00:48→23:15)
[2019-04-08] MEDS: IPRATROPIUM-ALBUTEROL 3 ML NEB INHALATION PRN (03:04)
[2019-04-08 06:52] LABS: Glucose,Whole Blood 167 mg/dL (75-99)
[2019-04-08] MEDS: INSULIN ASPART (NovoLOG) 100 UNIT/ML VIAL SQ SCH ×4 (07:40→20:46)
[2019-04-08] MEDS: PANTOPRAZOLE 40 MG TABLET PO SCH (07:41)
--- NOTE | 2019-04-08 08:28 | XR ---
EXAMINATION TYPE: XR chest 1V portable DATE OF EXAM: 04/08/2019 HISTORY: COPD ex./PNM. REFERENCE: Previous study dated 04/07/2019. FINDINGS: There are areas of basilar atelectasis present bilaterally. The heart is mildly enlarged. I suspect small, bilateral effusions. IMPRESSION: NO SIGNIFICANT INTERVAL CHANGE IN THE APPEARANCE OF THE CHEST.
[2019-04-08] MEDS ORDERED: FUROSEMIDE 10 MG/ML 4 ML VIAL IV STA (08:34)
--- NOTE | 2019-04-08 08:43 | P.PN ---
Subjective Progress Note Date: 04/08/19 Principal diagnosis: Acute exacerbation of chronic obstructive pulmonary disease/asthma This is 73-year-old white female patient of Dr. 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 Patient wa s maintained on a Symbicort, and a rescue inhaler.. History of nicotine dependence, currently in remission. Patient is on Xarelto for history of paroxysmal A. fib, currently in sinus rhythm. Patient started having increased dyspnea cough chest congestion and chest tightness and wheezing last week. She contacted our office and she was given a course of antibiotics and steroids over the phone. Nevertheless, she did not improve and her condition got worse and she end up coming to the hospital. Chest x-ray today showing no acute pulmonary infiltrates. Her blood work shows a white cell count of 9.1. The coagulation profile is within normal. Renal function is within normal limits. Lactic acid level was at 3.3 at a time of admission and influenza screen was negative and the troponin was also negative. She is not oxygen dependent. She quit smoking 3 years ago on today's evaluation of 04/03/2019 the patient is feeling slightly better compared to yesterday. No new complaints for now. Cough and congestion has subsided. She does have some mild lactic acidosis with a lactic acid of 3.3 on today's blood work. Nevertheless the serum bicarbonate 24. Renal function is within normal limits. His and accommodation bronchodilators and steroids pages also on IV Solu-Medrol. Cough has somewhat subsided compared to yesterday. She is on empiric antibiotic coverage with the commissure Rocephin and Zithromax which is on long-term anticoagulation with Xarelto regarding paroxysmal atrial fibrillation. She received 2 L of IV fluid bolus and she still on 100 mL an hour. On 04/04/2019 the patient is still bronchospastic and wheezy and short of breath. She continues to have a congested cough. She is still having difficulty completing full sentences. Up much of an improvement as occurred over the past 24 hours. No altered mentation. No chest pain. Echo of the heart was completed and was within normal limits. CAT scan of the chest showed no significant airspace disease. Overall lung volumes were small and there are some atelectatic changes bilaterally. No evidence of an acute pneumonia. She remains on IV Solu-Medrol. She remains on examination Rocephin and Zithromax. No major edema lower extremities. On 04/05/2019 she seen in follow-up selective care unit, still quite dyspneic bronchospastic, last night she required BiPAP support. Dyspneic with conversati on. Currently on 4 L of oxygen with a pulse ox of 94%, she is afebrile, her respirations are labored, shallow, with diffuse wheezing throughout the lung pierce, she does have a congested cough but she is not able to bring up any sputum, his been maximized with radical treatment, she remains on IV steroids, bronchodilators, and antibiotics, yesterday's chest x-ray shows mild worsening of bibasilar filtrates/atelectasis. No fever. She has been quite limited in terms of her activity tolerance, is only been able to use the bedside commode related to extreme shortness of breath The patient is seen today 04/06/2019 in follow-up in the intensive care unit. She was transferred last evening for continued decompensation. She did utilize the BiPAP last night at 12 or 5 and 40% FiO2. This morning she is on 4 liters nasal cannula. She is alert and awake in no acute distress. Still dyspneic w ith minimal exertion and conversation. She's afebrile. Hemodynamically stable. Blood culture reveals no growth. Sputum culture reveals no growth. White count 10.1. Hemoglobin 11.1. Sodium 136. Creatinine 0.78. She is continued on DuoNeb inhalations, Pulmicort and Perforomist inhalations, ceftriaxone and azithromycin, Tessalon Perles, IV Solu-Medrol. Anticoagulated with Xarelto. 9 normal saline at 75 ML's per hour. The patient is seen today 04/07/2019 in follow-up in the intensive care unit. She is currently resting fairly comfortably in bed. She is still quite dyspneic with minimal conversation and activity. She did utilize the BiPAP through most of the evening. Currently on 4 L/m per nasal cannula. Still bronchospastic and wheezing. Chest x-ray continues to reveal bibasilar airspace disease right greater than left. Sputum and blood cultures reveal no growth. White count 9.9. Hemoglobin 11.6. Creatinine 0.65. She is continued on DuoNeb inhalations, Pulmicort and Perforomist inhalations, ceftriaxone and azithromycin, Tessalon Perles, IV Solu-Medrol. Anticoagulated with Xarelto. 9 normal saline at 75 ML's per hour. The patient is seen today 10/07/2019 in follow-up in the intensive care unit. She remains awake and alert in no acute distress. She did utilize the BiPAP last evening. She's currently on 4 L nasal cannula. She's less bronchospastic and wheezy today. Chest x-rays dose is a little bit of fluid volume overload. She is given additional Lasix 40 mg IVP 1 today. She continues is a loose nonproductive cough. Currently on Rocephin and azithromycin. Continued on bronchodilators. Continued on IV Solu-Medrol. Objective - Vital Signs Vital signs: Vital Signs Temp 98 F 04/08/19 04:00 Pulse 80 04/08/19 08:00 Resp 12 04/08/19 08:00 BP 135/71 04/08/19 08:00 Pulse Ox 93 L 04/08/19 08:00 Intake & Output 04/07/19 04/08/19 04/08/19 18:59 06:59 18:59 Intake Total 790 200 20 Output Total 3550 1570 70 Balance -2760 -1370 -50 Weight 94.2 kg Intake: IV 240 200 20 Sodium Chloride 0.9% 1, 240 200 20 000 ml @ 20 mls/hr IV . Q24H [facility] Rx#:[id number] Intake, IV Titration 50 Amount cefTRIAXone 1 gm In 50 Sodium Chloride 0.9% 50 ml @ 100 mls/hr IVPB Q24HR [facility] Rx#:[id number] Oral 500 Output: Urine 3550 1570 70 Other: Voiding Method Indwelling Catheter - Exam GENERAL EXAM: Alert, pleasant, 73-year-old female patient. Dyspneic with conversation, and 4 L of oxygen, has been wearing BiPAP during the night and intermittently throughout the day 12/5 and 40% FiO2 HEAD: Normocephalic/atraumatic. EYES: Normal reaction of pupils, equal size. Conjunctiva pink, sclera white. NOSE: Clear with pink turbinates. THROAT: No erythema or exudates. NECK: No masses, no JVD, no thyroid enlargement, no adenopathy. CHEST: No chest wall deformity. Symmetrical expansion. LUNGS: Diffuse expiratory wheezes and rhonchi heard throughout the lung pierce bilaterally. CVS: Regular rate and rhythm, normal S1 and S2, no gallops, no murmurs, no rubs ABDOMEN: Soft, nontender. No hepatosplenomegaly, normal bowel sounds, no g uarding or rigidity. EXTREMITIES: No clubbing, no edema, no cyanosis, 2+ pulses and upper and lower extremities. Bilateral groin incisions are clean dry and intact, covered with surgical dressings, distal pulses intact MUSCULOSKELETAL: Muscle strength and tone normal. SPINE: No scoliosis or deformity SKIN: No rashes CENTRAL NERVOUS SYSTEM: No focal deficits, tone is normal in all 4 extremities. PSYCHIATRIC: Alert and oriented -3. Appropriate affect. Intact judgment and insight. - Labs CBC & Chem 7: 04/07/19 04:39 04/07/19 04:39 Labs: Abnormal Lab Results - Last 24 Hours (Table) 04/07/19 04/07/19 04/07/19 Range/Units 04:39 11:46 16:48 POC Glucose (mg/dL) 226 H 274 H (75-99) mg/dL Hemoglobin A1c 7.2 H (4.0-6.0) % 04/07/19 04/08/19 Range/Units 20:25 06:51 POC Glucose (mg/dL) 302 H 167 H (75-99) mg/dL Hemoglobin A1c (4.0-6.0) % Microbiology - Last 24 Hours (Table) 04/02/19 11:37 Blood Culture - Preliminary Blood No Growth after 120 hours Assessment and Plan Assessment: #1. Exacerbation of COPD/asthma and the patient is quite short of breath and bronchospastic and wheezy requiring BiPAP support during the night, currently on 4 L nasal cannula, today's chest x-ray reveals bibasilar opacities right greater than left. Improved today. Will receive additional IV diuretics. #2. Shortness of breath secondary to above #3. History of paroxysmal A. fib, on Xarelto, currently in sinus rhythm #4. History of nicotine dependence, currently in remission #5. Hypertension, hyperlipidemia #6. Diabetes mellitus type 2 #7. Depressive disorder #8. GERD #9. Iliac artery aneurysm on the right, and infrarenal abdominal aortic aneurysm, status post endovascular repair #10 History of Pozo's esophagus #11 History of TIA #13 History of a right lower extremity DVT #14 History of psoriasis #15 History of chronic back pain and sciatica #16 Mild lactic acidosis , recovered Plan: The patient was seen and evaluated by Dr. Shukla. Chest x-ray and labs reviewed. She did utilize BiPAP last evening at 40% FiO2. Currently on 4 L. We'll give her a trial of Lasix 40 mg IVP 1 dose again today. We'll continue with his current treatment plan including bronchodilators, IV Solu-Medrol another 24 hours. Keep azithromycin. Discontinue the ceftriaxone. Anticoagulated with Xarelto. We'll continue to follow her here in the ICU and make further recommendations based on her clinical status. I, the cosigning physician, performed a history & physical examination of the patient. Lungs sounds with bilateral end expiratory wheeze. Maintaining good O2 saturations in the 90s on 4 L nasal cannula alternating with BiPAP 12/5 on 40% FiO2 I discussed the assessment and plan of care with my nurse practitioner, Sepideh Ortiz. I attest to the above note as dictated by her.
[2019-04-08 08:51] LABS: Basophils # (A) 0.1 k/uL (0-0.2); Basophils % (A) 1 %; Eosinophils # (A) 0.1 k/uL (0-0.7); Eosinophils % (A) 1 %; HCT 37.9 % (34.0-46.0); HGB 11.9 gm/dL (11.4-16.0); Hypochromasia Slight; Lymphocytes # (A) 0.5 k/uL (1.0-4.8); Lymphocytes % (A) 5 %; MCH 29.5 pg (25.0-35.0); MCHC 31.4 g/dL (31.0-37.0); MCV 94.1 fL (80.0-100.0); Mean Platelet Volume 7.7; Monocytes # (A) 0.2 k/uL (0-1.0); Monocytes % (A) 2 %; Neutrophils # (A) 9.5 k/uL (1.3-7.7); Neutrophils % (A) 91 %; Platelet Count 249 k/uL (150-450); RBC 4.03 m/uL (3.80-5.40); RDW 14.2 % (11.5-15.5); WBC 10.4 k/uL (3.8-10.6)
[2019-04-08 08:59] LABS: ALT 24 U/L (4-34); AST 26 U/L (14-36); African American GFR (CKD) >90 (>60 ml/min/1.73 sqM); Albumin 3.2 g/dL (3.5-5.0); Alkaline Phosphatase 72 U/L (38-126); Anion Gap 10 mmol/L; Blood Urea Nitrogen 26 mg/dL (7-17); Calcium 9.7 mg/dL (8.4-10.2); Carbon Dioxide 26 mmol/L (22-30); Chloride 99 mmol/L (98-107); Glucose 259 mg/dL (74-99); Non-African American GFR(CKD) 87 (>60 ml/min/1.73 sqM); Potassium 4.2 mmol/L (3.5-5.1); Sodium 135 mmol/L (137-145); Total Bilirubin 0.4 mg/dL (0.2-1.3); Total Protein 5.5 g/dL (6.3-8.2)
[2019-04-08] MEDS: BUDESONIDE 1 MG/2 ML NEBU INHALATION SCH ×2 (09:17→20:54)
[2019-04-08] MEDS: FORMOTEROL FUMARATE 20 MCG/2 ML NEBU INHALATION SCH ×2 (09:17→20:54)
[2019-04-08] MEDS: IPRATROPIUM-ALBUTEROL 3 ML NEB INHALATION SCH ×4 (09:17→20:54)
[2019-04-08] MEDS ORDERED: DOCUSATE 283 MG/5 ML ENEMA RECTAL PRN (09:27)
[2019-04-08] MEDS: CITALOPRAM HYDROBROMIDE 20 MG TAB PO SCH (09:47)
[2019-04-08] MEDS: VERAPAMIL 80 MG TAB PO SCH ×3 (09:47→21:00)
[2019-04-08] MEDS: SENNOSIDES 8.6 MG TAB PO SCH (09:47)
[2019-04-08 11:52] LABS: Glucose,Whole Blood 204 mg/dL (75-99)
[2019-04-08] MEDS: BISACODYL 10 MG SUPP RECTAL PRN (12:59)
--- NOTE | 2019-04-08 15:43 | P.PN ---
Subjective Progress Note Date: 04/07/19 Principal diagnosis: Acute COPD/asthma exacerbation Ms. Dudley is a 73-year-old female with a past medical history of COPD, asthma, GERD, depression, hypertension, hyperlipidemia, diabetes admitted for dyspnea, cough and chest congestion. Patient was given a course of antibiotics as outpatient but did not improve so she is admitted for further management. On 04/07/2019- patient is still in the ICU. She has never been intubated chest on BiPAP. She was getting antibodies and this form of ceftriaxone and Zithromax and IV Solu-Medrol. Patient is sitting up in a chair by the bedside with his twin acute distress. She states her breathing is much better. She also states that she has mild swelling of her lower extremities. Denies having any chest pain or palpitations. No abdominal pain nausea vomiting or diarrhea. No dysuria name today. Patient's labs, medications and vitals have been reviewed. Objective - Vital Signs Vital signs: Vital Signs Temp 98 F 04/07/19 16:00 Pulse 77 04/07/19 16:08 Resp 15 04/07/19 16:00 BP 137/80 04/07/19 16:00 Pulse Ox 96 04/07/19 16:00 Intake & Output 04/06/19 04/07/19 04/07/19 18:59 06:59 18:59 Intake Total 930 240 750 Output Total 935 1175 3400 Balance -5 935 -2650 Weight 94.5 kg Intake: IV 680 240 200 Sodium Chloride 0.9% 1, 680 240 200 000 ml @ 20 mls/hr IV . Q24H [facility] Rx#:[id number] Intake, IV Titration 50 Amount cefTRIAXone 1 gm In 50 Sodium Chloride 0.9% 50 ml @ 100 mls/hr IVPB Q24HR [facility] Rx#:[id number] Oral 250 500 Output: Urine 935 1175 3400 Other: Voiding Method Indwelling Catheter Indwelling Catheter Indwelling Catheter - Exam GENERAL EXAM: Alert, pleasant, 73-year-old female patient. Dyspneic with conversation, and 4 L of oxygen, has been wearing BiPAP during the night and during naps. HEENT: No pallor. No icterus. No thyromegaly. CHEST: No chest wall deformity. Symmetrical expansion. LUNGS: Diffuse expiratory wheezes and rhonchi heard throughout the lung pierce bilaterally. CVS: Regular rate and rhythm, normal S1 and S2, no gallops, no murmurs, no rubs ABDOMEN: Soft, nontender. No hepatosplenomegaly, normal bowel sounds, no guarding or rigidity. EXTREMITIES: No clubbing, no edema, no cyanosis, 2+ pulses and upper and lower extremities. Bilateral groin incisions are clean dry and intact, covered with surgical dressings, distal pulses intact CENTRAL NERVOUS SYSTEM: No focal deficits - Labs CBC & Chem 7: 04/08/19 08:12 04/08/19 08:12 Labs: Abnormal Lab Results - Last 24 Hours (Table) 04/06/19 04/06/19 04/07/19 Range/Units 16:54 20:19 04:39 Neutrophils # (1.3-7.7) k/uL Lymphocytes # (1.0-4.8) k/uL Sodium 134 L (137-145) mmol/L BUN 23 H (7-17) mg/dL Glucose 193 H (74-99) mg/dL POC Glucose (mg/dL) 204 H 313 H (75-99) mg/dL Hemoglobin A1c (4.0-6.0) % 04/07/19 04/07/19 04/07/19 Range/Units 04:39 04:39 06:41 Neutrophils # 8.9 H (1.3-7.7) k/uL Lymphocytes # 0.5 L (1.0-4.8) k/uL Sodium (137-145) mmol/L BUN (7-17) mg/dL Glucose (74-99) mg/dL POC Glucose (mg/dL) 204 H (75-99) mg/dL Hemoglobin A1c 7.2 H (4.0-6.0) % 04/07/19 04/07/19 Range/Units 11:46 16:48 Neutrophils # (1.3-7.7) k/uL Lymphocytes # (1.0-4.8) k/uL Sodium (137-145) mmol/L BUN (7-17) mg/dL Glucose (74-99) mg/dL POC Glucose (mg/dL) 226 H 274 H (75-99) mg/dL Hemoglobin A1c (4.0-6.0) % Microbiology - Last 24 Hours (Table) 04/02/19 11:37 Blood Culture - Preliminary Blood No Growth after 120 hours Assessment and Plan Assessment: ASSESSMENT Acute exacerbation of COPD/asthma Paroxysmal atrial fibrillation on anticoagulant Hypertension Hyperlipidemia Type 2 diabetes mellitus GERD 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 Continue with Xarelto of her anticoagulation. Continue with the rest of her current medication regimen. Further recommendations to follow depending on the progress of the patient.
--- NOTE | 2019-04-08 15:46 | P.PN ---
Subjective Progress Note Date: 04/08/19 Principal diagnosis: Acute COPD/asthma exacerbation Ms. Dudley is a 73-year-old female with a past medical history of COPD, asthma, GERD, depression, hypertension, hyperlipidemia, diabetes admitted for dyspnea, cough and chest congestion. Patient was given a course of antibiotics as outpatient but did not improve so she is admitted for further management. On 04/08/2019- patient is still in the ICU. She continues to be on BiPAP at night. Patient mentions that her breathing is much better compared couple of days back. She denies having any chest pain or palpitations. No abdominal pain nausea vomiting or diarrhea. States that her lower extremity edema is much better. Patient states that she did not have a bowel movement for the past couple of days. She still has Mclaughlin's catheter in place. patient's medications have been reviewed Active Medications Albuterol/Ipratropium (Duoneb 0.5 Mg-3 Mg/3 Ml Soln) 3 ml INHALATION RT-Q4H PRN PRN Reason: Shortness Of Breath Or Wheezing Last Admin: 04/08/19 03:04 Dose: 3 ml Documented by: Albuterol/Ipratropium (Duoneb 0.5 Mg-3 Mg/3 Ml Soln) 3 ml INHALATION RT-QID [facility] Last Admin: 04/08/19 12:40 Dose: 3 ml Documented by: Alprazolam (Xanax) 0.5 mg PO TID PRN PRN Reason: Anxiety Last Admin: 04/07/19 21:52 Dose: 0.5 mg Documented by: Atorvastatin Calcium (Lipitor) 20 mg PO HS [facility] Last Admin: 04/07/19 21:52 Dose: 20 mg Documented by: Azithromycin (Zithromax) 500 mg PO DAILY@1600 [facility] Last Admin: 04/07/19 16:32 Dose: 500 mg Documented by: Benzonatate (Tessalon Perles) 100 mg PO TID PRN PRN Reason: Cough Last Admin: 04/03/19 18:30 Dose: 100 mg Documented by: Bisacodyl (Dulcolax) 10 mg RECTAL DAILY PRN PRN Reason: Constipation Last Admin: 04/08/19 12:59 Dose: 10 mg Documented by: Budesonide (Pulmicort) 1 mg INHALATION RT-BID [facility] Last Admin: 04/08/19 09:17 Dose: 1 mg Documented by: Citalopram Hydrobromide (Celexa) 40 mg PO DAILY [facility] Last Admin: 04/08/19 09:47 Dose: 40 mg Documented by: Formoterol Fumarate (Perforomist) 20 mcg INHALATION RT-BID [facility] Last Admin: 04/08/19 09:17 Dose: 20 mcg Documented by: Guaifenesin/Codeine Phosphate (Robitussin Ac) 10 ml PO Q6HR [facility] Last Admin: 04/08/19 12:58 Dose: 10 ml Documented by: Sodium Chloride (Saline 0.9%) 1,000 mls @ 20 mls/hr IV .Q24H [facility] Last Admin: 04/07/19 19:00 Dose: 20 mls/hr Documented by: Insulin Aspart (Novolog) 0 unit SQ [facility]; Protocol Last Admin: 04/08/19 12:58 Dose: 6 unit Documented by: Insulin Detemir (Levemir) 30 unit SQ [facility] Last Admin: 04/07/19 22:18 Dose: 30 unit Documented by: Magnesium Hydroxide (Milk Of Magnesia) 2,400 mg PO ONCE PRN PRN Reason: Constipation Last Admin: 04/06/19 08:33 Dose: 2,400 mg Documented by: Methylprednisolone Sodium Succinate (Solu-Medrol) 60 mg IV Q6HR [facility] Last Admin: 04/08/19 12:58 Dose: 60 mg Documented by: Pantoprazole Sodium (Protonix) 40 mg PO AC-BRKFST [facility] Last Admin: 04/08/19 07:41 Dose: 40 mg Documented by: Rivaroxaban (Xarelto) 20 mg PO [facility] Last Admin: 04/07/19 21:52 Dose: 20 mg Documented by: Senna (Senokot) 8.6 mg PO DAILY [facility] Last Admin: 04/08/19 09:47 Dose: 8.6 mg Documented by: Verapamil HCl (Isoptin) 80 mg PO TID [facility] Last Admin: 04/08/19 09:47 Dose: 80 mg Documented by: Objective - Vital Signs Vital signs: Vital Signs Temp 98.2 F 04/08/19 12:00 Pulse 75 04/08/19 13:01 Resp 18 04/08/19 13:01 BP 118/72 04/08/19 13:01 Pulse Ox 93 L 04/08/19 13:01 Intake & Output 04/07/19 04/08/19 04/08/19 18:59 06:59 18:59 Intake Total 790 200 120 Output Total 3550 1570 1725 Balance -2760 -1370 -1605 Weight 94.2 kg Intake: IV 240 200 120 Sodium Chloride 0.9% 1, 240 200 120 000 ml @ 20 mls/hr IV . Q24H [facility] Rx#:[id number] Intake, IV Titration 50 Amount cefTRIAXone 1 gm In 50 Sodium Chloride 0.9% 50 ml @ 100 mls/hr IVPB Q24HR [facility] Rx#:[id number] Oral 500 Output: Urine 3550 1570 1725 Other: Voiding Method Indwelling Catheter Indwelling Catheter Indwelling Catheter - Exam GENERAL EXAM: Alert, pleasant, 73-year-old female patient. Dyspneic with conversation, and 4 L of oxygen, has been wearing BiPAP during the night and during naps. HEENT: No pallor. No icterus. No thyromegaly. CHEST: No chest wall deformity. Symmetrical expansion. LUNGS: Diffuse expiratory wheezes and rhonchi heard throughout the lung pierce bilaterally- less compared to yesterday CVS: Regular rate and rhythm, normal S1 and S2, no gallops, no murmurs, no rubs ABDOMEN: Soft, nontender. No hepatosplenomegaly, normal bowel sounds, no guarding or rigidity. EXTREMITIES: No clubbing, no edema, no cyanosis, 2+ pulses and upper and lower extremities. Bilateral groin incisions are clean dry and intact, covered with surgical dressings, distal pulses intact CENTRAL NERVOUS SYSTEM: No focal deficits - Labs CBC & Chem 7: 04/08/19 08:12 04/08/19 08:12 Labs: Abnormal Lab Results - Last 24 Hours (Table) 04/07/19 04/07/19 04/08/19 Range/Units 16:48 20:25 06:51 Neutrophils # (1.3-7.7) k/uL Lymphocytes # (1.0-4.8) k/uL Sodium (137-145) mmol/L BUN (7-17) mg/dL Glucose (74-99) mg/dL POC Glucose (mg/dL) 274 H 302 H 167 H (75-99) mg/dL Total Protein (6.3-8.2) g/dL Albumin (3.5-5.0) g/dL 04/08/19 04/08/19 04/08/19 Range/Units 08:12 08:12 11:50 Neutrophils # 9.5 H (1.3-7.7) k/uL Lymphocytes # 0.5 L (1.0-4.8) k/uL Sodium 135 L (137-145) mmol/L BUN 26 H (7-17) mg/dL Glucose 259 H (74-99) mg/dL POC Glucose (mg/dL) 204 H (75-99) mg/dL Total Protein 5.5 L (6.3-8.2) g/dL Albumin 3.2 L (3.5-5.0) g/dL Microbiology - Last 24 Hours (Table) 04/02/19 11:37 Blood Culture - Final Blood No Growth after 144 hours Assessment and Plan Assessment: ASSESSMENT Acute exacerbation of COPD/asthma Paroxysmal atrial fibrillation on anticoagulant Hypertension Hyperlipidemia Type 2 diabetes mellitus GERD 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 Continue with Xarelto of her anticoagulation. Patient is given a dose of senna and Colace, if that doesn't work we will give her soapsuds enema. Continue with the rest of her current medication regimen. Further recommendations to follow depending on the progress of the patient. Patient is being transferred out of the ICU to general medical floors.
[2019-04-08 16:56] LABS: Glucose,Whole Blood 238 mg/dL (75-99)
[2019-04-08] MEDS: AZITHROMYCIN 500 MG TAB PO SCH (17:03)
[2019-04-08 20:34] LABS: Glucose,Whole Blood 393 mg/dL (75-99)
[2019-04-08] MEDS: ATORVASTATIN 20 MG TAB PO SCH (20:46)
[2019-04-08] MEDS: ALPRAZolam 0.5 MG TAB PO PRN (20:46)
[2019-04-08] MEDS: RIVAROXABAN 20 MG TAB PO SCH (20:47)
[2019-04-08] MEDS: INSULIN DETEMIR (LEVEMIR) 100 UNIT/ML SYR SQ SCH (20:47)
[2019-04-08] MEDS: SODIUM CHLORIDE 0.9% 1,000 ML IV SCH (20:56)
[2019-04-09] MEDS: IPRATROPIUM-ALBUTEROL 3 ML NEB INHALATION PRN ×2 (00:17→04:19)
[2019-04-09 05:13] LABS: HGB 11.5 gm/dL (11.4-16.0); Hypochromasia Slight; MCH 30.7 pg (25.0-35.0); MCHC 32.9 g/dL (31.0-37.0); MCV 93.3 fL (80.0-100.0); Mean Platelet Volume 8.1; Platelet Count 269 k/uL (150-450); RBC 3.76 m/uL (3.80-5.40); WBC 11.3 k/uL (3.8-10.6)
[2019-04-09 05:24] LABS: African American GFR (CKD) >90 (>60 ml/min/1.73 sqM); Anion Gap 6 mmol/L; Blood Urea Nitrogen 36 mg/dL (7-17); Calcium 9.9 mg/dL (8.4-10.2); Carbon Dioxide 32 mmol/L (22-30); Chloride 97 mmol/L (98-107); Glucose 216 mg/dL (74-99); Non-African American GFR(CKD) 82 (>60 ml/min/1.73 sqM); Sodium 135 mmol/L (137-145)
[2019-04-09] MEDS: guaiFENesin-Coden 100-10MG/5ML 10 ML CUP PO SCH ×4 (06:27→23:33)
[2019-04-09] MEDS: methylPREDNISolone SOD SUCCI 125 MG/2 ML VIAL IV SCH ×4 (06:27→23:31)
[2019-04-09] MEDS: PANTOPRAZOLE 40 MG TABLET PO SCH (06:27)
[2019-04-09] MEDS: BISACODYL 10 MG SUPP RECTAL PRN (06:35)
[2019-04-09 07:05] LABS: Glucose,Whole Blood 237 mg/dL (75-99)
[2019-04-09] MEDS: INSULIN ASPART (NovoLOG) 100 UNIT/ML VIAL SQ SCH ×4 (07:14→20:57)
--- NOTE | 2019-04-09 07:57 | XR ---
EXAMINATION TYPE: XR chest 1V portable DATE OF EXAM: 04/09/2019 COMPARISON: 04/08/2019 HISTORY: COPD and pneumonia. Shortness of breath. TECHNIQUE: Single frontal view of the chest is obtained. FINDINGS: The mediastinum is not shifted to right, likely secondary to patient positioning. Attentio n on follow-up exams. Bibasilar airspace disease appears as atelectasis. Cardiomediastinal silhouette is again enlarged. Osseous structures are grossly intact. IMPRESSION: Improved left basilar airspace disease with the appearance of linear bibasilar airspace disease at this time, likely atelectasis.
[2019-04-09] MEDS: BUDESONIDE 1 MG/2 ML NEBU INHALATION SCH ×2 (08:13→21:31)
[2019-04-09] MEDS: IPRATROPIUM-ALBUTEROL 3 ML NEB INHALATION SCH ×4 (08:13→21:31)
[2019-04-09] MEDS: FORMOTEROL FUMARATE 20 MCG/2 ML NEBU INHALATION SCH ×2 (08:13→21:31)
[2019-04-09] MEDS: CITALOPRAM HYDROBROMIDE 20 MG TAB PO SCH (08:33)
[2019-04-09] MEDS: SENNOSIDES 8.6 MG TAB PO SCH (08:34)
[2019-04-09] MEDS: VERAPAMIL 80 MG TAB PO SCH ×3 (08:34→20:07)
[2019-04-09 10:05] VITALS: BMI 38.0
--- NOTE | 2019-04-09 11:18 | P.PN ---
Subjective Progress Note Date: 04/09/19 Principal diagnosis: Acute exacerbation of chronic obstructive pulmonary disease Patient was reevaluated today on 10/08/2019, remains in the intensive care unit, she is presently overflow. She is on 4 L nasal cannula, chest x-ray showed minimal atelectasis at the bases, her IV fluid is at KVO, and her urine output is excellent. Patient has been on BiPAP at night intermittently. She is feeling much better, less cough and less wheezing less shortness of breath. Remains on antibiotics in the form of Rocephin and Zithromax, remains on Lasix when necessary, and she is on Solu-Medrol. Overall the patient has made a significant improvement since admission. Feeling better, breathing easier, nonetheless, patient continues to have some rhonchi and wheezing on forced expiratory maneuver bilaterally. Labs including CBC and basic metabolic profile were reviewed. They seem to be basically unremarkable Objective - Vital Signs Vital signs: Vital Signs Temp 98.2 F 04/09/19 08:00 Pulse 74 04/09/19 08:33 Resp 18 04/09/19 08:00 BP 139/76 04/09/19 08:00 Pulse Ox 97 04/09/19 08:00 Intake & Output 04/08/19 04/09/19 04/09/19 18:59 06:59 18:59 Intake Total 160 570 Output Total 1974 725 Balance -1815 -155 Weight 94.2 kg Intake: IV 160 320 Sodium Chloride 0.9% 1, 160 320 000 ml @ 20 mls/hr IV . Q24H [facility] Rx#:[id number] Oral 250 Output: Urine 19745 Other: Voiding Method Indwelling Catheter Indwelling Catheter # Bowel Movements 1 1 - Exam GENERAL EXAM: Revealed 73-year-old female, pleasant, on 4 L nasal cannula. HEAD: Normocephalic/atraumatic. EENT: PERRLA, EOMI, no icterus, no neck masses, no JVD. No stridor. CHEST: No chest wall deformity. Symmetrical expansion. LUNGS: Harsh rhonchi noted bilaterally, minimal wheezing. No chest wall tenderness. CVS: Regular rate and rhythm, normal S1 and S2, no gallops, no murmurs, no rubs ABDOMEN: Obese, soft, nontender, no megaly, no rebound, no guarding. Positive bowel sounds. Extremities no clubbing edema or cyanosis. MUSCULOSKELETAL: No deformities noted limitation in range of motion. SPINE: No scoliosis or deformity SKIN: No rashes CENTRAL NERVOUS SYSTEM: Alert oriented 3, no gross focal deficit. PSYCHIATRIC: Normal mood, affect and normal mental status examination. - Labs CBC & Chem 7: 04/09/19 04:23 04/09/19 04:23 Labs: Abnormal Lab Results - Last 24 Hours (Table) 04/08/19 04/08/19 04/08/19 Range/Units 11:50 16:54 20:32 WBC (3.8-10.6) k/uL RBC (3.80-5.40) m/uL Sodium (137-145) mmol/L Chloride (98-107) mmol/L Carbon Dioxide (22-30) mmol/L BUN (7-17) mg/dL Glucose (74-99) mg/dL POC Glucose (mg/dL) 204 H 238 H 393 H (75-99) mg/dL 04/09/19 04/09/19 04/09/19 Range/Units 04:23 04:23 07:03 WBC 11.3 H (3.8-10.6) k/uL RBC 3.76 L (3.80-5.40) m/uL Sodium 135 L (137-145) mmol/L Chloride 97 L (98-107) mmol/L Carbon Dioxide 32 H (22-30) mmol/L BUN 36 H (7-17) mg/dL Glucose 216 H (74-99) mg/dL POC Glucose (mg/dL) 237 H (75-99) mg/dL Microbiology - Last 24 Hours (Table) 04/02/19 11:37 Blood Culture - Final Blood No Growth after 144 hours Assessment and Plan Assessment: Impression: Acute exacerbation of COPD Paroxysmal atrial fibrillation, remains on Xarelto History of nicotine dependence, in remission since 4 years ago. Type 2 diabetes. History of Pozo esophagus History of right lower extremity deep vein thromboses History of psoriasis GERD without esophagitis Benign essential hypertension Recommendation: Continue present course of bronchodilators. Continue BiPAP as needed Continue oxygen and titrate accordingly Continue when necessary diuresis. Continue Solu-Medrol Continue Zithromax Continue Xarelto Transfer patient out of the ICU to a regular medical floor Possible discharge planning in the next 24-48 hours. We'll continue to follow Time with Patient: Less than 30
[2019-04-09 11:46] LABS: Glucose,Whole Blood 274 mg/dL (75-99)
[2019-04-09] MEDS ORDERED: INSULIN ASPART (NovoLOG) 100 UNIT/ML VIAL SQ ONE ×2 (11:51→17:21)
--- NOTE | 2019-04-09 13:45 | P.PN ---
Subjective Progress Note Date: 04/09/19 Principal diagnosis: Acute COPD/asthma exacerbation Ms. Dudley is a 73-year-old female with a past medical history of COPD, asthma, GERD, depression, hypertension, hyperlipidemia, diabetes admitted for dyspnea, cough and chest congestion. Patient was given a course of antibiotics as outpatient but did not improve so she is admitted for further management. April 04 2019 Patient didn't do well last night and yesterday evening patient went into respiratory failure requiring BiPAP. Patient related to A. fib as well as presently rate controlled now. Patient overall respiratory status improved as well wheezing appears to improve but does have significant wheezing still p atient feels little bit better today. Patient's verapamil dose was increased Cardizem was discontinued. 04/05/2019 Patient feels better than yesterday but still quite a bit queasy and patient is still taking a Bit up on 4 L her oxygen requirements have come down from 5 to-4. His lactic acid went up again. I believe patient has D-lactate, this testing is a send out test and will not be available for next few days because of which I'm not ordering this test. Will not follow on lactic acid from now on. Will not lie and management depending on lactic acid anymore nursing staff was instructed not to repeat the lactic acid again.D- lactate is a get related lactic acid which is stereo isomer of L- lactic acid which doesn't have much of clinical significance 04/06/2019 Patient is feeling bit better though her clinical exam didn't change much patient is still wheezing quite a bit. Constitutional: Denied any fatigue denied any fever. Cardio vascular: denied any chest pain, palpitations Gastrointestinal denied any nausea vomiting Pulmonary: As mentioned in HPI Neurologic denied any new focal deficits On 04/07/2019- patient is still in the ICU. She has never been intubated chest on BiPAP. She was getting antibodies and this form of ceftriaxone and Zithromax and IV Solu-Medrol. Patient is sitting up in a chair by the bedside with his twin acute distress. She states her breathing is much better. She also states that she has mild swelling of her lower extremities. Denies having any chest pain or palpitations. No abdominal pain nausea vomiting or diarrhea. No dysuria name today. On 04/08/2019- patient is still in the ICU. She continues to be on BiPAP at night. Patient mentions that her breathing is much better compared couple of days back. She denies having any chest pain or palpitations. No abdominal pain nausea vomiting or diarrhea. States that her lower extremity edema is much better. Patient states that she did not have a bowel movement for the past cou ple of days. She still has Mclaughlin's catheter in place. 04/09/2019 Patient is sitting up in the chair and appears to be in no acute distress. Patient is currently maintained on 4 L via nasal cannula and states that her breathing is better than yesterday. Patient continues to use the BiPAP interm ittently at night. Patient denies any chest pain or palpitations at this time. Patient denies any nausea or vomiting and has been tolerating diet. Patient states that she is having some abdominal discomfort and continues to have no bowel movements. soap suds enema was ordered. Currently still in the ICU overflow awaiting [facility] bed to become available. Objective - Vital Signs Vital signs: Vital Signs Temp 98.2 F 04/09/19 08:00 Pulse 74 04/09/19 08:33 Resp 18 04/09/19 08:00 BP 139/76 04/09/19 08:00 Pulse Ox 97 04/09/19 08:00 Intake & Output 04/08/19 04/09/19 04/09/19 18:59 06:59 18:59 Intake Total 160 570 Output Total 1974 725 Balance -1815 -155 Weight 94.2 kg Intake: IV 160 320 Sodium Chloride 0.9% 1, 160 320 000 ml @ 20 mls/hr IV . Q24H [facility] Rx#:[id number] Oral 250 Output: Urine 19745 Other: Voiding Method Indwelling Catheter Indwelling Catheter # Bowel Movements 1 1 - Exam GENERAL EXAM: Alert, pleasant, 73-year-old female patient. Currently on 4 L of oxygen, has been wearing BiPAP during the night and during naps. HEENT: No pallor. No icterus. No thyromegaly. CHEST: No chest wall deformity. Symmetrical expansion. LUNGS: Diffuse expiratory wheezes and rhonchi heard throughout the lung pierce bilaterally CVS: Regular rate and rhythm, normal S1 and S2, no gallops, no murmurs, no rubs ABDOMEN: Soft, nontender. No hepatosplenomegaly, normal bowel sounds, no g uarding or rigidity. EXTREMITIES: No clubbing, no edema, no cyanosis, 2+ pulses and upper and lower extremities. Bilateral groin incisions are clean dry and intact, covered with surgical dressings, distal pulses intact CENTRAL NERVOUS SYSTEM: No focal deficits - Labs CBC & Chem 7: 04/09/19 04:23 04/09/19 04:23 Labs: Abnormal Lab Results - Last 24 Hours (Table) 04/08/19 04/08/19 04/08/19 Range/Units 11:50 16:54 20:32 WBC (3.8-10.6) k/uL RBC (3.80-5.40) m/uL Sodium (137-145) mmol/L Chloride (98-107) mmol/L Carbon Dioxide (22-30) mmol/L BUN (7-17) mg/dL Glucose (74-99) mg/dL POC Glucose (mg/dL) 204 H 238 H 393 H (75-99) mg/dL 04/09/19 04/09/19 04/09/19 Range/Units 04:23 04:23 07:03 WBC 11.3 H (3.8-10.6) k/uL RBC 3.76 L (3.80-5.40) m/uL Sodium 135 L (137-145) mmol/L Chloride 97 L (98-107) mmol/L Carbon Dioxide 32 H (22-30) mmol/L BUN 36 H (7-17) mg/dL Glucose 216 H (74-99) mg/dL POC Glucose (mg/dL) 237 H (75-99) mg/dL Microbiology - Last 24 Hours (Table) 04/02/19 11:37 Blood Culture - Final Blood No Growth after 144 hours Assessment and Plan Assessment: Acute exacerbation of COPD/asthma Paroxysmal atrial fibrillation on anticoagulant Hypertension Hyperlipidemia Type 2 diabetes mellitus GERD 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 Continue with Xarelto of her anticoagulation. Repeat chest x-ray today shows improved left basilar airspace disease with appearance of linear bibasilar a irspace disease likely atelectasis. Patient was given a dose of senna and Colace with no bowel movement. A soapsuds enema was ordered. Continue with the rest of her current medication regimen. Further recommendations to follow depending on the progress of the patient. Patient awaiting to be transferred out of the ICU to general medical floors.
[2019-04-09] MEDS ORDERED: NA PHOS,M-B/NA PHOS,DI-BA 133 ML ENEMA RECTAL ONE (13:46)
[2019-04-09] MEDS: AZITHROMYCIN 500 MG TAB PO SCH (16:05)
[2019-04-09 16:43] LABS: Glucose,Whole Blood 326 mg/dL (75-99)
[2019-04-09] MEDS: INSULIN DETEMIR (LEVEMIR) 100 UNIT/ML SYR SQ SCH ×2 (18:36→20:57)
[2019-04-09] MEDS: ALPRAZolam 0.5 MG TAB PO PRN (20:07)
[2019-04-09] MEDS: ATORVASTATIN 20 MG TAB PO SCH (20:07)
[2019-04-09 20:27] LABS: Glucose,Whole Blood 333 mg/dL (75-99)
[2019-04-09] MEDS: RIVAROXABAN 20 MG TAB PO SCH (20:57)
[2019-04-09] MEDS: SODIUM CHLORIDE 0.9% 1,000 ML IV SCH (21:01)
[2019-04-10] MEDS: guaiFENesin-Coden 100-10MG/5ML 10 ML CUP PO SCH ×4 (05:14→22:56)
[2019-04-10] MEDS: methylPREDNISolone SOD SUCCI 125 MG/2 ML VIAL IV SCH ×3 (05:14→23:11)
[2019-04-10] MEDS: BISACODYL 10 MG SUPP RECTAL PRN (05:16)
[2019-04-10 07:10] LABS: Glucose,Whole Blood 165 mg/dL (75-99)
[2019-04-10] MEDS: CITALOPRAM HYDROBROMIDE 20 MG TAB PO SCH (08:08)
[2019-04-10] MEDS: PANTOPRAZOLE 40 MG TABLET PO SCH (08:09)
[2019-04-10] MEDS: SENNOSIDES 8.6 MG TAB PO SCH (08:09)
[2019-04-10] MEDS: VERAPAMIL 80 MG TAB PO SCH ×3 (08:09→22:56)
[2019-04-10] MEDS: INSULIN ASPART (NovoLOG) 100 UNIT/ML VIAL SQ SCH ×4 (08:09→23:10)
[2019-04-10] MEDS: BUDESONIDE 1 MG/2 ML NEBU INHALATION SCH ×2 (08:30→19:34)
[2019-04-10] MEDS: FORMOTEROL FUMARATE 20 MCG/2 ML NEBU INHALATION SCH ×2 (08:30→19:47)
[2019-04-10] MEDS: IPRATROPIUM-ALBUTEROL 3 ML NEB INHALATION SCH ×4 (08:30→19:34)
[2019-04-10 08:50] LABS: HCT 36.8 % (34.0-46.0); HGB 11.7 gm/dL (11.4-16.0); MCH 29.9 pg (25.0-35.0); MCHC 31.9 g/dL (31.0-37.0); MCV 93.7 fL (80.0-100.0); Mean Platelet Volume 7.8; Platelet Count 247 k/uL (150-450); RBC 3.92 m/uL (3.80-5.40); RDW 14.3 % (11.5-15.5); WBC 14.3 k/uL (3.8-10.6)
--- NOTE | 2019-04-10 08:52 | XR ---
EXAMINATION TYPE: XR chest 1V portable DATE OF EXAM: 04/10/2019 COMPARISON: 04/09/2019 HISTORY: COPD. Pneumonia. Shortness of breath. TECHNIQUE: Single frontal view of the chest is obtained. FINDINGS: Increasing confluence of the lingular opacity. Overall low lung volumes. Low lung volumes exaggerate the pulmonary vasculature. Cardiomediastinal silhouette is more appropriately placed than on the prior given appropriate positioning on the current exam. No sizable pneumothorax or pleural ef fusion. No acute osseous pathology. IMPRESSION: Increasing confluence of the lingular opacity suspicious for unifocal pneumonia.
[2019-04-10 09:19] LABS: African American GFR (CKD) >90 (>60 ml/min/1.73 sqM); Anion Gap 5 mmol/L; Blood Urea Nitrogen 33 mg/dL (7-17); Calcium 9.8 mg/dL (8.4-10.2); Carbon Dioxide 33 mmol/L (22-30); Chloride 97 mmol/L (98-107); Glucose 150 mg/dL (74-99); Non-African American GFR(CKD) 87 (>60 ml/min/1.73 sqM); Potassium 4.4 mmol/L (3.5-5.1); Sodium 135 mmol/L (137-145)
[2019-04-10 11:40] LABS: Glucose,Whole Blood 291 mg/dL (75-99)
--- NOTE | 2019-04-10 11:48 | P.PN ---
Subjective Progress Note Date: 04/10/19 Principal diagnosis: Acute COPD/asthma exacerbation Ms. Dudley is a 73-year-old female with a past medical history of COPD, asthma, GERD, depression, hypertension, hyperlipidemia, diabetes admitted for dyspnea, cough and chest congestion. Patient was given a course of antibiotics as outpatient but did not improve so she is admitted for further management. April 04 2019 Patient didn't do well last night and yesterday evening patient went into respiratory failure requiring BiPAP. Patient related to A. fib as well as presently rate controlled now. Patient overall respiratory status improved as well wheezing appears to improve but does have significant wheezing still p atient feels little bit better today. Patient's verapamil dose was increased Cardizem was discontinued. 04/05/2019 Patient feels better than yesterday but still quite a bit queasy and patient is still taking a Bit up on 4 L her oxygen requirements have come down from 5 to-4. His lactic acid went up again. I believe patient has D-lactate, this testing is a send out test and will not be available for next few days because of which I'm not ordering this test. Will not follow on lactic acid from now on. Will not lie and management depending on lactic acid anymore nursing staff was instructed not to repeat the lactic acid again.D- lactate is a get related lactic acid which is stereo isomer of L- lactic acid which doesn't have much of clinical significance 04/06/2019 Patient is feeling bit better though her clinical exam didn't change much patient is still wheezing quite a bit. Constitutional: Denied any fatigue denied any fever. Cardio vascular: denied any chest pain, palpitations Gastrointestinal denied any nausea vomiting Pulmonary: As mentioned in HPI Neurologic denied any new focal deficits On 04/07/2019- patient is still in the ICU. She has never been intubated chest on BiPAP. She was getting antibodies and this form of ceftriaxone and Zithromax and IV Solu-Medrol. Patient is sitting up in a chair by the bedside with his twin acute distress. She states her breathing is much better. She also states that she has mild swelling of her lower extremities. Denies having any chest pain or palpitations. No abdominal pain nausea vomiting or diarrhea. No dysuria name today. On 04/08/2019- patient is still in the ICU. She continues to be on BiPAP at night. Patient mentions that her breathing is much better compared couple of days back. She denies having any chest pain or palpitations. No abdominal pain nausea vomiting or diarrhea. States that her lower extremity edema is much better. Patient states that she did not have a bowel movement for the past cou ple of days. She still has Mclaughlin's catheter in place. 04/09/2019 Patient is sitting up in the chair and appears to be in no acute distress. Patient is currently maintained on 4 L via nasal cannula and states that her breathing is better than yesterday. Patient continues to use the BiPAP interm ittently at night. Patient denies any chest pain or palpitations at this time. Patient denies any nausea or vomiting and has been tolerating diet. Patient states that she is having some abdominal discomfort and continues to have no bowel movements. soap suds enema was ordered. Currently still in the ICU overflow awaiting [facility] bed to become available. 04/10/2019 Patient is sitting up in the chair resting but easily arousable. Patient is currently maintained on 4 L via nasal cannula and continues to use the BiPAP at night. After talking with case management and social work patient is now agreeable to in ECF for continued PT/OT as the patient is requiring almost maximum assist to get out of the chair. Awaiting acceptance an authorization to [facility] at this time. Patient's repeat chest x-ray today showed an increasing confluence of the lingular opacity suspicious for unifocal pneumonia. Patient is currently maintained on oral Zithromax and will continue at this time. Objective - Vital Signs Vital signs: Vital Signs Temp 98.0 F 04/10/19 05:39 Pulse 92 04/10/19 09:02 Resp 12 04/10/19 05:39 BP 131/76 04/10/19 05:39 Pulse Ox 98 04/10/19 08:32 Intake & Output 04/09/19 04/10/19 04/10/19 18:59 06:59 18:59 Intake Total 600 Output Total 300 Balance 300 Weight 94.2 kg Intake: IV 180 Sodium Chloride 0.9% 1, 180 000 ml @ 20 mls/hr IV . Q24H [facility] Rx#:[id number] Oral 420 Output: Urine 300 Other: Voiding Method Bedside Commode Bedside Commode Bedside Commode # Voids 1 # Bowel Movements 1 0 - Exam GENERAL EXAM: Alert, pleasant, 73-year-old female patient. Currently on 4 L of oxygen, has been wearing BiPAP during the night and during naps. HEENT: No pallor. No icterus. No thyromegaly. CHEST: No chest wall deformity. Symmetrical expansion. LUNGS: Diffuse expiratory wheezes and rhonchi heard throughout the lung pierce bilaterally. Slight improvement from yesterday. CVS: Regular rate and rhythm, normal S1 and S2, no gallops, no murmurs, no rubs ABDOMEN: Soft, nontender. No hepatosplenomegaly, normal bowel sounds, no guarding or rigidity. EXTREMITIES: No clubbing, no edema, no cyanosis, 2+ pulses and upper and lower extremities. Bilateral groin incisions are clean dry and intact, covered with surgical dressings, distal pulses intact CENTRAL NERVOUS SYSTEM: No focal deficits - Labs CBC & Chem 7: 04/10/19 08:11 04/10/19 08:11 Labs: Abnormal Lab Results - Last 24 Hours (Table) 04/09/19 04/09/19 04/09/19 Range/Units 11:45 16:41 20:24 WBC (3.8-10.6) k/uL Sodium (137-145) mmol/L Chloride (98-107) mmol/L Carbon Dioxide (22-30) mmol/L BUN (7-17) mg/dL Glucose (74-99) mg/dL POC Glucose (mg/dL) 274 H 326 H 333 H (75-99) mg/dL 04/10/19 04/10/19 04/10/19 Range/Units 07:00 08:11 08:11 WBC 14.3 H (3.8-10.6) k/uL Sodium 135 L (137-145) mmol/L Chloride 97 L (98-107) mmol/L Carbon Dioxide 33 H (22-30) mmol/L BUN 33 H (7-17) mg/dL Glucose 150 H (74-99) mg/dL POC Glucose (mg/dL) 165 H (75-99) mg/dL 04/10/19 Range/Units 11:34 WBC (3.8-10.6) k/uL Sodium (137-145) mmol/L Chloride (98-107) mmol/L Carbon Dioxide (22-30) mmol/L BUN (7-17) mg/dL Glucose (74-99) mg/dL POC Glucose (mg/dL) 291 H (75-99) mg/dL Assessment and Plan Assessment: Acute exacerbation of COPD/asthma Paroxysmal atrial fibrillation on anticoagulant Hypertension Hyperlipidemia Type 2 diabetes mellitus GERD 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 Continue with Xarelto of her anticoagulation. Repeat chest x-ray today shows increasing confluence of the lingular opacity suspicious for unifocal pneumonia. Patient was given an enema yesterday with small bowel movement noted. Continue with the rest of her current medication regimen. Further recommendations to follow depending on the progress of the patient. Patient has been moved out of the ICU and is currently on a med surg unit. Case management and social work following and working on possible placement at [facility] for continued PT/OT therapy for strength and mobility and awaiting authorization at this time.
--- NOTE | 2019-04-10 12:45 | P.PN ---
Subjective Progress Note Date: 04/10/19 Principal diagnosis: Acute exacerbation of chronic obstructive pulmonary disease/asthma This is 73-year-old white female patient of Dr. Knowles in [place], with past medical history of chronic bronchial asthma/COPD, gastroesophageal reflux disease, depression, hypertension, hyperlipidemia, diabetes, who presented today for endovascular repair of the expanding common iliac artery aneurysm on the right measuring 3.6 cm as well as infrarenal abdominal aortic aneurysm. Patient wa s maintained on a Symbicort, and a rescue inhaler.. History of nicotine dependence, currently in remission. Patient is on Xarelto for history of paroxysmal A. fib, currently in sinus rhythm. Patient started having increased dyspnea cough chest congestion and chest tightness and wheezing last week. She contacted our office and she was given a course of antibiotics and steroids over the phone. Nevertheless, she did not improve and her condition got worse and she end up coming to the hospital. Chest x-ray today showing no acute pulmonary infiltrates. Her blood work shows a white cell count of 9.1. The coagulation profile is within normal. Renal function is within normal limits. Lactic acid level was at 3.3 at a time of admission and influenza screen was negative and the troponin was also negative. She is not oxygen dependent. She quit smoking 3 years ago The patient is seen today 04/10/2019 in follow-up on the regular medical floor. She is currently sitting up at the bedside. She did utilize BiPAP last evening. Currently on 4 L nasal cannula and maintaining O2 saturations in the upper 90s. Blood and sputum cultures reveal no growth. White count 14.3. Hemoglobin 11. 7. Sodium 135. Creatinine 0.70. She is maintained on DuoNeb inhalations, Pulmicort and Perforomist inhalations, Tessalon Perles, IV Solu-Medrol. Anticoagulated with Xarelto. Objective - Vital Signs Vital signs: Vital Signs Temp 98.0 F 04/10/19 05:39 Pulse 88 04/10/19 12:26 Resp 12 04/10/19 05:39 BP 131/76 04/10/19 05:39 Pulse Ox 98 04/10/19 08:32 Intake & Output 04/09/19 04/10/19 04/10/19 18:59 06:59 18:59 Intake Total 600 Output Total 300 Balance 300 Weight 94.2 kg Intake: IV 180 Sodium Chloride 0.9% 1, 180 000 ml @ 20 mls/hr IV . Q24H [facility] Rx#:[id number] Oral 420 Output: Urine 300 Other: Voiding Method Bedside Commode Bedside Commode Bedside Commode # Voids 1 # Bowel Movements 1 0 - Exam GENERAL EXAM: Alert, pleasant, 73-year-old female patient. Up in a chair at the bedside, on 4 L of oxygen, with a pulse ox of 98%, has been wearing BiPAP during the night at 12/5 and 40% FiO2 HEAD: Normocephalic/atraumatic. EYES: Normal reaction of pupils, equal size. Conjunctiva pink, sclera white. NOSE: Clear with pink turbinates. THROAT: No erythema or exudates. NECK: No masses, no JVD, no thyroid enlargement, no adenopathy. CHEST: No chest wall deformity. Symmetrical expansion. LUNGS: End expiratory wheeze with few scattered rhonchi. CVS: Regular rate and rhythm, normal S1 and S2, no gallops, no murmurs, no rubs ABDOMEN: Soft, nontender. No hepatosplenomegaly, normal bowel sounds, no guarding or rigidity. EXTREMITIES: No clubbing, no edema, no cyanosis, 2+ pulses and upper and lower extremities. MUSCULOSKELETAL: Muscle strength and tone normal. SPINE: No scoliosis or deformity SKIN: No rashes CENTRAL NERVOUS SYSTEM: No focal deficits, tone is normal in all 4 extremities. PSYCHIATRIC: Alert and oriented -3. Appropriate affect. Intact judgment and insight. - Labs CBC & Chem 7: 04/10/19 08:11 04/10/19 08:11 Labs: Abnormal Lab Results - Last 24 Hours (Table) 04/09/19 04/09/19 04/10/19 Range/Units 16:41 20:24 07:00 WBC (3.8-10.6) k/uL Sodium (137-145) mmol/L Chloride (98-107) mmol/L Carbon Dioxide (22-30) mmol/L BUN (7-17) mg/dL Glucose (74-99) mg/dL POC Glucose (mg/dL) 326 H 333 H 165 H (75-99) mg/dL 04/10/19 04/10/19 04/10/19 Range/Units 08:11 08:11 11:34 WBC 14.3 H (3.8-10.6) k/uL Sodium 135 L (137-145) mmol/L Chloride 97 L (98-107) mmol/L Carbon Dioxide 33 H (22-30) mmol/L BUN 33 H (7-17) mg/dL Glucose 150 H (74-99) mg/dL POC Glucose (mg/dL) 291 H (75-99) mg/dL Assessment and Plan Assessment: #1. Exacerbation of COPD/asthma and the patient is quite short of breath and bronchospastic and wheezy requiring BiPAP support during the night, currently on 4 L nasal cannula, today's chest x-ray reveals bibasilar opacities right greater than left. Improved today. Will receive additional IV diuretics. #2. Shortness of breath secondary to above #3. History of paroxysmal A. fib, on Xarelto, currently in sinus rhythm #4. History of nicotine dependence, currently in remission #5. Hypertension, hyperlipidemia #6. Diabetes mellitus type 2 #7. Depressive disorder #8. GERD #9. Iliac artery aneurysm on the right, and infrarenal abdominal aortic aneurysm, status post endovascular repair #10 History of Pozo's esophagus #11 History of TIA #13 History of a right lower extremity DVT #14 History of psoriasis #15 History of chronic back pain and sciatica #16 Mild lactic acidosis , recovered Plan: The patient was seen and evaluated by Dr. Mckeon. She is stable from the pulmonary standpoint and could be transferred to [facility] in the a.m. Decrease IV Solu-Medrol. Plan for prednisone taper starting at 40 mg for 4 days in the a.m. Continue DuoNeb inhalations. Symbicort on discharge. Home oxygen. I, the cosigning physician, performed a history & physical examination of the patient. Lungs sounds with bilateral end expiratory wheeze, diminished. Maintaining good O2 saturations in the 90s on 4 L nasal cannula. I discussed the assessment and plan of care with my nurse practitioner, Sepideh Ortiz. I attest to the above note as dictated by her.
[2019-04-10] MEDS: AZITHROMYCIN 500 MG TAB PO SCH (16:26)
[2019-04-10 16:54] LABS: Glucose,Whole Blood 266 mg/dL (75-99)
[2019-04-10 21:21] LABS: Glucose,Whole Blood 236 mg/dL (75-99)
[2019-04-10 21:52] VITALS: TEMP 98.1
[2019-04-10] MEDS: ATORVASTATIN 20 MG TAB PO SCH (22:56)
[2019-04-10] MEDS: ALPRAZolam 0.5 MG TAB PO PRN (23:09)
[2019-04-10] MEDS: SODIUM CHLORIDE 0.9% 1,000 ML IV SCH (23:10)
[2019-04-10] MEDS: INSULIN DETEMIR (LEVEMIR) 100 UNIT/ML SYR SQ SCH (23:25)
[2019-04-10] MEDS: RIVAROXABAN 20 MG TAB PO SCH (23:26)
[2019-04-11 05:54] VITALS: BP 148/70
[2019-04-11] MEDS: guaiFENesin-Coden 100-10MG/5ML 10 ML CUP PO SCH ×2 (06:17→11:42)
[2019-04-11 07:06] LABS: Glucose,Whole Blood 162 mg/dL (75-99)
[2019-04-11] MEDS: BUDESONIDE 1 MG/2 ML NEBU INHALATION SCH (07:28)
[2019-04-11] MEDS: FORMOTEROL FUMARATE 20 MCG/2 ML NEBU INHALATION SCH (07:28)
[2019-04-11] MEDS: IPRATROPIUM-ALBUTEROL 3 ML NEB INHALATION SCH ×2 (07:28→11:30)
[2019-04-11 07:41] LABS: HCT 35.7 % (34.0-46.0); HGB 11.7 gm/dL (11.4-16.0); Hypochromasia Slight; MCH 30.9 pg (25.0-35.0); MCHC 32.8 g/dL (31.0-37.0); MCV 93.9 fL (80.0-100.0); Mean Platelet Volume 7.5; Platelet Count 255 k/uL (150-450); RDW 14.1 % (11.5-15.5); WBC 12.5 k/uL (3.8-10.6)
[2019-04-11 07:59] LABS: Calcium 10.1 mg/dL (8.4-10.2); Potassium 4.6 mmol/L (3.5-5.1)
[2019-04-11] MEDS: INSULIN ASPART (NovoLOG) 100 UNIT/ML VIAL SQ SCH ×2 (08:26→11:42)
[2019-04-11] MEDS: methylPREDNISolone SOD SUCCI 125 MG/2 ML VIAL IV SCH (08:26)
[2019-04-11] MEDS: CITALOPRAM HYDROBROMIDE 20 MG TAB PO SCH (08:27)
[2019-04-11] MEDS: VERAPAMIL 80 MG TAB PO SCH (08:27)
[2019-04-11] MEDS: PANTOPRAZOLE 40 MG TABLET PO SCH (08:27)
[2019-04-11] MEDS: SENNOSIDES 8.6 MG TAB PO SCH (08:27)
[2019-04-11 08:37] VITALS: RESP 20
[2019-04-11 11:29] LABS: Glucose,Whole Blood 216 mg/dL (75-99)
[2019-04-11 11:32] VITALS: PULSE 72
[2019-04-11] MEDS: BENZONATATE 100 MG CAP PO PRN (11:48)
--- NOTE | 2019-04-11 12:38 | P.DS ---
Providers Date of admission: 04/02/19 12:54 Expected date of discharge: 04/11/19 Attending physician: Danisha Arreola Consults: 04/02/19 14:59 Consult Physician Routine Consulting Provider: Bo Shukla Consult Reason/Comments: copd Do you want consulting provider notified?: Yes 04/03/19 19:20 Consult Physician ONCE Consulting Provider: Jessica Grace Consult Reason/Comments: A fib rvr Do you want consulting provider notified?: Yes Primary care physician: Hope Knowles Hospital Course: Final diagnosis Acute exacerbation of COPD/asthma Paroxysmal atrial fibrillation on anticoagulant Hypertension Hyperlipidemia Type 2 diabetes mellitus GERD 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 Patient will continue a prednisone taper upon discharge along with bronchodilators. Total time taken is 35 minutes. History of present illness This is a 73-year-old female with a past medical history of COPD and asthma and was admitted for acute COPD exacerbation and was being closely monitored. During hospitalization patient's respiratory status deteriorated and went into respiratory failure requiring a BIPAP. Patient was also found to be in A. fib with RVR and was briefly placed on a Cardizem drip. Patient normally takes verapamil at home and her dose was increased and will continue with this dose in the outpatient setting. Pulmonary was following closely. Patient is now currently doing well on oxygen via nasal cannula and intermittently uses a BiPAP settings of 12/5 at 40% at night as needed. Patient may continue with this in the outpatient setting. Patient was in the ICU for a brief period for close monitoring and throughout the course of hospitalization patient continued to be weak and worked with physical therapy and was unable to get up without moderate to max assist. Patient was adamant about returning home upon discharge but after further working with physical therapy patient was agreeable to [facility] for continued PT/OT therapy for strength and mobility. Currently patient denies any chest pain, shortness of breath, or palpitations. Patient is afebrile. Patient denies any nausea or vomiting and has been tolerating diet. Patient has not had many bowel movements but currently denies any abdominal discomfort at this time. Patient may continue with Dulcolax suppositories as needed in the outpatient setting. Currently patient's condition is stable with much improvement and is ready for discharge today. Patient will follow up with pulmonary in the outpatient setting upon discharge from the [facility] along with her primary care provider Dr. Knowles upon discharge from [facility]. On exam vital signs are stable. Temp is 98.1F, pulse is 73, respirations are 16, blood pressure is 148/70, oxygen saturation is 97% on 2 L via nasal cannula. Cardio S1, S2 are present. Respiratory system shows diminished breath sounds at the bases with a few scattered rhonchi noted. Mild expiratory wheezing noted on exam as well. Abdomen is soft, obese, nontender. Nervous system shows mild diffuse weakness. Please refer to medication reconciliation sheet for a list of medications. Patient Condition at Discharge: Stable Plan - Discharge Summary Discharge Rx Participant: Yes New Discharge Prescriptions: New Bisacodyl [Dulcolax] 10 mg RECTAL DAILY PRN supp PRN Reason: Constipation Ipratropium-Albuterol Nebulize [Duoneb 0.5 mg-3 mg/3 ml Soln] 3 ml INHALATION RT-QID ampul.neb Ipratropium-Albuterol Nebulize [Duoneb 0.5 mg-3 mg/3 ml Soln] 3 ml INHALATION RT-Q4H PRN ampul.neb PRN Reason: Shortness Of Breath Or Wheezing Verapamil [Isoptin] 80 mg PO TID #0 tab Insulin Detemir (Levemir) [Levemir] 40 unit SQ HS syr Magnesium Hydroxide [Milk of Magnesia Concentrate] 2,400 mg PO ONCE PRN ml PRN Reason: Constipation INSULIN ASPART (NovoLOG) [NovoLOG (formulary)] 0 unit SQ ACHS vial guaiFENesin-Coden 100-10MG/5ML [Robitussin AC] 10 ml PO Q6HR #10 ml Sennosides [Senokot] 8.6 mg PO DAILY tab Benzonatate [Tessalon Perles] 100 mg PO TID PRN cap PRN Reason: Cough ALPRAZolam [Xanax] 0.5 mg PO TID PRN #3 tab PRN Reason: Anxiety predniSONE 10 mg PO DIRECTED #30 tab Continue Omeprazole [PriLOSEC] 20 mg PO AC-BRKFST Simvastatin [Zocor] 40 mg PO HS Rivaroxaban [Xarelto] 20 mg PO HS [place]-3 Fatty Acids/Fish Oil [Fish Oil 1,000 mg Softgel] 1 cap PO DAILY Calcium Carbonate 500 mg PO DAILY Citalopram Hydrobromide [CeleXA] 40 mg PO DAILY metFORMIN HCL [Glucophage Xr] 750 mg PO PC-SUPPER Albuterol Nebulized [Ventolin Nebulized] 2.5 mg INHALATION RT-Q8H Budesonide/Formoterol Fumarate [Symbicort 160-4.5 Mcg Inhaler] 2 puff INHALATION RT-BID Discontinued Lisinopril [Zestril] 5 mg PO DAILY Verapamil [Isoptin] 40 mg PO BID predniSONE 20 mg PO DAILY Azithromycin [Zithromax Z-pack] See Taper PO DAILY Discharge Medication List Omeprazole [PriLOSEC] 20 mg PO AC-BRKFST 04/23/15 [History] [place]-3 Fatty Acids/Fish Oil [Fish Oil 1,000 mg Softgel] 1 cap PO DAILY 12/02/16 [History] Rivaroxaban [Xarelto] 20 mg PO HS 12/02/16 [History] Simvastatin [Zocor] 40 mg PO HS 12/02/16 [History] Calcium Carbonate 500 mg PO DAILY 10/10/17 [History] Citalopram Hydrobromide [CeleXA] 40 mg PO DAILY 03/10/18 [History] metFORMIN HCL [Glucophage Xr] 750 mg PO PC-SUPPER 03/14/18 [History] Albuterol Nebulized [Ventolin Nebulized] 2.5 mg INHALATION RT-Q8H 04/02/19 [History] Budesonide/Formoterol Fumarate [Symbicort 160-4.5 Mcg Inhaler] 2 puff INHALATION RT-BID 04/02/19 [History] ALPRAZolam [Xanax] 0.5 mg PO TID PRN #3 tab 04/11/19 [Rx] Benzonatate [Tessalon Perles] 100 mg PO TID PRN cap 04/11/19 [Rx] Bisacodyl [Dulcolax] 10 mg RECTAL DAILY PRN supp 04/11/19 [Rx] INSULIN ASPART (NovoLOG) [NovoLOG (formulary)] 0 unit SQ ACHS vial 01/15/20 [Rx] Insulin Detemir (Levemir) [Levemir] 40 unit SQ HS syr 04/11/19 [Rx] Ipratropium-Albuterol Nebulize [Duoneb 0.5 mg-3 mg/3 ml Soln] 3 ml INHALATION RT-Q4H PRN ampul.neb 04/11/19 [Rx] Ipratropium-Albuterol Nebulize [Duoneb 0.5 mg-3 mg/3 ml Soln] 3 ml INHALATION RT-QID ampul.neb 04/11/19 [Rx] Magnesium Hydroxide [Milk of Magnesia Concentrate] 2,400 mg PO ONCE PRN ml 04/11/19 [Rx] Sennosides [Senokot] 8.6 mg PO DAILY tab 04/11/19 [Rx] Verapamil [Isoptin] 80 mg PO TID #0 tab 04/11/19 [Rx] guaiFENesin-Coden 100-10MG/5ML [Robitussin AC] 10 ml PO Q6HR #10 ml 04/11/19 [Rx] predniSONE 10 mg PO DIRECTED #30 tab 04/11/19 [Rx] Follow up Appointment(s)/Referral(s): Hope Knowles MD [Primary Care Provider] - 1-2 days Activity/Diet/Wound Care/Special Instructions: Patient is going to [facility] Continue current diet Continue prednisone taper Follow-up with primary care provider upon discharge Continue with BiPAP as needed at night with BiPAP settings of 12/5 and 40% Discharge Disposition: TRANSFER TO SNF/F
--- NOTE | 2019-04-11 16:02 | P.PN ---
Subjective Progress Note Date: 04/11/19 Principal diagnosis: Acute exacerbation of COPD/asthma This is 73-year-old white female patient of Dr. 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 Patient was maintained on a Symbicort, and a rescue inhaler.. History of nicotine dependence, currently in remission. Patient is on Xarelto for history of paroxysmal A. fib, currently in sinus rhythm. Patient started having increased dyspnea cough chest congestion and chest tightness and wheezing last week. She contacted our office and she was given a course of antibiotics and steroids over the phone. Nevertheless, she did not improve and her condition got worse and she end up coming to the hospital. Chest x-ray today showing no acute pulmonary infiltrates. Her blood work shows a white cell count of 9.1. The coagulation profile is within normal. Renal function is within normal limits. Lactic acid level was at 3.3 at a time of admission and influenza screen was negative and the troponin was also negative. She is not oxygen dependent. She quit smoking 3 years ago on today's evaluation of 04/03/2019 the patient is feeling slightly better compared to yesterday. No new complaints for now. Cough and congestion has kirk bsided. She does have some mild lactic acidosis with a lactic acid of 3.3 on today's blood work. Nevertheless the serum bicarbonate 24. Renal function is within normal limits. His and accommodation bronchodilators and steroids pages also on IV Solu-Medrol. Cough has somewhat subsided compared to yesterday. She is on empiric antibiotic coverage with the commissure Rocephin and Zithromax which is on long-term anticoagulation with Xarelto regarding paroxysmal atrial fibrillation. She received 2 L of IV fluid bolus and she still on 100 mL an hour. On 04/04/2019 the patient is still bronchospastic and wheezy and short of breath. She continues to have a congested cough. She is still having difficulty completing full sentences. Up much of an improvement as occurred over the past 24 hours. No altered mentation. No chest pain. Echo of the heart was completed and was within normal limits. CAT scan of the chest showed no significant airspace disease. Overall lung volumes were small and there are some atelectatic changes bilaterally. No evidence of an acute pneumonia. She remains on IV Solu-Medrol. She remains on examination Rocephin and Zithromax. No major edema lower extremities. On 04/05/2019 she seen in follow-up selective care unit, still quite dyspneic bronchospastic, last night she required BiPAP support. Dyspneic with conversation. Currently on 4 L of oxygen with a pulse ox of 94%, she is afebrile, her respirations are labored, shallow, with diffuse wheezing throughout the lung pierce, she does have a congested cough but she is not able to bring up any sputum, his been maximized with radical treatment, she remains on IV steroids, bronchodilators, and antibiotics, yesterday's chest x-ray shows mild worsening of bibasilar filtrates/atelectasis. No fever. She has been quite limited in terms of her activity tolerance, is only been able to use the bedside commode related to extreme shortness of breath On 04/11/2019 patient seen in follow-up. Patient still somewhat dyspneic, and bronchospastic, but improving. Afebrile, hemodynamically stable. Remains on 4 L of oxygen with a pulse ox of 96-98%. Her cough is congested, but she is not bringing up any sputum, she has been treated with a combination of antibiotics, IV steroids, nebulized adequate diabetes, she is improving. Discharge planning is pending for discharge to the detention Objective - Vital Signs Vital signs: Vital Signs Temp 98.1 F 04/11/19 04:44 Pulse 72 04/11/19 11:41 Resp 20 04/11/19 08:36 BP 148/70 04/11/19 04:44 Pulse Ox 97 04/11/19 08:36 Intake & Output 04/10/19 04/11/19 04/11/19 18:59 06:59 18:59 Intake Total 1080 240 Balance 1080 240 Intake: Oral 1080 240 Other: Voiding Method Bedside Commode Bedside Commode Bedside Commode # Voids 2 1 4 # Bowel Movements 0 - Exam GENERAL EXAM: Alert, pleasant, 73-year-old white female . Dyspneic with conversation, and 4 L of oxygen. HEAD: Normocephalic/atraumatic. EYES: Normal reaction of pupils, equal size. Conjunctiva pink, sclera white. NOSE: Clear with pink turbinates. THROAT: No erythema or exudates. NECK: No masses, no JVD, no thyroid enlargement, no adenopathy. CHEST: No chest wall deformity. Symmetrical expansion. LUNGS: Diffuse expiratory wheezes and rhonchi heard throughout the lung pierce bilaterally. CVS: Regular rate and rhythm, normal S1 and S2, no gallops, no murmurs, no rubs ABDOMEN: Soft, nontender. No hepatosplenomegaly, normal bowel sounds, no guarding or rigidity. EXTREMITIES: No clubbing, no edema, no cyanosis, 2+ pulses and upper and lower extremities. Bilateral groin incisions are clean dry and intact, covered with surgical dressings, distal pulses intact MUSCULOSKELETAL: Muscle strength and tone normal. SPINE: No scoliosis or deformity SKIN: No rashes CENTRAL NERVOUS SYSTEM: Alert and oriented -3. No focal deficits, tone is normal in all 4 extremities. PSYCHIATRIC: Alert and oriented -3. Appropriate affect. Intact judgment and insi - Labs CBC & Chem 7: 04/11/19 07:14 04/11/19 07:14 Labs: Abnormal Lab Results - Last 24 Hours (Table) 04/10/19 04/10/19 04/11/19 Range/Units 16:43 21:12 07:04 WBC (3.8-10.6) k/uL Sodium (137-145) mmol/L Chloride (98-107) mmol/L Carbon Dioxide (22-30) mmol/L BUN (7-17) mg/dL Glucose (74-99) mg/dL POC Glucose (mg/dL) 266 H 236 H 162 H (75-99) mg/dL 04/11/19 04/11/19 04/11/19 Range/Units 07:14 07:14 11:27 WBC 12.5 H (3.8-10.6) k/uL Sodium 135 L (137-145) mmol/L Chloride 96 L (98-107) mmol/L Carbon Dioxide 34 H (22-30) mmol/L BUN 33 H (7-17) mg/dL Glucose 148 H (74-99) mg/dL POC Glucose (mg/dL) 216 H (75-99) mg/dL Assessment and Plan Plan: Assessment: #1. Exacerbation of COPD/asthma and the patient is quite short of breath and bronchospastic and wheezy without any acute abnormalities and the chest x-ray. The patient will be treated with accommodation bronchodilators and steroids. The patient was receiving a course of Zithromax on outpatient basis given to her by her primary care physician. She was also receiving steroids on outpatient basis without much improvement and she end up coming into the hospital for the same. The chest x-ray that was done today shows a limited left basilar infiltrate/atelectasis and the patient will be given same antibiotic coverage. Clinically the patient was improving slightly yesterday. On today's evaluation she is again short of breath and wheezing and her condition has been quite somewhat resistant to antibiotics and steroids. I'm going to give her another 24 hours of the same treatment and reevaluate her condition. Echo of the heart was noted. CAT scan of the chest was noted. #2. Shortness of breath secondary to above #3. History of paroxysmal A. fib, on Xarelto, currently in sinus rhythm #4. History of nicotine dependence, currently in remission #5. Hypertension, hyperlipidemia #6. Diabetes mellitus type 2 #7. Depressive disorder #8. GERD #9Iliac artery aneurysm on the right, and infrarenal abdominal aortic aneurysm, status post endovascular repair #10 history of Pozo's esophagus #11 history of TIA #13 history of a right lower extremity DVT #14 history of psoriasis #15 history of chronic back pain and sciatica #16 mild lactic acidosis , improving Plan: Continue current medical treatment, discharge planning is pending. Patient is still bronchospastic and dyspneic. Improving, patient can initial outpatient course of prednisone taper, finished her antibiotics. I performed a history & physical examination of the patient and discussed their management with my nurse practitioner, Maria Elena Verduzco. I reviewed the nurse practitioner's note and agree with the documented findings and plan of care. Lung sounds are positive for diffuse wheezes throughout the lung pierce. The findings and the impression was discussed with the patient. I attest to the documentation by the nurse practitioner. Time with Patient: Less than 30
== END 2019-04-11 14:21 | DRG 190 ==
LOC: EC 11:11 → 6NMEDSUR 12:54 → 3SCARD 04-03 00:47 → 2SICU 04-05 16:42 → 6NMEDSUR 04-09 18:25
PROVIDERS: ADMIT Internal Medicine; ATTEND Internal Medicine
PROC: 5A09357 Assistance with Respiratory Ventilation, Less than 24 Consecutive Hours, Continuous Positive Airway Pressure (ICD-10-PCS; principal; 2019-04-03)
DX: J44.1 Chronic obstructive pulmonary disease with (acute) exacerbation (principal); J18.9 Pneumonia, unspecified organism; J96.01 Acute respiratory failure with hypoxia; J96.02 Acute respiratory failure with hypercapnia; K57.31 Diverticulosis of large intestine without perforation or abscess with bleeding; E87.2 Acidosis; I82.401 Acute embolism and thrombosis of unspecified deep veins of right lower extremity; J98.11 Atelectasis; J44.0 Chronic obstructive pulmonary disease with (acute) lower respiratory infection; E11.51 Type 2 diabetes mellitus with diabetic peripheral angiopathy without gangrene; E66.9 Obesity, unspecified; E78.5 Hyperlipidemia, unspecified; E83.42 Hypomagnesemia; F32.9 Major depressive disorder, single episode, unspecified; F41.9 Anxiety disorder, unspecified; G89.29 Other chronic pain; I10 Essential (primary) hypertension; I48.0 Paroxysmal atrial fibrillation; I71.4 Abdominal aortic aneurysm, without rupture; I72.3 Aneurysm of iliac artery; K21.9 Gastro-esophageal reflux disease without esophagitis; K22.70 Barrett's esophagus without dysplasia; M54.40 Lumbago with sciatica, unspecified side; T38.3X5A Adverse effect of insulin and oral hypoglycemic [antidiabetic] drugs, initial encounter; L40.9 Psoriasis, unspecified; R01.1 Cardiac murmur, unspecified; M15.9 Polyosteoarthritis, unspecified; R42 Dizziness and giddiness; R32 Unspecified urinary incontinence; Z79.01 Long term (current) use of anticoagulants; Z79.51 Long term (current) use of inhaled steroids; Z79.899 Other long term (current) drug therapy; Z79.84 Long term (current) use of oral hypoglycemic drugs; Z88.0 Allergy status to penicillin; Z91.040 Latex allergy status; Z87.891 Personal history of nicotine dependence; Z86.73 Personal history of transient ischemic attack (TIA), and cerebral infarction without residual deficits; Z86.718 Personal history of other venous thrombosis and embolism; Z87.01 Personal history of pneumonia (recurrent); Z86.010 Personal history of colon polyps; Z90.49 Acquired absence of other specified parts of digestive tract; Z98.42 Cataract extraction status, left eye; Z98.41 Cataract extraction status, right eye; Z96.1 Presence of intraocular lens; Z80.1 Family history of malignant neoplasm of trachea, bronchus and lung; Z82.49 Family history of ischemic heart disease and other diseases of the circulatory system; Z68.38 Body mass index [BMI] 38.0-38.9, adult
CPT/HCPCS: 36415; 71045; 71046; 71275; 80048; 80053; 83036; 83605; 83735; 83880; 84145; 84439; 84443; 84484; 85025; 85027; 85379; 85610; 85730; 87040; 87070; 87205; 87502; 93005; 93306; 94640; 94660; 94667; 94760; 96361; 96365; 96366; 96374; 96375; 96376; 99291

== ENCOUNTER 2019-05-04 15:41 | Inpatient (IN) | payer MEDICARE ==
[2019-05-04] MEDS ORDERED: SODIUM CHLORIDE 0.9% 1,000 ML IV STA (16:36)
[2019-05-04] MEDS ORDERED: CEFEPIME 2 GM in SODIUM CHLORIDE 0.9% 100 ML IVPB STA (16:41)
[2019-05-04] MEDS ORDERED: VANCOMYCIN IV PER PHARMACY 1 EACH MISC MISCELLANE PRN (16:41)
[2019-05-04] MEDS ORDERED: ACETAMINOPHEN TAB 500 MG TAB PO STA (16:41)
--- NOTE | 2019-05-04 16:43 | ED ---
General Adult HPI - General Chief complaint: Shortness of Breath Stated complaint: CHF Time Seen by Provider: 05/04/19 16:20 Source: patient Mode of arrival: EMS Limitations: no limitations - History of Present Illness Initial comments: Dictation was produced using [employer] dictation software. please excuse any grammatical, word or spelling errors. Chief Complaint: 73-year-old female with past medical history atrial fibrillation asthma COPD presents with shortness of breath and lower extremity swelling. History of Present Illness: Patient is a 73-year-old female she was instructed by home health care nurse to come to the emergency department. Patient arrives at the emergency Department with a note written by her home health care nurse. She allegedly had gained 9 pounds in the last 2 days, has low-grade temperature developed lower extremity swelling. Patient denies any history of heart failure. Reports that she has worsening shortness of breath with exertion. She states that she does not notice worsening with lying flat. She does report acute extremity swelling over the last 48 hours. She denies hitting any salty foods recently. She does take multiple water pills prescribed by bulk tank driver. Patient was recently hospitalized and was intensive care unit for several days. After being discharged from the hospital she was transferred to correction per she is been at home for the last 2-3 days. She denies any lower extremity pain. She does have her previous history of deep venous thrombosis however she is on Xarelto for atrial fibrillation. Patient reports that she coughs with production of green sputum. She denies any chest pain. The ROS documented in this emergency department record has been reviewed and confirmed by me. Those systems with pertinent positive or negative responses have been documented in the HPI. All other systems are other negative and/or noncontributory. PHYSICAL EXAM: General Impression: Alert and oriented x3, not in acute distress HEENT: Normocephalic atraumatic, extra-ocular movements intact, pupils equal and reactive to light bilaterally, mucous membranes moist. Cardiovascular: Heart regular rate and rhythm, S1&S2 audible, no murmurs, rubs or gallops Chest: Mild expiratory rhonchi diffusely Abdomen: Bowel sounds present, abdomen soft, non-tender, non-distended, no organomegaly Musculoskeletal: Pulses present and equal in all extremities, 3+ pitting edema bilateral lower extremities extending up to the thigh region Motor: no focal deficits noted Neurological: CN II-XII grossly intact, no focal motor or sensory deficits noted Skin: Intact with no visualized rashes Psych: Normal affect and mood ED course:- 73 year-old female presents with chief complaint of shortness of breath and lower extremity swelling. As upon arrival shows tachycardia 101.6, heart rate of 77, respiratory rate of 24, blood pressure 131/77, 96% on 3 L nasal cannula. An recent hospitalization there is concern for hospital acquired pneumonia. Vital signs and clinical symptomatology concerning for SIRS/sepsis. Patient treated with prostatectomy antibiotics. Given concern of active acute Heart Failure Patient Will Be Given Judicious Fluids to prevent worsening fluid overload. Laboratory evaluation obtained. CBC unremarkable. No leukocytosis. Coag panel negative. Potassium 3.4. Renal markers within acceptable limits. Influenza test is negative. X-ray was performed showing mild atelectasis. No heart failure seen. Pending urine studies. Patient is given broad-spectrum antibiotics. There is concern for sepsis given that she has pyrexia and localizing symptoms to the chest. Prematurity peptide is not suggestive of acute decompensated heart failure. All results were discussed with patient. Recommended that patient be admitted for monitoring and treatment. She is agreeable. Discussed patient case with Mishel on-call for Dr. Cornelius's group who is agreeable for accepting patient's care. EKG interpretation: Ventricular rate 85, normal sinus rhythm,. Interval 124, care is 84, QTc 440. No TX prolongation, no QTC prolongation, no ST or T-wave changes noted. . Overall, this EKG is unremarkable - Related Data Home Medications Medication Instructions Recorded Confirmed Omeprazole [PriLOSEC] 20 mg PO AC-BRKFST 04/23/15 04/02/19 [place]-3 Fatty Acids/Fish Oil [Fish 1 cap PO DAILY 12/02/16 04/02/19 Oil 1,000 mg Softgel] Rivaroxaban [Xarelto] 20 mg PO HS 12/02/16 04/02/19 Simvastatin [Zocor] 40 mg PO HS 12/02/16 04/02/19 Calcium Carbonate 500 mg PO DAILY 10/10/17 04/02/19 Citalopram Hydrobromide [CeleXA] 40 mg PO DAILY 03/10/18 04/02/19 metFORMIN HCL [Glucophage Xr] 750 mg PO PC-SUPPER 03/14/18 04/02/19 Albuterol Nebulized [Ventolin 2.5 mg INHALATION RT-Q8H 04/02/19 04/02/19 Nebulized] Budesonide/Formoterol Fumarate 2 puff INHALATION RT-BID 04/02/19 04/02/19 [Symbicort 160-4.5 Mcg Inhaler] Previous Rx's Medication Instructions Recorded ALPRAZolam [Xanax] 0.5 mg PO TID PRN #3 tab 04/11/19 Benzonatate [Tessalon Perles] 100 mg PO TID PRN cap 04/11/19 Bisacodyl [Dulcolax] 10 mg RECTAL DAILY PRN supp 04/11/19 INSULIN ASPART (NovoLOG) [NovoLOG 0 unit SQ ACHS vial 04/11/19 (formulary)] Insulin Detemir (Levemir) [Levemir] 40 unit SQ HS syr 04/11/19 Ipratropium-Albuterol Nebulize 3 ml INHALATION RT-Q4H PRN 04/11/19 [Duoneb 0.5 mg-3 mg/3 ml Soln] ampul.neb Ipratropium-Albuterol Nebulize 3 ml INHALATION RT-QID ampul.neb 04/11/19 [Duoneb 0.5 mg-3 mg/3 ml Soln] Magnesium Hydroxide [Milk of 2,400 mg PO ONCE PRN ml 04/11/19 Magnesia Concentrate] Sennosides [Senokot] 8.6 mg PO DAILY tab 04/11/19 Verapamil [Isoptin] 80 mg PO TID #0 tab 04/11/19 guaiFENesin-Coden 100-10MG/5ML 10 ml PO Q6HR #10 ml 04/11/19 [Robitussin AC] predniSONE 10 mg PO DIRECTED #30 tab 04/11/19 Allergies Allergy/AdvReac Type Severity Reaction Status Date / Time latex Allergy Rash/Hives Verified 05/04/19 16:01 Penicillins Allergy Rash/Hives Verified 05/04/19 16:01 Review of Systems ROS Statement: Those systems with pertinent positive or pertinent negative responses have been documented in the HPI. ROS Other: All systems not noted in ROS Statement are negative. Past Medical History Past Medical History: Atrial Fibrillation, Asthma, COPD, CVA/TIA, Diabetes Mellitus, Deep Vein Thrombosis (DVT), GERD/Reflux, Hyperlipidemia, Hypertension, Osteoarthritis (OA), Pneumonia, Skin Disorder, Vascular Disorder Additional Past Medical History / Comment(s): Pt has had abdominal aneurysm/iliac aneurysm with surgery but states one of these sites is leaking per ultrasound-to have cat scan done soon, NIDDM type II, past respiratory failure/vented, bronchitis, TIA x 4, tan's esophagus, lower GI bleed, diverticular dx, colon polyps, arthritis multiple joints, chronic lower back pain with occasional sciatica, DVT R leg, vertigo at times, urinaty leakage at times, psoriasis, History of Any Multi-Drug Resistant Organisms: None Reported Past Surgical History: Appendectomy, Cholecystectomy, Hernia Repair, Orthopedic Surgery Additional Past Surgical History / Comment(s): vein stripping, jasmyne cataracts- lens implants, orif rt wrist has plate/screws, Lt breast bx-neg, ABD HERNIA, colonoscopy/ egd. Past Anesthesia/Blood Transfusion Reactions: No Reported Reaction Additional Past Anesthesia/Blood Transfusion Reaction / Comment(s): vertigo Past Psychological History: Depression Smoking Status: Former smoker - Past Family History Father History Unknown: Yes Family Medical History: Myocardial Infarction ([place]) Additional Family Medical History / Comment(s): at age 45 from [place] Mother History Unknown: Yes Additional Family Medical History / Comment(s): from natural causes -she was 95 years old Brother(s) Family Medical History: Cancer Additional Family Medical History / Comment(s): lung cancer General Exam Limitations: no limitations Course Vital Signs 05/04/19 05/04/19 05/04/19 15:54 17:00 18:26 Temperature 101.6 F H Pulse Rate 77 85 74 Respiratory 24 14 Rate Blood Pressure 131/77 131/77 O2 Sat by Pulse 96 97 Oximetry 05/04/19 19:00 Temperature 99 F Pulse Rate 88 Respiratory 24 Rate Blood Pressure 153/137 O2 Sat by Pulse 96 Oximetry Medical Decision Making - Lab Data Result diagrams: 05/04/19 16:25 05/04/19 16:25 Lab Results 05/04/19 05/04/19 05/04/19 Range/Units 16:25 16:25 16:25 WBC 8.1 (3.8-10.6) k/uL RBC 3.75 L (3.80-5.40) m/uL Hgb 11.3 L (11.4-16.0) gm/dL Hct 35.0 (34.0-46.0) % MCV 93.3 (80.0-100.0) fL MCH 30.2 (25.0-35.0) pg MCHC 32.4 (31.0-37.0) g/dL RDW 16.3 H (11.5-15.5) % Plt Count 338 (150-450) k/uL Neutrophils % 74 % Lymphocytes % 15 % Monocytes % 6 % Eosinophils % 1 % Basophils % 1 % Neutrophils # 6.0 (1.3-7.7) k/uL Lymphocytes # 1.2 (1.0-4.8) k/uL Monocytes # 0.5 (0-1.0) k/uL Eosinophils # 0.1 (0-0.7) k/uL Basophils # 0.1 (0-0.2) k/uL Anisocytosis Slight PT (9.0-12.0) sec INR (<1.2) APTT (22.0-30.0) sec Sodium 138 (137-145) mmol/L Potassium 3.4 L (3.5-5.1) mmol/L Chloride 96 L (98-107) mmol/L Carbon Dioxide 35 H (22-30) mmol/L Anion Gap 7 mmol/L BUN 12 (7-17) mg/dL Creatinine 0.78 (0.52-1.04) mg/dL Est GFR (CKD-EPI)AfAm 88 (>60 ml/min/1.73 sqM) Est GFR (CKD-EPI)NonAf 77 (>60 ml/min/1.73 sqM) Glucose 143 H (74-99) mg/dL Plasma Lactic Acid Jose Angel 1.7 (0.7-2.0) mmol/L Calcium 9.3 (8.4-10.2) mg/dL Magnesium 1.6 (1.6-2.3) mg/dL Total Bilirubin 0.5 (0.2-1.3) mg/dL AST 35 (14-36) U/L ALT 93 H (4-34) U/L Alkaline Phosphatase 89 (38-126) U/L Troponin I (0.000-0.034) ng/mL NT-Pro-B Natriuret Pep pg/mL Total Protein 6.3 (6.3-8.2) g/dL Albumin 3.7 (3.5-5.0) g/dL Influenza Type A RNA (Not Detectd) Influenza Type B (PCR) (Not Detectd) 05/04/19 05/04/19 05/04/19 Range/Units 16:25 16:25 16:25 WBC (3.8-10.6) k/uL RBC (3.80-5.40) m/uL Hgb (11.4-16.0) gm/dL Hct (34.0-46.0) % MCV (80.0-100.0) fL MCH (25.0-35.0) pg MCHC (31.0-37.0) g/dL RDW (11.5-15.5) % Plt Count (150-450) k/uL Neutrophils % % Lymphocytes % % Monocytes % % Eosinophils % % Basophils % % Neutrophils # (1.3-7.7) k/uL Lymphocytes # (1.0-4.8) k/uL Monocytes # (0-1.0) k/uL Eosinophils # (0-0.7) k/uL Basophils # (0-0.2) k/uL Anisocytosis PT 9.4 (9.0-12.0) sec INR 0.9 (<1.2) APTT 24.0 (22.0-30.0) sec Sodium (137-145) mmol/L Potassium (3.5-5.1) mmol/L Chloride (98-107) mmol/L Carbon Dioxide (22-30) mmol/L Anion Gap mmol/L BUN (7-17) mg/dL Creatinine (0.52-1.04) mg/dL Est GFR (CKD-EPI)AfAm (>60 ml/min/1.73 sqM) Est GFR (CKD-EPI)NonAf (>60 ml/min/1.73 sqM) Glucose (74-99) mg/dL Plasma Lactic Acid Jose Angel (0.7-2.0) mmol/L Calcium (8.4-10.2) mg/dL Magnesium (1.6-2.3) mg/dL Total Bilirubin (0.2-1.3) mg/dL AST (14-36) U/L ALT (4-34) U/L Alkaline Phosphatase (38-126) U/L Troponin I <0.012 (0.000-0.034) ng/mL NT-Pro-B Natriuret Pep 89 pg/mL Total Protein (6.3-8.2) g/dL Albumin (3.5-5.0) g/dL Influenza Type A RNA (Not Detectd) Influenza Type B (PCR) (Not Detectd) 05/04/19 Range/Units 16:54 WBC (3.8-10.6) k/uL RBC (3.80-5.40) m/uL Hgb (11.4-16.0) gm/dL Hct (34.0-46.0) % MCV (80.0-100.0) fL MCH (25.0-35.0) pg MCHC (31.0-37.0) g/dL RDW (11.5-15.5) % Plt Count (150-450) k/uL Neutrophils % % Lymphocytes % % Monocytes % % Eosinophils % % Basophils % % Neutrophils # (1.3-7.7) k/uL Lymphocytes # (1.0-4.8) k/uL Monocytes # (0-1.0) k/uL Eosinophils # (0-0.7) k/uL Basophils # (0-0.2) k/uL Anisocytosis PT (9.0-12.0) sec INR (<1.2) APTT (22.0-30.0) sec Sodium (137-145) mmol/L Potassium (3.5-5.1) mmol/L Chloride (98-107) mmol/L Carbon Dioxide (22-30) mmol/L Anion Gap mmol/L BUN (7-17) mg/dL Creatinine (0.52-1.04) mg/dL Est GFR (CKD-EPI)AfAm (>60 ml/min/1.73 sqM) Est GFR (CKD-EPI)NonAf (>60 ml/min/1.73 sqM) Glucose (74-99) mg/dL Plasma Lactic Acid Jose Angel (0.7-2.0) mmol/L Calcium (8.4-10.2) mg/dL Magnesium (1.6-2.3) mg/dL Total Bilirubin (0.2-1.3) mg/dL AST (14-36) U/L ALT (4-34) U/L Alkaline Phosphatase (38-126) U/L Troponin I (0.000-0.034) ng/mL NT-Pro-B Natriuret Pep pg/mL Total Protein (6.3-8.2) g/dL Albumin (3.5-5.0) g/dL Influenza Type A RNA Not Detected (Not Detectd) Influenza Type B (PCR) Not Detected (Not Detectd) Disposition Clinical Impression: SIRS (systemic inflammatory response syndrome), Dyspnea Disposition: ADMITTED IP TO THIS HOSP Condition: Fair Referrals: Hope Knowles MD [Primary Care Provider] - 1-2 days Decision Time: 19:30
[2019-05-04 16:55] LABS: Anisocytosis Slight; Basophils # (A) 0.1 k/uL (0-0.2); Basophils % (A) 1 %; Eosinophils # (A) 0.1 k/uL (0-0.7); Eosinophils % (A) 1 %; HGB 11.3 gm/dL (11.4-16.0); Lymphocytes # (A) 1.2 k/uL (1.0-4.8); Lymphocytes % (A) 15 %; MCH 30.2 pg (25.0-35.0); MCHC 32.4 g/dL (31.0-37.0); MCV 93.3 fL (80.0-100.0); Monocytes # (A) 0.5 k/uL (0-1.0); Monocytes % (A) 6 %; Neutrophils % (A) 74 %; Platelet Count 338 k/uL (150-450); RBC 3.75 m/uL (3.80-5.40); RDW 16.3 % (11.5-15.5); WBC 8.1 k/uL (3.8-10.6)
--- NOTE | 2019-05-04 16:58 | XR ---
EXAMINATION TYPE: XR chest 2V DATE OF EXAM: 05/04/2019 COMPARISON: 04/10/2019 HISTORY: COPD TECHNIQUE: 2 views FINDINGS: There is some linear density at the lung bases. There is no heart failure. Costophrenic ang les are clear. There are chest leads. There is atheromatous change in the thoracic aorta. IMPRESSION: Mild atelectasis at the lung bases unchanged. No heart failure seen.
[2019-05-04 17:05] LABS: INR 0.9 (<1.2); Prothrombin Time 9.4 sec (9.0-12.0)
[2019-05-04 17:08] LABS: Albumin 3.7 g/dL (3.5-5.0); Calcium 9.3 mg/dL (8.4-10.2); Magnesium 1.6 mg/dL (1.6-2.3); Potassium 3.4 mmol/L (3.5-5.1); Total Bilirubin 0.5 mg/dL (0.2-1.3); Total Protein 6.3 g/dL (6.3-8.2)
[2019-05-04] MEDS ORDERED: IPRATROPIUM-ALBUTEROL 3 ML NEB INHALATION STA (18:15)
[2019-05-04] MEDS: VANCOMYCIN 1,500 MG in SODIUM CHLORIDE 0.9% 250 ML IVPB ONE ×2 (18:30→18:31)
[2019-05-04] MEDS ORDERED: NALOXONE 0.4 MG/ML 1 ML VIAL IV PRN (19:25)
[2019-05-04] MEDS ORDERED: ONDANSETRON 4 MG/2 ML VIAL IVP PRN (19:25)
[2019-05-04 19:58] LABS: Appearance,Urine Clear (Clear); Bilirubin,Urine Negative (Negative); Blood,Urine Negative (Negative); Color,Urine Yellow; Glucose,Urine (UA) Negative (Negative); Ketones,Urine Negative (Negative); Leukocyte Esterase,Urine Negative (Negative); Nitrite,Urine Negative (Negative); PH, Urine 6.5 (5.0-8.0); Protein,Urine Trace (Negative); Specific Gravity,Urine 1.019 (1.001-1.035); Urobilinogen,Urine <2.0 mg/dL (<2.0)
[2019-05-04] MEDS ORDERED: ACETAMINOPHEN TAB 325 MG TAB PO PRN (23:18)
[2019-05-05] MEDS: IPRATROPIUM-ALBUTEROL 3 ML NEB INHALATION SCH ×7 (00:32→23:54)
[2019-05-05 00:50] LABS: Glucose,Whole Blood 156 mg/dL (75-99)
[2019-05-05] MEDS: RIVAROXABAN 20 MG TAB PO SCH ×2 (00:50→21:15)
[2019-05-05] MEDS: SODIUM CHLORIDE 0.9% 1,000 ML IV SCH ×2 (00:50→06:10)
[2019-05-05] MEDS: INSULIN DETEMIR (LEVEMIR) 100 UNIT/ML SYR SQ SCH ×2 (00:51→21:16)
[2019-05-05 06:58] LABS: Glucose,Whole Blood 117 mg/dL (75-99)
[2019-05-05] MEDS: FUROSEMIDE 10 MG/ML 4 ML VIAL IV SCH ×2 (07:57→21:15)
[2019-05-05] MEDS: metFORMIN 500 MG TAB PO SCH ×2 (07:58→18:09)
[2019-05-05] MEDS: ATORVASTATIN 20 MG TAB PO SCH (07:58)
[2019-05-05] MEDS: LISINOPRIL 5 MG TAB PO SCH (07:58)
[2019-05-05] MEDS: INSULIN ASPART (NovoLOG) 100 UNIT/ML VIAL SQ SCH ×4 (07:59→21:17)
[2019-05-05] MEDS: CITALOPRAM HYDROBROMIDE 20 MG TAB PO SCH (07:59)
[2019-05-05] MEDS: VERAPAMIL 80 MG TAB PO SCH ×3 (07:59→21:15)
[2019-05-05] MEDS: PANTOPRAZOLE 40 MG TABLET PO SCH (08:11)
[2019-05-05] MEDS: SPIRONOLACTONE 25 MG TAB PO SCH (08:11)
[2019-05-05] MEDS: POTASSIUM CHLORIDE ER 20 MEQ TAB.ER PO SCH ×2 (08:11→21:15)
[2019-05-05 08:21] LABS: Anisocytosis Slight; Basophils % (A) 0 %; Eosinophils # (A) 0.1 k/uL (0-0.7); Eosinophils % (A) 1 %; HCT 34.7 % (34.0-46.0); HGB 10.9 gm/dL (11.4-16.0); Lymphocytes % (A) 14 %; MCH 29.5 pg (25.0-35.0); MCHC 31.4 g/dL (31.0-37.0); Mean Platelet Volume 6.9; Monocytes # (A) 0.3 k/uL (0-1.0); Monocytes % (A) 5 %; Neutrophils # (A) 5.4 k/uL (1.3-7.7); Neutrophils % (A) 77 %; Platelet Count 292 k/uL (150-450); RBC 3.69 m/uL (3.80-5.40); RDW 16.5 % (11.5-15.5)
[2019-05-05 09:09] LABS: African American GFR (CKD) >90 (>60 ml/min/1.73 sqM); Anion Gap 8 mmol/L; Blood Urea Nitrogen 10 mg/dL (7-17); Calcium 9.5 mg/dL (8.4-10.2); Carbon Dioxide 31 mmol/L (22-30); Chloride 99 mmol/L (98-107); Glucose 109 mg/dL (74-99); Non-African American GFR(CKD) >90 (>60 ml/min/1.73 sqM); Potassium 3.6 mmol/L (3.5-5.1); Sodium 138 mmol/L (137-145)
[2019-05-05] MEDS ORDERED: VANCOMYCIN 1,500 MG in SODIUM CHLORIDE 0.9% 250 ML IVPB SCH (10:00)
[2019-05-05 12:06] LABS: Glucose,Whole Blood 124 mg/dL (75-99)
[2019-05-05] MEDS ORDERED: VANCOMYCIN IV PER PHARMACY 1 EACH MISC MISCELLANE PRN (13:57)
[2019-05-05] MEDS ORDERED: HYDROcodone/APAP 5-325MG 1 EACH TAB PO PRN (13:57)
--- NOTE | 2019-05-05 14:14 | P.CNPUL ---
History of Present Illness Consult date: 05/05/19 Requesting physician: Kalyan Cornelius Reason for consult: dyspnea, COPD Chief complaint: Shortness of breath, cough, congestion History of present illness: This is a very pleasant 73-year-old female patient of Dr. 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 Patient was maintained on a Symbicort, and a rescue inhaler.. History of nicotine dependence, currently in remission. Patient is on Xarelto for history of paroxysmal A. fib. She was just admitted a month ago for COPD exacerbation. A CT angiogram at that time ruled out pulmonary embolism. There is some patchy atelectasis of the lung bases. She improved and was discharged home on 04/11/2019. She presented here to the emergency room yesterday again with worsening shortness of breath, cough and congestion. Chest x-ray revealed some mild atelectatic changes in the lung bases. No overt heart failure. The patient had been having increase edema of the lower extremities. She is on Lasix 40 mg IV push every 12 hours. She was initiated on bronchodilators and vancomycin. She is seen today in consultation on the regular medical floor. She is currently sitting up in a chair at the bedside. Awake and alert in no acute distress. She states she is breathing easier today compared to yesterday. She is maintaining O2 saturations in the 90s on 3 L/m per nasal cannula. She's afebrile. Remains tachycardic. Paroxysmal atrial fibrillation. Continue to on her Xarelto. Review of Systems REVIEW OF SYSTEMS: CONSTITUTIONAL: Positive for recent weight gain. EYES: Denies change in vision. EARS, NOSE, MOUTH, THROAT: Denies headaches, denies sore throat. CARDIOVASCULAR: Denies chest pain, palpitations or syncopal episodes. RESPIRATORY: Positive for shortness of breath, cough, congestion no hemoptysis. GASTROINTESTINAL: Denies change in appetite, denies abdominal pain GENITOURINARY: Denies hematuria, denies infections. MUSKULOSKELETAL: Positive for increased swelling in lower extremities. INTEGUMENTARY: Denies rash, denies eczema. NEUROLOGICAL: Denies recent memory loss, no recent seizure activity. PSYCHIATRIC: Denies anxiety, denies depression. HEMATOLOGIC/LYMPHATIC: Denies anemia, denies enlarged lymph nodes. Past Medical History Past Medical History: Atrial Fibrillation, Asthma, COPD, CVA/TIA, Diabetes Mellitus, Deep Vein Thrombosis (DVT), GERD/Reflux, Hyperlipidemia, Hypertension, Osteoarthritis (OA), Pneumonia, Skin Disorder, Vascular Disorder Additional Past Medical History / Comment(s): Pt has had abdominal aneurysm/iliac aneurysm with surgery; NIDDM type II, past respiratory failure/vented, bronchitis, TIA x 4, tan's esophagus, lower GI bleed, diverticular dx, colon polyps, arthritis multiple joints, chronic lower back pain; sciatica, DVT R leg, vertigo at times, urinary leakage at times, psoriasis History of Any Multi-Drug Resistant Organisms: None Reported Past Surgical History: Appendectomy, Cholecystectomy, Hernia Repair, Orthopedic Surgery Additional Past Surgical History / Comment(s): vein stripping, jasmyne cataracts- lens implants, orif rt wrist has plate/screws, Lt breast biopsy-neg, ABD HERNIA, colonoscopy/egd. Past Anesthesia/Blood Transfusion Reactions: No Reported Reaction Additional Past Anesthesia/Blood Transfusion Reaction / Comment(s): vertigo Past Psychological History: Depression Additional Psychological History / Comment(s): Pt resides alone. She has a nebulizer. Uses a walker. States doctors recommended to not drive Smoking Status: Former smoker Past Alcohol Use History: None Reported Additional Past Alcohol Use History / Comment(s): started smoking at age 19(1965) and quit 2015, was smoking 1 ppd Past Drug Use History: None Reported - Past Family History Father History Unknown: Yes Family Medical History: Myocardial Infarction ([place]) Additional Family Medical History / Comment(s): at age 45 from [place] Mother History Unknown: Yes Additional Family Medical History / Comment(s): from natural causes -she was 95 years old Brother(s) Family Medical History: Cancer Additional Family Medical History / Comment(s): lung cancer Medications and Allergies Home Medications Medication Instructions Recorded Confirmed Type Omeprazole [PriLOSEC] 20 mg PO AC-BRKFST 04/23/15 05/04/19 History [place]-3 Fatty Acids/Fish Oil [Fish 1 cap PO DAILY 12/02/16 05/04/19 History Oil 1,000 mg Softgel] Rivaroxaban [Xarelto] 20 mg PO HS 12/02/16 05/04/19 History Simvastatin [Zocor] 40 mg PO HS 12/02/16 05/04/19 History Citalopram Hydrobromide [CeleXA] 40 mg PO DAILY 03/10/18 05/04/19 History metFORMIN HCL [Glucophage Xr] 750 mg PO PC-SUPPER 03/14/18 05/04/19 History Albuterol Nebulized [Ventolin 2.5 mg INHALATION RT-Q8H 04/02/19 05/04/19 History Nebulized] Budesonide/Formoterol Fumarate 2 puff INHALATION RT-BID 04/02/19 05/04/19 History [Symbicort 160-4.5 Mcg Inhaler] Ipratropium-Albuterol Nebulize 3 ml INHALATION RT-QID ampul.neb 04/11/19 05/04/19 Rx [Duoneb 0.5 mg-3 mg/3 ml Soln] Sennosides [Senokot] 8.6 mg PO DAILY tab 04/11/19 05/04/19 Rx Verapamil [Isoptin] 80 mg PO TID #0 tab 04/11/19 05/04/19 Rx Atorvastatin [Lipitor] 20 mg PO DAILY 05/04/19 05/04/19 History Calcium Carbonate/Vitamin D3 1 tab PO DAILY 05/04/19 05/04/19 History [Calcium 500-Vit D3 200 Tablet] Fluticasone/Vilanterol [Breo 1 inhalation PO Q24HR 05/04/19 05/04/19 History Ellipta 100-25 Mcg Inhaler] Furosemide [Lasix] 40 mg PO BID 05/04/19 05/04/19 History Insulin Glargine,Hum.rec.anlog 40 unit SQ HS 05/04/19 05/04/19 History [Basaglar Kwikpen U-100] Lisinopril [Zestril] 5 mg PO DAILY 05/04/19 05/04/19 History Spironolactone 12.5 mg PO DAILY 05/04/19 05/04/19 History Allergies Allergy/AdvReac Type Severity Reaction Status Date / Time latex Allergy Rash/Hives Verified 05/04/19 20:14 Penicillins Allergy Rash/Hives Verified 05/04/19 20:14 Physical Exam Vitals: Vital Signs Temp Pulse Pulse Resp BP BP Pulse Ox 05/05/19 11:19 94 05/05/19 11:09 90 05/05/19 08:02 132 H 05/05/19 07:51 124 H 98 05/05/19 07:00 98.4 F 64 17 126/72 92 L 05/05/19 05:12 73 05/05/19 05:02 72 05/05/19 01:16 98.5 F 80 22 101/65 95 05/05/19 00:44 73 05/05/19 00:34 72 05/05/19 00:00 80 20 05/04/19 22:19 98.3 F 87 22 110/61 96 05/04/19 19:52 65 16 136/67 94 L 05/04/19 19:00 99 F 88 24 153/137 96 05/04/19 18:36 75 05/04/19 18:26 74 05/04/19 17:00 85 14 131/77 97 05/04/19 15:54 101.6 F H 77 24 131/77 96 Intake and Output 05/04/19 05/05/19 05/05/19 22:59 06:59 14:59 Output Total 2 Balance -2 Output: Urine 2 Other: Voiding Method Bedside Commode Diaper # Voids 2 Weight 88 kg GENERAL EXAM: Alert, pleasant 73-year-old female patient, on 3 L nasal cannula, comfortable in no apparent distress. HEAD: Normocephalic. EYES: Normal reaction of pupils, equal size. NOSE: Clear with pink turbinates. THROAT: No erythema or exudates. NECK: No masses, no JVD. CHEST: No chest wall deformity. LUNGS: Equal air entry with crackles in the bilateral posterior bases. CVS: S1 and S2 normal with no audible murmur, regular rhythm. ABDOMEN: No hepatosplenomegaly, normal bowel sounds, no guarding or rigidity. SPINE: No scoliosis or deformity SKIN: No rashes CENTRAL NERVOUS SYSTEM: No focal deficits, tone is normal in all 4 extremities. EXTREMITIES: There is 1-2+ peripheral edema. No clubbing, no cyanosis. Peripheral pulses are intact. Results - Laboratory Findings CBC and BMP: 05/05/19 07:32 05/05/19 07:32 PT/INR, D-dimer PT 9.4 sec (9.0-12.0) 05/04/19 16:25 INR 0.9 (<1.2) 05/04/19 16:25 Abnormal lab findings: Abnormal Labs 05/04/19 05/04/19 05/04/19 16:25 16:25 19:41 RBC 3.75 L Hgb 11.3 L RDW 16.3 H Potassium 3.4 L Chloride 96 L Carbon Dioxide 35 H Glucose 143 H POC Glucose (mg/dL) ALT 93 H Urine Protein Trace H 05/05/19 05/05/19 05/05/19 00:49 06:56 07:32 RBC 3.69 L Hgb 10.9 L RDW 16.5 H Potassium Chloride Carbon Dioxide Glucose POC Glucose (mg/dL) 156 H 117 H ALT Urine Protein 05/05/19 05/05/19 07:32 12:05 RBC Hgb RDW Potassium Chloride Carbon Dioxide 31 H Glucose 109 H POC Glucose (mg/dL) 124 H ALT Urine Protein - Diagnostic Findings Chest x-ray: image reviewed (Mild atelectasis of the lung bases. No overt heart failure.) Assessment and Plan Assessment: 1 Acute exacerbation of chronic obstructive pulmonary disease with no clear evidence of pneumonia. Recently discharged less than one month ago for COPD exacerbation. Influenza screen negative. No leukocytosis. 2 Chronic tobacco dependence currently in remission 3 Lower extremity edema 4 paroxysmal atrial fibrillation, adequately regulated with Xarelto 5 Hypertension. 6 Hyperlipidemia. 7 Diabetes mellitus, type II 8 Depressive disorder. 9 Esophageal reflux disease 10 Iliac artery aneurysm on the right an infrarenal abdominal aortic aneurysm, status post repair 11 Tan's esophagus 12 History of TIA 13 History of right lower extremity DVT 14 Chronic back pain Plan: The patient was seen and evaluated by Dr. Mckeon. Chest x-ray and labs reviewed. We'll continue the current treatment plan. Continue diuretics. Add Symbicort. Add prednisone. Check pro calcitonin. Continue antibiotics for now. We will continue to follow and make further recommendations based on her c linical status. I, the cosigning physician, performed a history & physical examination of the patient. Lungs sounds with crackles in the posterior bases Maintaining good O2 saturations in the 90s on 3 L/m per nasal cannula. I discussed the assessment and plan of care with my nurse practitioner, Sepideh Ortiz. I attest to the above consultation as dictated by her. Time with Patient: Greater than 30
[2019-05-05] MEDS: CEFEPIME 2 GM in SODIUM CHLORIDE 0.9% 100 ML IVPB SCH (14:54)
[2019-05-05] MEDS: methylPREDNISolone SOD SUCCI 125 MG/2 ML VIAL IV SCH ×2 (14:55→21:16)
[2019-05-05] MEDS: BUDESONIDE 1 MG/2 ML NEBU INHALATION SCH ×2 (15:26→19:30)
[2019-05-05] MEDS: FORMOTEROL FUMARATE 20 MCG/2 ML NEBU INHALATION SCH ×2 (15:27→19:30)
--- NOTE | 2019-05-05 15:35 | HP ---
HISTORY AND PHYSICAL CHIEF COMPLAINTS: Shortness of breath and cough. HISTORY OF PRESENT ILLNESS: This 73-year-old woman with a past medical history of multiple medical problems was recently admitted to [facility] with features of COPD acute exacerbation, paroxysmal atrial fibrillation. The patient was monitored closely. Patient improved significantly. Patient was discharged ECF. The patient spent a couple weeks in the ECF, but went home and currently the patient is complaining of significant shortness of breath and apparently patient also gained about 9 pounds in the last 2 days per the home nurse. The patient also had low-grade temperature. The patient also had bilateral extremity swelling. Because of multiple symptomatology, the patient came to the hospital and admitted for further evaluation and treatment. A chest x-ray done in the ER which I personally reviewed showed some atelectasis of the lung bases at this time. The patient's white count is 8.1, hemoglobin 11.3. Patient was admitted for further evaluation and treatment. NT proBNP is only 89. A 2D echo with Doppler which was done during the last admission showed ejection fraction about 50% to 60%. There is no history of fever, rigors. No history of headache, loss of consciousness or seizures at this time. PAST MEDICAL HISTORY: History of atrial fibrillation, history of asthma, COPD, CVA, TIA, diabetes type 2, DVT, GERD, hypertension, hyperlipidemia, DJD, history of pneumonia, history of abdominal aneurysm, iliac aneurysm, appendectomy. MEDICATIONS: Home medications are prior to admission include: 1. Breo Ellipta 1 puff b.i.d. 2. Isoptin 80 mg p.o. t.i.d. 3. Prilosec 20 mg with breakfast. 4. Lasix 40 mg p.o. b.i.d. 5. Basaglar 40 units subcu at bedtime. 6. Lipitor 20 mg p.o. daily. 7. DuoNeb q.i.d. 8. Ventolin 2.5 q.8. 9. Xarelto 20 mg at bedtime. 10.Glucophage XR 750 mg with supper. 11.Fish oil 1 p.o. daily. 12.Zestril 5 mg p.o. daily. 13.Calcium with vitamin D 1 p.o. daily. 14.Aldactone 12.5 mg daily. 15.Celexa 40 mg p.o. daily. 16.Zocor 40 mg p.o. at bedtime. 17.Symbicort 160/4.5 two puffs b.i.d. 18.Senokot 8.6 mg p.o. daily. ALLERGIES: LATEX and PENICILLIN. FAMILY HISTORY: History of myocardial infarction in the family. SOCIAL HISTORY: Previous history of smoking. No history of alcohol intake. REVIEW OF SYSTEMS: ENT: No diminished in hearing or vision. CARDIOVASCULAR SYSTEM: As mentioned earlier. RESPIRATORY SYSTEM: As mentioned earlier. GI: No nausea. : No dysuria. NERVOUS SYSTEM: No numbness or weakness. ALLERGY/IMMUNOLOGY: No asthma. MUSCULOSKELETAL: As mentioned earlier. HEMATOLOGY/ONCOLOGY: No history of anemia. ENDOCRINE: Diabetes mellitus. CONSTITUTIONAL: As mentioned earlier. DERMATOLOGY: Negative. RHEUMATOLOGY: Negative. PSYCHIATRY: As mentioned earlier. PHYSICAL EXAMINATION: The patient is alert and oriented x3. Pulse is 124, blood pressure 126/72, respirations 17, temperature 98 degrees, pulse ox 92% on 3 L. HEENT: Conjunctivae normal. NECK: No JVD. CARDIOVASCULAR: S1, S2 muffled. RESPIRATORY: Breath sounds diminished at the bases. Bilateral scattered rhonchi and crackles. Expiratory wheezing also present. ABDOMEN: Soft, nontender. No mass palpable. LEGS: No edema, no swelling. NERVOUS SYSTEM: Higher function as mentioned. Moves all 4 limbs. No focal motor or sensory deficits. LYMPHATICS: No lymphadenopathy of the neck, axillae or groin. SKIN: No ulcer, rash or bleeding. JOINTS: No active deforming arthropathy. LABS: WBC 7.3, hemoglobin 10.9, potassium 3.4, otherwise other labs are noted. ASSESSMENT: 1. Shortness of breath possibly multifactorial with chronic obstructive pulmonary disease, acute exacerbation, also congestive heart failure acute exacerbation with acute on chronic diastolic dysfunction, ejection 50% to 60%. Rule out healthcare associated pneumonia. 2. Possible bibasilar atelectasis or bronchopneumonia. 3. History of atrial fibrillation, paroxysmal. 4. History of asthma, chronic obstructive pulmonary disease. 5. History of cerebrovascular accident, transient ischemic attack. 6. Diabetes mellitus type 2. 7. History of deep vein thrombosis. 8. Gastroesophageal reflux disease. 9. Hypertension. 10.Hyperlipidemia. 11.History of degenerative joint disease. 12.History of pneumonia. 13.History of abdominal aortic aneurysm and iliac aneurysm with surgery. 14.History of previous acute hypoxic respiratory failure. 15.History of transient ischemic attack. 16.History of Pozo's esophagus. 17.History of lower gastrointestinal bleed with diverticular bleed. 18.History of vertigo. 19.History of appendectomy. 20.History of cholecystectomy. 21.History of depression. 22.Remote history of nicotine dependence. 23.Obesity with body mass index of 34.5. 24.FULL CODE. RECOMMENDATIONS AND DISCUSSION: This 73-year-old woman who presented with multiple medical problems, we will monitor the patient closely. Continue the current medications. Continue symptomatic treatment. Patient is started on a small dose diuretics; otherwise I will monitor fluid electrolyte balance. As far as respiratory concerns, I would recommend broad-spectrum IV antibiotics empirically. Otherwise intensive bronchodilators and steroids. We will closely monitor. Pulmonary has been consulted. Resume the home medications. Prognosis guarded because of multiple complex medical issues. Further recommendations to follow. A copy forwarded to Dr. Knowles who is the primary physician. MMSCOOBYL / IJN: [id number] /
[2019-05-05] MEDS ORDERED: SENNOSIDES 8.6 MG TAB PO STA (16:40)
[2019-05-05 16:55] LABS: Glucose,Whole Blood 178 mg/dL (75-99)
[2019-05-05] MEDS: SENNOSIDES 8.6 MG TAB PO SCH (18:09)
[2019-05-05] MEDS ORDERED: NON FORMULARY DRUG (Simvastatin 40 MG) PO SCH (21:00)
[2019-05-05 21:15] LABS: Glucose,Whole Blood 346 mg/dL (75-99)
[2019-05-05] MEDS: VANCOMYCIN 1,500 MG in SODIUM CHLORIDE 0.9% 250 ML IVPB SCH (21:50)
[2019-05-06] MEDS: CEFEPIME 2 GM in SODIUM CHLORIDE 0.9% 100 ML IVPB SCH ×3 (01:52→16:11)
[2019-05-06] MEDS: methylPREDNISolone SOD SUCCI 125 MG/2 ML VIAL IV SCH ×4 (01:53→22:13)
[2019-05-06] MEDS: IPRATROPIUM-ALBUTEROL 3 ML NEB INHALATION SCH ×6 (04:27→23:54)
[2019-05-06 06:55] LABS: Glucose,Whole Blood 195 mg/dL (75-99)
[2019-05-06] MEDS: INSULIN ASPART (NovoLOG) 100 UNIT/ML VIAL SQ SCH ×4 (07:55→22:15)
[2019-05-06] MEDS: FORMOTEROL FUMARATE 20 MCG/2 ML NEBU INHALATION SCH ×2 (07:55→20:19)
[2019-05-06] MEDS: BUDESONIDE 1 MG/2 ML NEBU INHALATION SCH ×2 (07:55→19:34)
[2019-05-06 08:01] LABS: Anisocytosis Slight; Basophils % (A) 0 %; Eosinophils % (A) 0 %; HCT 33.9 % (34.0-46.0); HGB 10.7 gm/dL (11.4-16.0); Lymphocytes # (A) 0.6 k/uL (1.0-4.8); Lymphocytes % (A) 5 %; MCHC 31.5 g/dL (31.0-37.0); MCV 95.2 fL (80.0-100.0); Monocytes # (A) 0.3 k/uL (0-1.0); Monocytes % (A) 3 %; Neutrophils # (A) 10.1 k/uL (1.3-7.7); Neutrophils % (A) 91 %; Platelet Count 274 k/uL (150-450); RBC 3.56 m/uL (3.80-5.40); RDW 16.6 % (11.5-15.5); WBC 11.1 k/uL (3.8-10.6)
[2019-05-06 08:12] LABS: African American GFR (CKD) >90 (>60 ml/min/1.73 sqM); Anion Gap 8 mmol/L; Blood Urea Nitrogen 17 mg/dL (7-17); Calcium 9.7 mg/dL (8.4-10.2); Carbon Dioxide 29 mmol/L (22-30); Chloride 97 mmol/L (98-107); Glucose 177 mg/dL (74-99); Non-African American GFR(CKD) 89 (>60 ml/min/1.73 sqM); Potassium 4.2 mmol/L (3.5-5.1); Sodium 134 mmol/L (137-145)
[2019-05-06] MEDS: metFORMIN 500 MG TAB PO SCH ×2 (08:32→17:58)
[2019-05-06] MEDS: ATORVASTATIN 20 MG TAB PO SCH (08:35)
[2019-05-06] MEDS: VERAPAMIL 80 MG TAB PO SCH ×3 (08:35→22:21)
[2019-05-06] MEDS: CALCIUM CARB-VIT D 500MG-200UN 1 EACH TAB PO SCH (08:35)
[2019-05-06] MEDS: CITALOPRAM HYDROBROMIDE 20 MG TAB PO SCH (08:35)
[2019-05-06] MEDS: LISINOPRIL 5 MG TAB PO SCH (08:36)
[2019-05-06] MEDS: POTASSIUM CHLORIDE ER 20 MEQ TAB.ER PO SCH ×2 (08:36→22:12)
[2019-05-06] MEDS: PANTOPRAZOLE 40 MG TABLET PO SCH (08:36)
[2019-05-06] MEDS: FUROSEMIDE 10 MG/ML 4 ML VIAL IV SCH ×2 (08:37→22:12)
[2019-05-06] MEDS: SPIRONOLACTONE 25 MG TAB PO SCH (08:50)
[2019-05-06] MEDS: SENNOSIDES 8.6 MG TAB PO SCH (08:51)
[2019-05-06] MEDS: VANCOMYCIN 1,500 MG in SODIUM CHLORIDE 0.9% 250 ML IVPB SCH ×2 (08:51→22:14)
[2019-05-06] MEDS ORDERED: SENNOSIDES 8.6 MG TAB PO SCH (09:00)
[2019-05-06] MEDS ORDERED: NON FORMULARY DRUG (Omega-3 Fatty Acids/Fish Oil [Fish Oil 1,000 Mg Softgel] 1 CAP) PO SCH (09:00)
[2019-05-06 12:04] LABS: Glucose,Whole Blood 180 mg/dL (75-99)
[2019-05-06] MEDS: ALPRAZolam 0.25 MG TAB PO PRN (13:09)
[2019-05-06] MEDS: SODIUM CHLORIDE 0.9% 1,000 ML IV SCH (13:38)
--- NOTE | 2019-05-06 15:40 | P.PN ---
Subjective Progress Note Date: 05/06/19 Principal diagnosis: Acute exacerbation of chronic obstructive pulmonary disease This is a very pleasant 73-year-old female patient of Dr. 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 Patient was maintained on a Symbicort, and a rescue inhaler.. History of nicotine dependence, currently in remission. Patient is on Xarelto for history of paroxysmal A. fib. She was just admitted a month ago for COPD exacerbation. A CT angiogram at that time ruled out pulmonary embolism. There is some patchy atelectasis of the lung bases. She improved and was discharged home on 04/11/2019. She presented here to the emergency room yesterday again with worsening shortness of breath, cough and congestion. Chest x-ray revealed some mild atelectatic changes in the lung bases. No overt heart failure. The patient had been having increase edema of the lower extremities. She is on Lasix 40 mg IV push every 12 hours. She was initiated on bronchodilators and vancomycin. She is seen today in consultation on the regular medical floor. She is currently sitting up in a chair at the bedside. Awake and alert in no acute distress. She states she is breathing easier today compared to yesterday. She is maintaining O2 saturations in the 90s on 3 L/m per nasal cannula. She's afebrile. Remains tachycardic. Paroxysmal atrial fibrillation. Continue to on her Xarelto. The patient is seen today 05/06/2019 in follow-up on the regular medical floor. She remains awake and alert in no acute distress. Sitting up in a chair at the bedside. Improved today compared to yesterday. Not quite back to her baseline. Maintaining O2 saturation in the 90s on 2 L/m per nasal cannula. Blood culture reveals no growth. White count 11.1. Hemoglobin 10.7. Creatinine 0.65. She is continued on DuoNeb inhalations, Pulmicort and Perforomist inhalations, IV Solu-Medrol, antibiotics in the form of vancomycin and cefepime. On IV diuretics. Anticoagulated with Xarelto. Objective - Vital Signs Vital signs: Vital Signs Temp 98.2 F 05/06/19 07:00 Pulse 92 05/06/19 11:15 Resp 20 05/06/19 07:00 BP 113/74 05/06/19 07:00 Pulse Ox 94 L 05/06/19 00:35 Intake & Output 05/05/19 05/06/19 05/06/19 18:59 06:59 18:59 Intake Total 330 Balance 330 Intake: Oral 330 Other: Voiding Method Toilet # Voids 3 1 1 # Bowel Movements 1 - Exam GENERAL EXAM: Alert, pleasant 73-year-old female patient, on 2 L nasal cannula, comfortable in no apparent distress. HEAD: Normocephalic. EYES: Normal reaction of pupils, equal size. NOSE: Clear with pink turbinates. THROAT: No erythema or exudates. NECK: No masses, no JVD. CHEST: No chest wall deformity. LUNGS: Equal air entry with crackles in the bilateral posterior bases. CVS: S1 and S2 normal with no audible murmur, regular rhythm. ABDOMEN: No hepatosplenomegaly, normal bowel sounds, no guarding or rigidity. SPINE: No scoliosis or deformity SKIN: No rashes CENTRAL NERVOUS SYSTEM: No focal deficits, tone is normal in all 4 extremities. EXTREMITIES: There is 1-2+ peripheral edema. No clubbing, no cyanosis. Peripheral pulses are intact. - Labs CBC & Chem 7: 05/06/19 07:23 05/06/19 07:23 Labs: Abnormal Lab Results - Last 24 Hours (Table) 05/05/19 05/05/19 05/06/19 Range/Units 16:54 21:14 06:54 WBC (3.8-10.6) k/uL RBC (3.80-5.40) m/uL Hgb (11.4-16.0) gm/dL Hct (34.0-46.0) % RDW (11.5-15.5) % Neutrophils # (1.3-7.7) k/uL Lymphocytes # (1.0-4.8) k/uL Sodium (137-145) mmol/L Chloride (98-107) mmol/L Glucose (74-99) mg/dL POC Glucose (mg/dL) 178 H 346 H 195 H (75-99) mg/dL 05/06/19 05/06/19 05/06/19 Range/Units 07:23 07:23 12:03 WBC 11.1 H (3.8-10.6) k/uL RBC 3.56 L (3.80-5.40) m/uL Hgb 10.7 L (11.4-16.0) gm/dL Hct 33.9 L (34.0-46.0) % RDW 16.6 H (11.5-15.5) % Neutrophils # 10.1 H (1.3-7.7) k/uL Lymphocytes # 0.6 L (1.0-4.8) k/uL Sodium 134 L (137-145) mmol/L Chloride 97 L (98-107) mmol/L Glucose 177 H (74-99) mg/dL POC Glucose (mg/dL) 180 H (75-99) mg/dL Microbiology - Last 24 Hours (Table) 05/04/19 16:25 Blood Culture - Preliminary Blood No Growth after 24 hours Assessment and Plan Assessment: 1 Acute exacerbation of chronic obstructive pulmonary disease with no clear evidence of pneumonia. Recently discharged less than one month ago for COPD exacerbation. Influenza screen negative. No leukocytosis. 2 Chronic tobacco dependence currently in remission 3 Lower extremity edema 4 Paroxysmal atrial fibrillation, adequately regulated with Xarelto 5 Hypertension. 6 Hyperlipidemia. 7 Diabetes mellitus, type II 8 Depressive disorder. 9 Esophageal reflux disease 10 Iliac artery aneurysm on the right an infrarenal abdominal aortic aneurysm, status post repair 11 Pozo's esophagus 12 History of TIA 13 History of right lower extremity DVT 14 Chronic back pain Plan: The patient was seen and evaluated by Dr. Mckeon. We'll continue the current treatment plan. Continue diuretics. Continue antibiotics for now. Await pro-calcitonin. Should be able to de-escalate the antibiotics. We will continue to follow and make further recommendations based on her clinical status. I, the cosigning physician, performed a history & physical examination of the patient. Lungs sounds with crackles in the posterior bases. Maintaining good O2 saturations in the 90s on 2 L/m per nasal cannula. I discussed the assessment and plan of care with my nurse practitioner, Sepideh Ortiz. I attest to the above note as dictated by her.
[2019-05-06 16:49] LABS: Glucose,Whole Blood 190 mg/dL (75-99)
--- NOTE | 2019-05-06 21:43 | PN ---
PROGRESS NOTE DATE OF SERVICE: 05/06/2019 This 73 -year-old woman admitted with shortness of breath and cough being followed by Dr. Knowles in the outpatient setting, was admitted for further evaluation and treatment. Patient also had COPD exacerbation, element of CHF. The patient given empiric diuretics also. The patient has significant shortness of breath and unable to complete a complete sentence. Dr. Mckeon is following the patient closely. PAST MEDICAL HISTORY: Reviewed. REVIEW OF SYSTEMS: CARDIOVASCULAR system: No angina or palpitations. RESPIRATORY: As mentioned earlier. GI: As mentioned earlier. : No dysuria. CENTRAL NERVOUS SYSTEM: No numbness or weakness. CURRENT MEDICATIONS: Reviewed and include: 1. Tylenol 650 q.6h p.r.n. 2. [place] 5 mg q.6h p.r.n. 3. DuoNeb q.i.d. and p.r.n. 4. Xanax 0.5 t.i.d. 5. Lipitor 20 mg p.o. daily. 6. Pulmicort 1 mg b.i.d. 7. Os-Shahab with vitamin D. 8. Cefepime 2 grams IV q.8. 9. Celexa. 10.Perforomist. 11.Lasix. 12.NovoLog. 13.Levemir. 14.Zestril. 15.Glucophage. 16.Solu-Medrol. 17.Narcan. 18.Protonix. 19.K-Dur. 20.Xarelto. 21.Senokot. 22.Aldactone. 23.Vancomycin. 24.Isoptin. PHYSICAL EXAMINATION: Patient is alert, oriented x3. Pulse is 88. Blood pressure is 130/74, respiration 20, temperature 98.2, pulse ox 97% on 3 L. HEENT: Conjunctivae normal. NECK: No JVD. CARDIOVASCULAR: S1, S2 muffled. RESPIRATIONS: Breath sounds diminished in the bases. A few scattered rhonchi and crackles. Expiratory wheezing. Breathing efforts are markedly increased. ABDOMEN: Soft, obese, nontender. LEGS: Bilateral leg edema. Arm also bilateral edema. NERVOUS SYSTEM: Higher functions as mentioned earlier. Moves all four extremities. Mild diffuse weakness. LYMPHATICS: No lymph nodes palpable in the neck, axillae or groin. SKIN: No ulcer, no rash and no bleeding. JOINTS no active deforming arthropathy. LABS: WBC 11.2, hemoglobin 10.2, sodium 134. ASSESSMENT: 1. Shortness of breath possibly multifactorial, chronic obstructive pulmonary disease acute exacerbation as well as congestive heart failure acute exacerbation with acute on chronic diastolic dysfunction ejection fraction 50-60 percent, possible healthcare pneumonia. 2. Possible bibasilar atelectasis and bronchopneumonia. 3. History of atrial fibrillation paroxysmal. 4. History of asthma, chronic obstructive pulmonary disease. 5. History of cerebrovascular accident, transient ischemic attack. 6. Diabetes type 2. 7. History of deep vein thrombosis. 8. History of gastroesophageal reflux disease. 9. Hypertension. 10.Hyperlipidemia. 11.History of degenerative joint disease. 12.History of pneumonia. 13.History of abdominal aortic aneurysm and iliac aneurysm with surgery. 14.History of previous acute hypoxic respiratory failure. 15.History of transient ischemic attack. 16.History of Pozo's esophagus. 17.History of lower gastrointestinal bleeding with diverticular bleed possibly. 18.History of vertigo. 19.History of appendectomy. 20.History of cholecystectomy. 21.History of depression. 22.Remote history of nicotine dependence. 23.Obesity with body mass index of 34.5. 24.FULL CODE. DISCUSSION AND RECOMMENDATIONS: Recommend to continue current medications, management and symptomatic treatment. As mentioned earlier the patient probably had a combination of COPD and CHF, which I discussed at length with the patient. The patient is worried about her life expectancy. The overall prognosis guarded, which I explained at length to him. Patient understands and agrees. We will continue the current medication with IV Lasix and continue the rest of medications. Empiric antibiotics. Further recommendations. We will repeat x-ray tomorrow. Closely follow with multiple consultants. Guarded prognosis. Further recommendations to follow. The blood sugar is elevated. I will continue to monitor. MMODL / IJN: [id number] / MARCOS
[2019-05-06 22:01] LABS: Glucose,Whole Blood 238 mg/dL (75-99)
[2019-05-06] MEDS: INSULIN DETEMIR (LEVEMIR) 100 UNIT/ML SYR SQ SCH (22:14)
[2019-05-06] MEDS: RIVAROXABAN 20 MG TAB PO SCH (22:21)
[2019-05-07] MEDS: CEFEPIME 2 GM in SODIUM CHLORIDE 0.9% 100 ML IVPB SCH ×2 (00:40→08:31)
[2019-05-07] MEDS: IPRATROPIUM-ALBUTEROL 3 ML NEB INHALATION SCH ×5 (03:30→19:54)
[2019-05-07] MEDS: methylPREDNISolone SOD SUCCI 125 MG/2 ML VIAL IV SCH ×4 (05:40→20:18)
[2019-05-07 07:08] LABS: Glucose,Whole Blood 184 mg/dL (75-99)
[2019-05-07] MEDS: INSULIN ASPART (NovoLOG) 100 UNIT/ML VIAL SQ SCH ×4 (07:14→20:31)
[2019-05-07] MEDS ORDERED: VANCOMYCIN TROUGH DUE 1 EACH MISC MISCELLANE ONE (08:00)
[2019-05-07] MEDS: SPIRONOLACTONE 25 MG TAB PO SCH (08:30)
[2019-05-07] MEDS: POTASSIUM CHLORIDE ER 20 MEQ TAB.ER PO SCH ×2 (08:30→20:17)
[2019-05-07] MEDS: CALCIUM CARB-VIT D 500MG-200UN 1 EACH TAB PO SCH (08:30)
[2019-05-07] MEDS: ATORVASTATIN 20 MG TAB PO SCH (08:30)
[2019-05-07] MEDS: LISINOPRIL 5 MG TAB PO SCH (08:30)
[2019-05-07] MEDS: CITALOPRAM HYDROBROMIDE 20 MG TAB PO SCH (08:30)
[2019-05-07] MEDS: SENNOSIDES 8.6 MG TAB PO SCH (08:30)
[2019-05-07] MEDS: PANTOPRAZOLE 40 MG TABLET PO SCH (08:31)
[2019-05-07] MEDS: VERAPAMIL 80 MG TAB PO SCH ×3 (08:31→20:33)
[2019-05-07] MEDS: metFORMIN 500 MG TAB PO SCH ×2 (08:31→17:35)
[2019-05-07] MEDS: FUROSEMIDE 10 MG/ML 4 ML VIAL IV SCH ×2 (08:31→20:17)
--- NOTE | 2019-05-07 08:31 | XR ---
EXAMINATION TYPE: XR chest 1V portable DATE OF EXAM: 05/07/2019 COMPARISON: 05/04/2019 HISTORY: Clinical pneumonia. Shortness of breath. TECHNIQUE: Single frontal view of the chest is obtained. FINDINGS: Minimal bibasilar atelectasis is linear and horizontally oriented as seen on the prior. Ca rdia mediastinal silhouette is mildly enlarged but stable. Diffuse osseous demineralization is presen t. IMPRESSION: Mild bibasilar subsegmental dependent atelectasis as seen on the prior.
[2019-05-07] MEDS: FORMOTEROL FUMARATE 20 MCG/2 ML NEBU INHALATION SCH ×2 (08:40→20:17)
[2019-05-07] MEDS: BUDESONIDE 1 MG/2 ML NEBU INHALATION SCH ×2 (08:40→19:54)
[2019-05-07 09:17] LABS: Anisocytosis Slight; Basophils % (A) 0 %; Eosinophils % (A) 0 %; HCT 34.2 % (34.0-46.0); HGB 10.5 gm/dL (11.4-16.0); Hypochromasia Slight; Lymphocytes # (A) 0.9 k/uL (1.0-4.8); Lymphocytes % (A) 5 %; MCH 29.7 pg (25.0-35.0); MCHC 30.7 g/dL (31.0-37.0); MCV 96.8 fL (80.0-100.0); Macrocytosis Slight; Mean Platelet Volume 7.1; Monocytes # (A) 0.4 k/uL (0-1.0); Monocytes % (A) 2 %; Neutrophils # (A) 18.3 k/uL (1.3-7.7); Neutrophils % (A) 92 %; Platelet Count 337 k/uL (150-450); RBC 3.53 m/uL (3.80-5.40); RDW 16.6 % (11.5-15.5); WBC 19.8 k/uL (3.8-10.6)
[2019-05-07 09:46] LABS: African American GFR (CKD) >90 (>60 ml/min/1.73 sqM); Anion Gap 11 mmol/L; Blood Urea Nitrogen 27 mg/dL (7-17); Calcium 10.3 mg/dL (8.4-10.2); Carbon Dioxide 25 mmol/L (22-30); Chloride 97 mmol/L (98-107); Glucose 270 mg/dL (74-99); Non-African American GFR(CKD) 79 (>60 ml/min/1.73 sqM); Potassium 4.5 mmol/L (3.5-5.1); Sodium 133 mmol/L (137-145)
[2019-05-07] MEDS: VANCOMYCIN 1,500 MG in SODIUM CHLORIDE 0.9% 250 ML IVPB SCH (09:56)
[2019-05-07 11:57] LABS: Glucose,Whole Blood 194 mg/dL (75-99)
--- NOTE | 2019-05-07 13:24 | P.PN ---
Subjective Progress Note Date: 05/07/19 Principal diagnosis: Acute exacerbation of chronic obstructive pulmonary disease This is a very pleasant 73-year-old female patient of Dr. Knowles in [place], with past medical history of chronic bronchial asthma/COPD, gastroesophageal reflux disease, depression, hypertension, hyperlipidemia, diabetes, who presented today for endovascular repair of the expanding common iliac artery aneurysm on the right measuring 3.6 cm as well as infrarenal abdominal aortic aneurysm. Patient was maintained on a Symbicort, and a rescue inhaler.. History of nicotine dependence, currently in remission. Patient is on Xarelto for history of paroxysmal A. fib. She was just admitted a month ago for COPD exacerbation. A CT angiogram at that time ruled out pulmonary embolism. There is some patchy atelectasis of the lung bases. She improved and was discharged home on 04/11/2019. She presented here to the emergency room yesterday again with worsening shortness of breath, cough and congestion. Chest x-ray revealed some mild atelectatic changes in the lung bases. No overt heart failure. The patient had been having increase edema of the lower extremities. She is on Lasix 40 mg IV push every 12 hours. She was initiated on bronchodilators and vancomycin. She is seen today in consultation on the regular medical floor. She is currently sitting up in a chair at the bedside. Awake and alert in no acute distress. She states she is breathing easier today compared to yesterday. She is maintaining O2 saturations in the 90s on 3 L/m per nasal cannula. She's afebrile. Remains tachycardic. Paroxysmal atrial fibrillation. Continue to on her Xarelto. The patient is seen today 05/06/2019 in follow-up on the regular medical floor. She remains awake and alert in no acute distress. Sitting up in a chair at the bedside. Improved today compared to yesterday. Not quite back to her baseline. Maintaining O2 saturation in the 90s on 2 L/m per nasal cannula. Blood culture reveals no growth. White count 11.1. Hemoglobin 10.7. Creatinine 0.65. She is continued on DuoNeb inhalations, Pulmicort and Perforomist inhalations, IV Solu-Medrol, antibiotics in the form of vancomycin and cefepime. On IV diuretics. Anticoagulated with Xarelto. On 05/07/2019 patient seen in follow-up on general medical floor. She is doing better today, breathing is improving, she is feeling stronger, still some congestion, lung sounds reveal some scattered rhonchi, FiO2 is currently down to 2 L pulse ox is 96%, no fever or chills, does have exertional dyspnea, lung sounds have been stable. Patient is being treated with a combination of IV steroids, IV diuretics, nebulized bronchodilator's, and empiric antibiotics. Objective - Vital Signs Vital signs: Vital Signs Temp 98.1 F 05/07/19 07:31 Pulse 90 05/07/19 12:46 Resp 18 05/07/19 07:31 BP 115/69 05/07/19 07:31 Pulse Ox 96 05/07/19 07:31 Intake & Output 05/06/19 05/07/19 05/07/19 18:59 06:59 18:59 Intake Total 830 Balance 830 Intake: Intake, IV Titration 500 Amount Cefepime 2 gm In Sodium 100 Chloride 0.9% 100 ml @ 200 mls/hr IVPB Q8HR EFRA Rx#:[id number] Sodium Chloride 0.9% 1, 400 000 ml @ 20 mls/hr IV . Q24H STA Rx#:[id number] Oral 330 Other: Voiding Method Toilet # Voids 1 2 # Bowel Movements 1 - Exam GENERAL EXAM: Alert, very pleasant, 73-year-old white female, sitting up in the recliner, in 2 L of oxygen, comfortable in no apparent distress. HEAD: Normocephalic/atraumatic. EYES: Normal reaction of pupils, equal size. Conjunctiva pink, sclera white. NOSE: Clear with pink turbinates. THROAT: No erythema or exudates. NECK: No masses, no JVD, no thyroid enlargement, no adenopathy. CHEST: No chest wall deformity. Symmetrical expansion. LUNGS: Equal air entry with scattered rhonchi CVS: Regular rate and rhythm, normal S1 and S2, no gallops, no murmurs, no rubs ABDOMEN: Soft, nontender. No hepatosplenomegaly, normal bowel sounds, no guarding or rigidity. EXTREMITIES: No clubbing, no edema, no cyanosis, 2+ pulses and upper and lower extremities. MUSCULOSKELETAL: Muscle strength and tone normal. SPINE: No scoliosis or deformity SKIN: No rashes CENTRAL NERVOUS SYSTEM: Alert and oriented -3. No focal deficits, tone is normal in all 4 extremities. PSYCHIATRIC: Alert and oriented -3. Appropriate affect. Intact judgment and insight. - Labs CBC & Chem 7: 05/07/19 08:49 05/07/19 08:49 Labs: Abnormal Lab Results - Last 24 Hours (Table) 05/06/19 05/06/19 05/07/19 Range/Units 16:47 22:00 07:06 WBC (3.8-10.6) k/uL RBC (3.80-5.40) m/uL Hgb (11.4-16.0) gm/dL MCHC (31.0-37.0) g/dL RDW (11.5-15.5) % Neutrophils # (1.3-7.7) k/uL Lymphocytes # (1.0-4.8) k/uL Sodium (137-145) mmol/L Chloride (98-107) mmol/L BUN (7-17) mg/dL Glucose (74-99) mg/dL POC Glucose (mg/dL) 190 H 238 H 184 H (75-99) mg/dL Calcium (8.4-10.2) mg/dL 05/07/19 05/07/19 05/07/19 Range/Units 08:49 08:49 11:55 WBC 19.8 H (3.8-10.6) k/uL RBC 3.53 L (3.80-5.40) m/uL Hgb 10.5 L (11.4-16.0) gm/dL MCHC 30.7 L (31.0-37.0) g/dL RDW 16.6 H (11.5-15.5) % Neutrophils # 18.3 H (1.3-7.7) k/uL Lymphocytes # 0.9 L (1.0-4.8) k/uL Sodium 133 L (137-145) mmol/L Chloride 97 L (98-107) mmol/L BUN 27 H (7-17) mg/dL Glucose 270 H (74-99) mg/dL POC Glucose (mg/dL) 194 H (75-99) mg/dL Calcium 10.3 H (8.4-10.2) mg/dL Microbiology - Last 24 Hours (Table) 05/04/19 16:25 Blood Culture - Preliminary Blood No Growth after 48 hours Assessment and Plan Plan: Assessment: 1 Acute exacerbation of chronic obstructive pulmonary disease with no clear evidence of pneumonia. Recently discharged less than one month ago for COPD exacerbation. Influenza screen negative. No leukocytosis. 2 Chronic tobacco dependence currently in remission 3 Lower extremity edema 4 Paroxysmal atrial fibrillation, adequately regulated with Xarelto 5 Hypertension. 6 Hyperlipidemia. 7 Diabetes mellitus, type II 8 Depressive disorder. 9 Esophageal reflux disease 10 Iliac artery aneurysm on the right an infrarenal abdominal aortic aneurysm, status post repair 11 Pozo's esophagus 12 History of TIA 13 History of right lower extremity DVT 14 Chronic back pain Plan: Patient is doing well, no fever or chills. Procalcitonin came back low at 0.08, no evidence of infection, can stop the antibiotics, continue with IV diuretics, IV steroids, and nebulized bronchodilators. Anticipate further improvement, increase activity as tolerated, wean FiO2. Anticipate discharge home in the next 24 hours if she continues to improve I performed a history & physical examination of the patient and discussed their management with my nurse practitioner, Maria Elena Verduzco. I reviewed the nurse practitioner's note and agree with the documented findings and plan of care. Lung sounds are positive for diffuse rhonchi throughout the lung pierce. The findings and the impression was discussed with the patient. I attest to the documentation by the nurse practitioner. Time with Patient: Less than 30
[2019-05-07 16:57] LABS: Glucose,Whole Blood 285 mg/dL (75-99)
[2019-05-07] MEDS: ALPRAZolam 0.25 MG TAB PO PRN (20:15)
[2019-05-07] MEDS: RIVAROXABAN 20 MG TAB PO SCH (20:17)
[2019-05-07 20:18] LABS: Glucose,Whole Blood 252 mg/dL (75-99)
[2019-05-07] MEDS: INSULIN DETEMIR (LEVEMIR) 100 UNIT/ML SYR SQ SCH (20:31)
--- NOTE | 2019-05-07 21:04 | PN ---
PROGRESS NOTE DATE OF SERVICE: 05/07/2019 This 73-year-old woman who was admitted with shortness of breath and possible multifactorial with COPD acute exacerbation also had some CHF. The patient being closely monitored. No chest pain. No palpitations. No fever. EXAM: Alert and oriented x3. Pulse is 86, blood pressure 100/55, respiration 18, temperature 97.9, pulse ox 98% on 2 L. HEENT is conjunctivae normal. NECK: No JVD. CARDIOVASCULAR: S1, S2 muffled. RESPIRATORY SYSTEM: Breath sounds diminished at the bases. A few scattered rhonchi and crackles, ABDOMEN: Soft. LEGS: Minimal bilateral leg edema. NERVOUS SYSTEM: No focal deficits. LABS: WBC 9.8, hemoglobin is 10.8, sodium 133. ASSESSMENT: 1. Shortness of breath, possibly multifactorial, with chronic obstructive pulmonary disease acute exacerbation as well as congestive heart failure acute exacerbation with acute on chronic diastolic dysfunction, ejection fraction 50-60 percent with possible healthcare associated pneumonia. 2. Possible bibasilar atelectasis and bronchopneumonia. 3. History of atrial fibrillation paroxysmal. 4. History of asthma, chronic obstructive pulmonary disease. 5. History of cerebrovascular accident, transient ischemic attack. 6. Diabetes type 2. 7. History of deep vein thrombosis. 8. History of gastroesophageal reflux disease. 9. Hypertension. 10.History of hyperlipidemia. 11.History of degenerative joint disease. 12.History of pneumonia. 13.History of abdominal aortic aneurysm and iliac aneurysm with surgery. 14.History of previous acute hypoxic respiratory failure. 15.History of transient ischemic attack. 16.History of Pozo's esophagus. 17.History of lower gastrointestinal bleeding with diverticular bleed, possibly. 18.History of vertigo. 19.History of appendectomy. 20.History of cholecystectomy. 21.History of depression. 22.Remote history of nicotine dependence. 23.Obesity with body mass index of 34.5. 24.FULL CODE. RECOMMENDATIONS AND DISCUSSION: Recommend to continue current medications, management and monitoring, symptomatic treatment. Otherwise, at this time, I recommend continue with the current medications. Continue symptomatic treatment. Continue PT/OT evaluation, possible ECF rehab. Otherwise, guarded prognosis. Further recommendations to follow. MMODL / IJN: [id number] /
[2019-05-08] MEDS: IPRATROPIUM-ALBUTEROL 3 ML NEB INHALATION SCH ×6 (00:59→18:56)
[2019-05-08] MEDS: methylPREDNISolone SOD SUCCI 125 MG/2 ML VIAL IV SCH ×2 (02:53→08:17)
[2019-05-08] MEDS: BUDESONIDE 1 MG/2 ML NEBU INHALATION SCH (07:12)
[2019-05-08] MEDS: FORMOTEROL FUMARATE 20 MCG/2 ML NEBU INHALATION SCH (07:12)
[2019-05-08 07:31] LABS: Glucose,Whole Blood 190 mg/dL (75-99)
[2019-05-08 07:46] LABS: Anisocytosis Slight; Basophils # (A) 0.1 k/uL (0-0.2); Basophils % (A) 0 %; Eosinophils # (A) 0.1 k/uL (0-0.7); Eosinophils % (A) 0 %; HCT 33.4 % (34.0-46.0); HGB 10.4 gm/dL (11.4-16.0); Hypochromasia Slight; Lymphocytes # (A) 0.6 k/uL (1.0-4.8); Lymphocytes % (A) 4 %; MCH 29.9 pg (25.0-35.0); MCHC 31.2 g/dL (31.0-37.0); MCV 95.8 fL (80.0-100.0); Macrocytosis Slight; Mean Platelet Volume 7.7; Monocytes # (A) 0.5 k/uL (0-1.0); Monocytes % (A) 3 %; Neutrophils # (A) 14.7 k/uL (1.3-7.7); Neutrophils % (A) 92 %; Platelet Count 267 k/uL (150-450); RBC 3.49 m/uL (3.80-5.40); RDW 16.8 % (11.5-15.5); WBC 15.9 k/uL (3.8-10.6)
[2019-05-08] MEDS: INSULIN ASPART (NovoLOG) 100 UNIT/ML VIAL SQ SCH ×4 (07:54→20:36)
[2019-05-08] MEDS: metFORMIN 500 MG TAB PO SCH ×2 (07:55→17:29)
[2019-05-08 07:59] LABS: Calcium 10.3 mg/dL (8.4-10.2); Potassium 4.6 mmol/L (3.5-5.1)
[2019-05-08] MEDS: CITALOPRAM HYDROBROMIDE 20 MG TAB PO SCH (08:03)
[2019-05-08] MEDS: LISINOPRIL 5 MG TAB PO SCH (08:03)
[2019-05-08] MEDS: PANTOPRAZOLE 40 MG TABLET PO SCH (08:03)
[2019-05-08] MEDS: SENNOSIDES 8.6 MG TAB PO SCH (08:03)
[2019-05-08] MEDS: VERAPAMIL 80 MG TAB PO SCH ×3 (08:03→20:35)
[2019-05-08] MEDS: FUROSEMIDE 10 MG/ML 4 ML VIAL IV SCH ×2 (08:03→20:35)
[2019-05-08] MEDS: SPIRONOLACTONE 25 MG TAB PO SCH (08:03)
[2019-05-08] MEDS: ATORVASTATIN 20 MG TAB PO SCH (08:03)
[2019-05-08] MEDS: POTASSIUM CHLORIDE ER 20 MEQ TAB.ER PO SCH ×2 (08:03→20:35)
[2019-05-08] MEDS: CALCIUM CARB-VIT D 500MG-200UN 1 EACH TAB PO SCH (08:03)
[2019-05-08 11:26] LABS: Glucose,Whole Blood 323 mg/dL (75-99)
--- NOTE | 2019-05-08 12:13 | PN ---
PROGRESS NOTE PULMONARY/CRITICAL CARE PROGRESS NOTE: This is a 73-year-old female who was admitted back on May 04. She has a history of acute exacerbation of COPD without clear-cut pneumonia, previous tobacco use, lower extremity edema, paroxysmal atrial fibrillation, hypertension, hyperlipidemia, diabetes, obesity, depression, gastroesophageal reflux disease, iliac artery aneurysm, Pozo's esophagus, TIA, right lower extremity DVT, and chronic back pain. All-in- all, the patient seems to be doing relatively well. Likely she will be able to be discharged in 24-48 hours. She still feels a little tight in her chest and still is having some difficulty breathing, especially when she exerts herself. She is lying in bed. She is on nasal O2 at 2 L. Her saturations are excellent. Current vital signs are reviewed. Temperature 97.8, heart rate 80, respiratory rate 14, blood pressure 111/66 mean 81, 2 L saturation 93%. Appears in no acute distress. HEENT: Examination is grossly unremarkable. Mucous membranes are moist. No oral lesions. NECK: Supple, full range of motion. No adenopathy or thyromegaly. Neck veins are flat. CARDIOVASCULAR: Examination reveals distant heart sounds. Heart rate 80. S1, S2 normal. LUNGS: Reveal a few scattered rhonchi. No wheezes or crackles. Breath sounds are diminished. ABDOMEN: Obese, bowel sounds are heard. EXTREMITIES: Intact. No cyanosis, clubbing, or edema. SKIN: Without rash. NEUROLOGIC: Examination is nonfocal. Microbiologic studies are negative. LABS: Reviewed. White count 15.9, hemoglobin 10.4, hematocrit 33.4, platelet count normal. Sodium 136, potassium 4.6, chloride 102, CO2 is 24, anion gap 10. BUN and creatinine were 30 and 0.89. Calcium 10.3. Most recent chest x-ray from May 07, 2019 shows some bibasilar atelectasis. MEDICATIONS: Reviewed. ASSESSMENT: 1. Chronic obstructive pulmonary disease exacerbation complicated by purulent tracheobronchitis, without ji pneumonia. 2. History of chronic tobacco dependence. 3. Lower extremity edema. 4. Paroxysmal atrial fibrillation. 5. Hypertension. 6. Hyperlipidemia. 7. Type 2 diabetes mellitus. 8. History of depression. 9. History of gastroesophageal reflux disease. 10.History of iliac artery aneurysm. 11.Pozo's esophagus. 12.History of transient ischemic attack. 13.Prior history of right lower extremity deep venous thrombosis. 14.History of chronic back pain. 15.Obesity. PLAN: The patient is doing well. Medications are reviewed. Currently, she is on appropriate medications including Pulmicort, formoterol, updrafts, and prednisone. Will continue to follow. Hopeful discharge in next 24-48 hours. MMODL / IJN: [id number] /
[2019-05-08 16:41] LABS: Glucose,Whole Blood 204 mg/dL (75-99)
[2019-05-08] MEDS: SYMBICORT 160-4.5 MCG INHALER INHALATION SCH (18:56)
[2019-05-08 20:17] LABS: Glucose,Whole Blood 228 mg/dL (75-99)
[2019-05-08] MEDS: RIVAROXABAN 20 MG TAB PO SCH (20:35)
[2019-05-08] MEDS: INSULIN DETEMIR (LEVEMIR) 100 UNIT/ML SYR SQ SCH (20:36)
--- NOTE | 2019-05-08 21:59 | PN ---
PROGRESS NOTE DATE OF SERVICE: 05/08/2019 This 73-year-old woman was admitted with multiple medical problems including chronic obstructive pulmonary disease acute exacerbation, CHF acute exacerbation is feeling slightly better. No chest pain. No palpitations. No fever. Multiple consultants are following the patient. PHYSICAL EXAMINATION: Alert and oriented x3. Pulse is 96, blood pressure 111/60, respiration 14, temperature 97.8, pulse ox 98% on 2 L. HEENT: Conjunctivae normal. NECK: No JVD. CARDIOVASCULAR: S1, S2 muffled. RESPIRATIONS: Breath sounds diminished in the bases. A few scattered rhonchi and crackles. ABDOMEN: Soft. Nontender. LEGS are no edema. No swelling. CENTRAL NERVOUS SYSTEM: Diffusely weak. LAB STUDIES: WBC 15.2, hemoglobin 10.4. ASSESSMENT: 1. Shortness of breath, possibly multifactorial with chronic obstructive pulmonary disease, acute exacerbation as well as congestive heart failure acute exacerbation with acute on chronic diastolic dysfunction, ejection fraction 50% to 60% with possible healthcare associated pneumonia. 2. Possible bibasilar atelectasis and bronchopneumonia. 3. History of atrial fibrillation, paroxysmal. 4. History of asthma, chronic obstructive pulmonary disease. 5. History of cerebrovascular accident, transient ischemic attack. 6. Diabetes type 2. 7. History of deep vein thrombosis. 8. History of gastroesophageal reflux disease. 9. Hypertension. 10.History of hyperlipidemia. 11.History of degenerative joint disease. 12.History of pneumonia. 13.History of abdominal aortic aneurysm and iliac aneurysm with surgery. 14.History of previous acute hypoxic respiratory failure. 15.History of transient ischemic attack. 16.History of Pozo's esophagus. 17.History of lower gastrointestinal bleeding with diverticular bleed, possibly. 18.History of vertigo. 19.History of appendectomy. 20.History of cholecystectomy. 21.History of depression. 22.Gait dysfunction. 23.Remote history of nicotine dependence. 24.Obesity, body mass index of 34.5. 25.FULL CODE. RECOMMENDATIONS AND DISCUSSION: Recommend to continue current medications, management and symptomatic treatment. Taper the steroids. Continue the rest of medications. The patient is still on IV diuretics. We will monitor the fluid intake/output closely. Follow closely with multiple consultants. Otherwise PT, OT evaluation, possible ECF rehab. Guarded prognosis. Further recommendations to follow. MMODL / IJN: [id number] /
[2019-05-09] MEDS: IPRATROPIUM-ALBUTEROL 3 ML NEB INHALATION SCH ×6 (02:18→19:55)
[2019-05-09 07:02] LABS: Glucose,Whole Blood 151 mg/dL (75-99)
[2019-05-09] MEDS: SYMBICORT 160-4.5 MCG INHALER INHALATION SCH ×2 (07:15→19:55)
[2019-05-09] MEDS: metFORMIN 500 MG TAB PO SCH ×2 (07:47→16:45)
[2019-05-09] MEDS: predniSONE 10 MG TAB PO SCH (07:48)
[2019-05-09] MEDS: ATORVASTATIN 20 MG TAB PO SCH (07:48)
[2019-05-09] MEDS: POTASSIUM CHLORIDE ER 20 MEQ TAB.ER PO SCH ×2 (07:48→22:17)
[2019-05-09] MEDS: LISINOPRIL 5 MG TAB PO SCH (07:48)
[2019-05-09] MEDS: CALCIUM CARB-VIT D 500MG-200UN 1 EACH TAB PO SCH (07:49)
[2019-05-09] MEDS: PANTOPRAZOLE 40 MG TABLET PO SCH (07:49)
[2019-05-09] MEDS: CITALOPRAM HYDROBROMIDE 20 MG TAB PO SCH (07:49)
[2019-05-09] MEDS: SPIRONOLACTONE 25 MG TAB PO SCH (07:49)
[2019-05-09] MEDS: SENNOSIDES 8.6 MG TAB PO SCH (07:49)
[2019-05-09] MEDS: VERAPAMIL 80 MG TAB PO SCH ×3 (07:49→22:17)
[2019-05-09] MEDS: FUROSEMIDE 10 MG/ML 4 ML VIAL IV SCH ×2 (07:50→07:56)
[2019-05-09] MEDS: INSULIN ASPART (NovoLOG) 100 UNIT/ML VIAL SQ SCH ×4 (07:51→22:18)
[2019-05-09] MEDS: FUROSEMIDE 40 MG TAB PO SCH ×2 (08:08→15:40)
[2019-05-09 11:31] LABS: Glucose,Whole Blood 244 mg/dL (75-99)
--- NOTE | 2019-05-09 14:46 | P.PN ---
Subjective Progress Note Date: 05/09/19 Principal diagnosis: Acute exacerbation of chronic obstructive pulmonary disease This is a very pleasant 73-year-old female patient of Dr. 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 Patient was maintained on a Symbicort, and a rescue inhaler.. History of nicotine dependence, currently in remission. Patient is on Xarelto for history of paroxysmal A. fib. She was just admitted a month ago for COPD exacerbation. A CT angiogram at that time ruled out pulmonary embolism. There is some patchy atelectasis of the lung bases. She improved and was discharged home on 04/11/2019. She presented here to the emergency room yesterday again with worsening shortness of breath, cough and congestion. Chest x-ray revealed some mild atelectatic changes in the lung bases. No overt heart failure. The patient had been having increase edema of the lower extremities. She is on Lasix 40 mg IV push every 12 hours. She was initiated on bronchodilators and vancomycin. She is seen today in consultation on the regular medical floor. She is currently sitting up in a chair at the bedside. Awake and alert in no acute distress. She states she is breathing easier today compared to yesterday. She is maintaining O2 saturations in the 90s on 3 L/m per nasal cannula. She's afebrile. Remains tachycardic. Paroxysmal atrial fibrillation. Continue to on her Xarelto. The patient is seen today 05/06/2019 in follow-up on the regular medical floor. She remains awake and alert in no acute distress. Sitting up in a chair at the bedside. Improved today compared to yesterday. Not quite back to her baseline. Maintaining O2 saturation in the 90s on 2 L/m per nasal cannula. Blood culture reveals no growth. White count 11.1. Hemoglobin 10.7. Creatinine 0.65. She is continued on DuoNeb inhalations, Pulmicort and Perforomist inhalations, IV Solu-Medrol, antibiotics in the form of vancomycin and cefepime. On IV diuretics. Anticoagulated with Xarelto. On 05/07/2019 patient seen in follow-up on general medical floor. She is doing better today, breathing is improving, she is feeling stronger, still some congestion, lung sounds reveal some scattered rhonchi, FiO2 is currently down to 2 L pulse ox is 96%, no fever or chills, does have exertional dyspnea, lung sounds have been stable. Patient is being treated with a combination of IV steroids, IV diuretics, nebulized bronchodilator's, and empiric antibiotics. On 05/09/2019 patient seen in follow-up on general medical floor. She is sitting up in the chair, in no acute distress, currently on 2 L of oxygen and a pulse ox of 94-98%, afebrile, hemodynamically stable, no worsening dyspnea. Lung sounds reveal some rales and some scattered rhonchi in the chest. No complete chest pain, occasional sputum production, yesterday we added flutter valve. Blood and sputum cultures remain negative thus far. On oral prednisone, breathing treatments we stopped antibiotics. Objective - Vital Signs Vital signs: Vital Signs Temp 98.4 F 05/09/19 07:00 Pulse 101 H 05/09/19 11:04 Resp 18 05/09/19 11:04 BP 109/69 05/09/19 07:00 Pulse Ox 94 L 05/09/19 07:15 Intake & Output 05/08/19 05/09/19 05/09/19 18:59 06:59 18:59 Intake Total 1080 300 950 Balance 1080 300 950 Weight 89.5 kg Intake: Oral 1080 300 950 Other: Voiding Method Toilet Toilet # Voids 3 - Exam GENERAL EXAM: Alert, very pleasant, 73-year-old white female, sitting up in the recliner, in 2 L of oxygen, comfortable in no apparent distress. HEAD: Normocephalic/atraumatic. EYES: Normal reaction of pupils, equal size. Conjunctiva pink, sclera white. NOSE: Clear with pink turbinates. THROAT: No erythema or exudates. NECK: No masses, no JVD, no thyroid enlargement, no adenopathy. CHEST: No chest wall deformity. Symmetrical expansion. LUNGS: Equal air entry with scattered rhonchi CVS: Regular rate and rhythm, normal S1 and S2, no gallops, no murmurs, no rubs ABDOMEN: Soft, nontender. No hepatosplenomegaly, normal bowel sounds, no guarding or rigidity. EXTREMITIES: No clubbing, no edema, no cyanosis, 2+ pulses and upper and lower extremities. MUSCULOSKELETAL: Muscle strength and tone normal. SPINE: No scoliosis or deformity SKIN: No rashes CENTRAL NERVOUS SYSTEM: Alert and oriented -3. No focal deficits, tone is normal in all 4 extremities. PSYCHIATRIC: Alert and oriented -3. Appropriate affect. Intact judgment and insight. - Labs CBC & Chem 7: 05/08/19 07:07 05/08/19 07:07 Labs: Abnormal Lab Results - Last 24 Hours (Table) 05/08/19 05/08/19 05/09/19 Range/Units 16:40 20:16 07:01 POC Glucose (mg/dL) 204 H 228 H 151 H (75-99) mg/dL 05/09/19 Range/Units 11:25 POC Glucose (mg/dL) 244 H (75-99) mg/dL Microbiology - Last 24 Hours (Table) 05/09/19 08:09 Gram Stain - Preliminary Sputum Sputum Culture - Preliminary 05/04/19 16:25 Blood Culture - Preliminary Blood No Growth after 96 hours Assessment and Plan Plan: Assessment: 1 Acute exacerbation of chronic obstructive pulmonary disease with no clear evidence of pneumonia. Recently discharged less than one month ago for COPD exacerbation. Influenza screen negative. No leukocytosis. 2 Chronic tobacco dependence currently in remission 3 Lower extremity edema 4 Paroxysmal atrial fibrillation, adequately regulated with Xarelto 5 Hypertension. 6 Hyperlipidemia. 7 Diabetes mellitus, type II 8 Depressive disorder. 9 Esophageal reflux disease 10 Iliac artery aneurysm on the right an infrarenal abdominal aortic aneurysm, status post repair 11 Pozo's esophagus 12 History of TIA 13 History of right lower extremity DVT 14 Chronic back pain Plan: Continue current medical treatment, continue oral steroids, oral diuretics, breathing treatments, increase activity as tolerated, no acute events overnight, Procalcitonin level was low, cultures showed no growth. Possible discharge home in the next 24 hours, continues to improve I performed a history & physical examination of the patient and discussed their management with my nurse practitioner, Maria Elena Verduzco. I reviewed the nurse practitioner's note and agree with the documented findings and plan of care. Lung sounds are positive for diffuse rhonchi throughout the lung pierce. The findings and the impression was discussed with the patient. I attest to the d ocumentation by the nurse practitioner. Time with Patient: Less than 30
--- NOTE | 2019-05-09 15:21 | P.PN ---
Subjective Progress Note Date: 05/09/19 Principal diagnosis: This is a 73-year-old female who was recently admitted with multiple medical problems including chronic obstructive pulmonary disease acute exacerbation, congestive heart failure acute exacerbation and is being closely monitored. Patient states that her breathing is somewhat improved although still becomes quite winded with exertion and during conversation. Case management and social work are following as the patient would benefit from some continued physical therapy for strength and mobility as she still continues to require some assistance with ambulation and continues to be weak. Spoke with the patient and daughter today about discharge planning needs and patient will likely be going home with home health care and physical therapy in the outpatient setting. Currently patient denies any chest pain or palpitations. Patient is afebrile. Patient denies any nausea or vomiting and has been tolerating diet. Objective - Vital Signs Vital signs: Vital Signs Temp 98.0 F 05/09/19 14:59 Pulse 79 05/09/19 14:59 Resp 14 05/09/19 14:59 BP 99/62 05/09/19 14:59 Pulse Ox 94 L 05/09/19 14:59 Intake & Output 05/08/19 05/09/19 05/09/19 18:59 06:59 18:59 Intake Total 1080 300 950 Balance 1080 300 950 Weight 89.5 kg Intake: Oral 1080 300 950 Other: Voiding Method Toilet Toilet # Voids 3 3 # Bowel Movements 1 - Exam Gen: This is a 73-year-old female sitting up in the chair awake, alert and oriented 3, well-developed, well-nourished. HEENT: Head is atraumatic, normocephalic. Pupils equal, round. Sclerae is anicteric. NECK: Supple. No JVD. No lymphadenopathy. No thyromegaly. LUNGS: Diminished breath sounds at the bases with a few scattered rhonchi and crackles noted. Some mild wheezing noted on expiration as well. No intercostal retractions. HEART: S1, S2 are muffled. ABDOMEN: Soft. Bowel sounds are present. No masses. No tenderness. EXTREMITIES: No pedal edema. No calf tenderness. NEUROLOGICAL: Patient is awake, alert and oriented x3. Diffuse weakness noted. - Labs CBC & Chem 7: 05/08/19 07:07 05/08/19 07:07 Labs: Abnormal Lab Results - Last 24 Hours (Table) 05/08/19 05/08/19 05/09/19 Range/Units 16:40 20:16 07:01 POC Glucose (mg/dL) 204 H 228 H 151 H (75-99) mg/dL 05/09/19 Range/Units 11:25 POC Glucose (mg/dL) 244 H (75-99) mg/dL Microbiology - Last 24 Hours (Table) 05/09/19 08:09 Gram Stain - Preliminary Sputum Sputum Culture - Preliminary 05/04/19 16:25 Blood Culture - Preliminary Blood No Growth after 96 hours Assessment and Plan Assessment: Shortness of breath, possibly multifactorial with chronic obstructive pulmonary disease, acute exacerbation as well as congestive heart failure acute exacerbation with acute on chronic diastolic dysfunction, ejection fraction 50- 60% with possible healthcare associated pneumonia Possible basilar atelectasis and bronchopneumonia History of atrial fibrillation, paroxysmal History of asthma, chronic obstructive pulmonary disease History of CVA/TIA Diabetes mellitus type 2 history of deep vein thrombosis history of gastroesophageal reflux disease Hypertension History of hyperlipidemia history of degenerative joint disease History of pneumonia History of abdominal aortic aneurysm and iliac aneurysm with surgery History of previous acute hypoxic respiratory failure History of transient ischemic attack History of Pozo's esophagitis History of lower gastrointestinal bleeding with diverticular bleed, possibly History of vertigo history of appendectomy History of cholecystectomy History of depression Gait dysfunction remote history of nicotine dependence Obesity, body mass index of 34.5 Full code Recommendations and discussion: Recommend to continue current medications, management, and symptomatic treatment. IV Lasix transition to oral and will continue with oral steroids as well. Will continue to monitor the patient closely. Multiple consultations are following. Case management and social work are following arranging for discharge planning needs with home care and physical therapy and outpatient s etting. Due to multiple complex medical issues prognosis is guarded. Further recommendations to follow. Possible discharge in 24 hours.
[2019-05-09 16:39] LABS: Glucose,Whole Blood 212 mg/dL (75-99)
[2019-05-09 20:50] LABS: Glucose,Whole Blood 235 mg/dL (75-99)
[2019-05-09] MEDS: INSULIN DETEMIR (LEVEMIR) 100 UNIT/ML SYR SQ SCH (22:17)
[2019-05-09] MEDS: RIVAROXABAN 20 MG TAB PO SCH (22:17)
[2019-05-10] MEDS: IPRATROPIUM-ALBUTEROL 3 ML NEB INHALATION SCH ×5 (00:30→16:00)
[2019-05-10 01:54] VITALS: TEMP 98.1
[2019-05-10 06:58] LABS: Glucose,Whole Blood 139 mg/dL (75-99)
[2019-05-10] MEDS: LISINOPRIL 5 MG TAB PO SCH (07:09)
[2019-05-10] MEDS: SPIRONOLACTONE 25 MG TAB PO SCH (07:09)
[2019-05-10] MEDS: predniSONE 10 MG TAB PO SCH (07:09)
[2019-05-10] MEDS: ATORVASTATIN 20 MG TAB PO SCH (07:09)
[2019-05-10] MEDS: metFORMIN 500 MG TAB PO SCH (07:10)
[2019-05-10] MEDS: CALCIUM CARB-VIT D 500MG-200UN 1 EACH TAB PO SCH (07:10)
[2019-05-10] MEDS: FUROSEMIDE 40 MG TAB PO SCH ×2 (07:10→16:25)
[2019-05-10] MEDS: CITALOPRAM HYDROBROMIDE 20 MG TAB PO SCH (07:10)
[2019-05-10] MEDS: SENNOSIDES 8.6 MG TAB PO SCH (07:10)
[2019-05-10] MEDS: PANTOPRAZOLE 40 MG TABLET PO SCH (07:10)
[2019-05-10] MEDS: POTASSIUM CHLORIDE ER 20 MEQ TAB.ER PO SCH (07:10)
[2019-05-10] MEDS: INSULIN ASPART (NovoLOG) 100 UNIT/ML VIAL SQ SCH ×2 (07:10→12:37)
[2019-05-10 08:01] VITALS: BP 105/68; RESP 15
[2019-05-10] MEDS: SYMBICORT 160-4.5 MCG INHALER INHALATION SCH (08:56)
[2019-05-10] MEDS: VERAPAMIL 80 MG TAB PO SCH ×2 (09:24→16:25)
[2019-05-10 11:47] LABS: Glucose,Whole Blood 153 mg/dL (75-99)
[2019-05-10 13:10] LABS: Anisocytosis Slight; Basophils # (A) 0.2 k/uL (0-0.2); Basophils % (A) 1 %; Eosinophils % (A) 0 %; HCT 34.4 % (34.0-46.0); HGB 11.3 gm/dL (11.4-16.0); Hypochromasia Slight; Lymphocytes # (A) 0.8 k/uL (1.0-4.8); Lymphocytes % (A) 5 %; MCH 30.7 pg (25.0-35.0); MCHC 32.8 g/dL (31.0-37.0); MCV 93.8 fL (80.0-100.0); Mean Platelet Volume 7.4; Monocytes # (A) 0.7 k/uL (0-1.0); Monocytes % (A) 5 %; Neutrophils # (A) 12.9 k/uL (1.3-7.7); Neutrophils % (A) 88 %; Platelet Count 314 k/uL (150-450); RBC 3.67 m/uL (3.80-5.40); RDW 16.4 % (11.5-15.5); WBC 14.7 k/uL (3.8-10.6)
--- NOTE | 2019-05-10 13:32 | XR ---
EXAMINATION TYPE: XR chest 2V DATE OF EXAM: 05/10/2019 COMPARISON: 05/07/2019 TECHNIQUE: PA and lateral views submitted. HISTORY: Shortness of breath FINDINGS: Heart size normal with no overt failure or pneumothorax. Biapical pleural thickening and atherosclero tic change aorta. Bilateral lower lobe subsegmental consolidation. There is hypertrophic and degenerative change the spine with a chronic appearing anterior wedge defor mity near the thoracolumbar junction. A vascular stent is seen within the abdomen. IMPRESSION: 1. Stable bibasilar atelectasis or infiltrate.
--- NOTE | 2019-05-10 14:55 | P.PN ---
Subjective Progress Note Date: 05/10/19 Principal diagnosis: Acute exacerbation of chronic obstructive pulmonary disease This is a very pleasant 73-year-old female patient of Dr. 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 Patient was maintained on a Symbicort, and a rescue inhaler.. History of nicotine dependence, currently in remission. Patient is on Xarelto for history of paroxysmal A. fib. She was just admitted a month ago for COPD exacerbation. A CT angiogram at that time ruled out pulmonary embolism. There is some patchy atelectasis of the lung bases. She improved and was discharged home on 04/11/2019. She presented here to the emergency room yesterday again with worsening shortness of breath, cough and congestion. Chest x-ray revealed some mild atelectatic changes in the lung bases. No overt heart failure. The patient had been having increase edema of the lower extremities. She is on Lasix 40 mg IV push every 12 hours. She was initiated on bronchodilators and vancomycin. She is seen today in consultation on the regular medical floor. She is currently sitting up in a chair at the bedside. Awake and alert in no acute distress. She states she is breathing easier today compared to yesterday. She is maintaining O2 saturations in the 90s on 3 L/m per nasal cannula. She's afebrile. Remains tachycardic. Paroxysmal atrial fibrillation. Continue to on her Xarelto. The patient is seen today 05/06/2019 in follow-up on the regular medical floor. She remains awake and alert in no acute distress. Sitting up in a chair at the bedside. Improved today compared to yesterday. Not quite back to her baseline. Maintaining O2 saturation in the 90s on 2 L/m per nasal cannula. Blood culture reveals no growth. White count 11.1. Hemoglobin 10.7. Creatinine 0.65. She is continued on DuoNeb inhalations, Pulmicort and Perforomist inhalations, IV Solu-Medrol, antibiotics in the form of vancomycin and cefepime. On IV diuretics. Anticoagulated with Xarelto. On 05/07/2019 patient seen in follow-up on general medical floor. She is doing better today, breathing is improving, she is feeling stronger, still some congestion, lung sounds reveal some scattered rhonchi, FiO2 is currently down to 2 L pulse ox is 96%, no fever or chills, does have exertional dyspnea, lung sounds have been stable. Patient is being treated with a combination of IV steroids, IV diuretics, nebulized bronchodilator's, and empiric antibiotics. On 05/09/2019 patient seen in follow-up on general medical floor. She is sitting up in the chair, in no acute distress, currently on 2 L of oxygen and a pulse ox of 94-98%, afebrile, hemodynamically stable, no worsening dyspnea. Lung sounds reveal some rales and some scattered rhonchi in the chest. No complete chest pain, occasional sputum production, yesterday we added flutter valve. Blood and sputum cultures remain negative thus far. On oral prednisone, breathing treatments we stopped antibiotics. On 05/10/2019 patient seen in follow-up. Awake and alert, no acute distress, she sits up in the recliner, breathing is stable, she is known to have liters of oxygen with a pulse ox of 96%, No fever or chills. Lung sounds reveal diminished breath sounds, with some scattered wheezing, but overall less bronchospastic and less congested. She states at times she is bringing up some dark old blood with her phlegm. No complaints of chest pain, patient is on antibiotics, steroids, breathing treatments. Blood and sputum cultures are negative thus far, final cultures are pending Objective - Vital Signs Vital signs: Vital Signs Temp 98.1 F 05/10/19 07:00 Pulse 90 05/10/19 12:27 Resp 15 05/10/19 07:00 BP 105/68 05/10/19 07:00 Pulse Ox 96 05/10/19 09:00 Intake & Output 05/09/19 05/10/19 05/10/19 18:59 06:59 18:59 Intake Total 950 400 Balance 950 400 Weight 89.3 kg Intake: Oral 950 400 Other: Voiding Method Toilet Toilet # Voids 3 2 1 # Bowel Movements 1 - Exam GENERAL EXAM: Alert, very pleasant, 73-year-old white female, sitting up in the recliner, in 2,5 L of oxygen, comfortable in no apparent distress. HEAD: Normocephalic/atraumatic. EYES: Normal reaction of pupils, equal size. Conjunctiva pink, sclera white. NOSE: Clear with pink turbinates. THROAT: No erythema or exudates. NECK: No masses, no JVD, no thyroid enlargement, no adenopathy. CHEST: No chest wall deformity. Symmetrical expansion. LUNGS: Equal air entry with scattered rhonchi CVS: Regular rate and rhythm, normal S1 and S2, no gallops, no murmurs, no rubs ABDOMEN: Soft, nontender. No hepatosplenomegaly, normal bowel sounds, no guarding or rigidity. EXTREMITIES: No clubbing, no edema, no cyanosis, 2+ pulses and upper and lower extremities. MUSCULOSKELETAL: Muscle strength and tone normal. SPINE: No scoliosis or deformity SKIN: No rashes CENTRAL NERVOUS SYSTEM: Alert and oriented -3. No focal deficits, tone is normal in all 4 extremities. PSYCHIATRIC: Alert and oriented -3. Appropriate affect. Intact judgment and insight. - Labs CBC & Chem 7: 05/10/19 12:37 05/08/19 07:07 Labs: Abnormal Lab Results - Last 24 Hours (Table) 05/09/19 05/09/19 05/10/19 Range/Units 16:36 20:49 06:55 WBC (3.8-10.6) k/uL RBC (3.80-5.40) m/uL Hgb (11.4-16.0) gm/dL RDW (11.5-15.5) % Neutrophils # (1.3-7.7) k/uL Lymphocytes # (1.0-4.8) k/uL POC Glucose (mg/dL) 212 H 235 H 139 H (75-99) mg/dL 05/10/19 05/10/19 Range/Units 11:41 12:37 WBC 14.7 H (3.8-10.6) k/uL RBC 3.67 L (3.80-5.40) m/uL Hgb 11.3 L (11.4-16.0) gm/dL RDW 16.4 H (11.5-15.5) % Neutrophils # 12.9 H (1.3-7.7) k/uL Lymphocytes # 0.8 L (1.0-4.8) k/uL POC Glucose (mg/dL) 153 H (75-99) mg/dL Microbiology - Last 24 Hours (Table) 05/04/19 16:25 Blood Culture - Preliminary Blood No Growth after 120 hours 05/09/19 08:09 Gram Stain - Preliminary Sputum Sputum Culture - Preliminary Assessment and Plan Plan: Assessment: 1 Acute exacerbation of chronic obstructive pulmonary disease with no clear evidence of pneumonia. Recently discharged less than one month ago for COPD e xacerbation. Influenza screen negative. No leukocytosis. 2 Chronic tobacco dependence currently in remission 3 Lower extremity edema 4 Paroxysmal atrial fibrillation, adequately regulated with Xarelto 5 Hypertension. 6 Hyperlipidemia. 7 Diabetes mellitus, type II 8 Depressive disorder. 9 Esophageal reflux disease 10 Iliac artery aneurysm on the right an infrarenal abdominal aortic aneurysm, status post repair 11 Pozo's esophagus 12 History of TIA 13 History of right lower extremity DVT 14 Chronic back pain Plan: Vital signs are stable, breathing is improving, no fever or chills, occasional hemoptysis with production of old blood, no chest pain, patient has been treated with antibiotics, steroids, nebulized bronchodilators, she is anticipated to be discharged home today with home care. Outpatient follow-up with Dr. Enamorado in the office in 7-10 days. I performed a history & physical examination of the patient and discussed their management with my nurse practitioner, Maria Elena Verduzco. I reviewed the nurse practitioner's note and agree with the documented findings and plan of care. Lung sounds are positive for diffuse rhonchi throughout the lung pierce. The findings and the impression was discussed with the patient. I attest to the documentation by the nurse practitioner. Time with Patient: Less than 30
[2019-05-10 16:13] VITALS: PULSE 82
[2019-05-10 16:45] LABS: Glucose,Whole Blood 207 mg/dL (75-99)
--- NOTE | 2019-05-11 08:46 | P.DS ---
Providers Date of admission: 05/06/19 13:02 Expected date of discharge: 05/10/19 Attending physician: Kalyan Cornelius Consults: 05/04/19 19:26 Consult Physician Routine Consulting Provider: Rick Enamorado Reason/Comments: dyspnea Do you want consulting provider notified?: Yes Primary care physician: Hope Knowles Hospital Course: Final diagnosis Shortness of breath, possibly multifactorial with chronic obstructive pulmonary disease, acute exacerbation as well as congestive heart failure acute exacerbation with acute on chronic diastolic dysfunction, ejection fraction 50- 60% with possible healthcare associated pneumonia Possible basilar atelectasis and bronchopneumonia History of atrial fibrillation, paroxysmal History of asthma, chronic obstructive pulmonary disease History of CVA/TIA Diabetes mellitus type 2 history of deep vein thrombosis history of gastroesophageal reflux disease Hypertension History of hyperlipidemia history of degenerative joint disease History of pneumonia History of abdominal aortic aneurysm and iliac aneurysm with surgery History of previous acute hypoxic respiratory failure History of transient ischemic attack History of Pozo's esophagitis History of lower gastrointestinal bleeding with diverticular bleed, possibly History of vertigo history of appendectomy History of cholecystectomy History of depression Gait dysfunction remote history of nicotine dependence Obesity, body mass index of 34.5 Full code Discharge disposition Patient is being discharged in a stable condition with guarded prognosis to home and will have continued homecare and the outpatient setting. She will follow-up with Dr. Knowles in the outpatient setting upon discharge. Patient will continue on bronchodilators along with a prednisone taper upon discharge. Total time taken is 35 minutes. History of present illness This is a 73-year-old female who was recently admitted with multiple medical problems including chronic obstructive pulmonary disease acute exacerbation, congestive heart failure acute exacerbation and was being closely monitored. Patient was maintained on bronchodilators along with IV steroids that a transition to oral steroids and has completed a course of antibiotics during this hospital admission. Patient did not qualify for rehab as she continued to show improvements in her gait and everyday functioning with physical therapy. She will continue in the outpatient setting with home care along with physical therapy at is been arranged from social work. Patient continues to have some mild hemoptysis with old blood due to her course cough and patient is also noted to be on Xarelto. Patient continues to bring up some phlegm. Repeat chest x- ray was done today showing overall improvement. CBC was done and within normal limits today. Currently patient has no reports of chest pain or palpitations. Patient is afebrile. Patient denies any nausea or vomiting and has been tolerating diet. Discussed with the patient and daughter at the bedside at length about continuing with home care and physical therapy to continue with strength and mobility exercises as patient does live alone. Patient will be following up with Dr. Knowles in the outpatient setting upon discharge. Patient will also follow-up with Dr. Enamorado in the outpatient setting in 1-2 weeks. Guarded prognosis. On exam vital signs are stable. Temp is 98.1F, pulse is 79, respirations are 15, blood pressure is 105/68, oxygen saturation is 98% on 2 L via nasal cannula. Cardio S1, S2 are muffled. Respiratory system shows diminished breath sounds at the bases with some mild rhonchi and expiratory wheezing noted. Abdomen is soft, obese, nontender. Nervous system shows mild diffuse weakness. Please refer to medication reconciliation sheet for a list of medications. Patient Condition at Discharge: Fair Plan - Discharge Summary Discharge Rx Participant: Yes New Discharge Prescriptions: New predniSONE 10 mg PO DIRECTED #30 tab Continue Omeprazole [PriLOSEC] 20 mg PO AC-BRKFST Simvastatin [Zocor] 40 mg PO HS Rivaroxaban [Xarelto] 20 mg PO HS [place]-3 Fatty Acids/Fish Oil [Fish Oil 1,000 mg Softgel] 1 cap PO DAILY Citalopram Hydrobromide [CeleXA] 40 mg PO DAILY metFORMIN HCL [Glucophage Xr] 750 mg PO PC-SUPPER Albuterol Nebulized [Ventolin Nebulized] 2.5 mg INHALATION RT-Q8H Budesonide/Formoterol Fumarate [Symbicort 160-4.5 Mcg Inhaler] 2 puff INHALATION RT-BID Ipratropium-Albuterol Nebulize [Duoneb 0.5 mg-3 mg/3 ml Soln] 3 ml INHALATION RT-QID ampul.neb Verapamil [Isoptin] 80 mg PO TID #0 tab Sennosides [Senokot] 8.6 mg PO DAILY tab Calcium Carbonate/Vitamin D3 [Calcium 500-Vit D3 200 Tablet] 1 tab PO DAILY Lisinopril [Zestril] 5 mg PO DAILY Spironolactone 12.5 mg PO DAILY Furosemide [Lasix] 40 mg PO BID Fluticasone/Vilanterol [Breo Ellipta 100-25 Mcg Inhaler] 1 inhalation PO Q24HR Insulin Glargine,Hum.rec.anlog [Basaglar Kwikpen U-100] 40 unit SQ HS Atorvastatin [Lipitor] 20 mg PO DAILY Discharge Medication List Omeprazole [PriLOSEC] 20 mg PO AC-BRKFST 04/23/15 [History] [place]-3 Fatty Acids/Fish Oil [Fish Oil 1,000 mg Softgel] 1 cap PO DAILY 12/02/16 [History] Rivaroxaban [Xarelto] 20 mg PO HS 12/02/16 [History] Simvastatin [Zocor] 40 mg PO HS 12/02/16 [History] Citalopram Hydrobromide [CeleXA] 40 mg PO DAILY 03/10/18 [History] metFORMIN HCL [Glucophage Xr] 750 mg PO PC-SUPPER 03/14/18 [History] Albuterol Nebulized [Ventolin Nebulized] 2.5 mg INHALATION RT-Q8H 04/02/19 [History] Budesonide/Formoterol Fumarate [Symbicort 160-4.5 Mcg Inhaler] 2 puff INHALATION RT-BID 04/02/19 [History] Ipratropium-Albuterol Nebulize [Duoneb 0.5 mg-3 mg/3 ml Soln] 3 ml INHALATION RT-QID ampul.neb 04/11/19 [Rx] Sennosides [Senokot] 8.6 mg PO DAILY tab 04/11/19 [Rx] Verapamil [Isoptin] 80 mg PO TID #0 tab 04/11/19 [Rx] Atorvastatin [Lipitor] 20 mg PO DAILY 05/04/19 [History] Calcium Carbonate/Vitamin D3 [Calcium 500-Vit D3 200 Tablet] 1 tab PO DAILY 05/04/19 [History] Fluticasone/Vilanterol [Breo Ellipta 100-25 Mcg Inhaler] 1 inhalation PO Q24HR 05/04/19 [History] Furosemide [Lasix] 40 mg PO BID 05/04/19 [History] Insulin Glargine,Hum.rec.anlog [Basaglar Kwikpen U-100] 40 unit SQ HS 05/04/19 [History] Lisinopril [Zestril] 5 mg PO DAILY 05/04/19 [History] Spironolactone 12.5 mg PO DAILY 05/04/19 [History] predniSONE 10 mg PO DIRECTED #30 tab 05/10/19 [Rx] Follow up Appointment(s)/Referral(s): Residential Home,Health [NON-STAFF] - As Needed Hope Knowles MD [Primary Care Provider] - 05/16/19 12:00 pm Patient Instructions/Handouts: Chronic Lung Disease and Infection Prevention (DC) Activity/Diet/Wound Care/Special Instructions: Activity Limited until follow-up Continue current diet Continue with prednisone taper Continue with home care/ outpatient physical therapy Follow up with primary care provider upon discharge Discharge Disposition: HOME WITH HOME HEALTH SERVICES
== END 2019-05-10 17:06 | disposition home health service (06) | DRG 190 ==
LOC: EC 15:41 → 4SSUR 19:25 → OBSVTOIN 05-06 13:02 → 4SSUR 05-09 23:25
PROVIDERS: ADMIT Hospitalist; ATTEND Hospitalist
DX: J44.1 Chronic obstructive pulmonary disease with (acute) exacerbation (principal); J18.0 Bronchopneumonia, unspecified organism; I50.33 Acute on chronic diastolic (congestive) heart failure; R04.2 Hemoptysis; I11.0 Hypertensive heart disease with heart failure; J44.0 Chronic obstructive pulmonary disease with (acute) lower respiratory infection; E11.9 Type 2 diabetes mellitus without complications; K21.9 Gastro-esophageal reflux disease without esophagitis; E78.5 Hyperlipidemia, unspecified; M19.90 Unspecified osteoarthritis, unspecified site; K22.70 Barrett's esophagus without dysplasia; F32.9 Major depressive disorder, single episode, unspecified; E66.9 Obesity, unspecified; M54.30 Sciatica, unspecified side; L40.9 Psoriasis, unspecified; G89.29 Other chronic pain; K57.30 Diverticulosis of large intestine without perforation or abscess without bleeding; M54.9 Dorsalgia, unspecified; R26.9 Unspecified abnormalities of gait and mobility; Z79.01 Long term (current) use of anticoagulants; Z79.51 Long term (current) use of inhaled steroids; Z79.899 Other long term (current) drug therapy; Z79.4 Long term (current) use of insulin; Z86.79 Personal history of other diseases of the circulatory system; Z87.891 Personal history of nicotine dependence; Z86.73 Personal history of transient ischemic attack (TIA), and cerebral infarction without residual deficits; Z86.718 Personal history of other venous thrombosis and embolism; Z87.01 Personal history of pneumonia (recurrent); Z90.49 Acquired absence of other specified parts of digestive tract; Z68.34 Body mass index [BMI] 34.0-34.9, adult; Z87.2 Personal history of diseases of the skin and subcutaneous tissue; Z98.890 Other specified postprocedural states; Z86.010 Personal history of colon polyps; Z87.19 Personal history of other diseases of the digestive system; Z98.42 Cataract extraction status, left eye; Z98.41 Cataract extraction status, right eye; Z96.1 Presence of intraocular lens; Z87.09 Personal history of other diseases of the respiratory system; Z88.0 Allergy status to penicillin; Z91.040 Latex allergy status; Z82.49 Family history of ischemic heart disease and other diseases of the circulatory system; Z80.1 Family history of malignant neoplasm of trachea, bronchus and lung
CPT/HCPCS: 36415; 71045; 71046; 80048; 80053; 80202; 81003; 83605; 83735; 83880; 84145; 84484; 85025; 85610; 85730; 87040; 87070; 87205; 87502; 93005; 94640; 94667; 94760; 96365; 96366; 96367; 99285